=== PATIENT | male | born 1955 | race Caucasian/White ===

== ENCOUNTER 2025-03-28 19:44 | Inpatient (IN) | payer MEDICARE, OTHER ==
--- NOTE | 2025-03-28 20:03 | ED ---
Recheck HPI - General Chief Complaint: Chest Pain Stated Complaint: NSTEMI, Decreased Renal Function Time Seen by Provider: 03/28/25 19:55 Source: EMS, RN notes reviewed Limitations: no limitations - History of Present Illness Initial Comments: This is a 70 male to the ER for evaluation patient presents today for evaluation of chest pain chest pain and shortness of breath history of heart disease. Patient is transferred to our hospital for elevated troponin at outside facility presents to our ER with chest pain, patient is on a heparin for elevated troponin MD Complaint: abnormal lab (Elevated troponin) -: hour(s) Returns Today for: Called Because of Abnormal Lab/Test, persistent/worsening pain related to initial visit (Persistent chest pain) Symptoms Since Prior Visit: worsening pain Associated Symptoms: none Treatments Prior to Arrival: other (0) - Related Data Home Medications Medication Instructions Recorded Confirmed Pregabalin [Lyrica] 100 mg PO DAILY 04/26/14 03/29/25 Fenofibrate 160 mg PO DAILY 07/24/16 03/29/25 allopurinoL [Zyloprim] 300 mg PO DAILY 07/24/16 03/29/25 Cholecalciferol [Vitamin D3 (25 25 mcg PO DAILY 03/29/25 03/29/25 Mcg = 1000 Iu)] Furosemide [Lasix] 40 mg PO DAILY 03/29/25 03/29/25 HYDROcodone/APAP 7.5-325MG [[place] 1 tab PO Q8H PRN 03/29/25 03/29/25 7.5-325] Metoprolol Succinate [Toprol XL] 50 mg PO DAILY 03/29/25 03/29/25 Olmesartan Medoxomil [Benicar] 40 mg PO DAILY 03/29/25 03/29/25 amLODIPine [Norvasc] 10 mg PO DAILY 03/29/25 03/29/25 glipiZIDE [Glucotrol] 5 mg PO DAILY 03/29/25 03/29/25 Previous Rx's Medication Instructions Recorded Ascorbic Acid [Vitamin C] 500 mg PO DAILY #90 tab 04/01/25 Aspirin 81 mg PO DAILY #90 tab 04/01/25 Atorvastatin [Lipitor] 40 mg PO HS #90 tab 04/01/25 Dapagliflozin Propanediol [Farxiga] 10 mg PO DAILY #30 tab 04/01/25 Ferrous Sulfate [Iron (65 MG 325 mg PO W/LUNCH #90 tab 04/01/25 Elemental)] Insulin Glargine,Hum.rec.anlog 20 units SQ DAILY #0 04/01/25 [Lantus Solostar Pen] Allergies Allergy/AdvReac Type Severity Reaction Status Date / Time No Known Allergies Allergy Verified 03/29/25 08:00 Review of Systems ROS Statement: Those systems with pertinent positive or pertinent negative responses have been documented in the HPI. ROS Other: All systems not noted in ROS Statement are negative. Past Medical History Past Medical History: Diabetes Mellitus, Fibromyalgia, Hyperlipidemia, Hypertension Additional Past Medical History / Comment(s): hx migraines, gout, History of Any Multi-Drug Resistant Organisms: None Reported Past Surgical History: Hernia Repair Past Anesthesia/Blood Transfusion Reactions: Motion Sickness Past Psychological History: No Psychological Hx Reported Smoking Status: Never smoker Past Alcohol Use History: None Reported Past Drug Use History: None Reported - Past Family History Father Family Medical History: Cancer Mother Family Medical History: Cancer General Exam Limitations: no limitations General appearance: alert, in no apparent distress Head exam: Present: atraumatic, normocephalic, normal inspection Eye exam: Present: normal appearance, PERRL, EOMI. Absent: scleral icterus, conjunctival injection, periorbital swelling ENT exam: Present: normal exam, mucous membranes moist Neck exam: Present: normal inspection. Absent: tenderness, meningismus, lymphadenopathy Respiratory exam: Present: normal lung sounds bilaterally. Absent: respiratory distress, wheezes, rales, rhonchi, stridor Cardiovascular Exam: Present: regular rate, normal rhythm, normal heart sounds. Absent: systolic murmur, diastolic murmur, rubs, gallop, clicks GI/Abdominal exam: Present: soft, normal bowel sounds. Absent: distended, tenderness, guarding, rebound, rigid Extremities exam: Present: normal inspection, full ROM, normal capillary refill. Absent: tenderness, pedal edema, joint swelling, calf tenderness Back exam: Present: normal inspection Neurological exam: Present: alert, oriented X3, CN II-XII intact Psychiatric exam: Present: normal affect, normal mood Skin exam: Present: warm, dry, intact, normal color. Absent: rash Course Vital Signs 03/28/25 03/28/25 03/29/25 19:52 23:06 01:36 Temperature 98.5 F Pulse Rate 97 72 70 Respiratory 20 18 18 Rate Blood Pressure 140/67 140/94 131/79 O2 Sat by Pulse 94 L 97 98 Oximetry 03/29/25 03/29/25 03/29/25 03:05 06:32 07:46 Temperature Pulse Rate 64 75 Respiratory 18 18 Rate Blood Pressure 130/80 125/75 O2 Sat by Pulse 96 97 97 Oximetry 03/29/25 03/29/25 03/29/25 07:47 08:01 09:00 Temperature 97.5 F L Pulse Rate 66 66 58 L Respiratory 18 18 18 Rate Blood Pressure 124/88 117/60 130/72 O2 Sat by Pulse 95 94 L 97 Oximetry 03/29/25 03/29/25 03/29/25 11:00 12:00 14:00 Temperature 97.6 F Pulse Rate 60 60 73 Respiratory 20 18 18 Rate Blood Pressure 114/66 122/68 128/76 O2 Sat by Pulse 97 97 97 Oximetry 03/29/25 03/29/25 03/29/25 15:15 15:56 17:00 Temperature Pulse Rate 66 70 70 Respiratory 18 18 18 Rate Blood Pressure 118/58 118/58 128/78 O2 Sat by Pulse 97 95 Oximetry 03/29/25 03/29/25 03/29/25 18:00 19:00 20:00 Temperature Pulse Rate 78 72 Respiratory 18 18 Rate Blood Pressure 118/64 126/60 129/65 O2 Sat by Pulse 92 L Oximetry 03/29/25 03/29/25 03/29/25 21:00 22:00 23:00 Temperature Pulse Rate 79 76 80 Respiratory 18 18 20 Rate Blood Pressure 113/65 121/68 131/80 O2 Sat by Pulse 93 L 95 Oximetry 03/30/25 00:34 Temperature Pulse Rate 86 Respiratory 20 Rate Blood Pressure 128/69 O2 Sat by Pulse 95 Oximetry - Reevaluation(s) Reevaluation #1: 03/28/25 21:38 Medical records reviewed Transferring records reviewed including elevated troponin Reevaluation #2: 03/28/25 21:38 Patient informed of results questions answered Reevaluation #3: 03/28/25 21:38 Patient is still with chest pain still with nausea here in the ER Patient informed of results and questions answered Reevaluation #4: Was pt. sent in by a medical professional or institution (, PA, CLASS C TRUCK DRIVER, urgent care, hospital, or jail...) When possible be specific @ -no Did you speak to anyone other than the patient for history (EMS, parent, family, police, friend...)? What history was obtained from this source @ -no Did you review nursing and triage notes (agree or disagree)? Why? @ -agree Are old charts reviewed (outside hosp., previous admission, EMS record, old EKG, old radiological studies, urgent care reports/EKG's, jail records)? Rep ort findings @ -yes Differential Diagnosis (chest pain, altered mental status, abdominal pain women, abdominal pain men, vaginal bleeding, weakness, fever, dyspnea, syncope, headache, dizziness, GI bleed, back pain, seizure, CVA, palpatations, mental health, musculoskeletal)? @ -prior EKG interpreted by me (3pts min.). @ -yes X-rays interpreted by me (1pt min.). @ -yes positive for CHF CT interpreted by me (1pt min.). @ -no U/S interpreted by me (1pt. min.). @ -no What testing was considered but not performed or refused? (CT, X-rays, U/S, labs)? Why? @ -none What meds were considered but not given or refused? Why? @ -none Did you discuss the management of the patient with other professionals (professionals i.e. , PA, CLASS C TRUCK DRIVER, lab, RT, psych nurse, social science professor, stock cutter, teacher, property utilization officer, cyanide case hardener)? Give summary @ -no Was smoking cessation discussed for >3mins.? @ -no Was critical care preformed (if so, how long)? @ -yes31 Were there social determinants of health that impacted care today? How? (Homelessness, low income, unemployed, alcoholism, drug addiction, tra nsportation, low edu. Level, literacy, decrease access to med. care, chcf, rehab)? @ -none Was there de-escalation of care discussed even if they declined (Discuss DNR or withdrawal of care, Hospice)? DNR status @ -no What co-morbidities impacted this encounter? (DM, HTN, Smoking, COPD, CAD, Cance r, CVA, ARF, Chemo, Hep., AIDS, mental health diagnosis, sleep apnea, morbid obesity)? @ -none Was patient admitted / discharged? Hospital course, mention meds given and route, prescriptions, significant lab abnormalities, going to OR and other pertinent info. @ - 70 male excepted in transfer to the ER for elevated troponin chest pain patient also having some shortness of breath here with pulmonary edema on x-ray CHF and elevated troponin will continue heparin and evaluate for need for diuresis, also acute kidney injury Admitted Undiagnosed new problem with uncertain prognosis? @ -no Drug Therapy requiring intensive monitoring for toxicity (Heparin, Nitro, Insulin, Cardizem)? @ -no Were any procedures done? @ -no Diagnosis/symptom? @ -CHF dyspnea with elevated troponin and chest pain Acute, or Chronic, or Acute on Chronic? @ -Acute Uncomplicated (without systemic symptoms) or Complicated (systemic symptoms)? @ -Complicated Side effects of treatment? @ -no Exacerbation, Progression, or Severe Exacerbation? @ -exacerbation Poses a threat to life or bodily function? How? (Chest pain, [place], [place], pneumonia, PE, COPD, DKA, ARF, appy, cholecystitis, CVA, Diverticulitis, Homicidal, Suicidal, threat to staff... and all critical care pts) @ -yes with significant chest pain and CHF Reevaluation #5: Differential Chest Pain: Stable Angina, Unstable Angina, STEMI, NSTEMI Aortic Dissection, Pneumothorax, Musculoskeletal, Esophageal Spasm GERD, Cholecystitis, Pancreatitis, Zoster, this is not meant to be an all-inclusive list. - Consultations Consultation #1: Spoke with sound who agrees to admit this patient Medical Decision Making - Medical Decision Making 70 male excepted in transfer to the ER for elevated troponin chest pain patient also having some shortness of breath here with pulmonary edema on x-ray CHF and elevated troponin will continue heparin and evaluate for need for diuresis, also acute kidney injury - Lab Data Result diagrams: 04/01/25 07:05 04/01/25 07:05 Lab Results 03/28/25 03/28/25 03/28/25 Range/Units 20:02 20:09 20:09 WBC 9.01 (4.50-10.00) 10*3/uL RBC 3.95 L (4.40-5.60) 10*6/uL Hgb 11.3 L (13.0-17.0) g/dL Hct 34.7 L (39.6-50.0) % MCV 87.8 (80.0-97.0) fL MCH 28.6 (27.0-32.0) pg MCHC 32.6 (32.0-37.0) g/dL Plt Count 390 (140-440) 10*3/uL MPV 8.6 L (9.5-12.2) fL Immature Gran % (Auto) 0.4 % Neutrophils % 64.2 % Lymphocytes % 22.0 % Monocytes % 7.4 % Eosinophils % 4.4 % Basophils % 1.6 % Immature Gran # 0.04 (0.00-0.04) 10*3/uL Neutrophils # 5.78 (1.80-7.70) 10*3/uL Lymphocytes # 1.98 (0.90-5.00) 10*3/uL Monocytes # 0.67 (0.20-1.00) 10*3/uL Eosinophils # 0.40 H (0.04-0.35) 10*3/uL Basophils # 0.14 H (0.00-0.10) 10*3/uL PT 12.2 (10.0-12.5) sec INR 1.1 (<1.2) APTT 26.9 (22.0-30.0) sec D-Dimer 0.54 (<0.60) mg/L FEU Sodium (137-145) mmol/L Potassium (3.5-5.1) mmol/L Chloride (98-107) mmol/L Carbon Dioxide (22-30) mmol/L Anion Gap mmol/L BUN (9-20) mg/dL Creatinine (0.66-1.25) mg/dL Est GFR (CKD-EPI)AfAm (>60 ml/min/1.73 sqM) Est GFR (CKD-EPI)NonAf (>60 ml/min/1.73 sqM) Glucose (74-99) mg/dL POC Glucose (mg/dL) 86 (70-110) mg/dL POC Glu Mental Health Aide ID LINH SCIAND Calcium (8.4-10.2) mg/dL Magnesium (1.6-2.3) mg/dL Total Bilirubin (0.2-1.3) mg/dL AST (17-59) U/L ALT (4-49) U/L Alkaline Phosphatase (38-126) U/L Troponin I (0.000-0.034) ng/mL NT-Pro-B Natriuret Pep pg/mL Total Protein (6.3-8.2) g/dL Albumin (3.5-5.0) g/dL Lipase (23-300) U/L 03/28/25 03/28/25 Range/Units 20:09 20:09 WBC (4.50-10.00) 10*3/uL RBC (4.40-5.60) 10*6/uL Hgb (13.0-17.0) g/dL Hct (39.6-50.0) % MCV (80.0-97.0) fL MCH (27.0-32.0) pg MCHC (32.0-37.0) g/dL Plt Count (140-440) 10*3/uL MPV (9.5-12.2) fL Immature Gran % (Auto) % Neutrophils % % Lymphocytes % % Monocytes % % Eosinophils % % Basophils % % Immature Gran # (0.00-0.04) 10*3/uL Neutrophils # (1.80-7.70) 10*3/uL Lymphocytes # (0.90-5.00) 10*3/uL Monocytes # (0.20-1.00) 10*3/uL Eosinophils # (0.04-0.35) 10*3/uL Basophils # (0.00-0.10) 10*3/uL PT (10.0-12.5) sec INR (<1.2) APTT (22.0-30.0) sec D-Dimer (<0.60) mg/L FEU Sodium 139 (137-145) mmol/L Potassium 5.0 (3.5-5.1) mmol/L Chloride 106 (98-107) mmol/L Carbon Dioxide 23 (22-30) mmol/L Anion Gap 10 mmol/L BUN 31 H (9-20) mg/dL Creatinine 2.19 H (0.66-1.25) mg/dL Est GFR (CKD-EPI)AfAm 34 (>60 ml/min/1.73 sqM) Est GFR (CKD-EPI)NonAf 30 (>60 ml/min/1.73 sqM) Glucose 83 (74-99) mg/dL POC Glucose (mg/dL) (70-110) mg/dL POC Glu Mental Health Aide ID Calcium 9.2 (8.4-10.2) mg/dL Magnesium 1.9 (1.6-2.3) mg/dL Total Bilirubin 1.0 (0.2-1.3) mg/dL AST 56 (17-59) U/L ALT 29 (4-49) U/L Alkaline Phosphatase 33 L (38-126) U/L Troponin I 0.072 H* (0.000-0.034) ng/mL NT-Pro-B Natriuret Pep 4150 pg/mL Total Protein 7.4 (6.3-8.2) g/dL Albumin 3.8 (3.5-5.0) g/dL Lipase 167 (23-300) U/L - EKG Data -: EKG Interpreted by Me (EKG is normal sinus 96 SD 264 QRS 99 QTc 390) - Radiology Data Radiology results: report reviewed (Chest x-ray is positive for pulmonary edema), image reviewed Critical Care Time Critical Care Time: Yes Total Critical Care Time: 31 Disposition Clinical Impression: Chest pain, Acute non-ST elevation myocardial infarction (NSTEMI), CHF (congestive heart failure), Pulmonary edema, YOBANI (acute kidney injury) Disposition: ADMITTED IP TO THIS HOSP Condition: Serious Is patient prescribed a controlled substance at d/c from ED?: No Time of Disposition: 21:30
[2025-03-28 20:04] LABS: Glucose,Whole Blood 86 mg/dL (70-110)
[2025-03-28] MEDS: MORPHINE SULFATE 4 MG/ML SYRINGE IV STA (20:20)
[2025-03-28] MEDS: HEPARIN SOD,PORK IN 0.45% NACL 25,000 UNIT in 0.45% NACL 1 250ML.BAG IV SCH (20:24)
[2025-03-28 20:26] LABS: Basophils # (A) 0.14 10*3/uL (0.00-0.10); Basophils % (A) 1.6 %; Eosinophils % (A) 4.4 %; HCT 34.7 % (39.6-50.0); HGB 11.3 g/dL (13.0-17.0); Lymphocytes # (A) 1.98 10*3/uL (0.90-5.00); MCH 28.6 pg (27.0-32.0); MCHC 32.6 g/dL (32.0-37.0); MCV 87.8 fL (80.0-97.0); Mean Platelet Volume 8.6 fL (9.5-12.2); Monocytes # (A) 0.67 10*3/uL (0.20-1.00); Monocytes % (A) 7.4 %; Neutrophils # (A) 5.78 10*3/uL (1.80-7.70); Neutrophils % (A) 64.2 %; Platelet Count 390 10*3/uL (140-440); RBC 3.95 10*6/uL (4.40-5.60); RDW 14.9 % (11.5-14.5); WBC 9.01 10*3/uL (4.50-10.00)
[2025-03-28 20:43] LABS: INR 1.1 (<1.2); Partial Thromboplastin Time 26.9 sec (22.0-30.0); Prothrombin Time 12.2 sec (10.0-12.5)
[2025-03-28 20:53] LABS: ALT 29 U/L (4-49); African American GFR (CKD) 34 (>60 ml/min/1.73 sqM); Anion Gap 10 mmol/L; Blood Urea Nitrogen 31 mg/dL (9-20); Calcium 9.2 mg/dL (8.4-10.2); Carbon Dioxide 23 mmol/L (22-30); Chloride 106 mmol/L (98-107); Glucose 83 mg/dL (74-99); Lipase 167 U/L (23-300); Non-African American GFR(CKD) 30 (>60 ml/min/1.73 sqM); Sodium 139 mmol/L (137-145)
[2025-03-28 20:59] LABS: NT-Pro-B-Type Natriuretic Pept 4150 pg/mL
--- NOTE | 2025-03-28 20:59 | XR ---
EXAMINATION TYPE: XR chest 2V DATE OF EXAM: 03/28/2025 8:45 PM COMPARISON: None CLINICAL INDICATION: Male, 70 years old with history of Chest Pain; [facility] TECHNIQUE: XR chest 2V Frontal and lateral views of the chest. FINDINGS: Lungs/Pleura: No evidence of focal consolidation or pneumothorax. Blunting of the costophrenic angles is present. Pulmonary vascularity: Pulmonary vascular congestion. Heart/mediastinum: Cardiomediastinal silhouette is unremarkable. Musculoskeletal: No acute osseous pathology. IMPRESSION: Pulmonary edema blunting of the costophrenic angles correlate for volume overload/congestive heart fa ilure. [facility], , 03/28/2025 8:57 PM
[2025-03-28 21:21] LABS: AST 56 U/L (17-59); Albumin 3.8 g/dL (3.5-5.0); Magnesium 1.9 mg/dL (1.6-2.3); Total Protein 7.4 g/dL (6.3-8.2)
[2025-03-28 21:22] LABS: Alkaline Phosphatase 33 U/L (38-126)
[2025-03-28] MEDS ORDERED: NALOXONE 0.4 MG/ML 1 ML VIAL IV PRN (21:35)
[2025-03-29] MEDS: SODIUM CHLORIDE 0.9% 1,000 ML IV SCH (00:10)
[2025-03-29] MEDS: MORPHINE SULFATE 4 MG/ML SYRINGE IV PRN (00:10)
[2025-03-29] MEDS: FUROSEMIDE 10 MG/ML 10 ML VIAL IV STA (00:33)
[2025-03-29] MEDS: LORazepam 2 MG/ML INJ IV STA (01:37)
--- NOTE | 2025-03-29 03:14 | P.HPIM ---
History of Present Illness H&P Date: 03/28/25 Chief Complaint: Chest pain 70-year-old male with diabetes mellitus, hypertension Patient coming in for evaluation of progressive chest pain he reports that for the past few months he would get chest pain with activity however he has not seek any medical evaluation he has been taking some aspirin for that today he was not doing much when he was trying to get to bed and suddenly started experiencing chest discomfort retrosternal and radiating diffusely to the chest associated with trouble breathing pain was like 8 out of 10 in severity took aspirin for it slightly improved drove himself to the hospital denies any associated nausea vomiting or profuse sweating he denies any recent travel or hospital stay denies any history of blood clots he denies any upper respiratory infection symptoms denies any coughing fevers or chills denies any nausea vomiting denies abdominal pain changes in bowel or urinary habits Patient denies any tobacco smoking illicit drugs or heavy alcohol review of systems Pertinent positives as noted in HPI. All other systems were reviewed and are negative on exam Constitutional: No acute distress, conversant, pleasant Eyes: Anicteric sclerae, moist conjunctiva, Pupils equal round reactive to light ENMT: NC/AT Oropharynx clear, no erythema, or exudates Neck: Supple, no masses, or JVD No carotid bruits No thyromegaly Lungs: Good breath sounds bilaterally with scattered inspiratory rales at lung bases Clear to percussion Normal respiratory effort, no accessory muscle use Cardiovascular: Heart regular in rate and rhythm, No murmurs, gallops, or rubs No peripheral edema Abdominal: Soft Nontender, no guarding, rebound or rigidity Abdomen moving with respiration Normoactive bowel sounds Extremities: No digital cyanosis No clubbing Pedal pulses intact and symmetrical Radial pulses intact and symmetrical No calf tenderness Psychiatric: Alert and oriented to person, place and time Appropriate affect fair judgement Neuro Muscles Strength 5/5 in all 4 extremities Sensation to light touch grossly present throughout Cranial nerves II-XII grossly intact Past Medical History Past Medical History: Diabetes Mellitus, Fibromyalgia, Hyperlipidemia, Hypertension Additional Past Medical History / Comment(s): hx migraines, gout, History of Any Multi-Drug Resistant Organisms: None Reported Past Surgical History: Hernia Repair Past Anesthesia/Blood Transfusion Reactions: Motion Sickness Past Psychological History: No Psychological Hx Reported Smoking Status: Never smoker Past Alcohol Use History: None Reported Past Drug Use History: None Reported - Past Family History Father Family Medical History: Cancer Mother Family Medical History: Cancer Medications and Allergies Home Medications Medication Instructions Recorded Confirmed Type Insulin Glargine (Lantus) [Lantus] 100 unit SQ QAM 04/26/14 07/26/16 History Pregabalin [Lyrica] 100 mg PO TID 04/26/14 07/26/16 History hydroCHLOROthiazide [Hydrodiuril] 25 mg PO DAILY 04/26/14 07/26/16 History Ergocalciferol [Vitamin D2] 1.25 mg PO Q7D 07/24/16 07/26/16 History Fenofibrate 160 mg PO DAILY 07/24/16 07/26/16 History HYDROcodone/APAP 10-325MG [[place] 1 tab PO Q8HR PRN 07/24/16 07/26/16 History 10-325] Methylphenidate HCl [Ritalin] 20 mg PO TID 07/24/16 07/26/16 History Metoprolol Tartrate [Lopressor] 50 mg PO DAILY 07/24/16 07/26/16 History Pravastatin Sodium [Pravachol] 40 mg PO HS 07/24/16 07/26/16 History allopurinoL [Zyloprim] 300 mg PO DAILY 07/24/16 07/26/16 History amLODIPine BESYLATE [Norvasc] 5 mg PO DAILY 07/24/16 07/26/16 History lisinopriL [Zestril] 20 mg PO BID 07/24/16 07/26/16 History metFORMIN HCL [Glucophage] 500 mg PO BID 07/24/16 07/26/16 History Allergies Allergy/AdvReac Type Severity Reaction Status Date / Time No Known Allergies Allergy Verified 03/28/25 19:59 Physical Exam Vitals: Vital Signs Temp Pulse Resp BP Pulse Ox 03/29/25 03:05 64 18 130/80 96 03/29/25 01:36 70 18 131/79 98 03/28/25 23:06 72 18 140/94 97 03/28/25 19:52 98.5 F 97 20 140/67 94 L Intake and Output 03/28/25 03/28/25 03/29/25 14:59 22:59 06:59 Other: Weight 113.398 kg Results CBC & Chem 7: 03/28/25 20:09 03/28/25 20:09 Labs: Abnormal Lab Results - Last 24 Hours (Table) 03/28/25 03/28/25 03/28/25 Range/Units 20:09 20:09 20:09 RBC 3.95 L (4.40-5.60) 10*6/uL Hgb 11.3 L (13.0-17.0) g/dL Hct 34.7 L (39.6-50.0) % MPV 8.6 L (9.5-12.2) fL Eosinophils # 0.40 H (0.04-0.35) 10*3/uL Basophils # 0.14 H (0.00-0.10) 10*3/uL BUN 31 H (9-20) mg/dL Creatinine 2.19 H (0.66-1.25) mg/dL Alkaline Phosphatase 33 L (38-126) U/L Troponin I 0.072 H* (0.000-0.034) ng/mL 03/29/25 Range/Units 00:33 RBC (4.40-5.60) 10*6/uL Hgb (13.0-17.0) g/dL Hct (39.6-50.0) % MPV (9.5-12.2) fL Eosinophils # (0.04-0.35) 10*3/uL Basophils # (0.00-0.10) 10*3/uL BUN (9-20) mg/dL Creatinine (0.66-1.25) mg/dL Alkaline Phosphatase (38-126) U/L Troponin I 0.074 H* (0.000-0.034) ng/mL Assessment and Plan Assessment: 70-year-old male diabetes mellitus hypertension transferred to our facility for progressively worsening chest pain suspected underlying NSTEMI I discussed case with ED doctor and accepted the admission for the chest pain to rule out acute coronary syndrome with anticipated length of stay less than 2 midnights NSTEMI Troponins elevated 0.072 continue to trend Cardiology consult Monitor vital signs Continue with aspirin 81 mg daily Continue with atorvastatin 40 mg p.o. nightly Nitro as needed for chest pain Heparin drip for ACS protocol Supplemental oxygen as needed D-dimer negative Chest x-ray showed pulmonary edema EKG no acute ST changes Elevated proBNP 4150 Acute kidney injury Sodium unremarkable 139 potassium unremarkable 5 Elevated BUN 31 elevated creatinine 2.1 Nonoliguric Continue to monitor urine output Monitor renal function Avoid nephrotoxic meds Diabetes mellitus Insulin sliding scale Hypertension Resume home meds Full code DVT prophylaxis on heparin drip for ACS protocol GI prophylaxis with Protonix 40 mg p.o. daily Verify home meds
[2025-03-29] MEDS ORDERED: DEXTROSE 50% SYRINGE 50 ML IVP PRN ×2 (03:16)
[2025-03-29 03:38] LABS: Basophils # (A) 0.14 10*3/uL (0.00-0.10); Basophils % (A) 1.7 %; Eosinophils # (A) 0.33 10*3/uL (0.04-0.35); Eosinophils % (A) 4.1 %; HCT 32.7 % (39.6-50.0); HGB 10.4 g/dL (13.0-17.0); Lymphocytes % (A) 23.5 %; MCH 28.9 pg (27.0-32.0); MCHC 31.8 g/dL (32.0-37.0); MCV 90.8 fL (80.0-97.0); Mean Platelet Volume 8.5 fL (9.5-12.2); Monocytes # (A) 0.56 10*3/uL (0.20-1.00); Monocytes % (A) 6.9 %; Neutrophils # (A) 5.13 10*3/uL (1.80-7.70); Neutrophils % (A) 63.4 %; Platelet Count 379 10*3/uL (140-440); WBC 8.09 10*3/uL (4.50-10.00)
[2025-03-29 04:27] LABS: ALT 27 U/L (4-49); AST 34 U/L (17-59); African American GFR (CKD) 33 (>60 ml/min/1.73 sqM); Albumin 3.4 g/dL (3.5-5.0); Alkaline Phosphatase 52 U/L (38-126); Anion Gap 12 mmol/L; Blood Urea Nitrogen 29 mg/dL (9-20); Calcium 9.2 mg/dL (8.4-10.2); Carbon Dioxide 21 mmol/L (22-30); Chloride 106 mmol/L (98-107); Glucose 58 mg/dL (74-99); Magnesium 1.9 mg/dL (1.6-2.3); Non-African American GFR(CKD) 29 (>60 ml/min/1.73 sqM); Phosphorus 3.9 mg/dL (2.5-4.5); Potassium 4.2 mmol/L (3.5-5.1); Sodium 139 mmol/L (137-145); Total Bilirubin 0.6 mg/dL (0.2-1.3); Total Protein 6.4 g/dL (6.3-8.2)
[2025-03-29] MEDS: HEPARIN SODIUM 1,000 UN/ML (10ML VL) IV PRN (05:31)
[2025-03-29 07:51] LABS: Glucose,Whole Blood 99 mg/dL (70-110)
[2025-03-29] MEDS: INSULIN LISPRO (HumaLOG) 100 UNIT/ML 10 mL VL SQ SCH (07:51)
[2025-03-29] MEDS: ONDANSETRON 4 MG/2 ML VIAL IVP PRN (08:40)
[2025-03-29] MEDS: ASPIRIN 81 MG PO SCH (08:43)
[2025-03-29] MEDS: amLODIPine 5 MG TAB PO SCH (08:43)
[2025-03-29] MEDS: METOPROLOL TARTRATE 50 MG TAB PO SCH (08:43)
--- NOTE | 2025-03-29 09:18 | US ---
EXAMINATION TYPE: US kidneys/renal and bladder DATE OF EXAM: 03/29/2025 COMPARISON: NONE CLINICAL INDICATION: Male, 70 years old with history of [place]; Patient denies any signs or symptoms. Hx HTN and DM TECHNIQUE: Grayscale imaging of the bilateral kidneys and urinary bladder: FINDINGS: EXAM MEASUREMENTS: Right Kidney: 13.8 x 6.5 x 6.1 cm Left Kidney: 13.0 x 6.9 x 5.6 cm Right Kidney: wnl, no evidence for hydronephrosis, mass or renal calculus. Left Kidney: wnl, no evidence for hydronephrosis, mass or renal calculus - a 1.7 cm centrally located simple cyst as well as a 2.5 cm lower pole cortical cyst. Bladder: Partially distended bladder shows no gross abnormality. Bilateral Jets seen: No Normal Post Void Residual: Not assessed IMPRESSION: No hydronephrosis. [facility], Workstation: [email or web address], 03/29/2025 9:16 AM
--- NOTE | 2025-03-29 10:05 | P.CRDCN ---
History of Present Illness History of present illness: HISTORY OF PRESENT ILLNESS: This is a 70-year-old male with a past medical history significant for hypertension, hyperlipidemia and diabetes. 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 We have been asked to see the patient in consultation for elevated troponins. Patient examined at the bedside in the emergency room. Patient initially presented to [facility] with a chief complaint of nausea and vomiting. Patient denied any chest pain or pressure. He denied any shortne ss of breath. According to primary medicine's dictation, the patient had chest pain prior to coming to the hospital. However when patient was interviewed this morning he denied having any episodes of chest pain or pressure. The patient was found to have minimally elevated troponins and was started on IV heparin. Additionally patient was found to have acute kidney injury with a creatinine of 2.25. His family is at the bedside and states that he was told he had an TX about 6 months ago. At that time he was also told that his kidney function was not quite normal. She states that he was supposed to have a ripening room operator come evaluate him at that time but he did not stay in the hospital. He denies any previous cardiac catheterizations or stenting. DIAGNOSTICS: - EKG reveals sinus mechanism with T wave inversions in high lateral leads.. - Chest xray pulmonary edema blunting of costophrenic angles correlate for volume overload. - Laboratory data: WBC 8.09. Hemoglobin 10.4. Platelet count 379. D-dimer 0.54. Sodium 139. Potassium 4.2. BUN 29. Creatinine 2.25. Troponin 0.072. 0.074. 0.078. proBNP 4150. - Current home cardiac medications include metoprolol succinate 50 mg daily, Lasix 40 mg daily, amlodipine 10 mg daily, hydralazine 50 mg 3 times daily, Benicar 40 mg daily, fenofibrate 160 mg daily. - No previous echocardiogram, stress test, or cardiac catheterization available in EMR for review REVIEW OF SYSTEMS: At the time of my exam: CONSTITUTIONAL: Denies fever or chills. HEENT: Denies blurred vision, vision changes, or eye pain. Denies hemoptysis CARDIOVASCULAR: Denies chest pain. Denies orthopnea. Denies PND. Denies palpitations RESPIRATORY: Denies shortness of breath. GASTROINTESTINAL: Denies abdominal pain. Denies nausea or vomiting. HEMATOLOGIC: Denies bleeding disorders. GENITOURINARY: Denies any blood in urine. SKIN: Denies pruitis. Denies rash. PHYSICAL EXAM: VITAL SIGNS: Reviewed. GENERAL: Well-developed in no acute distress. HEENT: Head is normocephalic. Pupils are equal, round. Sclerae anicteric. Mucous membranes of the mouth are moist. Neck supple. No JVD or thyromegaly LUNGS: Respirations even and unlabored. Lungs essentially clear to auscultation bilaterally. HEART: Regular rate and rhythm. S1 and S2 heard. ABDOMEN: Soft. Nondistended. Nontender. EXTREMITIES: Normal range of motion. No clubbing or cyanosis. Peripheral pu lses intact. No lower extremity edema NEUROLOGIC: Awake and alert. Oriented x 3. ASSESSMENT: Nausea and vomiting Acute kidney injury Elevated troponins, flat, likely secondary to poor renal clearance, no evidence of myocardial injury or ischemia History of hypertension History of hyperlipidemia History of diabetes Obesity: BMI 35.9 PLAN: An acute coronary event has been ruled out Discontinue IV heparin Obtain 2D echo to assess cardiac structure and function Continue aspirin and statin Hold nephrotoxic drugs. Nephrology has been consulted for evaluation. Monitor kidney function. Repeat in AM. No plans for stress testing or cardiac catheterization at this time Further recommendations pending patient course Nurse practitioner note has been reviewed by physician. Signing provider agrees with the documented findings, assessment, and plan of care documented by RIPENING ROOM OPERATOR as a scribe. Past Medical History Past Medical History: Diabetes Mellitus, Fibromyalgia, Hyperlipidemia, Hypertension Additional Past Medical History / Comment(s): hx migraines, gout, History of Any Multi-Drug Resistant Organisms: None Reported Past Surgical History: Hernia Repair Past Anesthesia/Blood Transfusion Reactions: Motion Sickness Past Psychological History: No Psychological Hx Reported Smoking Status: Never smoker Past Alcohol Use History: None Reported Past Drug Use History: None Reported - Past Family History Father Family Medical History: Cancer Mother Family Medical History: Cancer Medications and Allergies Home Medications Medication Instructions Recorded Confirmed Type Pregabalin [Lyrica] 100 mg PO DAILY 04/26/14 03/29/25 History Fenofibrate 160 mg PO DAILY 07/24/16 03/29/25 History allopurinoL [Zyloprim] 300 mg PO DAILY 07/24/16 03/29/25 History Cholecalciferol [Vitamin D3 (25 25 mcg PO DAILY 03/29/25 03/29/25 History Mcg = 1000 Iu)] Furosemide [Lasix] 40 mg PO DAILY 03/29/25 03/29/25 History HYDROcodone/APAP 7.5-325MG [[place] 1 tab PO Q8H PRN 03/29/25 03/29/25 History 7.5-325] Insulin Glargine,Hum.rec.anlog 80 units SQ DAILY 03/29/25 03/29/25 History [Lantus Solostar Pen] Metoprolol Succinate [Toprol XL] 50 mg PO DAILY 03/29/25 03/29/25 History Olmesartan Medoxomil [Benicar] 40 mg PO DAILY 03/29/25 03/29/25 History amLODIPine [Norvasc] 10 mg PO DAILY 03/29/25 03/29/25 History glipiZIDE [Glucotrol] 5 mg PO DAILY 03/29/25 03/29/25 History hydrALAZINE HCL [Apresoline] 50 mg PO TID 03/29/25 03/29/25 History Allergies Allergy/AdvReac Type Severity Reaction Status Date / Time No Known Allergies Allergy Verified 03/29/25 08:00 Physical Exam Vitals: Vital Signs Temp Pulse Resp BP Pulse Ox 03/29/25 08:01 66 18 117/60 94 L 03/29/25 07:47 97.5 F L 66 18 124/88 95 03/29/25 07:46 97 03/29/25 06:32 75 18 125/75 97 03/29/25 03:05 64 18 130/80 96 03/29/25 01:36 70 18 131/79 98 03/28/25 23:06 72 18 140/94 97 03/28/25 19:52 98.5 F 97 20 140/67 94 L Intake and Output 03/28/25 03/29/25 03/29/25 22:59 06:59 14:59 Intake Total 89.312 Balance 89.312 Intake: Intake, IV Titration 89.312 Amount Heparin Sod,Pork in 0.45% 89.312 NaCl 25,000 unit In 0.45 % NaCl 1 250ml.bag @ 8.8 UNITS/KG/HR 9.979 mls/hr IV .Q24H [facility] Rx#: [id number] Other: Weight 113.398 kg Results 03/29/25 02:35 03/29/25 02:35 Cardiac Enzymes 03/28/25 03/28/25 03/29/25 Range/Units 20:09 20:09 00:33 AST 56 (17-59) U/L Troponin I 0.072 H* 0.074 H* (0.000-0.034) ng/mL 03/29/25 03/29/25 Range/Units 02:35 02:35 AST 34 (17-59) U/L Troponin I 0.078 H* (0.000-0.034) ng/mL Coagulation 03/28/25 03/29/25 Range/Units 20:09 02:35 PT 12.2 (10.0-12.5) sec APTT 26.9 25.2 (22.0-30.0) sec CBC 03/28/25 03/29/25 Range/Units 20:09 02:35 WBC 9.01 8.09 (4.50-10.00) 10*3/uL RBC 3.95 L 3.60 L (4.40-5.60) 10*6/uL Hgb 11.3 L 10.4 L (13.0-17.0) g/dL Hct 34.7 L 32.7 L (39.6-50.0) % Plt Count 390 379 (140-440) 10*3/uL Comprehensive Metabolic Panel 03/28/25 03/29/25 Range/Units 20:09 02:35 Sodium 139 139 (137-145) mmol/L Potassium 5.0 4.2 (3.5-5.1) mmol/L Chloride 106 106 (98-107) mmol/L Carbon Dioxide 23 21 L (22-30) mmol/L BUN 31 H 29 H (9-20) mg/dL Creatinine 2.19 H 2.25 H (0.66-1.25) mg/dL Glucose 83 58 L (74-99) mg/dL Calcium 9.2 9.2 (8.4-10.2) mg/dL AST 56 34 (17-59) U/L ALT 29 27 (4-49) U/L Alkaline Phosphatase 33 L 52 (38-126) U/L Total Protein 7.4 6.4 (6.3-8.2) g/dL Albumin 3.8 3.4 L (3.5-5.0) g/dL Current Medications Generic Name Dose Route Start Last Admin Trade Name Freq PRN Reason Stop Dose Admin Amlodipine Besylate 10 mg 03/30/25 09:00 Amlodipine 10 Mg Tab PO DAILY [facility]EE[facility] Aspirin 81 mg 03/29/25 09:00 03/29/25 08:43 Aspirin 81 Mg PO 81 mg DAILY TEENA Administration Atorvastatin Calcium 40 mg 03/29/25 21:00 Atorvastatin 40 Mg Tab PO HS TEENA Dextrose/Water 25 ml 03/29/25 03:16 Dextrose 50% Syringe 50 Ml IVP PER PROTOCOL PRN Hypoglycemia Protocol Dextrose/Water 50 ml 03/29/25 03:16 Dextrose 50% Syringe 50 Ml IVP PER PROTOCOL PRN Hypoglycemia Protocol Heparin Sodium (Porcine) 0 unit 03/29/25 05:15 03/29/25 05:31 Heparin Sodium 1,000 Un/Ml (10ml Vl) IV 5,650 unit Q6HR PRN Administration Low PTT Protocol Sodium Chloride 1,000 mls @ 20 mls/hr 03/28/25 21:45 03/29/25 00:10 Saline 0.9% IV 20 mls/hr .Q24H [facility] Administration Insulin Human Lispro 0 unit 03/29/25 07:30 03/29/25 07:51 Insulin Lispro (Humalog) 100 Unit/Ml 10 Ml Vl SQ Not Given ACHS TEENA Protocol Lorazepam 1 mg 03/29/25 00:21 Lorazepam 2 Mg/Ml Inj IV Q4HR PRN Anxiety Metoprolol Tartrate 50 mg 03/29/25 09:00 03/29/25 08:43 Metoprolol Tartrate 50 Mg Tab PO 50 mg DAILY TEENA Administration Naloxone HCl 0.2 mg 03/28/25 21:35 Naloxone 0.4 Mg/Ml 1 Ml Vial IV Q2M PRN Opioid Reversal Ondansetron HCl 4 mg 03/28/25 21:35 03/29/25 08:40 Ondansetron 4 Mg/2 Ml Vial IVP 4 mg Q8HR PRN Administration Nausea And Vomiting Intake and Output 03/28/25 03/29/25 03/29/25 22:59 06:59 14:59 Intake Total 89.312 Balance 89.312 Intake: Intake, IV Titration 89.312 Amount Heparin Sod,Pork in 0.45% 89.312 NaCl 25,000 unit In 0.45 % NaCl 1 250ml.bag @ 8.8 UNITS/KG/HR 9.979 mls/hr IV .Q24H [facility] Rx#: [id number] Other: Weight 113.398 kg 03/29/25 02:35 03/29/25 02:35
--- NOTE | 2025-03-29 11:14 | P.NPCON ---
History of Present Illness - Reason for Consult acute renal failure - History of Present Illness Patient is a 70-year-old male with history of hypertension who is admitted to the hospital with complaints of feeling ill for about 2 to 3 weeks. Patient has had poor oral intake. He did have nausea but denied any significant diarrhea or vomiting. No history of fever No history of significant chest pain Family states that patient was hospitalized about 6 months ago in [place] with acute [place] but he left AMA. He had refused cardiac catheterization. Kidney function was noted to be weak and patient was advised to see nephrology but he declined. No significant urinary symptoms Serum creatinine 2.1 on admission and is 2.2 today. Previous labs show serum creatinine 1.2 in 2020 Blood pressure is not low Patient is maintained on angiotensin receptor blockers and diuretics at home Chest x-ray on admission shows pulmonary vascular congestion. Past Medical History Past Medical History: Diabetes Mellitus, Fibromyalgia, Hyperlipidemia, Hypertension Additional Past Medical History / Comment(s): hx migraines, gout, History of Any Multi-Drug Resistant Organisms: None Reported Past Surgical History: Hernia Repair Past Anesthesia/Blood Transfusion Reactions: Motion Sickness Past Psychological History: No Psychological Hx Reported Smoking Status: Never smoker Past Alcohol Use History: None Reported Past Drug Use History: None Reported - Past Family History Father Family Medical History: Cancer Mother Family Medical History: Cancer Medications and Allergies Home Medications Medication Instructions Recorded Confirmed Type Pregabalin [Lyrica] 100 mg PO DAILY 04/26/14 03/29/25 History Fenofibrate 160 mg PO DAILY 07/24/16 03/29/25 History allopurinoL [Zyloprim] 300 mg PO DAILY 07/24/16 03/29/25 History Cholecalciferol [Vitamin D3 (25 25 mcg PO DAILY 03/29/25 03/29/25 History Mcg = 1000 Iu)] Furosemide [Lasix] 40 mg PO DAILY 03/29/25 03/29/25 History HYDROcodone/APAP 7.5-325MG [[place] 1 tab PO Q8H PRN 03/29/25 03/29/25 History 7.5-325] Insulin Glargine,Hum.rec.anlog 80 units SQ DAILY 03/29/25 03/29/25 History [Lantus Solostar Pen] Metoprolol Succinate [Toprol XL] 50 mg PO DAILY 03/29/25 03/29/25 History Olmesartan Medoxomil [Benicar] 40 mg PO DAILY 03/29/25 03/29/25 History amLODIPine [Norvasc] 10 mg PO DAILY 03/29/25 03/29/25 History glipiZIDE [Glucotrol] 5 mg PO DAILY 03/29/25 03/29/25 History hydrALAZINE HCL [Apresoline] 50 mg PO TID 03/29/25 03/29/25 History Allergies Allergy/AdvReac Type Severity Reaction Status Date / Time No Known Allergies Allergy Verified 03/29/25 08:00 Physical Exam Vitals: Vital Signs Temp Pulse Resp BP Pulse Ox 03/29/25 08:01 66 18 117/60 94 L 03/29/25 07:47 97.5 F L 66 18 124/88 95 03/29/25 07:46 97 03/29/25 06:32 75 18 125/75 97 03/29/25 03:05 64 18 130/80 96 03/29/25 01:36 70 18 131/79 98 03/28/25 23:06 72 18 140/94 97 03/28/25 19:52 98.5 F 97 20 140/67 94 L Intake and Output 03/28/25 03/29/25 03/29/25 22:59 06:59 14:59 Intake Total 89.312 Balance 89.312 Intake: Intake, IV Titration 89.312 Amount Heparin Sod,Pork in 0.45% 89.312 NaCl 25,000 unit In 0.45 % NaCl 1 250ml.bag @ 8.8 UNITS/KG/HR 9.979 mls/hr IV .Q24H [facility] Rx#: [id number] Other: Weight 113.398 kg Patient is awake, comfortable, no acute distress Examination of the heart S1 and S2 Examination of the lungs bilateral breath sounds are heard Abdomen is soft nontender, obese Examination of lower extremities shows 1+ edema TEASELER exam grossly intact Results - Lab Results Most recent lab results Calcium 9.2 mg/dL (8.4-10.2) 03/29/25 02:35 Phosphorus 3.9 mg/dL (2.5-4.5) 03/29/25 02:35 Magnesium 1.9 mg/dL (1.6-2.3) 03/29/25 02:35 03/29/25 02:35 03/29/25 02:35 Assessment and Plan Assessment: 1. Acute kidney injury, cardiorenal, nonoliguric. Check UA. Ultrasound does not show any evidence of obstruction. 2. Volume overload 3. History of recent acute [place]. Patient had refused cardiac cath and signed off AMA from [facility] about 6 months ago 4. Chronic kidney disease with unknown baseline renal function. Serum creatinine was 1.2 in 2020 but renal function was impaired during recent hospitalization about 6 months ago 5. History of hypertension maintained on angiotensin receptor blockers at home, currently on hold Plan: Gentle diuresis Check bladder scan Check UA Repeat labs in a.m. Continue to hold angiotensin receptor blockers for now. Try to obtain previous labs from hospitalization about 6 months ago. Thank you for the consultation. I will continue to follow the patient with you during his hospitalization.
[2025-03-29 12:06] LABS: Glucose,Whole Blood 117 mg/dL (70-110)
[2025-03-29 13:11] LABS: Appearance,Urine Clear (Clear); Bilirubin,Urine Negative (Negative); Blood,Urine Trace (Negative); Color,Urine Colorless; Glucose,Urine (UA) Trace (Negative); Hyaline Casts,Urine 1 /lpf (0-2); Ketones,Urine Negative (Negative); Leukocyte Esterase,Urine Negative (Negative); Mucus,Urine Rare /hpf; Nitrite,Urine Negative (Negative); Protein,Urine 2+ (Negative); RBC,Urine 5 /hpf (0-5); Specific Gravity,Urine 1.011 (1.001-1.035); Squamous Epithelial Cell,Urine <1 /hpf (0-4); Urobilinogen,Urine <2.0 mg/dL (<2.0); WBC,Urine 15 /hpf (0-5)
--- NOTE | 2025-03-29 13:36 | P.PN ---
Subjective Progress Note Date: 03/29/25 Hospital Course: 70-year-old male with diabetes mellitus, hypertension. Patient coming in for evaluation of progressive chest pain. He reports that for the past few months he would get chest pain with activity. However he has not seek any medical evaluation. He has been taking some aspirin for that today. He was not doing much when he was trying to get to bed and suddenly started experiencing chest discomfort retrosternal and radiating diffusely to the chest associated with trouble breathing pain was like 8 out of 10 in severity. Took aspirin for it slightly improved. Drove himself to the hospital. Denies any associated nausea vomiting or profuse sweating. He denies any recent travel or hospital stay denies any history of blood clots he denies any upper respiratory infection symptoms denies any coughing fevers or chills denies any nausea vomiting denies abdominal pain changes in bowel or urinary habits. Patient denies any tobacco smoking illicit drugs or heavy alcohol Subjective: Patient seen and examined at bedside. No acute events overnight. Patient still admits to mild shortness of breath. Denies any chest pain. Pertinent positives and negatives as discussed above, a complete review of systems was performed and all other systems are negative. Vitals: Signs Reviewed Physical Exam: General: nontoxic, no distress, appears at stated age Derm: warm, dry, intact Head: atraumatic, normocephalic, symmetric Eyes: EOMI, anicteric sclera Mouth: no lip lesion, mucus membranes moist Cardiovascular: S1 S2 reg, no murmur, rubs, or gallops Lungs: CTA bilateral, no rhonchi, no rales, no accessory muscle use Abdominal: soft, non-tender to palpataion, no appreciable organomegaly Extremities: no gross muscle atrophy, no edema, no contractures Neuro: Alert, Oriented, CNII-XII grossly intact, gait normal Psych: well appearing, appropriate affect Data Received Today: Pertinent Labs: CBC showing normocytic anemia-baseline, worsening creatinine function 2.25, hypoglycemia with glucose at 58 Imaging: Echocardiogram: Pending Renal ultrasound: Displaying no hydronephrosis Assessment and Plan: 70-year-old male diabetes mellitus hypertension transferred to our facility for progressively worsening chest pain suspected underlying NSTEMI. #. NSTEMI, likely type II EKG no acute ST changes Chest x-ray showed pulmonary edema Troponins elevated 0.072, 0.074, 0.078 D-dimer negative, elevated proBNP 4150 Continue with aspirin 81 mg daily Continue with atorvastatin 40 mg p.o. nightly TSH, lipid panel, A1c ordered Nitro as needed for chest pain IV heparin has been discontinued Cardiac telemetry Echocardiogram pending Cardiology consulted, no plans for stress testing or cardiac catheterization #. Nonoliguric acute kidney injury on CKD with unknown baseline #. Hypervolemia Sodium unremarkable 139 potassium unremarkable 5 on admission Elevated BUN 31 elevated creatinine 2.1 on admission, previous creatinine 1.2 in 2020 Continue to monitor urine output Monitor renal function Avoid nephrotoxic meds Bladder scan, check UA Renal ultrasound reviewed as above NS at 20 cc an hour Follow-up BMP Nephrology note reviewed, continue with gentle of Lasix at 40 mg IV daily #. [id number] diabetes mellitus #. Hypoglycemia Insulin sliding scale Accu-Cheks ACHS hypoglycemia precaution #. Hypertension Continue metoprolol 50 mg p.o. daily Continue Norvasc 10 mg p.o. daily #. Normocytic anemia No signs of acute bleeding Obtain iron studies B12 and folate ordered DVT ppx: Heparin 5000 unit SQ every 8 hours GI PPx: Protonix 40 mg p.o. daily Code status: Full code Anticipated discharge place: Pending clinical course Anticipated discharge time: Course Holli Leon MD PGY-1 IM Dictation was produced using [employer] dictation software. please excuse any grammatical, word or spelling errors. I have seen and evaluated the patient today. Discussed with the resident and agree with the residents finding and plan as documented in the resident's note. Changes highlighted in blue font. Objective - Vital Signs Vital signs: Vital Signs Temp 97.5 F L 03/29/25 07:47 Pulse 66 03/29/25 07:47 Resp 18 03/29/25 07:47 BP 124/88 03/29/25 07:47 Pulse Ox 95 03/29/25 07:47 FiO2 Intake & Output 03/28/25 03/29/25 03/29/25 18:59 06:59 18:59 Intake Total 89.312 Balance 89.312 Weight 113.398 kg Intake: Intake, IV Titration 89.312 Amount Heparin Sod,Pork in 0.45% 89.312 NaCl 25,000 unit In 0.45 % NaCl 1 250ml.bag @ 8.8 UNITS/KG/HR 9.979 mls/hr IV .Q24H [facility] Rx#: [id number] - Labs CBC & Chem 7: 03/29/25 02:35 03/29/25 02:35 Labs: Abnormal Lab Results - Last 24 Hours (Table) 03/28/25 03/28/25 03/28/25 Range/Units 20:09 20:09 20:09 RBC 3.95 L (4.40-5.60) 10*6/uL Hgb 11.3 L (13.0-17.0) g/dL Hct 34.7 L (39.6-50.0) % MCHC (32.0-37.0) g/dL MPV 8.6 L (9.5-12.2) fL Eosinophils # 0.40 H (0.04-0.35) 10*3/uL Basophils # 0.14 H (0.00-0.10) 10*3/uL Carbon Dioxide (22-30) mmol/L BUN 31 H (9-20) mg/dL Creatinine 2.19 H (0.66-1.25) mg/dL Glucose (74-99) mg/dL Alkaline Phosphatase 33 L (38-126) U/L Troponin I 0.072 H* (0.000-0.034) ng/mL Albumin (3.5-5.0) g/dL 03/29/25 03/29/25 03/29/25 Range/Units 00:33 02:35 02:35 RBC 3.60 L (4.40-5.60) 10*6/uL Hgb 10.4 L (13.0-17.0) g/dL Hct 32.7 L (39.6-50.0) % MCHC 31.8 L (32.0-37.0) g/dL MPV 8.5 L (9.5-12.2) fL Eosinophils # (0.04-0.35) 10*3/uL Basophils # 0.14 H (0.00-0.10) 10*3/uL Carbon Dioxide (22-30) mmol/L BUN (9-20) mg/dL Creatinine (0.66-1.25) mg/dL Glucose (74-99) mg/dL Alkaline Phosphatase (38-126) U/L Troponin I 0.074 H* 0.078 H* (0.000-0.034) ng/mL Albumin (3.5-5.0) g/dL 03/29/25 Range/Units 02:35 RBC (4.40-5.60) 10*6/uL Hgb (13.0-17.0) g/dL Hct (39.6-50.0) % MCHC (32.0-37.0) g/dL MPV (9.5-12.2) fL Eosinophils # (0.04-0.35) 10*3/uL Basophils # (0.00-0.10) 10*3/uL Carbon Dioxide 21 L (22-30) mmol/L BUN 29 H (9-20) mg/dL Creatinine 2.25 H (0.66-1.25) mg/dL Glucose 58 L (74-99) mg/dL Alkaline Phosphatase (38-126) U/L Troponin I (0.000-0.034) ng/mL Albumin 3.4 L (3.5-5.0) g/dL
[2025-03-29] MEDS: HEPARIN SODIUM,PORCINE 5,000 UNIT/ML 1 ML VIAL SQ SCH (15:55)
[2025-03-29 17:38] LABS: Glucose,Whole Blood 130 mg/dL (70-110)
[2025-03-29] MEDS ORDERED: PRAVASTATIN SODIUM 40 MG TAB PO SCH (21:00)
[2025-03-29] MEDS: ATORVASTATIN 40 MG TAB PO SCH (21:32)
[2025-03-29 21:40] LABS: Glucose,Whole Blood 114 mg/dL (70-110)
[2025-03-30 01:00] LABS: Glucose,Whole Blood 93 mg/dL (70-110)
[2025-03-30 05:29] LABS: Basophils # (A) 0.13 10*3/uL (0.00-0.10); Basophils % (A) 1.6 %; Eosinophils # (A) 0.33 10*3/uL (0.04-0.35); HCT 34.3 % (39.6-50.0); HGB 10.7 g/dL (13.0-17.0); Lymphocytes # (A) 1.25 10*3/uL (0.90-5.00); MCH 28.5 pg (27.0-32.0); MCHC 31.2 g/dL (32.0-37.0); MCV 91.5 fL (80.0-97.0); Mean Platelet Volume 8.2 fL (9.5-12.2); Neutrophils # (A) 6.09 10*3/uL (1.80-7.70); Platelet Count 360 10*3/uL (140-440); RBC 3.75 10*6/uL (4.40-5.60); WBC 8.33 10*3/uL (4.50-10.00)
[2025-03-30 05:51] LABS: African American GFR (CKD) 34 (>60 ml/min/1.73 sqM); Anion Gap 9 mmol/L; Blood Urea Nitrogen 27 mg/dL (9-20); Calcium 8.8 mg/dL (8.4-10.2); Carbon Dioxide 25 mmol/L (22-30); Chloride 104 mmol/L (98-107); Glucose 82 mg/dL (74-99); Magnesium 2.1 mg/dL (1.6-2.3); Non-African American GFR(CKD) 29 (>60 ml/min/1.73 sqM); Phosphorus 3.6 mg/dL (2.5-4.5); Potassium 4.3 mmol/L (3.5-5.1); Sodium 138 mmol/L (137-145)
[2025-03-30 06:44] LABS: Glucose,Whole Blood 83 mg/dL (70-110)
[2025-03-30 08:17] LABS: % Iron Saturation 10.98 (15.00-50.00); Chol/HDL Ratio 7.66 Ratio; Iron 48 UG/DL (65-175); LDL Cholesterol,Calculated 108.5 mg/dL (0.0-131.0); Total Iron Binding Capacity 437 UG/DL (228-460)
[2025-03-30] MEDS: amLODIPine 10 MG TAB PO SCH (09:08)
[2025-03-30] MEDS: FUROSEMIDE 10 MG/ML 4 ML VIAL IV SCH (09:08)
[2025-03-30] MEDS: METOPROLOL SUCCINATE (ER) 50 MG TAB.ER.24H PO SCH (09:58)
--- NOTE | 2025-03-30 11:14 | P.PN ---
Subjective Patient is seen for follow-up for acute kidney injury and chronic kidney disease. Baseline renal function not known, serum creatinine was 1.2 in 2020. Admitted with complaints of shortness of breath. Currently being diuresed Serum creatinine staying at 2.2 mg/dL. No evidence of obstruction on ultrasound. No significant complaints today. Objective - Vital Signs Vital signs: Vital Signs Temp 97.9 F 03/30/25 07:28 Pulse 78 03/30/25 07:28 Resp 16 03/30/25 07:28 BP 127/75 03/30/25 07:28 Pulse Ox 96 03/30/25 07:28 FiO2 Intake & Output 03/29/25 03/30/25 03/30/25 18:59 06:59 18:59 Intake Total 140 20 Output Total 650 Balance -510 20 Weight 64.5 kg Intake: IV 140 20 Invasive Line 1 20 Sodium Chloride 0.9% 1, 140 000 ml @ 20 mls/hr IV . Q24H [facility] Rx#:[id number] Output: Urine 650 Other: Voiding Method Urinal Urinal # Voids 1 - Exam Patient is awake, comfortable, no acute distress Examination of the heart S1 and S2 Examination of the lungs bilateral breath sounds are heard Abdomen is soft nontender, obese Examination of lower extremities shows trace edema PILLOWCASE FOLDER exam grossly intact - Labs CBC & Chem 7: 03/30/25 05:11 03/30/25 05:11 Labs: Abnormal Lab Results - Last 24 Hours (Table) 03/29/25 03/29/25 03/29/25 Range/Units 12:00 12:28 17:36 RBC (4.40-5.60) 10*6/uL Hgb (13.0-17.0) g/dL Hct (39.6-50.0) % MCHC (32.0-37.0) g/dL MPV (9.5-12.2) fL Basophils # (0.00-0.10) 10*3/uL BUN (9-20) mg/dL Creatinine (0.66-1.25) mg/dL POC Glucose (mg/dL) 117 H 130 H (70-110) mg/dL Hemoglobin A1c (<=6.0) % Iron (65-175) UG/DL % Saturation (15.00-50.00) Ferritin (22.0-322.0) ng/mL Triglycerides (0.00-149.00) mg/dL Cholesterol (0.00-200.00) mg/dL VLDL Cholesterol, Calc (5.00-40.00) mg/dL HDL Cholesterol (40.00-60.00) mg/dL Urine Protein 2+ H (Negative) Urine Glucose (UA) Trace H (Negative) Urine Blood Trace H (Negative) Urine WBC 15 H (0-5) /hpf Urine Mucus Rare H (None) /hpf 03/29/25 03/30/25 03/30/25 Range/Units 21:38 05:11 05:11 RBC (4.40-5.60) 10*6/uL Hgb (13.0-17.0) g/dL Hct (39.6-50.0) % MCHC (32.0-37.0) g/dL MPV (9.5-12.2) fL Basophils # (0.00-0.10) 10*3/uL BUN (9-20) mg/dL Creatinine (0.66-1.25) mg/dL POC Glucose (mg/dL) 114 H (70-110) mg/dL Hemoglobin A1c 8.4 H (<=6.0) % Iron 48 L (65-175) UG/DL % Saturation 10.98 L (15.00-50.00) Ferritin 396.0 H (22.0-322.0) ng/mL Triglycerides 353.00 H (0.00-149.00) mg/dL Cholesterol 206.00 H (0.00-200.00) mg/dL VLDL Cholesterol, Calc 70.60 H (5.00-40.00) mg/dL HDL Cholesterol 26.90 L (40.00-60.00) mg/dL Urine Protein (Negative) Urine Glucose (UA) (Negative) Urine Blood (Negative) Urine WBC (0-5) /hpf Urine Mucus (None) /hpf 03/30/25 03/30/25 Range/Units 05:11 05:11 RBC 3.75 L (4.40-5.60) 10*6/uL Hgb 10.7 L (13.0-17.0) g/dL Hct 34.3 L (39.6-50.0) % MCHC 31.2 L (32.0-37.0) g/dL MPV 8.2 L (9.5-12.2) fL Basophils # 0.13 H (0.00-0.10) 10*3/uL BUN 27 H (9-20) mg/dL Creatinine 2.22 H (0.66-1.25) mg/dL POC Glucose (mg/dL) (70-110) mg/dL Hemoglobin A1c (<=6.0) % Iron (65-175) UG/DL % Saturation (15.00-50.00) Ferritin (22.0-322.0) ng/mL Triglycerides (0.00-149.00) mg/dL Cholesterol (0.00-200.00) mg/dL VLDL Cholesterol, Calc (5.00-40.00) mg/dL HDL Cholesterol (40.00-60.00) mg/dL Urine Protein (Negative) Urine Glucose (UA) (Negative) Urine Blood (Negative) Urine WBC (0-5) /hpf Urine Mucus (None) /hpf Assessment and Plan Assessment: 1. Acute kidney injury, cardiorenal, nonoliguric. UA shows 22+ protein and trace blood.. Ultrasound does not show any evidence of obstruction. 2. Volume overload, improving 3. History of recent acute [place]. Patient had refused cardiac cath and signed off AMA from [facility] about 6 months ago 4. Chronic kidney disease with unknown baseline renal function. Serum creatinine was 1.2 in 2020 but renal function was impaired during recent hospitalization about 6 months ago 5. History of hypertension maintained on angiotensin receptor blockers at home, currently on hold Plan: Continue with current dose of Lasix, can switch to oral diuretics in a.m. Patient will need follow-up as outpatient for CKD.
[2025-03-30 11:16] VITALS: BMI 20.4
[2025-03-30 11:16] LABS: Glucose,Whole Blood 176 mg/dL (70-110)
--- NOTE | 2025-03-30 11:27 | P.PN ---
Subjective Progress Note Date: 03/30/25 Hospital Course: 70-year-old male with diabetes mellitus, hypertension. Patient coming in for evaluation of progressive chest pain. He reports that for the past few months he would get chest pain with activity. However he has not seek any medical evaluation. He has been taking some aspirin for that today. He was not doing much when he was trying to get to bed and suddenly started experiencing chest discomfort retrosternal and radiating diffusely to the chest associated with trouble breathing pain was like 8 out of 10 in severity. Took aspirin for it slightly improved. Drove himself to the hospital. Denies any associated nausea vomiting or profuse sweating. He denies any recent travel or hospital stay denies any history of blood clots he denies any upper respiratory infection symptoms denies any coughing fevers or chills denies any nausea vomiting denies abdominal pain changes in bowel or urinary habits. Patient denies any tobacco smoking illicit drugs or heavy alcohol Renal ultrasound: Displaying no hydronephrosis Subjective: Patient seen and examined at bedside. No acute events overnight. Patient still admits to mild shortness of breath. Admits to orthopnea and PND. States he feels better going to sleep in a upright position. Denies any chest pain. Pertinent positives and negatives as discussed above, a complete review of systems was performed and all other systems are negative. Vitals: Signs Reviewed Physical Exam: General: nontoxic, no distress, appears at stated age Derm: warm, dry, intact Head: atraumatic, normocephalic, symmetric Eyes: EOMI, anicteric sclera Mouth: no lip lesion, mucus membranes moist Cardiovascular: S1 S2 reg, no murmur, rubs, or gallops Lungs: CTA bilateral, no rhonchi, no rales, no accessory muscle use Abdominal: soft, non-tender to palpataion, no appreciable organomegaly Extremities: no gross muscle atrophy, trace B/L LE edema, no contractures Neuro: Alert, Oriented, CNII-XII grossly intact, gait normal Psych: well appearing, appropriate affect Data Received Today: Pertinent Labs: CBC showing stable normocytic anemia-baseline, stable creatinine function 2.25 => 2.22 Lipid panel: Cholesterol 206, Triglycerides 353, Cholesterol 206, LDL 108.5 HDL 26.9 Imaging: Echocardiogram: Pending Assessment and Plan: 70-year-old male diabetes mellitus hypertension transferred to our facility for progressively worsening chest pain suspected underlying NSTEMI. #. Acute Heart Failure exacerbation, unknown EF #. Type II NSTEMI EKG no acute ST changes Complaint of orthopnea and PND Chest x-ray showed pulmonary edema Troponins elevated 0.072, 0.074, 0.078 D-dimer negative, elevated proBNP 4150 Continue with aspirin 81 mg daily Continue with atorvastatin 40 mg p.o. nightly Lasix 40 mg IV daily A1c 8.4% TSH 4.70, free T4 1.6 Lipid panel: Cholesterol 206, Triglycerides 353, Cholesterol 206, LDL 108.5 HDL 26.9 Nitro as needed for chest pain Cardiac telemetry Echocardiogram pending Cardiology consulted, no plans for stress testing or cardiac catheterization #. Nonoliguric acute kidney injury on CKD with unknown baseline Sodium unremarkable 139 potassium unremarkable 5 on admission Elevated BUN 31 elevated creatinine 2.1 on admission, previous creatinine 1.2 in 2020 Continue to monitor urine output Monitor renal function Avoid nephrotoxic meds Bladder scan, check UA Renal ultrasound reviewed as above NS at 20 cc an hour Follow-up [facility] Nephrology note reviewed, continue Lasix and convert to oral diruetics in the a.m. will follow-up outpatient #. [id number] diabetes mellitus #. Hypoglycemia A1c 8.4 Insulin sliding scale Accu-Cheks ACHS hypoglycemia precaution #. Hypertension Continue metoprolol 50 mg p.o. daily Continue Norvasc 10 mg p.o. daily #. Normocytic anemia #. Iron deficiency anemia No signs of acute bleeding Iron studies showing iron deficiency, start ferrous sulfate 325 mg p.o. daily along with vitamin C B12 and folate ordered DVT ppx: Heparin 5000 unit SQ every 8 hours GI PPx: Protonix 40 mg p.o. daily Code status: Full code Anticipated discharge place: Pending clinical course Anticipated discharge time: Course Holli Leon MD PGY-1 IM Dictation was produced using [employer] dictation software. please excuse any grammatical, word or spelling errors. I have seen and evaluated the patient today. Discussed with the resident and agree with the residents finding and plan as documented in the resident's note. Changes highlighted in blue font. Objective - Vital Signs Vital signs: Vital Signs Temp 97.8 F 03/30/25 04:00 Pulse 80 03/30/25 04:00 Resp 12 03/30/25 04:00 BP 154/81 03/30/25 04:00 Pulse Ox 95 03/30/25 04:00 FiO2 Intake & Output 03/29/25 03/29/25 03/30/25 06:59 18:59 06:59 Intake Total 89.312 140 Output Total 650 Balance 89.312 -510 Weight 113.398 kg 64.5 kg Intake: IV 140 Sodium Chloride 0.9% 1, 140 000 ml @ 20 mls/hr IV . Q24H [facility]EE[facility] Rx#:[id number] Intake, IV Titration 89.312 Amount Heparin Sod,Pork in 0.45% 89.312 NaCl 25,000 unit In 0.45 % NaCl 1 250ml.bag @ 8.8 UNITS/KG/HR 9.979 mls/hr IV .Q24H TEENA Rx#: [id number] Output: Urine 650 Other: Voiding Method Urinal # Voids 1 - Labs CBC & Chem 7: 03/30/25 05:11 03/30/25 05:11 Labs: Abnormal Lab Results - Last 24 Hours (Table) 03/29/25 03/29/25 03/29/25 Range/Units 02:35 12:00 12:28 RBC (4.40-5.60) 10*6/uL Hgb (13.0-17.0) g/dL Hct (39.6-50.0) % MCHC (32.0-37.0) g/dL MPV (9.5-12.2) fL Basophils # (0.00-0.10) 10*3/uL BUN (9-20) mg/dL Creatinine (0.66-1.25) mg/dL POC Glucose (mg/dL) 117 H (70-110) mg/dL TSH 4.700 H (0.465-4.680) mIU/L Urine Protein 2+ H (Negative) Urine Glucose (UA) Trace H (Negative) Urine Blood Trace H (Negative) Urine WBC 15 H (0-5) /hpf Urine Mucus Rare H (None) /hpf 03/29/25 03/29/25 03/30/25 Range/Units 17:36 21:38 05:11 RBC 3.75 L (4.40-5.60) 10*6/uL Hgb 10.7 L (13.0-17.0) g/dL Hct 34.3 L (39.6-50.0) % MCHC 31.2 L (32.0-37.0) g/dL MPV 8.2 L (9.5-12.2) fL Basophils # 0.13 H (0.00-0.10) 10*3/uL BUN (9-20) mg/dL Creatinine (0.66-1.25) mg/dL POC Glucose (mg/dL) 130 H 114 H (70-110) mg/dL TSH (0.465-4.680) mIU/L Urine Protein (Negative) Urine Glucose (UA) (Negative) Urine Blood (Negative) Urine WBC (0-5) /hpf Urine Mucus (None) /hpf 03/30/25 Range/Units 05:11 RBC (4.40-5.60) 10*6/uL Hgb (13.0-17.0) g/dL Hct (39.6-50.0) % MCHC (32.0-37.0) g/dL MPV (9.5-12.2) fL Basophils # (0.00-0.10) 10*3/uL BUN 27 H (9-20) mg/dL Creatinine 2.22 H (0.66-1.25) mg/dL POC Glucose (mg/dL) (70-110) mg/dL TSH (0.465-4.680) mIU/L Urine Protein (Negative) Urine Glucose (UA) (Negative) Urine Blood (Negative) Urine WBC (0-5) /hpf Urine Mucus (None) /hpf
[2025-03-30] MEDS: FERROUS SULFATE 325 MG TAB PO SCH (12:02)
[2025-03-30] MEDS: ASCORBIC ACID 500 MG TAB PO SCH (12:02)
--- NOTE | 2025-03-30 12:07 | P.PN ---
Subjective Progress Note Date: 03/30/25 Principal diagnosis: Hospital course: This is a 70-year-old male with a past medical history significant for hypertension, hyperlipidemia and diabetes. Patient does not follow with a brick catcher. We have been asked to see the patient in consultation for elevated troponins. Patient examined at the bedside in the emergency room. Patient initially presented to [facility] with a chief complaint of nausea and vomiting. Patient denied any chest pain or pressure. He denied any shortness of breath. According to primary medicine's dictation, the patient had chest pain prior to coming to the hospital. However when patient was interviewed this morning he denied having any episodes of chest pain or pressure. The patient was found to have minimally elevated troponins and was started on IV heparin. Additionally patient was found to have acute kidney injury with a creatinine of 2.25. His family is at the bedside and states that he was told he had an RI about 6 months ago. At that time he was also told that his kidney function was not quite normal. She states that he was supposed to have a it application development manager come evaluate him at that time but he did not stay in the hospital. He denies any previous cardiac catheterizations or stenting. DIAGNOSTICS: - EKG reveals sinus mechanism with T wave inversions in high lateral leads.. - Chest xray pulmonary edema blunting of costophrenic angles correlate for volume overload. - Laboratory data: WBC 8.09. Hemoglobin 10.4. Platelet count 379. D-dimer 0.54. Sodium 139. Potassium 4.2. BUN 29. Creatinine 2.25. Troponin 0.072. 0.074. 0.078. proBNP 4150. - Current home cardiac medications include metoprolol succinate 50 mg daily, Lasix 40 mg daily, amlodipine 10 mg daily, hydralazine 50 mg 3 times daily, Benicar 40 mg daily, fenofibrate 160 mg daily. - No previous echocardiogram, stress test, or cardiac catheterization available in EMR for review 03/30/25: Patient evaluated at bedside today. Patient reports mild right chest wall pain when moving or turning. Abdomen bladder ultrasound showed no hydronephrosis. Pulse 70 bpm, BP 127/75 WBC 8.23, hemoglobin 10.7, platelet count 368, potassium 4.3, BUN 27, creatinine 2.22, A1c 8.4, triglycerides 353, cholesterol 206, LDL 108, VLDL 17, HDL 26.90, BNP 4150, TSH 4.7, free T4 1.6 Physical Examination: VITAL SIGNS: Reviewed. GENERAL: Well-developed in no acute distress. HEENT: Head is normocephalic. Pupils are equal, round. Sclerae anicteric. Mucous membranes of the mouth are moist. Neck supple. No JVD or thyromegaly LUNGS: Respirations even and unlabored. Lungs essentially clear to auscultation bilaterally. HEART: Regular rate and rhythm. S1 and S2 heard. ABDOMEN: Soft. Nondistended. Nontender. EXTREMITIES: Normal range of motion. No clubbing or cyanosis. Peripheral pulses intact. No lower extremity edema NEUROLOGIC: Awake and alert. Oriented x 3. Assessment: Nausea and vomiting Acute kidney injury Elevated troponins, flat, likely secondary to poor renal clearance, no evidence of myocardial injury or ischemia History of hypertension History of hyperlipidemia History of diabetes Obesity: BMI 35.9 Plan: An acute coronary event has been ruled out Obtain 2D echo to assess cardiac structure and function Continue aspirin and statin Resume home cardiac medications Hold nephrotoxic drugs. Monitor kidney function. Repeat in AM. No plans for stress testing or cardiac catheterization at this time Further recommendations pending patient course Dictation was produced using [employer] dictation software. please excuse any grammatical, word or spelling errors. Raleigh Alexander MD PGY-1 IM Objective - Vital Signs Vital signs: Vital Signs Temp 97.9 F 03/30/25 07:28 Pulse 78 03/30/25 07:28 Resp 16 03/30/25 07:28 BP 127/75 03/30/25 07:28 Pulse Ox 96 03/30/25 07:28 FiO2 Intake & Output 03/29/25 03/30/25 03/30/25 18:59 06:59 18:59 Intake Total 140 20 Output Total 650 Balance -510 20 Weight 64.5 kg 111.13 kg Intake: IV 140 20 Invasive Line 1 20 Sodium Chloride 0.9% 1, 140 000 ml @ 20 mls/hr IV . Q24H [facility] Rx#:[id number] Output: Urine 650 Other: Voiding Method Urinal Urinal # Voids 1 - Labs CBC & Chem 7: 03/31/25 06:32 03/30/25 05:11 Labs: Abnormal Lab Results - Last 24 Hours (Table) 0403/29/25 03/29/25 Range/Units 12:00 12:28 17:36 RBC (4.40-5.60) 10*6/uL Hgb (13.0-17.0) g/dL Hct (39.6-50.0) % MCHC (32.0-37.0) g/dL MPV (9.5-12.2) fL Basophils # (0.00-0.10) 10*3/uL BUN (9-20) mg/dL Creatinine (0.66-1.25) mg/dL POC Glucose (mg/dL) 117 H 130 H (70-110) mg/dL Hemoglobin A1c (<=6.0) % Iron (65-175) UG/DL % Saturation (15.00-50.00) Ferritin (22.0-322.0) ng/mL Triglycerides (0.00-149.00) mg/dL Cholesterol (0.00-200.00) mg/dL VLDL Cholesterol, Calc (5.00-40.00) mg/dL HDL Cholesterol (40.00-60.00) mg/dL Urine Protein 2+ H (Negative) Urine Glucose (UA) Trace H (Negative) Urine Blood Trace H (Negative) Urine WBC 15 H (0-5) /hpf Urine Mucus Rare H (None) /hpf 03/29/25 03/30/25 03/30/25 Range/Units 21:38 05:11 05:11 RBC (4.40-5.60) 10*6/uL Hgb (13.0-17.0) g/dL Hct (39.6-50.0) % MCHC (32.0-37.0) g/dL MPV (9.5-12.2) fL Basophils # (0.00-0.10) 10*3/uL BUN (9-20) mg/dL Creatinine (0.66-1.25) mg/dL POC Glucose (mg/dL) 114 H (70-110) mg/dL Hemoglobin A1c 8.4 H (<=6.0) % Iron 48 L (65-175) UG/DL % Saturation 10.98 L (15.00-50.00) Ferritin 396.0 H (22.0-322.0) ng/mL Triglycerides 353.00 H (0.00-149.00) mg/dL Cholesterol 206.00 H (0.00-200.00) mg/dL VLDL Cholesterol, Calc 70.60 H (5.00-40.00) mg/dL HDL Cholesterol 26.90 L (40.00-60.00) mg/dL Urine Protein (Negative) Urine Glucose (UA) (Negative) Urine Blood (Negative) Urine WBC (0-5) /hpf Urine Mucus (None) /hpf 03/30/25 03/30/25 03/30/25 Range/Units 05:11 05:11 11:15 RBC 3.75 L (4.40-5.60) 10*6/uL Hgb 10.7 L (13.0-17.0) g/dL Hct 34.3 L (39.6-50.0) % MCHC 31.2 L (32.0-37.0) g/dL MPV 8.2 L (9.5-12.2) fL Basophils # 0.13 H (0.00-0.10) 10*3/uL BUN 27 H (9-20) mg/dL Creatinine 2.22 H (0.66-1.25) mg/dL POC Glucose (mg/dL) 176 H (70-110) mg/dL Hemoglobin A1c (<=6.0) % Iron (65-175) UG/DL % Saturation (15.00-50.00) Ferritin (22.0-322.0) ng/mL Triglycerides (0.00-149.00) mg/dL Cholesterol (0.00-200.00) mg/dL VLDL Cholesterol, Calc (5.00-40.00) mg/dL HDL Cholesterol (40.00-60.00) mg/dL Urine Protein (Negative) Urine Glucose (UA) (Negative) Urine Blood (Negative) Urine WBC (0-5) /hpf Urine Mucus (None) /hpf Assessment and Plan Plan: I performed history physical exam and medical decision making on this patient the resident has generated the note.
[2025-03-30 16:45] LABS: Glucose,Whole Blood 169 mg/dL (70-110)
[2025-03-30 20:01] LABS: Glucose,Whole Blood 97 mg/dL (70-110)
[2025-03-30] MEDS ORDERED: LORazepam 1 MG/0.5 ML VIAL IV PRN (20:15)
[2025-03-30] MEDS: LORazepam 2 MG/ML INJ IV PRN (20:20)
[2025-03-31 06:17] LABS: Glucose,Whole Blood 160 mg/dL (70-110)
[2025-03-31 07:25] LABS: Basophils # (A) 0.12 10*3/uL (0.00-0.10); Basophils % (A) 1.9 %; Eosinophils # (A) 0.36 10*3/uL (0.04-0.35); Eosinophils % (A) 5.8 %; HCT 31.6 % (39.6-50.0); HGB 9.8 g/dL (13.0-17.0); Lymphocytes # (A) 1.08 10*3/uL (0.90-5.00); Lymphocytes % (A) 17.4 %; MCH 28.2 pg (27.0-32.0); MCV 90.8 fL (80.0-97.0); Mean Platelet Volume 8.7 fL (9.5-12.2); Monocytes # (A) 0.45 10*3/uL (0.20-1.00); Monocytes % (A) 7.2 %; Neutrophils # (A) 4.18 10*3/uL (1.80-7.70); Neutrophils % (A) 67.2 %; Platelet Count 335 10*3/uL (140-440); RBC 3.48 10*6/uL (4.40-5.60); RDW 14.9 % (11.5-14.5); WBC 6.22 10*3/uL (4.50-10.00)
[2025-03-31 07:46] LABS: ALT 22 U/L (4-49); AST 27 U/L (17-59); African American GFR (CKD) 33 (>60 ml/min/1.73 sqM); Albumin 3.2 g/dL (3.5-5.0); Alkaline Phosphatase 54 U/L (38-126); Anion Gap 8 mmol/L; Blood Urea Nitrogen 26 mg/dL (9-20); Calcium 8.9 mg/dL (8.4-10.2); Carbon Dioxide 25 mmol/L (22-30); Chloride 102 mmol/L (98-107); Glucose 147 mg/dL (74-99); Non-African American GFR(CKD) 29 (>60 ml/min/1.73 sqM); Potassium 4.3 mmol/L (3.5-5.1); Sodium 135 mmol/L (137-145); Total Bilirubin 0.5 mg/dL (0.2-1.3)
[2025-03-31] MEDS: FENOFIBRATE 160 MG TAB PO SCH (08:20)
[2025-03-31] MEDS: allopurinoL 300 MG TAB PO SCH (08:20)
--- NOTE | 2025-03-31 09:37 | CA ---
Transthoracic Echo Report Name: Tani Lange Age: 70 Gender: M : 1955 Exam Date: 03/30/2025 13:56 Exam Location: [facility] Ht (in): 70 Wt (lb): 250 Ordering Physician: Mar Magallanes Attending/Referring Phys: [id number], Sona Silk Screener Kristina Stinson RDCS Procedure CPT: Indications: lv function, elevated trops Cardiac Hx: Technical Quality: Fair Contrast 1: Definity Total Dose (mL): 2 Contrast 2: Total Dose (mL): MEASUREMENTS (Male / Female) Normal Values 2D ECHO LV Diastolic Diameter PLAX 6.0 cm 4.2 - 5.9 / 3.9 - 5.3 cm LV Systolic Diameter PLAX 4.8 cm IVS Diastolic Thickness 1.5 cm 0.6 - 1.0 / 0.6 - 0.9 cm LVPW Diastolic Thickness 1.3 cm 0.6 - 1.0 / 0.6 - 0.9 cm LV Relative Wall Thickness 0.5 RV Internal Dim ED PLAX 2.9 cm LVOT Diameter 2.1 cm LA Systolic Diameter LX 4.1 cm 3.0 - 4.0 / 2.7 - 3.8 cm M-MODE Aortic Root Diameter MM 3.9 cm LA Systolic Diameter MM 4.5 cm LA Ao Ratio MM 1.1 AV Cusp Separation MM 1.7 cm DOPPLER AV Peak Velocity 169.4 cm/s AV Peak Gradient 11.5 mmHg AV Mean Velocity 124.9 cm/s AV Mean Gradient 7.0 mmHg AV Velocity Time Integral 38.6 cm LVOT Peak Velocity 101.7 cm/s LVOT Peak Gradient 4.1 mmHg LVOT Velocity Time Integral 20.7 cm LVOT Stroke Volume 72.4 cm??? LVOT Stroke Volume Index 31.6 ml/m??? LVOT Cardiac Index 2705.2 cm???/min???m??? AV Area Cont Eq vti 1.9 cm??? AV Area Cont Eq pk 2.1 cm??? Mitral E Point Velocity 115.9 cm/s Mitral A Point Velocity 86.7 cm/s Mitral E to A Ratio 1.3 MV Deceleration Time 210.8 ms MV E' Velocity 4.7 cm/s Mitral E to MV E' Ratio 24.5 TR Peak Velocity 300.8 cm/s TR Peak Gradient 36.2 mmHg FINDINGS Left Ventricle Left ventricular ejection fraction is estimated at 25-30%. Moderately increased septal wall thickness. Mildly increased left ventricular diastolic diameter. Severely reduced global left ventricular systolic function. Right Ventricle Normal right ventricular size and function. Mild pulmonary hypertension. Right Atrium Normal right atrial size. Left Atrium Mildly increased left atrial diameter. Mitral Valve Structurally normal mitral valve. Mild mitral regurgitation. No mitral stenosis. Aortic Valve Trileaflet aortic valve. Diffuse thickening (sclerosis) of the aortic valve cusps without reduced excursion. No aortic regurgitation. Tricuspid Valve Structurally normal tricuspid valve. Trace to mild tricuspid regurgitation. No tricuspid stenosis. Pulmonic Valve Structurally normal pulmonic valve. Trace pulmonic regurgitation. No pulmonic stenosis. Pericardium No pericardial or pleural effusion. Aorta Mild aortic dilatation at the level of the sinuses of valsalva (root). CONCLUSIONS Left ventricular ejection fraction 25 to 30% Moderately increased left ventricular wall thickness RVSP 36 Mild mitral regurgitation Trace to mild tricuspid regurgitation Previewed by: Dr. Willy Velazco DO (Electronically Signed) Final Date: 31 March 2025 09:36
--- NOTE | 2025-03-31 10:53 | P.PN ---
Subjective Progress Note Date: 03/31/25 Hospital Course: 70-year-old male with diabetes mellitus, hypertension. Patient coming in for evaluation of progressive chest pain. He reports that for the past few months he would get chest pain with activity. However he has not seek any medical evaluation. He has been taking some aspirin for that today. He was not doing much when he was trying to get to bed and suddenly started experiencing chest discomfort retrosternal and radiating diffusely to the chest associated with trouble breathing pain was like 8 out of 10 in severity. Took aspirin for it slightly improved. Drove himself to the hospital. Denies any associated nausea vomiting or profuse sweating. He denies any recent travel or hospital stay denies any history of blood clots he denies any upper respiratory infection symptoms denies any coughing fevers or chills denies any nausea vomiting denies abdominal pain changes in bowel or urinary habits. Patient denies any tobacco smoking illicit drugs or heavy alcohol Renal ultrasound: Displaying no hydronephrosis Subjective: Patient seen and examined at bedside. No acute events overnight. Patient still admits to mild shortness of breath with exertion. Pertinent positives and negatives as discussed above, a complete review of systems was performed and all other systems are negative. Vitals: Signs Reviewed Physical Exam: General: nontoxic, no distress, appears at stated age, 2 L nasal cannula Derm: warm, dry, intact Head: atraumatic, normocephalic, symmetric Eyes: EOMI, anicteric sclera Mouth: no lip lesion, mucus membranes moist Cardiovascular: S1 S2 reg, no murmur, rubs, or gallops Lungs: CTA bilateral, no rhonchi, no rales, no accessory muscle use Abdominal: soft, non-tender to palpataion, no appreciable organomegaly Extremities: no gross muscle atrophy, trace B/L LE edema, no contractures Neuro: Alert, Oriented, CNII-XII grossly intact, gait normal Psych: well appearing, appropriate affect Data Received Today: Pertinent Labs: Imaging: Echocardiogram: LVEF 25 to 30%, moderately increased left ventricular wall thickness, RSVP 36, mild mitral regurgitation, mild trace mild tricuspid regurgitation Assessment and Plan: 70-year-old male diabetes mellitus hypertension transferred to our facility for progressively worsening chest pain suspected underlying NSTEMI. #. Acute Heart Failure exacerbation, EF 25-30% #. Pulmonary hypertension, stage II #. Type II NSTEMI EKG no acute ST changes Complaint of orthopnea and PND Chest x-ray showed pulmonary edema Troponins elevated 0.072, 0.074, 0.078 D-dimer negative, elevated proBNP 4150 Continue with aspirin 81 mg daily Continue with atorvastatin 40 mg p.o. nightly Lasix 40 mg PO daily A1c 8.4% TSH 4.70, free T4 1.6 Lipid panel: Cholesterol 206, Triglycerides 353, Cholesterol 206, LDL 108.5 HDL 26.9 Nitro as needed for chest pain Cardiac telemetry Echocardiogram reviewed as above Currently on 2 L nasal cannula, not on home oxygen, continue to wean down Cardiology following, pending recommendations, will likely require GDMT #. Nonoliguric acute kidney injury on CKD with unknown baseline Patient's creatinine function has remained stable at 2.26 Sodium unremarkable 139 potassium unremarkable 5 on admission Elevated BUN 31 elevated creatinine 2.1 on admission, previous creatinine 1.2 in 2020 Continue to monitor urine output Monitor renal function Avoid nephrotoxic meds Bladder scan, check UA Renal ultrasound reviewed as above NS at 20 cc an hour Follow-up [facility] IV Lasix have been converted to oral Lasix 40 mg daily Nephrology will follow-up outpatient #. Awz-hxxaxno-ctgksxlzw diabetes mellitus #. Hypoglycemia A1c 8.4 Insulin sliding scale Accu-Cheks ACHS hypoglycemia precaution #. Hypertension Continue metoprolol 50 mg p.o. daily Continue Norvasc 10 mg p.o. daily #. Normocytic anemia #. Iron deficiency anemia No signs of acute bleeding Iron studies showing iron deficiency, start ferrous sulfate 325 mg p.o. daily along with vitamin C B12 and folate ordered DVT ppx: Heparin 5000 unit SQ every 8 hours GI PPx: Protonix 40 mg p.o. daily Code status: Full code Anticipated discharge place: Pending clinical course Anticipated discharge time: Course Holli Leon MD PGY-1 IM Dictation was produced using [employer] dictation software. please excuse any gramma tical, word or spelling errors. I have seen and evaluated the patient today. Discussed with the resident and agree with the residents finding and plan as documented in the resident's note. Changes highlighted in blue font. Objective - Vital Signs Vital signs: Vital Signs Temp 97.7 F 03/31/25 04:00 Pulse 95 03/31/25 04:00 Resp 18 03/31/25 04:00 BP 127/72 03/31/25 04:00 Pulse Ox 91 L 03/31/25 04:00 FiO2 Intake & Output 03/30/25 03/31/25 03/31/25 18:59 06:59 18:59 Intake Total 1310 20 Output Total 1500 Balance -190 20 Weight 111.13 kg 112.8 kg Intake: IV 30 20 0.9 10 Invasive Line 1 30 10 Oral 1280 Output: Urine 1500 Other: Voiding Method Urinal Urinal # Voids 1 - Labs CBC & Chem 7: 03/31/25 06:32 03/31/25 06:32 Labs: Abnormal Lab Results - Last 24 Hours (Table) 03/30/25 03/30/25 03/30/25 Range/Units 05:11 05:11 11:15 POC Glucose (mg/dL) 176 H (70-110) mg/dL Hemoglobin A1c 8.4 H (<=6.0) % Iron 48 L (65-175) UG/DL % Saturation 10.98 L (15.00-50.00) Ferritin 396.0 H (22.0-322.0) ng/mL Triglycerides 353.00 H (0.00-149.00) mg/dL Cholesterol 206.00 H (0.00-200.00) mg/dL VLDL Cholesterol, Calc 70.60 H (5.00-40.00) mg/dL HDL Cholesterol 26.90 L (40.00-60.00) mg/dL 03/30/25 03/31/25 Range/Units 16:41 06:10 POC Glucose (mg/dL) 169 H 160 H (70-110) mg/dL Hemoglobin A1c (<=6.0) % Iron (65-175) UG/DL % Saturation (15.00-50.00) Ferritin (22.0-322.0) ng/mL Triglycerides (0.00-149.00) mg/dL Cholesterol (0.00-200.00) mg/dL VLDL Cholesterol, Calc (5.00-40.00) mg/dL HDL Cholesterol (40.00-60.00) mg/dL
[2025-03-31 11:57] LABS: Glucose,Whole Blood 208 mg/dL (70-110)
--- NOTE | 2025-03-31 11:58 | P.PN ---
Subjective HISTORY OF PRESENT ILLNESS: This is a 70-year-old male with a past medical history significant for hypertension, hyperlipidemia and diabetes. Patient does not follow with a warping mill operator. We have been asked to see the patient in consultation for elevated troponins. Patient examined at the bedside in the emergency room. Patient initially presented to [facility] with a chief complaint of nausea and vomiting. Patient denied any chest pain or pressure. He denied any shortness of breath. According to primary medicine's dictation, the patient had chest pain prior to coming to the hospital. However when patient was interviewed this morning he denied having any episodes of chest pain or pressure. The patient was found to have minimally elevated troponins and was started on IV heparin. Additionally patient was found to have acute kidney injury with a creatinine of 2.25. His family is at the bedside and states that he was told he had an [place] about 6 months ago. At that time he was also told that his kidney function was not quite normal. She states that he was supposed to have a auto brake mechanic come evaluate him at that time but he did not stay in the hospital. He denies any previous cardiac catheterizations or stenting. DIAGNOSTICS: - EKG reveals sinus mechanism with T wave inversions in high lateral leads.. - Chest xray pulmonary edema blunting of costophrenic angles correlate for volume overload. - Laboratory data: WBC 8.09. Hemoglobin 10.4. Platelet count 379. D-dimer 0.54. Sodium 139. Potassium 4.2. BUN 29. Creatinine 2.25. Troponin 0.072. 0.074. 0.078. proBNP 4150. - Current home cardiac medications include metoprolol succinate 50 mg daily, Lasix 40 mg daily, amlodipine 10 mg daily, hydralazine 50 mg 3 times daily, Benicar 40 mg daily, fenofibrate 160 mg daily. - No previous echocardiogram, stress test, or cardiac catheterization available in EMR for review 03/31/2025 Patient examined this morning at the bedside. Patient currently denies chest pain or pressure. He denies shortness of breath. Vital signs are stable. Echocardiogram completed revealing ejection fraction 25 to 30% with mild MR and trace to mild TR. Patient does give additional history that he underwent cardiac catheterization in the past at [facility] due to a weak heart muscle. He denies having any stenting. PHYSICAL EXAM: VITAL SIGNS: Reviewed. GENERAL: Well-developed in no acute distress. HEENT: Head is normocephalic. Pupils are equal, round. Sclerae anicteric. Mucous membranes of the mouth are moist. Neck supple. No JVD or thyromegaly LUNGS: Respirations even and unlabored. Lungs essentially clear to auscultation bilaterally. HEART: Regular rate and rhythm. S1 and S2 heard. ABDOMEN: Soft. Nondistended. Nontender. EXTREMITIES: Normal range of motion. No clubbing or cyanosis. Peripheral pu lses intact. No lower extremity edema NEUROLOGIC: Awake and alert. Oriented x 3. ASSESSMENT: Nausea and vomiting Acute kidney injury Elevated troponins, flat, likely secondary to poor renal clearance, no evidence of myocardial injury or ischemia Cardiomyopathy, suspect nonischemic, awaiting records from [facility] History of hypertension History of hyperlipidemia History of diabetes Obesity: BMI 35.9 PLAN: Continue aspirin, amlodipine, Lipitor, and metoprolol Continue oral diuretics per nephrology. Nephrology following Monitor kidney function. Repeat in AM. Obtain records from [facility] Further recommendations pending patient course Nurse practitioner note has been reviewed by physician. Signing provider agrees with the documented findings, assessment, and plan of care documented by LINING VAMPER as a scribe. Objective - Vital Signs Vital signs: Vital Signs Temp 98 F 03/31/25 08:00 Pulse 84 03/31/25 08:00 Resp 18 03/31/25 08:00 BP 132/70 03/31/25 08:00 Pulse Ox 94 L 03/31/25 08:23 FiO2 24 03/31/25 08:23 Intake & Output 03/30/25 03/31/25 03/31/25 18:59 06:59 18:59 Intake Total 1310 20 250 Output Total 1500 200 Balance -190 20 50 Weight 111.13 kg 112.8 kg Intake: IV 30 20 10 0.9 10 Invasive Line 1 30 10 10 Oral 1280 240 Output: Urine 1500 200 Other: Voiding Method Urinal Urinal Urinal # Voids 1 - Labs CBC & Chem 7: 03/31/25 06:32 03/31/25 06:32 Labs: Abnormal Lab Results - Last 24 Hours (Table) 03/30/25 03/31/25 03/31/25 Range/Units 16:41 06:10 06:32 RBC 3.48 L (4.40-5.60) 10*6/uL Hgb 9.8 L (13.0-17.0) g/dL Hct 31.6 L (39.6-50.0) % MCHC 31.0 L (32.0-37.0) g/dL MPV 8.7 L (9.5-12.2) fL Eosinophils # 0.36 H (0.04-0.35) 10*3/uL Basophils # 0.12 H (0.00-0.10) 10*3/uL Sodium (137-145) mmol/L BUN (9-20) mg/dL Creatinine (0.66-1.25) mg/dL Glucose (74-99) mg/dL POC Glucose (mg/dL) 169 H 160 H (70-110) mg/dL Total Protein (6.3-8.2) g/dL Albumin (3.5-5.0) g/dL // Range/Units 06:32 RBC (4.40-5.60) 10*6/uL Hgb (13.0-17.0) g/dL Hct (39.6-50.0) % MCHC (32.0-37.0) g/dL MPV (9.5-12.2) fL Eosinophils # (0.04-0.35) 10*3/uL Basophils # (0.00-0.10) 10*3/uL Sodium 135 L (137-145) mmol/L BUN 26 H (9-20) mg/dL Creatinine 2.26 H (0.66-1.25) mg/dL Glucose 147 H (74-99) mg/dL POC Glucose (mg/dL) (70-110) mg/dL Total Protein 6.0 L (6.3-8.2) g/dL Albumin 3.2 L (3.5-5.0) g/dL
--- NOTE | 2025-03-31 12:12 | P.PN ---
Subjective Patient is seen for follow-up for acute kidney injury and chronic kidney disease. Baseline renal function not known, serum creatinine was 1.2 in 2020. Admitted with complaints of shortness of breath. Currently being diuresed Serum creatinine staying at 2.2 mg/dL. No evidence of obstruction on ultrasound. No significant complaints today. Objective - Vital Signs Vital signs: Vital Signs Temp 98 F 03/31/25 08:00 Pulse 84 03/31/25 08:00 Resp 18 03/31/25 08:00 BP 132/70 03/31/25 08:00 Pulse Ox 94 L 03/31/25 08:23 FiO2 24 03/31/25 08:23 Intake & Output 03/30/25 03/31/25 03/31/25 18:59 06:59 18:59 Intake Total 1310 20 250 Output Total 1500 200 Balance -190 20 50 Weight 111.13 kg 112.8 kg Intake: IV 30 20 10 0.9 10 Invasive Line 1 30 10 10 Oral 1280 240 Output: Urine 1500 200 Other: Voiding Method Urinal Urinal Urinal # Voids 1 - Exam Patient is awake, comfortable, no acute distress Examination of the heart S1 and S2 Examination of the lungs bilateral breath sounds are heard Abdomen is soft nontender, obese Examination of lower extremities shows no significant edema WAITER/WAITRESS TAKE OUT exam grossly intact - Labs CBC & Chem 7: 03/31/25 06:32 03/31/25 06:32 Labs: Abnormal Lab Results - Last 24 Hours (Table) 03/30/25 03/31/25 03/31/25 Range/Units 16:41 06:10 06:32 RBC 3.48 L (4.40-5.60) 10*6/uL Hgb 9.8 L (13.0-17.0) g/dL Hct 31.6 L (39.6-50.0) % MCHC 31.0 L (32.0-37.0) g/dL MPV 8.7 L (9.5-12.2) fL Eosinophils # 0.36 H (0.04-0.35) 10*3/uL Basophils # 0.12 H (0.00-0.10) 10*3/uL Sodium (137-145) mmol/L BUN (9-20) mg/dL Creatinine (0.66-1.25) mg/dL Glucose (74-99) mg/dL POC Glucose (mg/dL) 169 H 160 H (70-110) mg/dL Total Protein (6.3-8.2) g/dL Albumin (3.5-5.0) g/dL 03/31/25 03/31/25 Range/Units 06:32 11:52 RBC (4.40-5.60) 10*6/uL Hgb (13.0-17.0) g/dL Hct (39.6-50.0) % MCHC (32.0-37.0) g/dL MPV (9.5-12.2) fL Eosinophils # (0.04-0.35) 10*3/uL Basophils # (0.00-0.10) 10*3/uL Sodium 135 L (137-145) mmol/L BUN 26 H (9-20) mg/dL Creatinine 2.26 H (0.66-1.25) mg/dL Glucose 147 H (74-99) mg/dL POC Glucose (mg/dL) 208 H (70-110) mg/dL Total Protein 6.0 L (6.3-8.2) g/dL Albumin 3.2 L (3.5-5.0) g/dL Assessment and Plan Assessment: 1. Acute kidney injury, cardiorenal, nonoliguric. UA shows 2+ protein and trace blood.. Ultrasound does not show any evidence of obstruction. 2. Volume overload, improving 3. History of recent acute [place]. Patient had refused cardiac cath and signed off AMA from [facility] about 6 months ago 4. Chronic kidney disease with unknown baseline renal function. Serum creatinine was 1.2 in 2020 but renal function was impaired during recent hospitalization about 6 months ago, those labs not available. Serum creatinine seems to be staying around 2 which may be his new baseline. 5. History of hypertension maintained on angiotensin receptor blockers at home, currently on hold Plan: Continue with oral diuretics Patient will need follow-up as outpatient for CKD.
[2025-03-31 16:55] LABS: Glucose,Whole Blood 150 mg/dL (70-110)
[2025-03-31 20:07] LABS: Glucose,Whole Blood 283 mg/dL (70-110)
[2025-03-31] MEDS: LORazepam 1 MG TAB PO PRN (20:10)
--- NOTE | 2025-03-31 22:56 | CDI ---
Date: 03/31/2025 From: Omayra [email or web address] Email: [email or web address] Admit Date: 03/28/2025 09:35:00 PM Patient Name: Tani Lange Visit Number: [id number] Discharge Date: N/A ATTENTION: The Clinical Documentation Specialists (CDI) and [facility] Coding Staff appreciate your assistance in clarifying documentation. Please respond to the clarification below the line at the bottom and electronically sign. The CDI & [facility] Coding staff will review the response and follow-up if needed. Please note: Queries are made part of the Legal Health Record. If you have any questions, please contact the author of this message via ITS. Dr. Boogie Rankin, Acute heart failure exacerbation, EF 25-30% is documented in your Progress Note on 03/31/2025. Additional clarification regarding the type and acuity of the heart failure is requested. History/Risk Factors: 70-year-old male presented to [facility] ED for evaluation due to chest pain and shortness of breath. PMH: Hypertension, recent acute myocardial infarction, chronic kidney disease with unknown baseline renal function, pulmonary hypertension, type 2 diabetes mellitus, hyperlipidemia, cardiomyopathy Clinical Indicators: BNP (03/28/2025): 4150 Echocardiogram (03/30/2025): Left ventricular ejection fraction is estimated at 25-30%. Moderately increased septal wall thickness. Mildly increased left ventricular diastolic diameter. Severely reduced global left ventricular systolic function. Mild pulmonary hypertension. Mild mitral regurgitation. [id number] tricuspid regurgitation. Chest X-Ray (03/28/2025): Pulmonary edema blunting of the costophrenic angles correlate for volume overload/congestive heart failure. Nephrology Progress Note (03/31/2025): o Acute kidney injury, cardiorenal, non-oliguric o Volume overload, improving Internal Medicine Progress Note (03/31/2025): o Acute heart failure exacerbation, EF 25-30% o Pulmonary hypertension, stage II o Complaint of orthopnea and PND o Chest x-ray showed pulmonary edema o Elevated proBNP 4150 Treatment: Cardiology Consultation Telemetry Monitoring Lasix 40mg IVP Daily (Discontinued 03/31/2025) In your professional opinion, can you please clarify the acuity and type of CHF if known? [ ] Acute Combined Systolic & Diastolic Heart Failure (New Diagnosis) [ ] Acute on Chronic Combined Systolic & Diastolic Heart Failure [ x ] Acute Systolic Heart Failure (New Diagnosis) [ ] Acute on Chronic Systolic Heart Failure [ ] Other, please specify [ ] Unable to determine MTDD
--- NOTE | 2025-03-31 23:27 | CDI ---
Date: 03/31/2025 From: Omayra Whitney1 Email: [email or web address] Admit Date: 03/28/2025 09:35:00 PM Patient Name: Tani Lange Visit Number: [id number] Discharge Date: N/A ATTENTION: The Clinical Documentation Specialists (CDI) and [facility] Coding Staff appreciate your assistance in clarifying documentation. Please respond to the clarification below the line at the bottom and electronically sign. The CDI & [facility] Coding staff will review the response and follow-up if needed. Please note: Queries are made part of the Legal Health Record. If you have any questions, please contact the author of this message via ITS. Dr. Boogie Rankin, Conflicting documentation has been found in the medical record. As attending physician, please provide clarification. Cardiology Progress Note (03/31/2025): Elevated troponins, flat, likely secondary to poor renal clearance, no evidence of myocardial injury or ischemia Internal Medicine Progress Note (03/31/2025): Type II NSTEMI History/Risk Factors: 70-year-old male presented to [facility] ED for evaluation due to chest pain and shortness of breath. PMH: Hypertension, recent acute myocardial infarction, chronic kidney disease with unknown baseline renal function, pulmonary hypertension, type 2 diabetes mellitus, hyperlipidemia, cardiomyopathy, obesity Clinical Indicators: Troponin Trend: (03/28/2025) 0.072 --> (03/29/2025) 0.074 --> 0.078 BNP (03/28/2025): 4150 EKG (03/28/2025): Ventricular Rate: 96bpm. Ectopic atrial rhythm with first degree AV block. Possible anterior myocardial infarction of indeterminate age. Abnormal ECG. Echocardiogram (03/30/2025): Left ventricular ejection fraction is estimated at 25-30%. Moderately increased septal wall thickness. Mildly increased left ventricular diastolic diameter. Severely reduced global left ventricular systolic function. Mild pulmonary hypertension. Mild mitral regurgitation. [id number] tricuspid regurgitation. Cardiology Progress Note (03/31/2025): o Elevated troponins, flat, likely secondary to poor renal clearance, no evidence of myocardial injury or ischemia o Cardiomyopathy, suspect non-ischemic, awaiting records from [facility] o Patient does give additional history that he underwent cardiac catheterization in the past at [facility] due to a weak heart muscle. He denies having any stenting o Patient currently denies chest pain or pressure Internal Medicine Progress Note (03/31/2025): o Acute heart failure exacerbation, EF 25-30% o Type II NSTEMI o EKG no acute ST changes o Troponins elevated 0.072, 0.074, 0.078 Treatment: Cardiology Consultation Telemetry Monitoring Heparin IV Infusion Aspirin 81mg Oral Daily Other Treatments this Admission: Lasix 60mg IVP x 1 40mg IVP Daily 40mg Oral Daily (First Dose 04/01/2025) Please clarify which diagnosis is most appropriate: [ ] Non-TN troponin elevation (myocardial infarction/myocardial injury ruled out) [ x ] Type 2 myocardial infarction secondary to heart failure exacerbation as evidenced by (additional clinical support) ___requiring lasix [ ] Type 2 myocardial infarction secondary to (please specify etiology) as evidenced by (additional clinical support) [ ] Other (please specify) [ ] Unable to determine MTDD
[2025-04-01 06:06] LABS: Glucose,Whole Blood 162 mg/dL (70-110)
[2025-04-01 07:54] LABS: Basophils # (A) 0.11 10*3/uL (0.00-0.10); Basophils % (A) 1.7 %; Eosinophils # (A) 0.33 10*3/uL (0.04-0.35); HCT 32.1 % (39.6-50.0); HGB 10.2 g/dL (13.0-17.0); Lymphocytes # (A) 1.39 10*3/uL (0.90-5.00); MCH 28.7 pg (27.0-32.0); MCHC 31.8 g/dL (32.0-37.0); MCV 90.2 fL (80.0-97.0); Mean Platelet Volume 8.6 fL (9.5-12.2); Monocytes # (A) 0.46 10*3/uL (0.20-1.00); Monocytes % (A) 6.9 %; Neutrophils # (A) 4.31 10*3/uL (1.80-7.70); Neutrophils % (A) 64.9 %; Platelet Count 352 10*3/uL (140-440); RBC 3.56 10*6/uL (4.40-5.60); RDW 14.8 % (11.5-14.5); WBC 6.63 10*3/uL (4.50-10.00)
[2025-04-01 07:57] LABS: African American GFR (CKD) 31 (>60 ml/min/1.73 sqM); Anion Gap 9 mmol/L; Blood Urea Nitrogen 30 mg/dL (9-20); Calcium 9.2 mg/dL (8.4-10.2); Carbon Dioxide 24 mmol/L (22-30); Chloride 101 mmol/L (98-107); Glucose 145 mg/dL (74-99); Magnesium 2.1 mg/dL (1.6-2.3); Non-African American GFR(CKD) 27 (>60 ml/min/1.73 sqM); Potassium 4.5 mmol/L (3.5-5.1); Sodium 134 mmol/L (137-145)
[2025-04-01 08:38] VITALS: RESP 18
[2025-04-01] MEDS: FUROSEMIDE 40 MG TAB PO SCH (09:35)
[2025-04-01 11:21] LABS: Glucose,Whole Blood 241 mg/dL (70-110)
[2025-04-01] MEDS: DAPAGLIFLOZIN PROPANEDIOL 10 MG TABLET PO SCH (11:56)
[2025-04-01 12:06] VITALS: BP 149/78; PULSE 79; TEMP 97.9
--- NOTE | 2025-04-01 12:06 | P.PN ---
Subjective Patient is seen for follow-up for acute kidney injury and chronic kidney disease. Baseline renal function not known, serum creatinine was 1.2 in 2020. Serum creatinine staying at about 2.2 mg/dL now. Admitted with complaints of shortness of breath. Currently being diuresed No evidence of obstruction on ultrasound. No significant complaints today. Objective - Vital Signs Vital signs: Vital Signs Temp 98.7 F 04/01/25 08:00 Pulse 85 04/01/25 08:00 Resp 18 04/01/25 08:00 BP 132/70 04/01/25 08:00 Pulse Ox 95 04/01/25 08:41 FiO2 28 04/01/25 08:41 Intake & Output 03/31/25 04/01/25 04/01/25 18:59 06:59 18:59 Intake Total 1810 180 Output Total 500 900 Balance 1310 -900 180 Weight 112.5 kg Intake: IV 10 Invasive Line 1 10 Oral 1800 180 Output: Urine 500 900 Other: Voiding Method Urinal Urinal # Voids 2 2 - Exam Patient is awake, comfortable, no acute distress Examination of the heart S1 and S2 Examination of the lungs bilateral breath sounds are heard Abdomen is soft nontender, obese Examination of lower extremities shows no significant edema ORTHOPEDIC SPECIALIST exam grossly intact - Labs CBC & Chem 7: 04/01/25 07:05 04/01/25 07:05 Labs: Abnormal Lab Results - Last 24 Hours (Table) 03/31/25 03/31/25 04/01/25 Range/Units 16:42 20:05 06:04 RBC (4.40-5.60) 10*6/uL Hgb (13.0-17.0) g/dL Hct (39.6-50.0) % MCHC (32.0-37.0) g/dL MPV (9.5-12.2) fL Basophils # (0.00-0.10) 10*3/uL Sodium (137-145) mmol/L BUN (9-20) mg/dL Creatinine (0.66-1.25) mg/dL Glucose (74-99) mg/dL POC Glucose (mg/dL) 150 H 283 H 162 H (70-110) mg/dL 04/01/25 04/01/25 04/01/25 Range/Units 07:05 07:05 11:19 RBC 3.56 L (4.40-5.60) 10*6/uL Hgb 10.2 L (13.0-17.0) g/dL Hct 32.1 L (39.6-50.0) % MCHC 31.8 L (32.0-37.0) g/dL MPV 8.6 L (9.5-12.2) fL Basophils # 0.11 H (0.00-0.10) 10*3/uL Sodium 134 L (137-145) mmol/L BUN 30 H (9-20) mg/dL Creatinine 2.38 H (0.66-1.25) mg/dL Glucose 145 H (74-99) mg/dL POC Glucose (mg/dL) 241 H (70-110) mg/dL Assessment and Plan Assessment: 1. Acute kidney injury, cardiorenal, nonoliguric. UA shows 2+ protein and trace blood.. Ultrasound does not show any evidence of obstruction. 2. Volume overload, improving 3. History of recent acute [place]. Patient had refused cardiac cath and signed off AMA from [facility] about 6 months ago 4. Chronic kidney disease with unknown baseline renal function. Serum creatinine was 1.2 in 2020 but renal function was impaired during recent hospitalization about 6 months ago, those labs not available. Serum creatinine seems to be staying around 2 which may be his new baseline. 5. History of hypertension maintained on angiotensin receptor blockers at home, currently on hold Plan: Continue with oral diuretics Patient will need follow-up as outpatient for CKD. Okay to start Farxiga/Jardiance. Can add MOOK inhibitor's in the next 1 to 2 days if renal function stays stable.
--- NOTE | 2025-04-01 13:19 | P.PN ---
Subjective HISTORY OF PRESENT ILLNESS: This is a 70-year-old male with a past medical history significant for hypertension, hyperlipidemia and diabetes. Patient does not follow with a radio news writer. We have been asked to see the patient in consultation for elevated troponins. Patient examined at the bedside in the emergency room. Patient initially presented to [facility] with a chief complaint of nausea and vomiting. Patient denied any chest pain or pressure. He denied any shortness of breath. According to primary medicine's dictation, the patient had chest pain prior to coming to the hospital. However when patient was interviewed this morning he denied having any episodes of chest pain or pressure. The patient was found to have minimally elevated troponins and was started on IV heparin. Additionally patient was found to have acute kidney injury with a creatinine of 2.25. His family is at the bedside and states that he was told he had an [place] about 6 months ago. At that time he was also told that his kidney function was not quite normal. She states that he was supposed to have a tube laser operator come evaluate him at that time but he did not stay in the hospital. He denies any previous cardiac catheterizations or stenting. DIAGNOSTICS: - EKG reveals sinus mechanism with T wave inversions in high lateral leads.. - Chest xray pulmonary edema blunting of costophrenic angles correlate for volume overload. - Laboratory data: WBC 8.09. Hemoglobin 10.4. Platelet count 379. D-dimer 0.54. Sodium 139. Potassium 4.2. BUN 29. Creatinine 2.25. Troponin 0.072. 0.074. 0.078. proBNP 4150. - Current home cardiac medications include metoprolol succinate 50 mg daily, Lasix 40 mg daily, amlodipine 10 mg daily, hydralazine 50 mg 3 times daily, Benicar 40 mg daily, fenofibrate 160 mg daily. - No previous echocardiogram, stress test, or cardiac catheterization available in EMR for review 03/31/2025 Patient examined this morning at the bedside. Patient currently denies chest pain or pressure. He denies shortness of breath. Vital signs are stable. Echocardiogram completed revealing ejection fraction 25 to 30% with mild MR and trace to mild TR. Patient does give additional history that he underwent cardiac catheterization in the past at [facility] due to a weak heart muscle. He denies having any stenting. 04/01/2025 Patient examined this morning at the bedside. Patient currently denies any chest pain or pressure. Denies any shortness of breath. Denies dizziness or lightheadedness. Echocardiogram completed revealing ejection fraction 25 to 30%, mild pulmonary hypertension, mild MR and trace to mild TR. Records obtained from [facility]. Patient underwent cardiac catheterization in September 2024 revealing left main with diffuse 40% stenosis. LAD has 60% stenosis proximally, mid 90% stenosis, and severe diffuse disease distally. LAD gives rise to diagonal which has ostial 50% stenosis. Ramus is ostially occluded. Left circumflex is small sized vessel and has ostial 90% stenosis. The left circumflex gives rise to a small OM which is severely diffusely diseased. RCA has distal 50% stenosis. The RCA gives rise to medium PDA which has severe diffuse disease and medium to large PLV which has moderate diffuse disease. Patient was deemed not to be a candidate for CABG due to unsuitable targets. Medical management was recommended. Additionally, the patient underwent echocardiogram in August 2024 which revealed ejection fraction of 62% at that time. PHYSICAL EXAM: VITAL SIGNS: Reviewed. GENERAL: Well-developed in no acute distress. HEENT: Head is normocephalic. Pupils are equal, round. Sclerae anicteric. Mucous membranes of the mouth are moist. Neck supple. No JVD or thyromegaly LUNGS: Respirations even and unlabored. Lungs essentially clear to auscultation bilaterally. HEART: Regular rate and rhythm. S1 and S2 heard. ABDOMEN: Soft. Nondistended. Nontender. EXTREMITIES: Normal range of motion. No clubbing or cyanosis. Peripheral pulses intact. No lower extremity edema NEUROLOGIC: Awake and alert. Oriented x 3. ASSESSMENT: Nausea and vomiting Acute kidney injury Elevated troponins, flat, likely secondary to poor renal clearance, no evidence of myocardial injury or ischemia Cardiomyopathy, ischemic Triple-vessel coronary artery disease, not a candidate for CABG, treated medically History of hypertension History of hyperlipidemia History of diabetes Obesity: BMI 35.9 PLAN: Continue aspirin, amlodipine, Lipitor, and metoprolol Farxiga added per primary medicine Recommend addition of MOOK/ARB on an outpatient basis if kidney function remains stable Recommend LifeVest due to cardiomyopathy to prevent sudden cardiac Patient is to follow-up postdischarge in the office with Dr. Lux Nurse practitioner note has been reviewed by physician. Signing provider agrees with the documented findings, assessment, and plan of care documented by TRIMMER MACHINE OPERATOR as a scribe. Objective - Vital Signs Vital signs: Vital Signs Temp 97.9 F 04/01/25 12:00 Pulse 79 04/01/25 12:00 Resp 18 04/01/25 12:00 BP 149/78 04/01/25 12:00 Pulse Ox 95 04/01/25 12:00 FiO2 28 04/01/25 08:41 Intake & Output 03/31/25 04/01/25 04/01/25 18:59 06:59 18:59 Intake Total 1810 180 Output Total 500 900 Balance 1310 -900 180 Weight 112.5 kg Intake: IV 10 Invasive Line 1 10 Oral 1800 180 Output: Urine 500 900 Other: Voiding Method Urinal Urinal # Voids 2 2 - Labs CBC & Chem 7: 04/01/25 07:05 04/01/25 07:05 Labs: Abnormal Lab Results - Last 24 Hours (Table) 03/31/25 03/31/25 04/01/25 Range/Units 16:42 20:05 06:04 RBC (4.40-5.60) 10*6/uL Hgb (13.0-17.0) g/dL Hct (39.6-50.0) % MCHC (32.0-37.0) g/dL MPV (9.5-12.2) fL Basophils # (0.00-0.10) 10*3/uL Sodium (137-145) mmol/L BUN (9-20) mg/dL Creatinine (0.66-1.25) mg/dL Glucose (74-99) mg/dL POC Glucose (mg/dL) 150 H 283 H 162 H (70-110) mg/dL 04/01/25 04/01/25 04/01/25 Range/Units 07:05 07:05 11:19 RBC 3.56 L (4.40-5.60) 10*6/uL Hgb 10.2 L (13.0-17.0) g/dL Hct 32.1 L (39.6-50.0) % MCHC 31.8 L (32.0-37.0) g/dL MPV 8.6 L (9.5-12.2) fL Basophils # 0.11 H (0.00-0.10) 10*3/uL Sodium 134 L (137-145) mmol/L BUN 30 H (9-20) mg/dL Creatinine 2.38 H (0.66-1.25) mg/dL Glucose 145 H (74-99) mg/dL POC Glucose (mg/dL) 241 H (70-110) mg/dL
--- NOTE | 2025-04-01 14:17 | P.DS ---
Providers Date of admission: 03/28/25 21:35 Discharge Diagnosis: Acute heart failure exacerbation in the setting of ischemic cardiomyopathy, EF 25-30% Triple vessel coronary artery disease, not a candidate for CABG, medically managed Pulmonary hypertension group II Type II NSTEMI Nonoliguric, cardiorenal acute kidney injury on CKD with unknown baseline [id number] diabetes mellitus Hypoglycemia Hypertension Normocytic anemia Iron deficiency anemia Hospital Course: Patient is a 70-year-old male with diabetes mellitus, hypertension. Patient coming in for evaluation of progressive chest pain. He reports that for the past few months he would get chest pain with activity. However he has not seek any medical evaluation. He has been taking some aspirin for that today. He was not doing much when he was trying to get to bed and suddenly started experiencing chest discomfort retrosternal and radiating diffusely to the chest associated with trouble breathing pain was like 8 out of 10 in severity. Took aspirin for it slightly improved. Drove himself to the hospital. Denies any associated nausea vomiting or profuse sweating. He denies any recent travel or hospital stay denies any history of blood clots he denies any upper respiratory infection symptoms denies any coughing fevers or chills denies any nausea vomiting denies abdominal pain changes in bowel or urinary habits. Patient denies any tobacco smoking illicit drugs or heavy alcohol. Chest x-ray independently interpreted showing showed pulmonary edema EKG independently interpreted showing no acute ST changes Vitals on admission: T 98.5F, WA 97, RR 20, BP 140/67, O2 saturation 94%, he was subsequently placed on on 2 L nasal cannula with no history of home oxygen use. Patient was admitted for further workup for chest pain and YOBANI on CKD with unknown baseline along with cardiology and nephrology being consulted. Troponins remained flat. Renal ultrasound: Displaying no hydronephrosis. Echocardiogram:LVEF 25 to 30%, moderately increased left ventricular wall thickness, RSVP 36, mild mitral regurgitation, mild trace mild tricuspid regurgitation. Patient was volume overloaded and underwent gentle diuresis. Throughout stay patient's kidney function stabilized and once cleared by nephrology and will follow-up regarding his chronic kidney disease. Previous records showed that he was admitted at [facility] and underwent cardiac catheterization in September 2024 that revealed severe triple-vessel coronary artery disease and was not a candidate for CABG is now being medically managed. Echocardiogram back in August revealed ejection fraction of 62% at that time. For his ischemic cardiomyopathy he was placed on SGLT 2 inhibitor in addition to his beta-lizett. Patient will follow-up with cardiology and PCP for likely addition of MOOK/ARB given that his kidney function remained stable. He will also follow-up with nephrology regarding his chronic kidney disease. Further workup displayed that he had iron deficiency and was placed on iron supplementation with vitamin C. He is hemodynamically stable and breathing on room air. Patient to receive LifeVest prior to discharge. He patient can be discharged home today. Patient seen and examined at bedside. Vital signs reviewed and stable. Physical examination: Vital signs reviewed General: non toxic, no distress, appears at stated age, on room air, obese Derm: no unusual rashes/lesions, warm Head: atraumatic, normocephalic, symmetric Eyes: EOMI, anicteric sclera, pupils equal round reactive to light ENT: Nose and ears atraumatic Mouth: no lip lesion, mucus membranes moist Cardiovascular: S1S2 reg, no murmur, positive dorsalis pedis pulse bilateral, no edema Lungs: CTA bilateral, no rhonchi, no rales, no accessory muscle use Abdominal: soft, nontender to palpation, no guarding Ext: muscle strength 5 out of 5 in all 4 extremities grossly, no gross muscle atrophy Neuro: CN II-XI grossly intact, no gross focal neuro deficits Psych: Alert, oriented to person, place, and time A total of greater than 30 minutes of time were spent preparing this complex discharge summary. Patient was discharge on the 04/01/2025 at 1:12 PM. Holli Leon MD PGY-1 IM Dictation was produced using [employer] dictation software. please excuse any grammatical, word or spelling errors. I have seen and evaluated the patient today. Discussed with the resident and agree with the residents finding and plan as documented in the resident's note. Changes highlighted in blue font. Expected date of discharge: 04/01/25 Attending physician: Libby Dickinson MD Consults: 03/28/25 21:35 Consult Physician Routine Consulting Provider: Tia Balbuena Consult Reason/Comments: nstemi Do you want consulting provider notified?: Yes 03/28/25 21:39 Consult Physician Routine Consulting Provider: Adriano Napoles Consult Reason/Comments: cp Do you want consulting provider notified?: Yes Primary care physician: Devonte Mccabe Patient Condition at Discharge: Serious Plan - Discharge Summary New Discharge Prescriptions: New Ferrous Sulfate [Iron (65 MG Elemental)] 325 mg PO W/LUNCH #90 tab Aspirin 81 mg PO DAILY #90 tab Dapagliflozin Propanediol [Farxiga] 10 mg PO DAILY #30 tab Atorvastatin [Lipitor] 40 mg PO HS #90 tab Ascorbic Acid [Vitamin C] 500 mg PO DAILY #90 tab Continue Pregabalin [Lyrica] 100 mg PO DAILY allopurinoL [Zyloprim] 300 mg PO DAILY Fenofibrate 160 mg PO DAILY glipiZIDE [Glucotrol] 5 mg PO DAILY Metoprolol Succinate [Toprol XL] 50 mg PO DAILY amLODIPine [Norvasc] 10 mg PO DAILY Furosemide [Lasix] 40 mg PO DAILY HYDROcodone/APAP 7.5-325MG [[place] 7.5-325] 1 tab PO Q8H PRN PRN Reason: Pain Olmesartan Medoxomil [Benicar] 40 mg PO DAILY Cholecalciferol [Vitamin D3 (25 Mcg = 1000 Iu)] 25 mcg PO DAILY Changed Insulin Glargine,Hum.rec.anlog [Lantus Solostar Pen] 20 units SQ DAILY #0 Discontinued hydrALAZINE HCL [Apresoline] 50 mg PO TID Discharge Medication List Pregabalin [Lyrica] 100 mg PO DAILY 04/26/14 [History] Fenofibrate 160 mg PO DAILY 07/24/16 [History] allopurinoL [Zyloprim] 300 mg PO DAILY 07/24/16 [History] Cholecalciferol [Vitamin D3 (25 Mcg = 1000 Iu)] 25 mcg PO DAILY 03/29/25 [History] Furosemide [Lasix] 40 mg PO DAILY 03/29/25 [History] HYDROcodone/APAP 7.5-325MG [[place] 7.5-325] 1 tab PO Q8H PRN 03/29/25 [History] Metoprolol Succinate [Toprol XL] 50 mg PO DAILY 03/29/25 [History] Olmesartan Medoxomil [Benicar] 40 mg PO DAILY 03/29/25 [History] amLODIPine [Norvasc] 10 mg PO DAILY 03/29/25 [History] glipiZIDE [Glucotrol] 5 mg PO DAILY 03/29/25 [History] Ascorbic Acid [Vitamin C] 500 mg PO DAILY #90 tab 04/01/25 [Rx] Aspirin 81 mg PO DAILY #90 tab 04/01/25 [Rx] Atorvastatin [Lipitor] 40 mg PO HS #90 tab 04/01/25 [Rx] Dapagliflozin Propanediol [Farxiga] 10 mg PO DAILY #30 tab 04/01/25 [Rx] Ferrous Sulfate [Iron (65 MG Elemental)] 325 mg PO W/LUNCH #90 tab 04/01/25 [Rx] Insulin Glargine,Hum.rec.anlog [Lantus Solostar Pen] 20 units SQ DAILY #0 04/01/25 [Rx] Follow up Appointment(s)/Referral(s): Natali Gilmore MD [STAFF PHYSICIAN] - 1 Week Devonte Mccabe MD [Primary Care Provider] - 1-2 days Joel Lux MD [STAFF PHYSICIAN] - 1 Week (Office will call you with an appointment.) Patient Instructions/Handouts: Heart Failure (DC), Chronic Kidney Disease (DC) Activity/Diet/Wound Care/Special Instructions: Please follow up with PCP, cardiology, and nephrology. Discharge Disposition: HOME SELF-CARE
[2025-04-01 16:27] LABS: Glucose,Whole Blood 251 mg/dL (70-110)
== END 2025-04-01 19:30 | disposition home or self-care (01) | DRG 280 ==
LOC: EC 19:44 → 3SCARD 21:35 → 2SICU 03-29 17:43 → 3SCARD 03-30 16:18
PROVIDERS: ADMIT Internal Medicine; ATTEND Internal Medicine
DX: I13.0 Hypertensive heart and chronic kidney disease with heart failure and stage 1 through stage 4 chronic kidney disease, or unspecified chronic kidney disease (principal); I50.21 Acute systolic (congestive) heart failure; I21.A1 Myocardial infarction type 2; I27.22 Pulmonary hypertension due to left heart disease; D63.1 Anemia in chronic kidney disease; E11.22 Type 2 diabetes mellitus with diabetic chronic kidney disease; E66.9 Obesity, unspecified; N18.9 Chronic kidney disease, unspecified; N17.9 Acute kidney failure, unspecified; Z79.4 Long term (current) use of insulin; E11.649 Type 2 diabetes mellitus with hypoglycemia without coma; E78.5 Hyperlipidemia, unspecified; Z68.35 Body mass index [BMI] 35.0-35.9, adult; I25.10 Atherosclerotic heart disease of native coronary artery without angina pectoris; I25.5 Ischemic cardiomyopathy; M79.7 Fibromyalgia; Z79.82 Long term (current) use of aspirin; Z79.84 Long term (current) use of oral hypoglycemic drugs; Z79.899 Other long term (current) drug therapy
CPT/HCPCS: 36415; 71046; 76770; 80048; 80053; 80061; 81001; 82607; 82728; 82746; 83036; 83540; 83550; 83690; 83735; 83880; 84100; 84439; 84443; 84466; 84484; 85025; 85379; 85610; 85730; 93005; 93306; 94760; 96365; 96366; 96372; 96375; 96376; 99291

== ENCOUNTER 2025-04-28 16:50 | Inpatient (IN) | payer MEDICARE, OTHER ==
--- NOTE | 2025-04-28 17:44 | ED ---
SOB HPI - General Chief Complaint: Shortness of Breath Stated Complaint: NAKIA Time Seen by Provider: 04/28/25 17:40 Source: patient, RN notes reviewed Mode of arrival: ambulatory Limitations: no limitations - History of Present Illness Initial Comments: 70-year-old male with history of CHF, diabetes, hyperlipidemia, and hypertension presenting for shortness of breath worsening over the past month. Reports shortness of breath with small bouts of exertion such as going to the bathroom. Also reports he cannot lay flat at night as he feels like he is choking. States he feels "full of water". Denies chest pain, fevers, abdominal pain. He is on Pradaxa and baby aspirin daily. LifeVest was placed [address] Lux. States he was admitted to the hospital about a month ago for an NSTEMI and states when he was discharged he was unable to get all of his medications for several weeks due to insurance issues and just started all of his medications as prescribed approximately 3 days ago. Reports leg swelling has decreased over the past couple of days once he began his Lasix pill again. - Related Data Home Medications Medication Instructions Recorded Confirmed Pregabalin [Lyrica] 100 mg PO DAILY 04/26/14 03/29/25 Fenofibrate 160 mg PO DAILY 07/24/16 03/29/25 allopurinoL [Zyloprim] 300 mg PO DAILY 07/24/16 03/29/25 Cholecalciferol [Vitamin D3 (25 25 mcg PO DAILY 03/29/25 03/29/25 Mcg = 1000 Iu)] Furosemide [Lasix] 40 mg PO DAILY 03/29/25 03/29/25 HYDROcodone/APAP 7.5-325MG [[place] 1 tab PO Q8H PRN 03/29/25 03/29/25 7.5-325] Metoprolol Succinate [Toprol XL] 50 mg PO DAILY 03/29/25 03/29/25 Olmesartan Medoxomil [Benicar] 40 mg PO DAILY 03/29/25 03/29/25 amLODIPine [Norvasc] 10 mg PO DAILY 03/29/25 03/29/25 glipiZIDE [Glucotrol] 5 mg PO DAILY 03/29/25 03/29/25 Previous Rx's Medication Instructions Recorded Ascorbic Acid [Vitamin C] 500 mg PO DAILY #90 tab 04/01/25 Aspirin 81 mg PO DAILY #90 tab 04/01/25 Atorvastatin [Lipitor] 40 mg PO HS #90 tab 04/01/25 Dapagliflozin Propanediol [Farxiga] 10 mg PO DAILY #30 tab 04/01/25 Ferrous Sulfate [Iron (65 MG 325 mg PO W/LUNCH #90 tab 04/01/25 Elemental)] Insulin Glargine,Hum.rec.anlog 20 units SQ DAILY #0 04/01/25 [Lantus Solostar Pen] Allergies Allergy/AdvReac Type Severity Reaction Status Date / Time No Known Allergies Allergy Verified 03/29/25 08:00 Review of Systems ROS Statement: Those systems with pertinent positive or pertinent negative responses have been documented in the HPI. ROS Other: All systems not noted in ROS Statement are negative. Past Medical History Past Medical History: Diabetes Mellitus, Fibromyalgia, Hyperlipidemia, Hypertension Additional Past Medical History / Comment(s): hx migraines, gout, History of Any Multi-Drug Resistant Organisms: None Reported Past Surgical History: Hernia Repair Past Anesthesia/Blood Transfusion Reactions: Motion Sickness Past Psychological History: No Psychological Hx Reported Smoking Status: Never smoker Past Alcohol Use History: None Reported Past Drug Use History: None Reported - Past Family History Father Family Medical History: Cancer Mother Family Medical History: Cancer General Exam Limitations: no limitations General appearance: alert, in no apparent distress Head exam: Present: atraumatic, normocephalic, normal inspection Eye exam: Present: normal appearance, PERRL, EOMI. Absent: scleral icterus, conjunctival injection, periorbital swelling ENT exam: Present: normal exam, mucous membranes moist Respiratory exam: Present: normal lung sounds bilaterally. Absent: respiratory distress, wheezes, rales, rhonchi, stridor, accessory muscle use Cardiovascular Exam: Present: regular rate, normal rhythm, normal heart sounds. Absent: systolic murmur, diastolic murmur, rubs, gallop, clicks GI/Abdominal exam: Present: soft, normal bowel sounds. Absent: distended, tenderness, guarding, rebound, rigid Neurological exam: Present: alert, oriented X3 Psychiatric exam: Present: normal affect, normal mood Skin exam: Present: warm, dry, intact, normal color. Absent: rash Course Vital Signs 04/28/25 04/28/25 04/28/25 17:08 18:47 19:37 Temperature 97.7 F Pulse Rate 100 92 96 Respiratory 18 18 18 Rate Blood Pressure 136/81 128/70 146/90 O2 Sat by Pulse 98 96 98 Oximetry Medical Decision Making - Medical Decision Making Was pt. sent in by a medical professional or institution (, [facility]ELY[facility], WHOLESALE MANAGER, urgent care, hospital, or correction...) When possible be specific @ -No Did you speak to anyone other than the patient for history (EMS, parent, family, police, friend...)? What history was obtained from this source @ -Son supplemented history Did you review nursing and triage notes (agree or disagree)? Why? @ -I reviewed and agree with nursing and triage notes Were old charts reviewed (outside hosp., previous admission, EMS record, old E KG, old radiological studies, urgent care reports/EKG's, correction records)? Report findings @ -No old charts were reviewed Differential Diagnosis (chest pain, altered mental status, abdominal pain women, abdominal pain men, vaginal bleeding, weakness, fever, dyspnea, syncope, headache, dizziness, GI bleed, back pain, seizure, CVA, palpatations, mental health, musculoskeletal)? @ -Differential Dyspnea: Coronary syndrome, arrhythmia, tamponade, asthma, COPD, pulmonary embolism, pneumonia, pneumothorax, pulmonary effusion, anaphylaxis, diabetic ketoacidosis, flailed chest, pulmonary contusion, diaphragmatic rupture, anemia, neuromuscular, this is not meant to be an all-inclusive list. EKG interpreted by me (3pts min.). @ -As above X-rays interpreted by me (1pt min.). @ -Chest x-ray reveals small bilateral pleural effusions CT interpreted by me (1pt min.). @ -None done U/S interpreted by me (1pt. min.). @ -None done What testing was considered but not performed or refused? (CT, X-rays, U/S, labs)? Why? @ -None What meds were considered but not given or refused? Why? @ -None Did you discuss the management of the patient with other professionals (professionals i.e. EVELYN Esparza, WHOLESALE MANAGER, lab, RT, psych nurse, psych social worker, color coater, teacher, contracting officer, top case assembler)? Give summary @ -I spoke with Dr. Sanders who advised to continue Pradaxa and start on IV heparin drip for NSTEMI, I then spoke with Jo from [facility] who accepts admission for NSTEMI Was smoking cessation discussed for >3mins.? @ -No Was critical care preformed (if so, how long)? @ -No Were there social determinants of health that impacted care today? How? (Homelessness, low income, unemployed, alcoholism, drug addiction, transportation, low edu. Level, literacy, decrease access to med. care, snf, rehab)? @ -No Was there de-escalation of care discussed even if they declined (Discuss DNR or withdrawal of care, Hospice)? DNR status @ -No What co-morbidities impacted this encounter? (DM, HTN, Smoking, COPD, CAD, C ancer, CVA, ARF, Chemo, Hep., AIDS, mental health diagnosis, sleep apnea, morbid obesity)? @ -CHF, hypertension, hyperlipidemia, DM Was patient admitted / discharged? Hospital course, mention meds given and route, prescriptions, significant lab abnormalities, going to OR and other pertinent info. @ -Admitted. 70-year-old male with history of LifeVest, CHF, hypertension, hyperlipidemia, and DM presenting for shortness of breath worsening over the course of 1 month. Patient is afebrile, heart rate 100 bpm, satting 98% on room air. Patient is well-appearing, no acute distress. Denies chest pain. No acute changes on EKG. Troponin elevated at 2.850. BNP 6310. Chest x-ray reveals small bilateral pleural effusions. Patient updated on findings. I spoke with Dr. Sanders who advised to continue Pradaxa and start on IV heparin drip, I then spoke with Jo from [facility] who accepts admission for NSTEMI. Patient was made n.p.o. at midnight per Dr. Sanders. Echocardiogram ordered for the a.m. Case was discussed with my ED attending Dr. Lechuga. Undiagnosed new problem with uncertain prognosis? @ -No Drug Therapy requiring intensive monitoring for toxicity (Heparin, Nitro, Insulin, Cardizem)? @ -Yes, heparin Were any procedures done? @ -No Diagnosis/symptom? @ -NSTEMI Acute, or Chronic, or Acute on Chronic? @ -Acute Uncomplicated (without systemic symptoms) or Complicated (systemic symptoms)? @ -Complicated Side effects of treatment? @ -No Exacerbation, Progression, or Severe Exacerbation? @ -No Poses a threat to life or bodily function? How? (Chest pain, USA, CT, pneumonia, PE, COPD, DKA, ARF, appy, cholecystitis, CVA, Diverticulitis, Homicidal, Suicidal, threat to staff... and all critical care pts) @ -Yes, NSTEMI - Lab Data Result diagrams: 04/28/25 18:07 04/28/25 18:07 Lab Results 04/28/25 04/28/25 04/28/25 Range/Units 18:07 18:07 18:07 WBC 4.61 (4.50-10.00) 10*3/uL RBC 4.90 (4.40-5.60) 10*6/uL Hgb 14.2 D (13.0-17.0) g/dL Hct 43.4 (39.6-50.0) % MCV 88.6 (80.0-97.0) fL MCH 29.0 (27.0-32.0) pg MCHC 32.7 (32.0-37.0) g/dL Plt Count 231 (140-440) 10*3/uL MPV 8.1 L (9.5-12.2) fL Immature Gran % (Auto) 0.4 % Neutrophils % 68.1 % Lymphocytes % 20.0 % Monocytes % 6.7 % Eosinophils % 3.5 % Basophils % 1.3 % Immature Gran # 0.02 (0.00-0.04) 10*3/uL Neutrophils # 3.14 (1.80-7.70) 10*3/uL Lymphocytes # 0.92 (0.90-5.00) 10*3/uL Monocytes # 0.31 (0.20-1.00) 10*3/uL Eosinophils # 0.16 (0.04-0.35) 10*3/uL Basophils # 0.06 (0.00-0.10) 10*3/uL PT 19.8 H (10.0-12.5) sec INR 2.0 H (<1.2) APTT 53.8 H (22.0-30.0) sec Sodium 136 L (137-145) mmol/L Potassium 3.7 (3.5-5.1) mmol/L Chloride 105 (98-107) mmol/L Carbon Dioxide 20 L (22-30) mmol/L Anion Gap 11 mmol/L BUN 37 H (9-20) mg/dL Creatinine 1.74 H (0.66-1.25) mg/dL Est GFR (CKD-EPI)AfAm 45 (>60 ml/min/1.73 sqM) Est GFR (CKD-EPI)NonAf 39 (>60 ml/min/1.73 sqM) Glucose 100 H (74-99) mg/dL Calcium 9.2 (8.4-10.2) mg/dL Magnesium 2.0 (1.6-2.3) mg/dL Total Bilirubin 0.5 (0.2-1.3) mg/dL AST 33 (17-59) U/L ALT 22 (4-49) U/L Alkaline Phosphatase 81 (38-126) U/L Troponin I (0.000-0.034) ng/mL NT-Pro-B Natriuret Pep 6310 pg/mL Total Protein 7.0 (6.3-8.2) g/dL Albumin 3.6 (3.5-5.0) g/dL Influenza Type A (PCR) (Not Detectd) Influenza Type B (PCR) (Not Detectd) RSV (PCR) (Not Detectd) SARS-CoV-2 (PCR) (Not Detectd) 04/28/25 04/28/25 Range/Units 18:07 18:07 WBC (4.50-10.00) 10*3/uL RBC (4.40-5.60) 10*6/uL Hgb (13.0-17.0) g/dL Hct (39.6-50.0) % MCV (80.0-97.0) fL MCH (27.0-32.0) pg MCHC (32.0-37.0) g/dL Plt Count (140-440) 10*3/uL MPV (9.5-12.2) fL Immature Gran % (Auto) % Neutrophils % % Lymphocytes % % Monocytes % % Eosinophils % % Basophils % % Immature Gran # (0.00-0.04) 10*3/uL Neutrophils # (1.80-7.70) 10*3/uL Lymphocytes # (0.90-5.00) 10*3/uL Monocytes # (0.20-1.00) 10*3/uL Eosinophils # (0.04-0.35) 10*3/uL Basophils # (0.00-0.10) 10*3/uL PT (10.0-12.5) sec INR (<1.2) APTT (22.0-30.0) sec Sodium (137-145) mmol/L Potassium (3.5-5.1) mmol/L Chloride (98-107) mmol/L Carbon Dioxide (22-30) mmol/L Anion Gap mmol/L BUN (9-20) mg/dL Creatinine (0.66-1.25) mg/dL Est GFR (CKD-EPI)AfAm (>60 ml/min/1.73 sqM) Est GFR (CKD-EPI)NonAf (>60 ml/min/1.73 sqM) Glucose (74-99) mg/dL Calcium (8.4-10.2) mg/dL Magnesium (1.6-2.3) mg/dL Total Bilirubin (0.2-1.3) mg/dL AST (17-59) U/L ALT (4-49) U/L Alkaline Phosphatase (38-126) U/L Troponin I 2.850 H* (0.000-0.034) ng/mL NT-Pro-B Natriuret Pep pg/mL Total Protein (6.3-8.2) g/dL Albumin (3.5-5.0) g/dL Influenza Type A (PCR) Not Detected (Not Detectd) Influenza Type B (PCR) Not Detected (Not Detectd) RSV (PCR) Not Detected (Not Detectd) SARS-CoV-2 (PCR) Not Detected (Not Detectd) - EKG Data -: EKG Interpreted by [facility] EKG Comments: EKG reveals sinus rhythm with first-degree AV block and widened QRS complexes comparable to previous EKG. Ventricular rate 94 bpm, parable 253, QRS duration 92, QT/QTc 372/423 Disposition Clinical Impression: NSTEMI (non-ST elevated myocardial infarction) Disposition: ADMITTED IP TO THIS [facility] Referrals: Devonte Mccabe MD [Primary Care Provider] - 1-2 days Time of Disposition: 20:35
[2025-04-28 18:17] LABS: Basophils # (A) 0.06 10*3/uL (0.00-0.10); Basophils % (A) 1.3 %; Eosinophils # (A) 0.16 10*3/uL (0.04-0.35); Eosinophils % (A) 3.5 %; HCT 43.4 % (39.6-50.0); Lymphocytes # (A) 0.92 10*3/uL (0.90-5.00); MCHC 32.7 g/dL (32.0-37.0); MCV 88.6 fL (80.0-97.0); Mean Platelet Volume 8.1 fL (9.5-12.2); Monocytes # (A) 0.31 10*3/uL (0.20-1.00); Monocytes % (A) 6.7 %; Neutrophils # (A) 3.14 10*3/uL (1.80-7.70); Neutrophils % (A) 68.1 %; Platelet Count 231 10*3/uL (140-440); RDW 15.6 % (11.5-14.5); WBC 4.61 10*3/uL (4.50-10.00)
[2025-04-28 18:19] LABS: HGB 14.2 g/dL (13.0-17.0)
[2025-04-28 18:25] LABS: ALT 22 U/L (4-49); AST 33 U/L (17-59); African American GFR (CKD) 45 (>60 ml/min/1.73 sqM); Albumin 3.6 g/dL (3.5-5.0); Alkaline Phosphatase 81 U/L (38-126); Anion Gap 11 mmol/L; Blood Urea Nitrogen 37 mg/dL (9-20); Calcium 9.2 mg/dL (8.4-10.2); Carbon Dioxide 20 mmol/L (22-30); Chloride 105 mmol/L (98-107); Glucose 100 mg/dL (74-99); Non-African American GFR(CKD) 39 (>60 ml/min/1.73 sqM); Potassium 3.7 mmol/L (3.5-5.1); Sodium 136 mmol/L (137-145); Total Bilirubin 0.5 mg/dL (0.2-1.3)
[2025-04-28 18:30] LABS: Partial Thromboplastin Time 53.8 sec (22.0-30.0); Prothrombin Time 19.8 sec (10.0-12.5)
[2025-04-28 18:33] LABS: NT-Pro-B-Type Natriuretic Pept 6310 pg/mL
[2025-04-28 18:50] LABS: Influenza A Not Detected (Not Detectd); Influenza B Not Detected (Not Detectd); RSV Not Detected (Not Detectd)
--- NOTE | 2025-04-28 19:06 | XR ---
EXAMINATION TYPE: XR chest 2V DATE OF EXAM: 04/28/2025 6:57 PM COMPARISON: 03/28/2025 CLINICAL INDICATION: Male, 70 years old with history of shortness of breath, TECHNIQUE: XR chest 2V view(s) obtained. FINDINGS: The heart size is normal. The pulmonary vasculature is normal. Minimal left pleural effusion may be present. A small right pleural effusion may be present. IMPRESSION: 1. Small bilateral pleural effusions. [facility], , 04/28/2025 7:04 PM
[2025-04-28] MEDS ORDERED: HEPARIN SODIUM 1,000 UN/ML (10ML VL) IV PRN (20:16)
[2025-04-28] MEDS ORDERED: MORPHINE SULFATE 4 MG/ML SYRINGE IV PRN (20:26)
[2025-04-28] MEDS ORDERED: NALOXONE 0.4 MG/ML 1 ML VIAL IV PRN (20:26)
[2025-04-28] MEDS ORDERED: HYDROmorphone 0.5 MG/0.5 ML SYRINGE IVP PRN (20:26)
[2025-04-28] MEDS: HEPARIN SOD,PORK IN 0.45% NACL 25,000 UNIT in 0.45% NACL 1 250ML.BAG IV SCH (20:49)
[2025-04-28 21:48] LABS: Glucose,Whole Blood 151 mg/dL (70-110)
[2025-04-28] MEDS ORDERED: HYDROcodone/APAP 7.5-325MG 1 EACH TAB PO PRN (22:33)
[2025-04-28] MEDS ORDERED: DEXTROSE 50% SYRINGE 50 ML IVP PRN ×2 (22:35)
[2025-04-28] MEDS: ATORVASTATIN 40 MG TAB PO SCH (22:43)
[2025-04-28] MEDS: FUROSEMIDE 10 MG/ML 4 ML VIAL IV STA (22:43)
[2025-04-28] MEDS: MELATONIN 5 MG TABLET PO SCH (22:43)
[2025-04-29] MEDS: IPRATROPIUM-ALBUTEROL 3 ML NEB INHALATION PRN (01:31)
[2025-04-29 06:11] LABS: African American GFR (CKD) 43 (>60 ml/min/1.73 sqM); Anion Gap 11 mmol/L; Blood Urea Nitrogen 42 mg/dL (9-20); Carbon Dioxide 23 mmol/L (22-30); Chloride 104 mmol/L (98-107); Glucose 109 mg/dL (74-99); Non-African American GFR(CKD) 38 (>60 ml/min/1.73 sqM); Potassium 3.5 mmol/L (3.5-5.1); Sodium 138 mmol/L (137-145)
[2025-04-29 06:12] LABS: Glucose,Whole Blood 139 mg/dL (70-110)
[2025-04-29] MEDS: INSULIN LISPRO (HumaLOG) 100 UNIT/ML 10 mL VL SQ SCH (06:26)
[2025-04-29] MEDS: INSULIN GLARGINE (LANTUS) 100 UNIT/ML SYR SQ SCH (06:54)
[2025-04-29] MEDS: ONDANSETRON 4 MG/2 ML VIAL IVP PRN (08:20)
[2025-04-29] MEDS ORDERED: ASCORBIC ACID 500 MG TAB PO SCH (09:00)
[2025-04-29] MEDS: METOPROLOL SUCCINATE (ER) 50 MG TAB.ER.24H PO SCH (09:51)
[2025-04-29] MEDS: allopurinoL 100 MG TAB PO SCH (09:51)
[2025-04-29] MEDS: RANOLAZINE 500 MG TAB.ER.12H PO SCH (09:51)
[2025-04-29] MEDS: DAPAGLIFLOZIN PROPANEDIOL 10 MG TABLET PO SCH (09:51)
[2025-04-29] MEDS: glipiZIDE 5 MG TAB PO SCH (09:51)
[2025-04-29] MEDS: FENOFIBRATE 160 MG TAB PO SCH (09:51)
[2025-04-29] MEDS: PREGABALIN 100 MG CAP PO SCH (09:52)
[2025-04-29] MEDS: FUROSEMIDE 10 MG/ML 4 ML VIAL IV SCH (09:52)
[2025-04-29] MEDS: ASPIRIN 81 MG PO SCH (09:52)
[2025-04-29 09:55] LABS: Glucose,Whole Blood 133 mg/dL (70-110)
[2025-04-29] MEDS: ISOSORBIDE MONONITRATE ER 30 MG TAB.ER.24H PO SCH (09:55)
[2025-04-29] MEDS: CHOLECALCIFEROL 25 MCG (1000 IU) TABLET PO SCH (10:01)
--- NOTE | 2025-04-29 10:24 | P.NPCON ---
History of Present Illness - Reason for Consult chronic renal failure - History of Present Illness Reason for consultation: Chronic kidney disease History of present illness: Patient is a 70-year-old male seen in renal consultation for chronic kidney disease. Chronic kidney disease stage IIIb/IV with creatinine near 2.2 in March 2025. Creatinine this admission is in the range of 1.7-1.8. Patient came to the hospital due to shortness of breath. Patient states has been going on for over a month now and has been progressively getting worse. Denies fever or chills. He is currently on room air. He denies any nausea vomiting or diarrhea. No chest pain. Patient does have longstanding history of diabetes. No gross hematuria or dysuria. He has been eating but states oral intake has been depressed. He is currently on heparin drip for elevated troponins. Cardiology has been consulted. Vital signs are stable. General: No acute distress. HEENT: Head exam is unremarkable. On room air. LUNGS: No audible rhonchi or wheezes. HEART: Rate and Rhythm are regular. ABDOMEN: Obese, Nontender. EXTREMITITES: No edema. Past Medical History Past Medical History: Diabetes Mellitus, Fibromyalgia, Hyperlipidemia, Hypertension Additional Past Medical History / Comment(s): hx migraines, gout, NSTEMI w/ life vest placement History of Any Multi-Drug Resistant Organisms: None Reported Past Surgical History: Hernia Repair Past Anesthesia/Blood Transfusion Reactions: Motion Sickness Past Psychological History: No Psychological Hx Reported Smoking Status: Never smoker Past Alcohol Use History: None Reported Past Drug Use History: None Reported - Past Family History Father Family Medical History: Cancer Mother Family Medical History: Cancer Medications and Allergies Home Medications Medication Instructions Recorded Confirmed Type Pregabalin [Lyrica] 100 mg PO DAILY 04/26/14 04/28/25 History Fenofibrate 160 mg PO DAILY 07/24/16 04/28/25 History allopurinoL [Zyloprim] 300 mg PO DAILY 07/24/16 04/28/25 History Cholecalciferol [Vitamin D3 (25 25 mcg PO DAILY 03/29/25 04/28/25 History Mcg = 1000 Iu)] Furosemide [Lasix] 40 mg PO DAILY 03/29/25 04/28/25 History HYDROcodone/APAP 7.5-325MG [[place] 1 tab PO Q8H PRN 03/29/25 04/28/25 History 7.5-325] Metoprolol Succinate [Toprol XL] 50 mg PO DAILY 03/29/25 04/28/25 History Olmesartan Medoxomil [Benicar] 40 mg PO DAILY 03/29/25 04/28/25 History amLODIPine [Norvasc] 10 mg PO DAILY 03/29/25 04/28/25 History glipiZIDE [Glucotrol] 5 mg PO DAILY 03/29/25 04/28/25 History Ascorbic Acid [Vitamin C] 500 mg PO DAILY #90 tab 04/01/25 04/28/25 Rx Aspirin 81 mg PO DAILY #90 tab 04/01/25 04/28/25 Rx Atorvastatin [Lipitor] 40 mg PO HS #90 tab 04/01/25 04/28/25 Rx Dapagliflozin Propanediol [Farxiga] 10 mg PO DAILY #30 tab 04/01/25 04/28/25 Rx Ferrous Sulfate [Iron (65 MG 325 mg PO W/LUNCH #90 tab 04/01/25 04/28/25 Rx Elemental)] Insulin Glargine,Hum.rec.anlog 20 units SQ DAILY #0 04/01/25 04/28/25 Rx [Lantus Solostar Pen] Allergies Allergy/AdvReac Type Severity Reaction Status Date / Time No Known Allergies Allergy Verified 03/29/25 08:00 Physical Exam Vitals: Vital Signs Temp Pulse Pulse Resp BP BP BP 04/29/25 08:12 97.9 F 86 17 92/45 04/29/25 03:52 105 H 17 109/61 04/29/25 01:40 96 04/29/25 01:33 94 04/28/25 23:12 95 17 94/58 04/28/25 21:49 97.9 F 102 H 20 138/73 04/28/25 21:32 92 16 131/73 04/28/25 20:53 91 11 L 116/70 04/28/25 19:37 96 18 146/90 04/28/25 18:47 92 18 128/70 04/28/25 17:08 97.7 F 100 18 136/81 Pulse Ox 04/29/25 08:12 100 04/29/25 03:52 99 04/29/25 01:40 04/29/25 01:33 04/28/25 23:12 97 04/28/25 21:49 96 04/28/25 21:32 99 04/28/25 20:53 98 04/28/25 19:37 98 04/28/25 18:47 96 04/28/25 17:08 98 Intake and Output 04/28/25 04/29/25 04/29/25 22:59 06:59 14:59 Output Total 400 Balance -400 Output: Urine 400 Other: Voiding Method Toilet Urinal # Bowel Movements 1 Weight 108.862 kg 109.3 kg Results - Lab Results Most recent lab results Calcium 9.0 mg/dL (8.4-10.2) 04/29/25 05: Magnesium 2.0 mg/dL (1.6-2.3) 04/28/25 18:07 04/28/25 18:07 04/29/25 05:26 Assessment and Plan Plan: Assessment: 1. Chronic kidney disease stage IIIb with creatinine 1.7-1.8 this admission. Creatinine in March 2025 was near 2.2. Etiology is cardiorenal syndrome. No hydronephrosis noted on kidney ultrasound done in March 2025. 2. Chronic systolic CHF ejection fraction of 25 to 30%. 3. Volume overload. 4. Diabetes mellitus. 5. Hypokalemia from diuresis. Plan: Maintain IV Lasix. Maintain Farxiga. Follow-up echocardiogram. Avoid nephrotoxins. Continue to monitor renal function and urine output. Replace potassium. Check UA. Thank you for the consultation. I will continue to follow the patient with you during his hospital stay.
[2025-04-29] MEDS: amLODIPine 10 MG TAB PO SCH (10:39)
[2025-04-29] MEDS: FUROSEMIDE 40 MG TAB PO SCH (10:39)
[2025-04-29 11:25] LABS: Glucose,Whole Blood 118 mg/dL (70-110)
--- NOTE | 2025-04-29 11:32 | P.CRDCN ---
History of Present Illness History of present illness: HISTORY OF PRESENT ILLNESS: This is a 70-year-old male with a past medical history significant for chronic kidney disease, coronary artery disease, ischemic cardiomyopathy, hypertension, hyperlipidemia, and diabetes. Patient follows in the office with Dr. Lux. We have been asked to see the patient in consultation for NSTEMI. Patient examined at the bedside. Patient presented to the hospital with a chief complaint of shortness of breath. Patient reports he also has had a cough. He denies having any chest pain or pressure. Vital signs are currently stable. Patient is currently wearing LifeVest. DIAGNOSTICS: - EKG reveals sinus mechanism with no signs of acute ischemia. - Chest xray small bilateral pleural effusions. - Laboratory data: WBC 4.61. Hemoglobin 14.2. Platelet count 231. Sodium 138. Potassium 3.5. BUN 42. Creatinine 1.80. proBNP 6310. Troponin 2.850. 3.610. 2.660 - Current home cardiac medications include Lipitor 40 mg daily, aspirin 81 mg daily, metoprolol succinate 50 mg daily, Lasix 40 mg daily, fenofibrate 160 mg daily, Farxiga 10 mg daily, amlodipine 10 mg daily, Benicar 40 mg daily. - Most recent echocardiogram obtained in March 2024 revealed ejection fraction 25 to 30%, mild pulmonary hypertension, mild mitral regurgitation, trace to mild tricuspid regurgitation - Cardiac catheterization history: September 2024 at [facility] revealing left main with diffuse 40% stenosis. LAD has 60% stenosis proximally, mid 90% stenosis, and severe diffuse disease distally. LAD gives rise to diagonal which has ostial 50% stenosis. Ramus is ostially occluded. Left circumflex is small sized vessel and has ostial 90% stenosis. The left circumflex gives rise to a small OM which is severely diffusely diseased. RCA has distal 50% stenosis. The RCA gives rise to medium PDA which has severe diffuse disease and medium to large PLV which has moderate diffuse disease. Patient was deemed not to be a candidate for CABG due to unsuitable targets. Medical management was recommended REVIEW OF SYSTEMS: At the time of my exam: CONSTITUTIONAL: Denies fever or chills. HEENT: Denies blurred vision, vision changes, or eye pain. Denies hemoptysis CARDIOVASCULAR: Denies chest pain. Denies orthopnea. Denies PND. Denies palpitations RESPIRATORY: Reports shortness of breath. GASTROINTESTINAL: Denies abdominal pain. Denies nausea or vomiting. HEMATOLOGIC: Denies bleeding disorders. GENITOURINARY: Denies any blood in urine. SKIN: Denies pruitis. Denies rash. PHYSICAL EXAM: VITAL SIGNS: Reviewed. GENERAL: Well-developed in no acute distress. HEENT: Head is normocephalic. Pupils are equal, round. Sclerae anicteric. Mucous membranes of the mouth are moist. Neck supple. No JVD or thyromegaly LUNGS: Respirations even and unlabored. Lungs diminished with fine rales at the bases HEART: Regular rate and rhythm. S1 and S2 heard. ABDOMEN: Soft. Nondistended. Nontender. EXTREMITIES: Normal range of motion. No clubbing or cyanosis. Peripheral pulses intact. No lower extremity edema NEUROLOGIC: Awake and alert. Oriented x 3. ASSESSMENT: Non-STEMI Acute on chronic heart failure with reduced EF, 25 to 30% Triple-vessel coronary artery disease, not a candidate for CABG, treated medically Chronic kidney disease Ischemic cardiomyopathy Mild pulmonary hypertension Hypertension Hyperlipidemia Diabetes Obesity: BMI 34.6 PLAN: 2D echo has been ordered. Await results. Discontinue amlodipine Continue IV heparin Add Imdur 30 mg daily Add Ranexa 500 mg twice a day Begin IV Lasix 40 mg every 12 hours Daily weights, accurate intake and output, monitoring of kidney function No plans for any invasive cardiac procedures at this time Further recommendations pending patient course Nurse practitioner note has been reviewed by physician. Signing provider agrees with the documented findings, assessment, and plan of care documented by NURSING CENTER TUTOR as a scribe. Past Medical History Past Medical History: Diabetes Mellitus, Fibromyalgia, Hyperlipidemia, Hypertension Additional Past Medical History / Comment(s): hx migraines, gout, NSTEMI w/ life vest placement History of Any Multi-Drug Resistant Organisms: None Reported Past Surgical History: Hernia Repair Past Anesthesia/Blood Transfusion Reactions: Motion Sickness Past Psychological History: No Psychological Hx Reported Smoking Status: Never smoker Past Alcohol Use History: None Reported Past Drug Use History: None Reported - Past Family History Father Family Medical History: Cancer Mother Family Medical History: Cancer Medications and Allergies Home Medications Medication Instructions Recorded Confirmed Type Pregabalin [Lyrica] 100 mg PO DAILY 04/26/14 04/29/25 History Fenofibrate 160 mg PO DAILY 07/24/16 04/29/25 History allopurinoL [Zyloprim] 300 mg PO DAILY 07/24/16 04/29/25 History Cholecalciferol [Vitamin D3 (25 25 mcg PO DAILY 03/29/25 04/29/25 History Mcg = 1000 Iu)] Furosemide [Lasix] 40 mg PO DAILY 03/29/25 04/29/25 History HYDROcodone/APAP 7.5-325MG [[place] 1 tab PO Q8H PRN 03/29/25 04/29/25 History 7.5-325] Metoprolol Succinate [Toprol XL] 50 mg PO DAILY 03/29/25 04/29/25 History Olmesartan Medoxomil [Benicar] 40 mg PO DAILY 03/29/25 04/29/25 History amLODIPine [Norvasc] 10 mg PO DAILY 03/29/25 04/29/25 History glipiZIDE [Glucotrol] 5 mg PO DAILY 03/29/25 04/29/25 History Ascorbic Acid [Vitamin C] 500 mg PO DAILY #90 tab 04/01/25 04/29/25 Rx Aspirin 81 mg PO DAILY #90 tab 04/01/25 04/29/25 Rx Atorvastatin [Lipitor] 40 mg PO HS #90 tab 04/01/25 04/29/25 Rx Dapagliflozin Propanediol [Farxiga] 10 mg PO DAILY #30 tab 04/01/25 04/29/25 Rx Ferrous Sulfate [Iron (65 MG 325 mg PO W/LUNCH #90 tab 04/01/25 04/29/25 Rx Elemental)] Insulin Glargine,Hum.rec.anlog 20 units SQ DAILY #0 04/01/25 04/29/25 Rx [Lantus Solostar Pen] Allergies Allergy/AdvReac Type Severity Reaction Status Date / Time No Known Allergies Allergy Verified 04/29/25 11:04 Physical Exam Vitals: Vital Signs Temp Pulse Pulse Resp BP BP BP 04/29/25 03:52 105 H 17 109/61 04/29/25 01:40 96 04/29/25 01:33 94 04/28/25 23:12 95 17 94/58 04/28/25 21:49 97.9 F 102 H 20 138/73 04/28/25 21:32 92 16 131/73 04/28/25 20:53 91 11 L 116/70 04/28/25 19:37 96 18 146/90 04/28/25 18:47 92 18 128/70 04/28/25 17:08 97.7 F 100 18 136/81 Pulse Ox 04/29/25 03:52 99 04/29/25 01:40 04/29/25 01:33 04/28/25 23:12 97 04/28/25 21:49 96 04/28/25 21:32 99 04/28/25 20:53 98 04/28/25 19:37 98 04/28/25 18:47 96 04/28/25 17:08 98 Intake and Output 04/28/25 04/29/25 04/29/25 22:59 06:59 14:59 Output Total 400 Balance -400 Output: Urine 400 Other: Voiding Method Toilet Urinal # Bowel Movements 1 Weight 108.862 kg 109.3 kg Results 04/28/25 18:07 04/29/25 05:26 Cardiac Enzymes 04/28/25 04/28/25 04/28/25 Range/Units 18:07 18:07 21:04 AST 33 (17-59) U/L Troponin I 2.850 H* 3.610 H* (0.000-0.034) ng/mL 04/29/25 Range/Units 03:02 AST (17-59) U/L Troponin I 2.660 H* (0.000-0.034) ng/mL Coagulation 04/28/25 04/29/25 Range/Units 18:07 03:02 PT 19.8 H (10.0-12.5) sec APTT 53.8 H 51.2 H (22.0-30.0) sec CBC 04/28/25 Range/Units 18:07 WBC 4.61 (4.50-10.00) 10*3/uL RBC 4.90 (4.40-5.60) 10*6/uL Hgb 14.2 D (13.0-17.0) g/dL Hct 43.4 (39.6-50.0) % Plt Count 231 (140-440) 10*3/uL Comprehensive Metabolic Panel 04/28/25 04/29/25 Range/Units 18:07 05:26 Sodium 136 L 138 (137-145) mmol/L Potassium 3.7 3.5 (3.5-5.1) mmol/L Chloride 105 104 (98-107) mmol/L Carbon Dioxide 20 L 23 (22-30) mmol/L BUN 37 H 42 H (9-20) mg/dL Creatinine 1.74 H 1.80 H (0.66-1.25) mg/dL Glucose 100 H 109 H (74-99) mg/dL Calcium 9.2 9.0 (8.4-10.2) mg/dL AST 33 (17-59) U/L ALT 22 (4-49) U/L Alkaline Phosphatase 81 (38-126) U/L Total Protein 7.0 (6.3-8.2) g/dL Albumin 3.6 (3.5-5.0) g/dL Current Medications Generic Name Dose Route Start Last Admin Trade Name Freq PRN Reason Stop Dose Admin Hydrocodone Bitart/Acetaminophen 1 each 04/28/25 22:33 Hydrocodone/Apap 7.5-325mg 1 Each Tab PO Q8H PRN Pain Albuterol/Ipratropium 3 ml 04/28/25 22:34 04/29/25 01:31 Ipratropium-Albuterol 3 Ml Neb INHALATION 3 ml RT-QID PRN Administration Shortness Of Breath Or Wheezing Allopurinol 50 mg 04/29/25 09:00 Allopurinol 100 Mg Tab PO DAILY [facility] Amlodipine Besylate 10 mg 04/29/25 09:00 Amlodipine 10 Mg Tab PO DAILY [facility] Ascorbic Acid 500 mg 04/29/25 12:30 Ascorbic Acid 500 Mg Tab PO W/LUNCH [facility] Aspirin 81 mg 04/29/25 09:00 Aspirin 81 Mg PO DAILY [facility] Atorvastatin Calcium 40 mg 04/28/25 22:45 04/28/25 22:43 Atorvastatin 40 Mg Tab PO 40 mg HS TEENA Administration Cholecalciferol 25 mcg 04/29/25 09:00 Cholecalciferol 25 Mcg (1000 Iu) Tablet PO DAILY TEENA Dapagliflozin 10 mg 04/29/25 09:00 Dapagliflozin Propanediol 10 Mg Tablet PO DAILY [facility] Dextrose/Water 25 ml 04/28/25 22:35 Dextrose 50% Syringe 50 Ml IVP PER PROTOCOL PRN Hypoglycemia Protocol Dextrose/Water 50 ml 04/28/25 22:35 Dextrose 50% Syringe 50 Ml IVP PER PROTOCOL PRN Hypoglycemia Protocol Fenofibrate 160 mg 04/29/25 09:00 Fenofibrate 160 Mg Tab PO DAILY [facility] Ferrous Sulfate 325 mg 04/29/25 12:30 Ferrous Sulfate 325 Mg Tab PO W/LUNCH [facility] Furosemide 40 mg 04/29/25 09:00 Furosemide 40 Mg Tab PO DAILY [facility] Glipizide 5 mg 04/29/25 09:00 Glipizide 5 Mg Tab PO DAILY [facility] Heparin Sodium (Porcine) 0 unit 04/28/25 20:16 Heparin Sodium 1,000 Un/Ml (10ml Vl) IV PER PROTOCOL PRN Low PTT Protocol Hydromorphone HCl 0.5 mg 04/28/25 20:26 Hydromorphone 0.5 Mg/0.5 Ml Syringe IVP Q3HR PRN Moderate Pain (Scale 4 to 6) Heparin Sodium/Sodium Chloride 250 mls @ 10 mls/hr 04/28/25 20:30 04/28/25 20:49 25,000 unit/ Sodium Chloride IV 9.186 units/kg/hr .Q24H TEENA 10 mls/hr Administration Protocol 9.186 UNITS/KG/HR Insulin Glargine 20 unit 04/29/25 07:00 04/29/25 06:54 Insulin Glargine (Lantus) 100 Unit/Ml Syr SQ Not Given DAILY@0700 [facility] Insulin Human Lispro 0 unit 04/29/25 07:30 04/29/25 06:26 Insulin Lispro (Humalog) 100 Unit/Ml 10 Ml Vl SQ Not Given ACHS [facility] Protocol Melatonin 5 mg 04/28/25 22:45 04/28/25 22:43 Melatonin 5 Mg Tablet PO 5 mg HS [facility] Administration Metoprolol Succinate 50 mg 04/29/25 09:00 Metoprolol Succinate (Er) 50 Mg Tab.Er.24h PO DAILY [facility] Morphine Sulfate 4 mg 04/28/25 20:26 Morphine Sulfate 4 Mg/Ml Syringe IV Q4HR PRN Severe Pain (Scale 7 to 10) Naloxone HCl 0.2 mg 04/28/25 20:26 Naloxone 0.4 Mg/Ml 1 Ml Vial IV Q2M PRN Opioid Reversal Pregabalin 100 mg 04/29/25 09:00 Pregabalin 100 Mg Cap PO DAILY [facility] Intake and Output 04/28/25 04/29/25 04/29/25 22:59 06:59 14:59 Output Total 400 Balance -400 Output: Urine 400 Other: Voiding Method Toilet Urinal # Bowel Movements 1 Weight 108.862 kg 109.3 kg 04/28/25 18:07 04/29/25 05:26
[2025-04-29] MEDS: POTASSIUM CHLORIDE ER 20 MEQ TAB.ER PO STA (11:50)
[2025-04-29] MEDS: ASCORBIC ACID 500 MG TAB PO SCH (11:50)
[2025-04-29] MEDS: FERROUS SULFATE 325 MG TAB PO SCH (11:50)
--- NOTE | 2025-04-29 12:21 | CA ---
Transthoracic Echo Report Name: Tani Lange Age: 70 Gender: M : 1955 Exam Date: 04/29/2025 08:27 Exam Location: [facility] Echo Ht (in): 70 Wt (lb): 240 Ordering Physician: Ronda Vargas Attending/Referring Phys: Finance Vice President Crystal Abdi RDCS Procedure CPT: Indications: nstemi Cardiac Hx: life vest Technical Quality: Technically difficult study Contrast 1: Definity Total Dose (mL): 2 Contrast 2: Total Dose (mL): MEASUREMENTS (Male / Female) Normal Values 2D ECHO LV Diastolic Diameter PLAX 6.1 cm 4.2 - 5.9 / 3.9 - 5.3 cm LV Systolic Diameter PLAX 5.3 cm IVS Diastolic Thickness 1.1 cm 0.6 - 1.0 / 0.6 - 0.9 cm LVPW Diastolic Thickness 1.3 cm 0.6 - 1.0 / 0.6 - 0.9 cm LV Relative Wall Thickness 0.4 RV Internal Dim ED PLAX 3.5 cm LVOT Diameter 2.3 cm LA Systolic Diameter LX 4.5 cm 3.0 - 4.0 / 2.7 - 3.8 cm LV Diastolic Volume MOD BP 171.2 cm??? 67 - 155 / 56 - 104 cm??? LV Systolic Volume MOD BP 112.3 cm??? - 58 / 19 - 49 cm??? LV Ejection Fraction MOD BP 34.4 % >= 55 % LV Cardiac Index MOD BP 2351.8 cm???/min???m??? LV Diastolic Volume MOD 4C 173.7 cm??? LV Systolic Volume MOD 4C 117.3 cm??? LV Ejection Fraction MOD 4C 32.5 % LV Cardiac Index MOD 4C 2250.0 cm???/min???m??? LV Diastolic Length 4C 8.9 cm LV Systolic Length 4C 8.2 cm LV Diastolic Volume MOD 2C 164.0 cm??? LV Systolic Volume MOD 2C 109.2 cm??? LV Ejection Fraction MOD 2C 33.4 % LV Cardiac Index MOD 2C 2183.8 cm???/min???m??? LV Diastolic Length 2C 8.5 cm LV Systolic Length 2C 8.1 cm LA Volume 103.5 cm??? 18 - 58 / 22 - 52 cm??? LA Volume Index 43.9 cm???/m??? 16 - 28 cm???/m??? Aorta at Sinotubular Diameter 3.9 cm DOPPLER AV Peak Velocity 128.6 cm/s AV Peak Gradient 6.6 mmHg MV Area PHT 5.6 cm??? Mitral E Point Velocity 101.1 cm/s Mitral A Point Velocity 61.3 cm/s Mitral E to A Ratio 1.6 MV Deceleration Time 135.0 ms TR Peak Velocity 347.9 cm/s TR Peak Gradient 48.4 mmHg Right Ventricular Systolic Press 53.4 mmHg FINDINGS Left Ventricle Left ventricular ejection fraction is estimated at 25-30 %. Mildly increased septal wall thickness. Mildly increased left ventricular diastolic diameter. Mildly increased left ventricular diastolic volume. Severely increased left ventricular systolic volume. Moderately decreased left ventricular ejection fraction. Right Ventricle Mild right ventricular dilatation. Moderate pulmonary hypertension. Right ventricular systolic pressure estimated at 53 mm hg. Right Atrium Right atrium not well visualized. Left Atrium Mildly increased left atrial diameter. Severely increased left atrial volume. Mildly increased left atrial area. No left atrial thrombus or mass present. Mitral Valve Mitral valve thickened. Mitral annular calcification. Mild mitral regurgitation. No evidence for mitral valve prolapse. No mitral stenosis. Aortic Valve Trileaflet aortic valve. Aortic valve sclerosis. No aortic stenosis. No aortic regurgitation. Tricuspid Valve Structurally normal tricuspid valve. Mild tricuspid regurgitation. Pulmonic Valve Pulmonic valve not well visualized. Mild pulmonic regurgitation. Pericardium No pericardial effusion. Aorta Mild aortic dilatation at the level of the sinuses of valsalva 39 mm CONCLUSIONS Poor LV systolic function with EF between 25 to 30% and global hypokinesia Moderate pulmonary hypertension Previewed by: Dr. Kalyan Grewal MD (Electronically Signed) Final Date: 29 Apr 2025 12:20
--- NOTE | 2025-04-29 15:45 | P.HPIM ---
History of Present Illness H&P Date: 04/29/25 This is a 70-year-old male with medical history significant for diabetes mellitus, fibromyalgia, hyperlipidemia, hypertension, prior NSTEMI with LifeVest. Patient was recently discharged from the hospital on April 01; he was admitted for acute heart failure. At that time his ejection fraction was 62%. He had a cardiac catheterization completed at [facility] about 7 months ago with findings of triple vessel disease; was felt to not be a candidate for stenting or coronary bypass he was discharged with the recommendations of medical management. His repeat echocardiogram his prior admission reveals an EF of 25 to 30%. patient received a LifeVest prior to his discharge on April 01. He returns to the hospital with complaints of shortness of breath which has been worsening over the last month since his prior admission. He states he is unable to lay down to sleep and has not been tolerating much activity. He was unable to obtain his new medications from his hospital stay last month due to cost and insurance issues; which he was able to figure out. He had just started taking the recommended medications including diuretics and his SGLT2 inhibitor. Once he began taking his Lasix pill he does report that his lower extremity swelling has improved. Chest x-ray reveals small bilateral pleural effusions. INR 2.0, BUN of 37 creatinine of 1.74. Hemoglobin A1c of 6.7. Patient does have significant troponin elevation of 2.850, 3.610, 2.660. ProBNP is elevated at 6310. He received a dose of IV lasix on admission; and was admitted to the hospital with cardiology consultation. REVIEW OF SYSTEMS: CONSTITUTIONAL: No fever, no malaise, no fatigue. HEENT: No recent visual problems or hearing problems. Denied any sore throat. CARDIOVASCULAR: No chest pain, orthopnea, PND, no palpitations, no syncope. PULMONARY: No shortness of breath, no cough, no hemoptysis. GASTROINTESTINAL: No diarrhea, no nausea, no vomiting, no abdominal pain. NEUROLOGICAL: No headaches, no weakness, no numbness. HEMATOLOGICAL: Denies any bleeding or petechiae. GENITOURINARY: Denies any burning micturition, frequency, or urgency. MUSCULOSKELETAL/RHEUMATOLOGICAL: Denies any joint pain, swelling, or any muscle pain. ENDOCRINE: Denies any polyuria or polydipsia. The rest of the 14-point review of systems is negative. PHYSICAL EXAMINATION: GENERAL: The patient is alert and oriented x3, not in any acute distress. Well developed, well nourished. HEENT: Pupils are round and equally reacting to light. EOMI. No scleral icterus. No conjunctival pallor. Normocephalic, atraumatic. No pharyngeal erythema. No thyromegaly. CARDIOVASCULAR: S1 and S2 present. No murmurs, rubs, or gallops. PULMONARY: Chest is clear to auscultation, no wheezing or crackles. ABDOMEN: Soft, nontender, nondistended, normoactive bowel sounds. No palpable organomegaly. MUSCULOSKELETAL: No joint swelling or deformity. EXTREMITIES: No cyanosis, clubbing, or pedal edema. NEUROLOGICAL: Gross neurological examination did not reveal any focal deficits. SKIN: No rashes. Assessment Acute heart failure exacerbation, systolic dysfunction Triple vessel coronary artery disease, not a candidate for CABG, medically managed Pulmonary hypertension Troponin elevation from NSTEMI [id number] diabetes mellitus Hyperlipidemia Hypertension Normocytic anemia Iron deficiency anemia Ischemic cardiomyopathy, EF 25-30% GI prophylaxis DVT prophylaxis: IV heparin Full Code Plan IV lasix 40 mg Q12 hour and strict intake and output monitoring Continue IV heparin Pending cardiology consultation and evaluation Resume home medications Check a bladder scan Accuchecks ACHS and sliding scale insulin ordered Monitor renal function The impression and plan of care has been dictated by Jo Harden, Nurse Practitioner as directed. Dr. Rani MD I have performed a history and physical examination and medical decision making of this patient, discussed the same with the dictator, and agree with the dictators assessment and plan as written, documented as a scribe. Based on total visit time, I have performed more than 50% of this visit. Past Medical History Past Medical History: Diabetes Mellitus, Fibromyalgia, Hyperlipidemia, Hypertension Additional Past Medical History / Comment(s): hx migraines, gout, NSTEMI w/ life vest placement History of Any Multi-Drug Resistant Organisms: None Reported Past Surgical History: Hernia Repair Past Anesthesia/Blood Transfusion Reactions: Motion Sickness Past Psychological History: No Psychological Hx Reported Smoking Status: Never smoker Past Alcohol Use History: None Reported Past Drug Use History: None Reported - Past Family History Father Family Medical History: Cancer Mother Family Medical History: Cancer Medications and Allergies Home Medications Medication Instructions Recorded Confirmed Type Pregabalin [Lyrica] 100 mg PO DAILY 04/26/14 04/29/25 History Fenofibrate 160 mg PO DAILY 07/24/16 04/29/25 History allopurinoL [Zyloprim] 300 mg PO DAILY 07/24/16 04/29/25 History Cholecalciferol [Vitamin D3 (25 25 mcg PO DAILY 03/29/25 04/29/25 History Mcg = 1000 Iu)] Furosemide [Lasix] 40 mg PO DAILY 03/29/25 04/29/25 History HYDROcodone/APAP 7.5-325MG [Hilger 1 tab PO Q8H PRN 03/29/25 04/29/25 History 7.5-325] Metoprolol Succinate [Toprol XL] 50 mg PO DAILY 03/29/25 04/29/25 History Olmesartan Medoxomil [Benicar] 40 mg PO DAILY 03/29/25 04/29/25 History glipiZIDE [Glucotrol] 5 mg PO DAILY 03/29/25 04/29/25 History Ascorbic Acid [Vitamin C] 500 mg PO DAILY #90 tab 04/01/25 04/29/25 Rx Aspirin 81 mg PO DAILY #90 tab 04/01/25 04/29/25 Rx Atorvastatin [Lipitor] 40 mg PO HS #90 tab 04/01/25 04/29/25 Rx Dapagliflozin Propanediol [Farxiga] 10 mg PO DAILY #30 tab 04/01/25 04/29/25 Rx Ferrous Sulfate [Iron (65 MG 325 mg PO W/LUNCH #90 tab 04/01/25 04/29/25 Rx Elemental)] Insulin Glargine,Hum.rec.anlog 20 units SQ DAILY #0 04/01/25 04/29/25 Rx [Lantus Solostar Pen] Allergies Allergy/AdvReac Type Severity Reaction Status Date / Time No Known Allergies Allergy Verified 04/29/25 11:04 Physical Exam Vitals: Vital Signs Temp Pulse Pulse Resp BP BP BP 04/29/25 08:12 97.9 F 86 17 92/45 04/29/25 03:52 105 H 17 109/61 04/29/25 01:40 96 04/29/25 01:33 94 04/28/25 23:12 95 17 94/58 04/28/25 21:49 97.9 F 102 H 20 138/73 04/28/25 21:32 92 16 131/73 04/28/25 20:53 91 11 L 116/70 04/28/25 19:37 96 18 146/90 04/28/25 18:47 92 18 128/70 04/28/25 17:08 97.7 F 100 18 136/81 Pulse Ox 04/29/25 08:12 100 04/29/25 03:52 99 04/29/25 01:40 04/29/25 01:33 04/28/25 23:12 97 04/28/25 21:49 96 04/28/25 21:32 99 04/28/25 20:53 98 04/28/25 19:37 98 04/28/25 18:47 96 04/28/25 17:08 98 Intake and Output 04/28/25 04/29/25 04/29/25 22:59 06:59 14:59 Output Total 400 Balance -400 Output: Urine 400 Other: Voiding Method Toilet Urinal # Bowel Movements 1 Weight 108.862 kg 109.3 kg Results CBC & Chem 7: 04/28/25 18:07 04/29/25 05:26 Labs: Abnormal Lab Results - Last 24 Hours (Table) 04/28/25 04/28/25 04/28/25 Range/Units 18:07 18:07 18:07 MPV 8.1 L (9.5-12.2) fL PT 19.8 H (10.0-12.5) sec INR 2.0 H (<1.2) APTT 53.8 H (22.0-30.0) sec Sodium 136 L (137-145) mmol/L Carbon Dioxide 20 L (22-30) mmol/L BUN 37 H (9-20) mg/dL Creatinine 1.74 H (0.66-1.25) mg/dL Glucose 100 H (74-99) mg/dL POC Glucose (mg/dL) (70-110) mg/dL Hemoglobin A1c (<=6.0) % Troponin I (0.000-0.034) ng/mL 04/28/25 04/28/25 04/28/25 Range/Units 18:07 21:04 21:47 MPV (9.5-12.2) fL PT (10.0-12.5) sec INR (<1.2) APTT (22.0-30.0) sec Sodium (137-145) mmol/L Carbon Dioxide (22-30) mmol/L BUN (9-20) mg/dL Creatinine (0.66-1.25) mg/dL Glucose (74-99) mg/dL POC Glucose (mg/dL) 151 H (70-110) mg/dL Hemoglobin A1c (<=6.0) % Troponin I 2.850 H* 3.610 H* (0.000-0.034) ng/mL 04/29/25 04/29/25 04/29/25 Range/Units 03:02 03:02 05:26 MPV (9.5-12.2) fL PT (10.0-12.5) sec INR (<1.2) APTT 51.2 H (22.0-30.0) sec Sodium (137-145) mmol/L Carbon Dioxide (22-30) mmol/L BUN (9-20) mg/dL Creatinine (0.66-1.25) mg/dL Glucose (74-99) mg/dL POC Glucose (mg/dL) (70-110) mg/dL Hemoglobin A1c 6.7 H (<=6.0) % Troponin I 2.660 H* (0.000-0.034) ng/mL 04/29/25 04/29/25 Range/Units 05:26 06:11 MPV (9.5-12.2) fL PT (10.0-12.5) sec INR (<1.2) APTT (22.0-30.0) sec Sodium (137-145) mmol/L Carbon Dioxide (22-30) mmol/L BUN 42 H (9-20) mg/dL Creatinine 1.80 H (0.66-1.25) mg/dL Glucose 109 H (74-99) mg/dL POC Glucose (mg/dL) 139 H (70-110) mg/dL Hemoglobin A1c (<=6.0) % Troponin I (0.000-0.034) ng/mL Thrombosis Risk Factor Assmnt - Choose All That Apply Any of the Below Risk Factors Present?: No Other Risk Factors: Yes Each Risk Factor Represents 2 Points: Age 61-74 years Other congenital or acquired thrombophilia - If yes, enter type in comment: No Thrombosis Risk Factor Assessment Total Risk Factor Score: 2 Thrombosis Risk Factor Assessment Level: Low Risk Assessment and Plan Time with Patient: Less than 30
[2025-04-29 16:24] LABS: Glucose,Whole Blood 129 mg/dL (70-110)
[2025-04-29 20:07] LABS: Glucose,Whole Blood 202 mg/dL (70-110)
[2025-04-29] MEDS: polyethylene glycoL 3350 17 GM POWD.PACK PO SCH (20:52)
[2025-04-29] MEDS: TEMAZEPAM 7.5 MG CAP PO PRN (21:03)
[2025-04-30 00:53] LABS: Amorphous Sediment,Urine Rare /hpf; Appearance,Urine Cloudy (Clear); Bilirubin,Urine Negative (Negative); Blood,Urine Negative (Negative); Color,Urine Yellow; Glucose,Urine (UA) 3+ (Negative); Granular Casts,Urine 3 /lpf (0); Hyaline Casts,Urine 56 /lpf (0-2); Ketones,Urine Negative (Negative); Leukocyte Esterase,Urine Negative (Negative); Mucus,Urine Rare /hpf; Nitrite,Urine Negative (Negative); PH, Urine 5.5 (5.0-8.0); Protein,Urine 2+ (Negative); RBC,Urine 1 /hpf (0-5); Specific Gravity,Urine 1.015 (1.001-1.035); Squamous Epithelial Cell,Urine 1 /hpf (0-4); WBC,Urine 1 /hpf (0-5)
[2025-04-30 06:10] LABS: Glucose,Whole Blood 202 mg/dL (70-110)
[2025-04-30 07:29] LABS: African American GFR (CKD) 27 (>60 ml/min/1.73 sqM); Anion Gap 10 mmol/L; Blood Urea Nitrogen 54 mg/dL (9-20); Calcium 8.7 mg/dL (8.4-10.2); Carbon Dioxide 21 mmol/L (22-30); Chloride 104 mmol/L (98-107); Glucose 184 mg/dL (74-99); Non-African American GFR(CKD) 24 (>60 ml/min/1.73 sqM); Potassium 5.3 mmol/L (3.5-5.1); Sodium 135 mmol/L (137-145)
[2025-04-30] MEDS ORDERED: LOSARTAN 50 MG TAB PO SCH (09:00)
[2025-04-30] MEDS: LOSARTAN 25 MG TAB PO SCH (09:25)
--- NOTE | 2025-04-30 11:03 | P.PN ---
Subjective Patient is seen in follow-up for acute kidney injury on chronic kidney disease. Renal function worse today. Denies chest pain or shortness of breath. On room air. Edema improved. Vital signs are stable. General: No acute distress. HEENT: Head exam is unremarkable. LUNGS: No audible rhonchi or wheezes. HEART: Rate and Rhythm are regular. ABDOMEN: Nontender. EXTREMITITES: No edema. Objective - Vital Signs Vital signs: Vital Signs Temp 97.5 F L 04/30/25 08:00 Pulse 85 04/30/25 08:00 Resp 18 04/30/25 08:00 BP 94/58 04/30/25 08:00 Pulse Ox 98 04/30/25 08:00 FiO2 Intake & Output 04/29/25 04/30/25 04/30/25 18:59 06:59 18:59 Intake Total 140 260.667 130 Output Total 325 Balance 140 -64.333 130 Weight 108.9 kg Intake: IV 20 20 10 Invasive Line 1 20 20 10 Intake, IV Titration 240.667 Amount Heparin Sod,Pork in 0.45% 240.667 NaCl 25,000 unit In 0.45 % NaCl 1 250ml.bag @ 9. 186 UNITS/KG/HR 10 mls/hr IV .Q24H [facility] Rx#: [id number] Oral 120 120 Output: Urine 325 Other: Voiding Method Toilet Toilet Urinal Urinal - Labs CBC & Chem 7: 04/28/25 18:07 04/30/25 06:10 Labs: Abnormal Lab Results - Last 24 Hours (Table) 04/29/25 04/29/25 04/29/25 Range/Units 11:23 16:22 20:06 APTT (22.0-30.0) sec Sodium (137-145) mmol/L Potassium (3.5-5.1) mmol/L Carbon Dioxide (22-30) mmol/L BUN (9-20) mg/dL Creatinine (0.66-1.25) mg/dL Glucose (74-99) mg/dL POC Glucose (mg/dL) 118 H 129 H 202 H (70-110) mg/dL Urine Protein (Negative) Urine Glucose (UA) (Negative) Amorphous Sediment (None) /hpf Hyaline Casts (0-2) /lpf Urine Mucus (None) /hpf 04/30/25 04/30/25 04/30/25 Range/Units 00:15 06:09 06:10 APTT 59.5 H (22.0-30.0) sec Sodium (137-145) mmol/L Potassium (3.5-5.1) mmol/L Carbon Dioxide (22-30) mmol/L BUN (9-20) mg/dL Creatinine (0.66-1.25) mg/dL Glucose (74-99) mg/dL POC Glucose (mg/dL) 202 H (70-110) mg/dL Urine Protein 2+ H (Negative) Urine Glucose (UA) 3+ H (Negative) Amorphous Sediment Rare H (None) /hpf Hyaline Casts 56 H (0-2) /lpf Urine Mucus Rare H (None) /hpf 04/30/25 Range/Units 06:10 APTT (22.0-30.0) sec Sodium 135 L (137-145) mmol/L Potassium 5.3 H (3.5-5.1) mmol/L Carbon Dioxide 21 L (22-30) mmol/L BUN 54 H (9-20) mg/dL Creatinine 2.65 H (0.66-1.25) mg/dL Glucose 184 H (74-99) mg/dL POC Glucose (mg/dL) (70-110) mg/dL Urine Protein (Negative) Urine Glucose (UA) (Negative) Amorphous Sediment (None) /hpf Hyaline Casts (0-2) /lpf Urine Mucus (None) /hpf Assessment and Plan Plan: Assessment: 1. Chronic kidney disease stage IIIb with creatinine 1.7-1.8 this admission - 2.65 today. Renal function worse from diuresis. Creatinine in March 2025 was near 2.2. Etiology is cardiorenal syndrome and diabetic kidney disease. No hydronephrosis noted on kidney ultrasound done in March 2025. 2. Chronic systolic CHF ejection fraction of 25 to 30% with moderate pulmonary hypertension. 3. Volume overload. Improved with diuresis. 4. Diabetes mellitus. 5. Hypokalemia from diuresis. Replaced. Improved. Plan: Stop diuretics. Stop Farxiga. Stop losartan. Avoid nephrotoxins. Continue to monitor renal function and urine output. Repeat labs in the morning. Repeat chest x-ray.
--- NOTE | 2025-04-30 11:09 | P.PN ---
Subjective HISTORY OF PRESENT ILLNESS: This is a 70-year-old male with a past medical history significant for chronic kidney disease, coronary artery disease, ischemic cardiomyopathy, hypertension, hyperlipidemia, and diabetes. Patient follows in the office with Dr. Lux. We have been asked to see the patient in consultation for NSTEMI. Patient examined at the bedside. Patient presented to the hospital with a chief complaint of shortness of breath. Patient reports he also has had a cough. He denies having any chest pain or pressure. Vital signs are currently stable. Patient is currently wearing LifeVest. DIAGNOSTICS: - EKG reveals sinus mechanism with no signs of acute ischemia. - Chest xray small bilateral pleural effusions. - Laboratory data: WBC 4.61. Hemoglobin 14.2. Platelet count 231. Sodium 138. Potassium 3.5. BUN 42. Creatinine 1.80. proBNP 6310. Troponin 2.850. 3.610. 2.660 - Current home cardiac medications include Lipitor 40 mg daily, aspirin 81 mg daily, metoprolol succinate 50 mg daily, Lasix 40 mg daily, fenofibrate 160 mg daily, Farxiga 10 mg daily, amlodipine 10 mg daily, Benicar 40 mg daily. - Most recent echocardiogram obtained in March 2024 revealed ejection fraction 25 to 30%, mild pulmonary hypertension, mild mitral regurgitation, trace to mild tricuspid regurgitation - Cardiac catheterization history: September 2024 at [facility] revealing left main with diffuse 40% stenosis. LAD has 60% stenosis proximally, mid 90% stenosis, and severe diffuse disease distally. LAD gives rise to diagonal which has ostial 50% stenosis. Ramus is ostially occluded. Left circumflex is small sized vessel and has ostial 90% stenosis. The left circumflex gives rise to a small OM which is severely diffusely diseased. RCA has distal 50% stenosis. The RCA gives rise to medium PDA which has severe diffuse disease and medium to large PLV which has moderate diffuse disease. Patient was deemed not to be a candidate for CABG due to unsuitable targets. Medical management was recommended 04/30/2025 Patient examined this morning. He is sitting up in the chair. He denies chest pain or pressure. Denies SOB. Remains on IV lasix. He also remains on IV heparin. Echocardiogram completed revealing ejection fraction 25 to 30%, moderate pulm hypertension. Creatinine worsened today to 2.65. PHYSICAL EXAM: VITAL SIGNS: Reviewed. GENERAL: Well-developed in no acute distress. HEENT: Head is normocephalic. Pupils are equal, round. Sclerae anicteric. Mucous membranes of the mouth are moist. Neck supple. No JVD or thyromegaly LUNGS: Respirations even and unlabored. Lungs diminished HEART: Regular rate and rhythm. S1 and S2 heard. ABDOMEN: Soft. Nondistended. Nontender. EXTREMITIES: Normal range of motion. No clubbing or cyanosis. Peripheral pulses intact. No lower extremity edema NEUROLOGIC: Awake and alert. Oriented x 3. ASSESSMENT: Non-STEMI Acute on chronic heart failure with reduced EF, 25 to 30% Triple-vessel coronary artery disease, not a candidate for CABG, treated medically Acute on chronic kidney disease Ischemic cardiomyopathy Moderate pulmonary hypertension Hypertension Hyperlipidemia Diabetes Obesity: BMI 34.6 PLAN: Discontinue IV heparin. Begin subcu heparin IV Lasix discontinued secondary to worsening creatinine Losartan and Farxiga discontinued this AM No plans for any invasive cardiac procedures at this time Further recommendations pending patient course Nurse practitioner note has been reviewed by physician. Signing provider agrees with the documented findings, assessment, and plan of care documented by [employer] as a scribe. Objective - Vital Signs Vital signs: Vital Signs Temp 97.5 F L 04/30/25 08:00 Pulse 85 04/30/25 08:00 Resp 18 04/30/25 08:00 BP 94/58 04/30/25 08:00 Pulse Ox 98 04/30/25 08:00 FiO2 Intake & Output 04/29/25 04/30/25 04/30/25 18:59 06:59 18:59 Intake Total 140 260.667 130 Output Total 325 Balance 140 -64.333 130 Weight 108.9 kg Intake: IV 20 20 10 Invasive Line 1 20 20 10 Intake, IV Titration 240.667 Amount Heparin Sod,Pork in 0.45% 240.667 NaCl 25,000 unit In 0.45 % NaCl 1 250ml.bag @ 9. 186 UNITS/KG/HR 10 mls/hr IV .Q24H [facility] Rx#: [id number] Oral 120 120 Output: Urine 325 Other: Voiding Method Toilet Toilet Urinal Urinal - Labs CBC & Chem 7: 04/28/25 18:07 04/30/25 06:10 Labs: Abnormal Lab Results - Last 24 Hours (Table) 04/29/25 04/29/25 04/29/25 Range/Units 11:23 16:22 20:06 APTT (22.0-30.0) sec Sodium (137-145) mmol/L Potassium (3.5-5.1) mmol/L Carbon Dioxide (22-30) mmol/L BUN (9-20) mg/dL Creatinine (0.66-1.25) mg/dL Glucose (74-99) mg/dL POC Glucose (mg/dL) 118 H 129 H 202 H (70-110) mg/dL Urine Protein (Negative) Urine Glucose (UA) (Negative) Amorphous Sediment (None) /hpf Hyaline Casts (0-2) /lpf Urine Mucus (None) /hpf 04/30/25 04/30/25 04/30/25 Range/Units 00:15 06:09 06:10 APTT 59.5 H (22.0-30.0) sec Sodium (137-145) mmol/L Potassium (3.5-5.1) mmol/L Carbon Dioxide (22-30) mmol/L BUN (9-20) mg/dL Creatinine (0.66-1.25) mg/dL Glucose (74-99) mg/dL POC Glucose (mg/dL) 202 H (70-110) mg/dL Urine Protein 2+ H (Negative) Urine Glucose (UA) 3+ H (Negative) Amorphous Sediment Rare H (None) /hpf Hyaline Casts 56 H (0-2) /lpf Urine Mucus Rare H (None) /hpf 04/30/25 Range/Units 06:10 APTT (22.0-30.0) sec Sodium 135 L (137-145) mmol/L Potassium 5.3 H (3.5-5.1) mmol/L Carbon Dioxide 21 L (22-30) mmol/L BUN 54 H (9-20) mg/dL Creatinine 2.65 H (0.66-1.25) mg/dL Glucose 184 H (74-99) mg/dL POC Glucose (mg/dL) (70-110) mg/dL Urine Protein (Negative) Urine Glucose (UA) (Negative) Amorphous Sediment (None) /hpf Hyaline Casts (0-2) /lpf Urine Mucus (None) /hpf
[2025-04-30 11:20] LABS: Glucose,Whole Blood 152 mg/dL (70-110)
[2025-04-30] MEDS: SODIUM CHLORIDE 0.9% 1,000 ML IV SCH (12:09)
[2025-04-30] MEDS: SODIUM CHLORIDE 0.9% 500 ML 1,000 ML IV ONE ×3 (12:10→13:09)
[2025-04-30] MEDS ORDERED: SODIUM CHLORIDE 0.9% 250 ML IV SCH (12:15)
[2025-04-30] MEDS: MIDODRINE 5 MG TAB PO SCH (12:31)
[2025-04-30 12:49] LABS: Glucose,Whole Blood 116 mg/dL (70-110)
--- NOTE | 2025-04-30 12:56 | XR ---
EXAMINATION TYPE: XR chest 1V DATE OF EXAM: 04/30/2025 COMPARISON: 04/28/2025 CLINICAL INDICATION: Male, 70 years old with history of sob; TECHNIQUE: Single frontal view of the chest is obtained. FINDINGS: Heart mildly moderately enlarged. Hazy basilar densities suspected to represent trace pleural effusio ns. Interstitium is similarly prominent. IMPRESSION: Correlate for CHF with similar mild pulmonary vascular congestion. Suspect ongoing trace pleural effusions. [facility], Workstation: [email or web address], 04/30/2025 12:53 PM
--- NOTE | 2025-04-30 13:12 | P.PN ---
Subjective Progress Note Date: 04/30/25 This is a 70-year-old male with medical history significant for diabetes mellitus, fibromyalgia, hyperlipidemia, hypertension, prior NSTEMI with LifeVest. Patient was recently discharged from the hospital on April 01; he was admitted for acute heart failure. At that time his ejection fraction was 62%. He had a cardiac catheterization completed at [facility] about 7 months ago with findings of triple vessel disease; was felt to not be a candidate for stenting or coronary bypass he was discharged with the recommendations of medical management. His repeat echocardiogram his prior admission reveals an EF of 25 to 30%. patient received a LifeVest prior to his discharge on April 01. He returns to the hospital with complaints of shortness of breath which has been worsening over the last month since his prior admission. He states he is unable to lay down to sleep and has not been tolerating much activity. He was unable to obtain his new medications from his hospital stay last month due to cost and ins urance issues; which he was able to figure out. He had just started taking the recommended medications including diuretics and his SGLT2 inhibitor. Once he began taking his Lasix pill he does report that his lower extremity swelling has improved. Chest x-ray reveals small bilateral pleural effusions. INR 2.0, BUN of 37 creatinine of 1.74. Hemoglobin A1c of 6.7. Patient does have significant troponin elevation of 2.850, 3.610, 2.660. ProBNP is elevated at 6310. He received a dose of IV lasix on admission; and was admitted to the hospital with cardiology consultation. 04/30/2025 Patient evaluated today in follow up on the cardiac unit. He has become hypotensive and symptomatic today with blood pressures in the 70s systolic. He has received a 500 mL fluid bolus with an additional 500 mLs ordered. Lasix was decreased to IV 40 mg Q12h yesterday and than the lasix has been discontinued to day as well as losartan. Sodium level of 135, potassium 5.3, BUN 54, creatinine 2.65. Magnesium 2.0. UA non infectious. Has not had accurate I and O. Chest xray showing CHF and trace pleural effusions. Patient was ateamed. REVIEW OF SYSTEMS: CONSTITUTIONAL: No fever, no malaise, no fatigue. HEENT: No recent visual problems or hearing problems. Denied any sore throat. CARDIOVASCULAR: No chest pain, orthopnea, PND, no palpitations, no syncope. PULMONARY: No shortness of breath, no cough, no hemoptysis. GASTROINTESTINAL: No diarrhea, no nausea, no vomiting, no abdominal pain. NEUROLOGICAL: No headaches, no weakness, no numbness. Diffuse weakness PHYSICAL EXAMINATION: GENERAL: The patient is alert and oriented x3, not in any acute distress. Well developed, well nourished. Pale. HEENT: Pupils are round and equally reacting to light. EOMI. No scleral icterus. No conjunctival pallor. Normocephalic, atraumatic. No pharyngeal erythema. No thyromegaly. CARDIOVASCULAR: S1 and S2 present. No murmurs, rubs, or gallops. PULMONARY: Chest is clear to auscultation, no wheezing or crackles. Diminished ABDOMEN: Soft, nontender, nondistended, normoactive bowel sounds. No palpable organomegaly. MUSCULOSKELETAL: No joint swelling or deformity. EXTREMITIES: No cyanosis, clubbing, or pedal edema. NEUROLOGICAL: Gross neurological examination did not reveal any focal deficits. Generalized weakness SKIN: No rashes. Assessment Hypotension liely from over diuresis YOBANI, prerenal Hypovolemic hyponatremia Acute heart failure exacerbation, systolic dysfunction Triple vessel coronary artery disease, not a candidate for CABG, medically managed Pulmonary hypertension Troponin elevation from NSTEMI Lmt-[id number] diabetes mellitus Hyperlipidemia Hypertension Hx Normocytic anemia Iron deficiency anemia Ischemic cardiomyopathy, EF 25-30% GI prophylaxis DVT prophylaxis: IV heparin Full Code Plan 1L fluid bolus Strict intake and output monitoring IV lasix discontinued Continue IV heparin Cardiology following nephrology following Accuchecks ACHS and sliding scale insulin ordered Monitor renal function The impression and plan of care has been dictated by Jo Harden, Nurse Practitioner as directed. Dr. Rani MD I have performed a history and physical examination and medical decision making of this patient, discussed the same with the dictator, and agree with the dictators assessment and plan as written, documented as a scribe. Based on total visit time, I have performed more than 50% of this visit. Objective - Vital Signs Vital signs: Vital Signs Temp 97.5 F L 04/30/25 08:00 Pulse 92 04/30/25 11:26 Resp 16 04/30/25 12:43 BP 78/41 04/30/25 12:43 Pulse Ox 99 04/30/25 12:43 FiO2 Intake & Output 05/29/25 05/30/25 05/30/25 18:59 06:59 18:59 Intake Total 140 260.667 256.167 Output Total 325 Balance 140 -64.333 256.167 Weight 108.9 kg Intake: IV 20 20 10 Invasive Line 1 20 20 10 Intake, IV Titration 240.667 126.167 Amount Heparin Sod,Pork in 0.45% 240.667 126.167 NaCl 25,000 unit In 0.45 % NaCl 1 250ml.bag @ 9. 186 UNITS/KG/HR 10 mls/hr IV .Q24H [facility] Rx#: [id number] Oral 120 120 Output: Urine 325 Other: Voiding Method Toilet Toilet Urinal Urinal - Labs CBC & Chem 7: 04/28/25 18:07 04/30/25 06:10 Labs: Abnormal Lab Results - Last 24 Hours (Table) 04/29/25 04/29/25 04/30/25 Range/Units 16:22 20:06 00:15 APTT (22.0-30.0) sec Sodium (137-145) mmol/L Potassium (3.5-5.1) mmol/L Carbon Dioxide (22-30) mmol/L BUN (9-20) mg/dL Creatinine (0.66-1.25) mg/dL Glucose (74-99) mg/dL POC Glucose (mg/dL) 129 H 202 H (70-110) mg/dL Urine Protein 2+ H (Negative) Urine Glucose (UA) 3+ H (Negative) Amorphous Sediment Rare H (None) /hpf Hyaline Casts 56 H (0-2) /lpf Urine Mucus Rare H (None) /hpf 04/30/25 04/30/25 04/30/25 Range/Units 06:09 06:10 06:10 APTT 59.5 H (22.0-30.0) sec Sodium 135 L (137-145) mmol/L Potassium 5.3 H (3.5-5.1) mmol/L Carbon Dioxide 21 L (22-30) mmol/L BUN 54 H (9-20) mg/dL Creatinine 2.65 H (0.66-1.25) mg/dL Glucose 184 H (74-99) mg/dL POC Glucose (mg/dL) 202 H (70-110) mg/dL Urine Protein (Negative) Urine Glucose (UA) (Negative) Amorphous Sediment (None) /hpf Hyaline Casts (0-2) /lpf Urine Mucus (None) /hpf 04/30/25 04/30/25 Range/Units 11:13 12:47 APTT (22.0-30.0) sec Sodium (137-145) mmol/L Potassium (3.5-5.1) mmol/L Carbon Dioxide (22-30) mmol/L BUN (9-20) mg/dL Creatinine (0.66-1.25) mg/dL Glucose (74-99) mg/dL POC Glucose (mg/dL) 152 H 116 H (70-110) mg/dL Urine Protein (Negative) Urine Glucose (UA) (Negative) Amorphous Sediment (None) /hpf Hyaline Casts (0-2) /lpf Urine Mucus (None) /hpf Assessment and Plan Time with Patient: Less than 30
[2025-04-30 13:22] LABS: Basophils # (A) 0.08 10*3/uL (0.00-0.10); Basophils % (A) 0.8 %; Eosinophils # (A) 0.21 10*3/uL (0.04-0.35); Eosinophils % (A) 2.1 %; HCT 20.7 % (39.6-50.0); Lymphocytes # (A) 2.34 10*3/uL (0.90-5.00); MCH 29.4 pg (27.0-32.0); MCHC 31.4 g/dL (32.0-37.0); Mean Platelet Volume 8.3 fL (9.5-12.2); Monocytes # (A) 0.88 10*3/uL (0.20-1.00); Monocytes % (A) 8.7 %; Neutrophils # (A) 6.59 10*3/uL (1.80-7.70); Neutrophils % (A) 64.8 %; Platelet Count 332 10*3/uL (140-440); RBC 2.21 10*6/uL (4.40-5.60); RDW 16.4 % (11.5-14.5); WBC 10.16 10*3/uL (4.50-10.00)
[2025-04-30 13:31] LABS: MCV 93.7 fL (80.0-97.0)
[2025-04-30 13:32] LABS: HGB 6.5 g/dL (13.0-17.0)
[2025-04-30 14:17] LABS: Glucose,Whole Blood 99 mg/dL (70-110)
--- NOTE | 2025-04-30 14:49 | P.CNPUL ---
History of Present Illness Consult date: 04/30/25 Requesting physician: Jo Harden Reason for consult: dyspnea, abnormal CXR/CT, other (Critical care management) Chief complaint: Shortness of breath, orthopnea History of present illness: This is a very pleasant 70-year-old male patient with a known history of hypertension, hyperlipidemia, diabetes mellitus, myocardial infarction, in September 2024 he was found to have diffuse severe coronary artery disease at [facility] however was not a candidate for CABG due to unsuitable targets. Medical management was recommended. Ischemic cardiomyopathy currently wearing a LifeVest. He presented here to the emergency room on 04/28/2025 with complaints of increasing shortness of breath, inability to lay flat without becoming worsening shortness of breath. Feels like his lungs were "full of water". Initial chest x-ray showed pulmonary vascular congestion and small bilateral pleural effusions. Echocardiogram reveals impaired left ventricular systolic function with an ejection fraction 25 to 30%. Moderate pulmonary hypertension. Global hypokinesia. He was being followed by cardiology. He was being diuresed. Today the patient developed increasing shortness of breath and s ignificant hypotension despite mild fluid resuscitation. He was transferred to the intensive care unit for the same. He was found to have a significant drop in his hemoglobin from 14.2 to 6.5. 2 units of packed red blood cells are pending. He is seen today in consultation. He is currently resting fairly comfortably in bed. Awake and alert in no acute distress. Maintaining O2 saturations in the 90s on 3 L/min per nasal cannula. He is afebrile. Mean arterial pressures currently 62 to 63. He denies any worsening shortness of breath. No chest pain. No palpitations. No dizziness or lightheadedness. White count 10.1. Hemoglobin 6.5. Platelets 333. Sodium 135. Potassium 5.3. Bicarb 21. BUN 54. Creatinine 2.65. Glucose 184. Troponin 2.85, 3.61, 2.66. proBNP 6310. Viral screen negative for influenza A/B, RSV, COVID. He had been initiated on a heparin drip which is currently on pause. Review of Systems REVIEW OF SYSTEMS: CONSTITUTIONAL: Denies any recent significant weight loss or weight gain. EYES: Denies change in vision. EARS, NOSE, MOUTH, THROAT: Denies headaches, denies sore throat. CARDIOVASCULAR: Denies chest pain, palpitations or syncopal episodes. RESPIRATORY: Positive for shortness of breath, cough, congestion no hemoptysis. GASTROINTESTINAL: Denies change in appetite, denies abdominal pain GENITOURINARY: Denies hematuria, denies infections. MUSKULOSKELETAL: Denies pain, denies swelling. INTEGUMENTARY: Denies rash, denies eczema. NEUROLOGICAL: Denies recent memory loss, no recent seizure activity. PSYCHIATRIC: Denies anxiety, denies depression. HEMATOLOGIC/LYMPHATIC: Denies anemia, denies enlarged lymph nodes. Past Medical History Past Medical History: Diabetes Mellitus, Fibromyalgia, Hyperlipidemia, Hypertension Additional Past Medical History / Comment(s): hx migraines, gout, NSTEMI w/ life vest placement History of Any Multi-Drug Resistant Organisms: None Reported Past Surgical History: Hernia Repair Past Anesthesia/Blood Transfusion Reactions: Motion Sickness Past Psychological History: No Psychological Hx Reported Smoking Status: Never smoker Past Alcohol Use History: None Reported Past Drug Use History: None Reported - Past Family History Father Family Medical History: Cancer Mother Family Medical History: Cancer Medications and Allergies Home Medications Medication Instructions Recorded Confirmed Type Pregabalin [Lyrica] 100 mg PO DAILY 04/26/14 04/29/25 History Fenofibrate 160 mg PO DAILY 07/24/16 04/29/25 History allopurinoL [Zyloprim] 300 mg PO DAILY 07/24/16 04/29/25 History Cholecalciferol [Vitamin D3 (25 25 mcg PO DAILY 03/29/25 04/29/25 History Mcg = 1000 Iu)] Furosemide [Lasix] 40 mg PO DAILY 03/29/25 04/29/25 History HYDROcodone/APAP 7.5-325MG [[place] 1 tab PO Q8H PRN 03/29/25 04/29/25 History 7.5-325] Metoprolol Succinate [Toprol XL] 50 mg PO DAILY 03/29/25 04/29/25 History Olmesartan Medoxomil [Benicar] 40 mg PO DAILY 03/29/25 04/29/25 History glipiZIDE [Glucotrol] 5 mg PO DAILY 03/29/25 04/29/25 History Ascorbic Acid [Vitamin C] 500 mg PO DAILY #90 tab 04/01/25 04/29/25 Rx Aspirin 81 mg PO DAILY #90 tab 04/01/25 04/29/25 Rx Atorvastatin [Lipitor] 40 mg PO HS #90 tab 04/01/25 04/29/25 Rx Dapagliflozin Propanediol [Farxiga] 10 mg PO DAILY #30 tab 04/01/25 04/29/25 Rx Ferrous Sulfate [Iron (65 MG 325 mg PO W/LUNCH #90 tab 04/01/25 04/29/25 Rx Elemental)] Insulin Glargine,Hum.rec.anlog 20 units SQ DAILY #0 04/01/25 04/29/25 Rx [Lantus Solostar Pen] Allergies Allergy/AdvReac Type Severity Reaction Status Date / Time No Known Allergies Allergy Verified 04/29/25 11:04 Physical Exam Vitals: Vital Signs Temp Pulse Resp BP Pulse Ox 04/30/25 13:45 18 87/51 04/30/25 13:40 18 80/51 04/30/25 13:35 18 71/51 04/30/25 13:30 18 63/36 04/30/25 13:28 18 58/38 04/30/25 13:20 18 78/41 04/30/25 13:16 18 87/51 04/30/25 13:10 18 88/48 04/30/25 13:05 16 88/53 99 04/30/25 13:00 16 91/53 100 04/30/25 12:50 16 84/43 99 04/30/25 12:45 16 84/53 99 04/30/25 12:43 16 78/41 99 04/30/25 12:33 18 87/51 99 04/30/25 12:30 18 86/47 100 04/30/25 12:26 18 82/48 100 04/30/25 12:19 18 80/46 100 04/30/25 12:15 18 82/47 99 04/30/25 12:10 18 77/41 100 04/30/25 12:05 18 81/43 99 04/30/25 12:04 18 82/46 99 04/30/25 12:00 18 86/46 100 04/30/25 11:55 20 82/45 99 04/30/25 11:50 82/46 04/30/25 11:40 83/45 04/30/25 11:26 92 18 72/46 97 04/30/25 08:00 97.5 F L 85 18 94/58 98 04/30/25 04:58 94 17 92/60 95 04/30/25 00:36 97 17 90/57 94 L 04/29/25 20:50 98.1 F 104 H 17 101/65 94 L 04/29/25 16:36 97.7 F 87 17 104/65 98 Intake and Output 04/29/25 04/30/25 04/30/25 22:59 06:59 14:59 Intake Total 370.667 10 256.167 Output Total 325 Balance 370.667 -315 256.167 Intake: IV 10 10 10 Invasive Line 1 10 10 10 Intake, IV Titration 240.667 126.167 Amount Heparin Sod,Pork in 0.45% 240.667 126.167 NaCl 25,000 unit In 0.45 % NaCl 1 250ml.bag @ 9. 186 UNITS/KG/HR 10 mls/hr IV .Q24H [facility] Rx#: [id number] Oral 120 120 Output: Urine 325 Other: Voiding Method Toilet Toilet Urinal Urinal Weight 108.9 kg GENERAL EXAM: Alert, pleasant 70-year-old male, on 3 L nasal cannula, fair comfortable in no apparent distress. HEAD: Normocephalic. EYES: Normal reaction of pupils, equal size. NOSE: Clear with pink turbinates. THROAT: No erythema or exudates. NECK: No masses, no JVD. CHEST: No chest wall deformity. Life vest secured in place. LUNGS: Equal air entry with crackles in the bilateral bases. CVS: S1 and S2 normal with no audible murmur, regular rhythm. ABDOMEN: No hepatosplenomegaly, normal bowel sounds, no guarding or rigidity. SPINE: No scoliosis or deformity SKIN: No rashes CENTRAL NERVOUS SYSTEM: No focal deficits, tone is normal in all 4 extremities. EXTREMITIES: There is 1-2+ peripheral edema. No clubbing, no cyanosis. Peripheral pulses are intact. Results - Laboratory Findings CBC and BMP: 04/30/25 13:01 04/30/25 06:10 PT/INR, D-dimer PT 19.8 sec (10.0-12.5) H 04/28/25 18:07 INR 2.0 (<1.2) H 04/28/25 18:07 Abnormal lab findings: Abnormal Labs 04/28/25 04/28/25 04/28/25 18:07 18:07 18:07 WBC RBC Hgb Hct MCHC MPV 8.1 L Immature Gran # PT 19.8 H INR 2.0 H APTT 53.8 H Sodium 136 L Potassium Carbon Dioxide 20 L BUN 37 H Creatinine 1.74 H Glucose 100 H POC Glucose (mg/dL) Hemoglobin A1c Troponin I Urine Protein Urine Glucose (UA) Amorphous Sediment Hyaline Casts Urine Mucus 04/28/25 04/28/25 04/28/25 18:07 21:04 21:47 WBC RBC Hgb Hct MCHC MPV Immature Gran # PT INR APTT Sodium Potassium Carbon Dioxide BUN Creatinine Glucose POC Glucose (mg/dL) 151 H Hemoglobin A1c Troponin I 2.850 H* 3.610 H* Urine Protein Urine Glucose (UA) Amorphous Sediment Hyaline Casts Urine Mucus 04/29/25 04/29/25 04/29/25 03:02 03:02 05:26 WBC RBC Hgb Hct MCHC MPV Immature Gran # PT INR APTT 51.2 H Sodium Potassium Carbon Dioxide BUN Creatinine Glucose POC Glucose (mg/dL) Hemoglobin A1c 6.7 H Troponin I 2.660 H* Urine Protein Urine Glucose (UA) Amorphous Sediment Hyaline Casts Urine Mucus 04/29/25 04/29/25 04/29/25 05:26 06:11 09:53 WBC RBC Hgb Hct MCHC MPV Immature Gran # PT INR APTT Sodium Potassium Carbon Dioxide BUN 42 H Creatinine 1.80 H Glucose 109 H POC Glucose (mg/dL) 139 H 133 H Hemoglobin A1c Troponin I Urine Protein Urine Glucose (UA) Amorphous Sediment Hyaline Casts Urine Mucus 04/29/25 04/29/25 04/29/25 11:23 16:22 20:06 WBC RBC Hgb Hct MCHC MPV Immature Gran # PT INR APTT Sodium Potassium Carbon Dioxide BUN Creatinine Glucose POC Glucose (mg/dL) 118 H 129 H 202 H Hemoglobin A1c Troponin I Urine Protein Urine Glucose (UA) Amorphous Sediment Hyaline Casts Urine Mucus 04/30/25 04/30/25 04/30/25 00:15 06:09 06:10 WBC RBC Hgb Hct MCHC MPV Immature Gran # PT INR APTT 59.5 H Sodium Potassium Carbon Dioxide BUN Creatinine Glucose POC Glucose (mg/dL) 202 H Hemoglobin A1c Troponin I Urine Protein 2+ H Urine Glucose (UA) 3+ H Amorphous Sediment Rare H Hyaline Casts 56 H Urine Mucus Rare H 04/30/25 04/30/25 04/30/25 06:10 11:13 12:47 WBC RBC Hgb Hct MCHC MPV Immature Gran # PT INR APTT Sodium 135 L Potassium 5.3 H Carbon Dioxide 21 L BUN 54 H Creatinine 2.65 H Glucose 184 H POC Glucose (mg/dL) 152 H 116 H Hemoglobin A1c Troponin I Urine Protein Urine Glucose (UA) Amorphous Sediment Hyaline Casts Urine Mucus 04/30/25 13:01 WBC 10.16 H RBC 2.21 L Hgb 6.5 L* D Hct 20.7 L MCHC 31.4 L MPV 8.3 L Immature Gran # 0.06 H PT INR APTT Sodium Potassium Carbon Dioxide BUN Creatinine Glucose POC Glucose (mg/dL) Hemoglobin A1c Troponin I Urine Protein Urine Glucose (UA) Amorphous Sediment Hyaline Casts Urine Mucus - Diagnostic Findings Chest x-ray: image reviewed Assessment and Plan Assessment: Acute hypoxic respiratory failure secondary to an acute exacerbation of chronic systolic congestive heart failure Acute non-ST segment elevation myocardial infarction Ischemic cardiomyopathy with an ejection fraction 25 to 30%, currently in a LifeVest from previous admission Found to have severe diffuse coronary artery disease, deemed unsuitable for bypass due to poor targets, in [facility] September 2024 Acute anemia with a hemoglobin of 14.2 down to 6.5, unclear etiology, to receive 2 units of packed red blood cells. Heparin drip on pause Hypotension requiring mild fluid resuscitation Acute kidney injury secondary to diuretics Hyperkalemia secondary to above Diabetes mellitus History of hypertension Hyperlipidemia History of gout Plan: The patient was seen and evaluate Chest x-ray, labs and medications reviewed Currently on 3 L nasal cannula Titrate the FiO2 as tolerated Echocardiogram reviewed Continue with LifeVest Heparin drip on pause Obtain a HIT panel Proceed with 2 units of packed red blood cells Diuretics currently on hold Farxiga and losartan on hold Continue Ranexa Continue midodrine Continue statin Cardiology is following Nephrology is following Continue to monitor closely here in the intensive care unit Prognosis is guarded We will continue to follow and make further recommendations based on his clinical status I have personally seen and examined the patient, performed the documentation and the assessment and plan as written. Number of minutes spent on the visit: 20 Dictation was produced using [employer] software. Please excuse any grammatical, word or spelling errors. Time with Patient: Greater than 30
[2025-04-30] MEDS: IOPAMIDOL CONTRAST (ORAL USE) VIAL PO PRN (14:52)
[2025-04-30 15:13] LABS: INR 1.5 (<1.2); Partial Thromboplastin Time 37.7 sec (22.0-30.0); Prothrombin Time 15.4 sec (10.0-12.5)
[2025-04-30] MEDS ORDERED: HEPARIN SODIUM,PORCINE 5,000 UNIT/ML 1 ML VIAL SQ SCH (16:00)
--- NOTE | 2025-04-30 17:04 | CT ---
EXAMINATION TYPE: CT abdomen pelvis wo con DATE OF EXAM: 04/30/2025 4:55 PM COMPARISON: None CLINICAL INDICATION: Male, 70 years old with history of anemia; Anemia. Suspected GI bleed. TECHNIQUE: Axial CT abdomen pelvis wo con;Sagittal and coronal reformats were created on a separate workstation. Contrast used: mL of , (none if empty) Oral contrast used: with Oral Contrast (none if empty) CT DLP: 1458.4 mGycm, Automated exposure control for dose reduction was used. FINDINGS: LOWER CHEST: Small right trace left pleural effusion with associated atelectasis. Severe coronary art kobe atherosclerosis. ABDOMEN LIVER: Diffusely hypoattenuating parenchyma. GALLBLADDER AND BILE DUCTS: Mild Fat stranding changes in the gallbladder fossa and glo hepatis. PANCREAS: Unremarkable. SPLEEN: Unremarkable. ADRENAL GLANDS: Unremarkable. KIDNEYS AND URETERS: No evidence of hydronephrosis or obstructing renal calculus. The ureters are unr emarkable. Simple appearing left posterior exophytic 20 mm cyst. No follow-up recommended. PELVIS BLADDER: No evidence for wall thickening or mass given limitations of exam. REPRODUCTIVE: Unremarkable. ABDOMEN & PELVIS STOMACH AND BOWEL: Nondiagnostic exam for GI bleed. There is a cecal wall mass measuring 21 x 15 mm s uggested series 201 image 123. No evidence of bowel obstruction. Third portion duodenal diverticulum. High-density contrast is seen throughout the bowel including the large bowel. PERITONEUM/RETROPERITONEUM: No evidence of pneumoperitoneum or free fluid. VASCULATURE: Moderate atherosclerotic calcifications are present throughout the abdominal aorta and i ts branches. No evidence of aortic aneurysm. MUSCULOSKELETAL: No acute osseous abnormalities. Moderate disc degeneration changes are present throu ghout the thoracolumbar spine. LYMPH NODES: No gross evidence for lymphadenopathy. SOFT TISSUE/ABDOMINAL WALL: Unremarkable fat-containing inguinal hernias. IMPRESSION: 1. Nondiagnostic exam for gastrointestinal hemorrhage given oral contrast was used. 2. Mild inflammation changes around the gallbladder and the right upper quadrant correlate for rathe r quadrant pathology such as cholecystitis consider correlation with serum lipase. 3. Cecal wall mass possibly present near the base of the appendix measuring 21 x 15 mm. Colonoscopy recommended with direct visualization. 4. Third portion duodenal diverticulum. 5. Normal appendix. 6. Moderate atherosclerosis of the arterial vasculature. 7. Small right and trace left pleural effusion. [facility], , 04/30/2025 5:02 PM
[2025-04-30 18:20] LABS: Glucose,Whole Blood 91 mg/dL (70-110)
[2025-04-30] MEDS: NOREPINEPHRINE 4 MG in SODIUM CHLORIDE 0.9% 250 ML IV SCH (18:54)
[2025-04-30 22:18] LABS: Glucose,Whole Blood 111 mg/dL (70-110)
[2025-05-01 00:18] LABS: Basophils # (A) 0.14 10*3/uL (0.00-0.10); Basophils % (A) 1.1 %; Eosinophils # (A) 0.26 10*3/uL (0.04-0.35); Eosinophils % (A) 2.1 %; Lymphocytes # (A) 2.31 10*3/uL (0.90-5.00); Lymphocytes % (A) 18.3 %; MCH 28.8 pg (27.0-32.0); MCV 92.7 fL (80.0-97.0); Mean Platelet Volume 8.7 fL (9.5-12.2); Monocytes # (A) 1.28 10*3/uL (0.20-1.00); Monocytes % (A) 10.1 %; Neutrophils # (A) 8.57 10*3/uL (1.80-7.70); Neutrophils % (A) 67.8 %; Platelet Count 423 10*3/uL (140-440); RBC 3.13 10*6/uL (4.40-5.60); RDW 16.4 % (11.5-14.5); WBC 12.64 10*3/uL (4.50-10.00)
[2025-05-01 05:43] LABS: Basophils # (A) 0.09 10*3/uL (0.00-0.10); Basophils % (A) 0.9 %; Eosinophils # (A) 0.17 10*3/uL (0.04-0.35); Eosinophils % (A) 1.6 %; HCT 27.6 % (39.6-50.0); HGB 8.6 g/dL (13.0-17.0); Lymphocytes # (A) 1.89 10*3/uL (0.90-5.00); Lymphocytes % (A) 18.2 %; MCH 28.9 pg (27.0-32.0); MCHC 31.2 g/dL (32.0-37.0); MCV 92.6 fL (80.0-97.0); Mean Platelet Volume 8.5 fL (9.5-12.2); Monocytes # (A) 0.86 10*3/uL (0.20-1.00); Monocytes % (A) 8.3 %; Neutrophils # (A) 7.31 10*3/uL (1.80-7.70); Neutrophils % (A) 70.6 %; Platelet Count 377 10*3/uL (140-440); RBC 2.98 10*6/uL (4.40-5.60); RDW 16.5 % (11.5-14.5); WBC 10.36 10*3/uL (4.50-10.00)
[2025-05-01 06:26] LABS: African American GFR (CKD) 24 (>60 ml/min/1.73 sqM); Anion Gap 8 mmol/L; Blood Urea Nitrogen 59 mg/dL (9-20); Calcium 8.2 mg/dL (8.4-10.2); Carbon Dioxide 19 mmol/L (22-30); Chloride 106 mmol/L (98-107); Glucose 79 mg/dL (74-99); Non-African American GFR(CKD) 21 (>60 ml/min/1.73 sqM); Potassium 5.3 mmol/L (3.5-5.1); Sodium 133 mmol/L (137-145)
--- NOTE | 2025-05-01 06:45 | XR ---
EXAMINATION TYPE: XR chest 1V DATE OF EXAM: 05/01/2025 3:57 AM COMPARISON: Chest radiographs from 04/30/2025, CT abdomen and pelvis 04/30/2025 TECHNIQUE: XR chest 1V Portable AP radiograph of the chest. CLINICAL INDICATION:Male, 70 years old with history of CHF; FINDINGS: Lungs/Pleura: No pneumothorax. Known small bilateral pleural effusions better appreciated on CT. Deve lopment of right basilar patchy airspace opacity corresponding to atelectasis on CT. Pulmonary vascularity: Mild pulmonary vascular congestion. Heart/mediastinum: Cardiomediastinal silhouette is enlarged and stable. Musculoskeletal: No acute osseous pathology. IMPRESSION: Cardiomegaly, pulmonary vascular congestion and small bilateral pleural effusions. Consistent with re ported CHF exacerbation. [facility], , 05/01/2025 6:42 AM
[2025-05-01] MEDS: PANTOPRAZOLE 40 MG/10 ML VIAL IV SCH (08:39)
--- NOTE | 2025-05-01 10:16 | P.PN ---
Subjective Patient is seen in follow-up for acute kidney injury on chronic kidney disease. Renal function worse. Hemoglobin dropped to 6.5 yesterday. He was transferred to the ICU. Received 2 units of blood. Denies chest pain or shortness of breath. On room air. Currently off Levophed. Vital signs are stable. General: No acute distress. HEENT: Head exam is unremarkable. LUNGS: No audible rhonchi or wheezes. HEART: Rate and Rhythm are regular. ABDOMEN: Nontender. EXTREMITITES: No edema. Objective - Vital Signs Vital signs: Vital Signs Temp 97.9 F 05/01/25 08:30 Pulse 86 05/01/25 08:30 Resp 22 05/01/25 08:30 BP 105/70 05/01/25 08:30 Pulse Ox 97 05/01/25 08:30 FiO2 Intake & Output 04/30/25 05/01/25 05/01/25 18:59 06:59 18:59 Intake Total 582.167 576.884 20 Output Total 150 0 0 Balance 432.167 576.884 20 Weight 121.1 kg Intake: IV 26 Invasive Line 1 10 Invasive Line 2 16 Intake, IV Titration 126.167 266.884 20 Amount Heparin Sod,Pork in 0.45% 126.167 NaCl 25,000 unit In 0.45 % NaCl 1 250ml.bag @ 9. 186 UNITS/KG/HR 10 mls/hr IV .Q24H [facility] Rx#: [id number] Norepinephrine 4 mg In 46.884 Sodium Chloride 0.9% 250 ml @ 0.03 MCG/KG/MIN 12. 447 mls/hr IV .[id number] [facility] Rx#:[id number] Sodium Chloride 0.9% 1, 220 20 000 ml @ 25 mls/hr IV . Q24H [facility] Rx#:[id number] Oral 120 Blood Product 310 310 Rc As-1 Unit 310 [id number] Rc As-1 Unit 310 [id number] Output: Urine 150 0 0 Other: Voiding Method Toilet Toilet Urinal Urinal # Voids 0 0 0 # Bowel Movements 1 1 - Labs CBC & Chem 7: 05/01/25 05:14 05/01/25 05:14 Labs: Abnormal Lab Results - Last 24 Hours (Table) 05/04/30/25 04/30/25 Range/Units 11:13 12:47 13:01 WBC 10.16 H (4.50-10.00) 10*3/uL RBC 2.21 L (4.40-5.60) 10*6/uL Hgb 6.5 L* D (13.0-17.0) g/dL Hct 20.7 L (39.6-50.0) % MCHC 31.4 L (32.0-37.0) g/dL MPV 8.3 L (9.5-12.2) fL Immature Gran # 0.06 H (0.00-0.04) 10*3/uL Neutrophils # (1.80-7.70) 10*3/uL Monocytes # (0.20-1.00) 10*3/uL Basophils # (0.00-0.10) 10*3/uL PT (10.0-12.5) sec INR (<1.2) APTT (22.0-30.0) sec Fibrinogen (200-500) mg/dL Sodium (137-145) mmol/L Potassium (3.5-5.1) mmol/L Carbon Dioxide (22-30) mmol/L BUN (9-20) mg/dL Creatinine (0.66-1.25) mg/dL POC Glucose (mg/dL) 152 H 116 H (70-110) mg/dL Calcium (8.4-10.2) mg/dL Crossmatch 04/30/25 04/30/25 04/30/25 Range/Units 14:36 14:36 22:17 WBC (4.50-10.00) 10*3/uL RBC (4.40-5.60) 10*6/uL Hgb (13.0-17.0) g/dL Hct (39.6-50.0) % MCHC (32.0-37.0) g/dL MPV (9.5-12.2) fL Immature Gran # (0.00-0.04) 10*3/uL Neutrophils # (1.80-7.70) 10*3/uL Monocytes # (0.20-1.00) 10*3/uL Basophils # (0.00-0.10) 10*3/uL PT 15.4 H (10.0-12.5) sec INR 1.5 H (<1.2) APTT 37.7 H (22.0-30.0) sec Fibrinogen 621 H (200-500) mg/dL Sodium (137-145) mmol/L Potassium (3.5-5.1) mmol/L Carbon Dioxide (22-30) mmol/L BUN (9-20) mg/dL Creatinine (0.66-1.25) mg/dL POC Glucose (mg/dL) 111 H (70-110) mg/dL Calcium (8.4-10.2) mg/dL Crossmatch See Detail 05/01/25 05/01/25 05/01/25 Range/Units 00:03 05:14 05:14 WBC 12.64 H (4.50-10.00) 10*3/uL RBC 3.13 L (4.40-5.60) 10*6/uL Hgb 9.0 L D (13.0-17.0) g/dL Hct 29.0 L (39.6-50.0) % MCHC 31.0 L (32.0-37.0) g/dL MPV 8.7 L (9.5-12.2) fL Immature Gran # 0.08 H (0.00-0.04) 10*3/uL Neutrophils # 8.57 H (1.80-7.70) 10*3/uL Monocytes # 1.28 H (0.20-1.00) 10*3/uL Basophils # 0.14 H (0.00-0.10) 10*3/uL PT (10.0-12.5) sec INR (<1.2) APTT 37.4 H (22.0-30.0) sec Fibrinogen (200-500) mg/dL Sodium 133 L (137-145) mmol/L Potassium 5.3 H (3.5-5.1) mmol/L Carbon Dioxide 19 L (22-30) mmol/L BUN 59 H (9-20) mg/dL Creatinine 2.94 H (0.66-1.25) mg/dL POC Glucose (mg/dL) (70-110) mg/dL Calcium 8.2 L (8.4-10.2) mg/dL Crossmatch 05/01/25 Range/Units 05:14 WBC 10.36 H (4.50-10.00) 10*3/uL RBC 2.98 L (4.40-5.60) 10*6/uL Hgb 8.6 L (13.0-17.0) g/dL Hct 27.6 L (39.6-50.0) % MCHC 31.2 L (32.0-37.0) g/dL MPV 8.5 L (9.5-12.2) fL Immature Gran # (0.00-0.04) 10*3/uL Neutrophils # (1.80-7.70) 10*3/uL Monocytes # (0.20-1.00) 10*3/uL Basophils # (0.00-0.10) 10*3/uL PT (10.0-12.5) sec INR (<1.2) APTT (22.0-30.0) sec Fibrinogen (200-500) mg/dL Sodium (137-145) mmol/L Potassium (3.5-5.1) mmol/L Carbon Dioxide (22-30) mmol/L BUN (9-20) mg/dL Creatinine (0.66-1.25) mg/dL POC Glucose (mg/dL) (70-110) mg/dL Calcium (8.4-10.2) mg/dL Crossmatch Assessment and Plan Plan: Assessment: 1. Chronic kidney disease stage IIIb with creatinine 1.7-1.8 this admission - 2.94 today. Renal function worse from diuresis and acute blood loss anemia. Creatinine in March 2025 was near 2.2. Etiology is cardiorenal syndrome and diabetic kidney disease. No hydronephrosis noted on CT. 2. Chronic systolic CHF ejection fraction of 25 to 30% with moderate pulmonary hypertension. 3. Volume overload. 4. Diabetes mellitus. 5. Hypokalemia from diuresis. Replaced. Improved. 6. CT scan acute blood loss anemia status post blood transfusions. Hemoglobin 8.6 this morning. Nondiagnostic for GI hemorrhage. Questionable cecal mass noted. 7. Mild hyperkalemia secondary to acute kidney injury, GI bleed. Plan: Lasix 40 mg IV once today. Status post Lokelma given this morning. Avoid nephrotoxins. Continue to monitor renal function and urine output. Repeat labs in the morning. Strict I's and O's.
[2025-05-01] MEDS: SODIUM ZIRCONIUM CYCLOSILICATE 10 GM PACKET PO ONE (10:43)
[2025-05-01] MEDS: FUROSEMIDE 10 MG/ML 4 ML VIAL IV STA (10:50)
--- NOTE | 2025-05-01 11:04 | P.GSCN ---
History of Present Illness Consult date: 05/01/25 Reason for Consult: Bleed, anemia History of present illness: Is a 70-year-old male who was admitted to hospital complaints of anemia. Patient with CAT scan patient found to have a cecal mass on CAT scan. States his last colonoscopy was approximate 5 years ago. Past Medical History Past Medical History: Diabetes Mellitus, Fibromyalgia, Hyperlipidemia, Hypertension Additional Past Medical History / Comment(s): hx migraines, gout, NSTEMI w/ life vest placement History of Any Multi-Drug Resistant Organisms: None Reported Past Surgical History: Hernia Repair Past Anesthesia/Blood Transfusion Reactions: Motion Sickness Past Psychological History: No Psychological Hx Reported Smoking Status: Never smoker Past Alcohol Use History: None Reported Past Drug Use History: None Reported - Past Family History Father Family Medical History: Cancer Mother Family Medical History: Cancer Medications and Allergies Home Medications Medication Instructions Recorded Confirmed Type Pregabalin [Lyrica] 100 mg PO DAILY 04/26/14 04/29/25 History Fenofibrate 160 mg PO DAILY 07/24/16 04/29/25 History allopurinoL [Zyloprim] 300 mg PO DAILY 07/24/16 04/29/25 History Cholecalciferol [Vitamin D3 (25 25 mcg PO DAILY 03/29/25 04/29/25 History Mcg = 1000 Iu)] Furosemide [Lasix] 40 mg PO DAILY 03/29/25 04/29/25 History HYDROcodone/APAP 7.5-325MG [[place] 1 tab PO Q8H PRN 03/29/25 04/29/25 History 7.5-325] Metoprolol Succinate [Toprol XL] 50 mg PO DAILY 03/29/25 04/29/25 History Olmesartan Medoxomil [Benicar] 40 mg PO DAILY 03/29/25 04/29/25 History glipiZIDE [Glucotrol] 5 mg PO DAILY 03/29/25 04/29/25 History Ascorbic Acid [Vitamin C] 500 mg PO DAILY #90 tab 04/01/25 04/29/25 Rx Aspirin 81 mg PO DAILY #90 tab 04/01/25 04/29/25 Rx Atorvastatin [Lipitor] 40 mg PO HS #90 tab 04/01/25 04/29/25 Rx Dapagliflozin Propanediol [Farxiga] 10 mg PO DAILY #30 tab 04/01/25 04/29/25 Rx Ferrous Sulfate [Iron (65 MG 325 mg PO W/LUNCH #90 tab 04/01/25 04/29/25 Rx Elemental)] Insulin Glargine,Hum.rec.anlog 20 units SQ DAILY #0 04/01/25 04/29/25 Rx [Lantus Solostar Pen] Allergies Allergy/AdvReac Type Severity Reaction Status Date / Time No Known Allergies Allergy Verified 04/29/25 11:04 Surgical - Exam Vital Signs Temp Pulse Resp BP Pulse Ox 97.7 F 100 18 136/81 98 04/28/25 17:08 04/28/25 17:08 04/28/25 17:08 04/28/25 17:08 04/28/25 17:08 - General well developed, no distress - Eyes PERRL - ENT normal pinna - Neck no masses - Respiratory normal expansion - Cardiovascular Rhythm: regular - Abdomen Abdomen: soft, non tender Results - Labs 05/01/25 05:14 05/01/25 05:14 Abnormal Lab Results - Last 24 Hours (Table) 04/30/25 04/30/25 04/30/25 Range/Units 11:13 12:47 13:01 WBC 10.16 H (4.50-10.00) 10*3/uL RBC 2.21 L (4.40-5.60) 10*6/uL Hgb 6.5 L* D (13.0-17.0) g/dL Hct 20.7 L (39.6-50.0) % MCHC 31.4 L (32.0-37.0) g/dL MPV 8.3 L (9.5-12.2) fL Immature Gran # 0.06 H (0.00-0.04) 10*3/uL Neutrophils # (1.80-7.70) 10*3/uL Monocytes # (0.20-1.00) 10*3/uL Basophils # (0.00-0.10) 10*3/uL PT (10.0-12.5) sec INR (<1.2) APTT (22.0-30.0) sec Fibrinogen (200-500) mg/dL Sodium (137-145) mmol/L Potassium (3.5-5.1) mmol/L Carbon Dioxide (22-30) mmol/L BUN (9-20) mg/dL Creatinine (0.66-1.25) mg/dL POC Glucose (mg/dL) 152 H 116 H (70-110) mg/dL Calcium (8.4-10.2) mg/dL Crossmatch 04/30/25 04/30/25 04/30/25 Range/Units 14:36 14:36 22:17 WBC (4.50-10.00) 10*3/uL RBC (4.40-5.60) 10*6/uL Hgb (13.0-17.0) g/dL Hct (39.6-50.0) % MCHC (32.0-37.0) g/dL MPV (9.5-12.2) fL Immature Gran # (0.00-0.04) 10*3/uL Neutrophils # (1.80-7.70) 10*3/uL Monocytes # (0.20-1.00) 10*3/uL Basophils # (0.00-0.10) 10*3/uL PT 15.4 H (10.0-12.5) sec INR 1.5 H (<1.2) APTT 37.7 H (22.0-30.0) sec Fibrinogen 621 H (200-500) mg/dL Sodium (137-145) mmol/L Potassium (3.5-5.1) mmol/L Carbon Dioxide (22-30) mmol/L BUN (9-20) mg/dL Creatinine (0.66-1.25) mg/dL POC Glucose (mg/dL) 111 H (70-110) mg/dL Calcium (8.4-10.2) mg/dL Crossmatch See Detail 05/01/25 05/01/25 05/01/25 Range/Units 00:03 05:14 05:14 WBC 12.64 H (4.50-10.00) 10*3/uL RBC 3.13 L (4.40-5.60) 10*6/uL Hgb 9.0 L D (13.0-17.0) g/dL Hct 29.0 L (39.6-50.0) % MCHC 31.0 L (32.0-37.0) g/dL MPV 8.7 L (9.5-12.2) fL Immature Gran # 0.08 H (0.00-0.04) 10*3/uL Neutrophils # 8.57 H (1.80-7.70) 10*3/uL Monocytes # 1.28 H (0.20-1.00) 10*3/uL Basophils # 0.14 H (0.00-0.10) 10*3/uL PT (10.0-12.5) sec INR (<1.2) APTT 37.4 H (22.0-30.0) sec Fibrinogen (200-500) mg/dL Sodium 133 L (137-145) mmol/L Potassium 5.3 H (3.5-5.1) mmol/L Carbon Dioxide 19 L (22-30) mmol/L BUN 59 H (9-20) mg/dL Creatinine 2.94 H (0.66-1.25) mg/dL POC Glucose (mg/dL) (70-110) mg/dL Calcium 8.2 L (8.4-10.2) mg/dL Crossmatch 05/01/25 Range/Units 05:14 WBC 10.36 H (4.50-10.00) 10*3/uL RBC 2.98 L (4.40-5.60) 10*6/uL Hgb 8.6 L (13.0-17.0) g/dL Hct 27.6 L (39.6-50.0) % MCHC 31.2 L (32.0-37.0) g/dL MPV 8.5 L (9.5-12.2) fL Immature Gran # (0.00-0.04) 10*3/uL Neutrophils # (1.80-7.70) 10*3/uL Monocytes # (0.20-1.00) 10*3/uL Basophils # (0.00-0.10) 10*3/uL PT (10.0-12.5) sec INR (<1.2) APTT (22.0-30.0) sec Fibrinogen (200-500) mg/dL Sodium (137-145) mmol/L Potassium (3.5-5.1) mmol/L Carbon Dioxide (22-30) mmol/L BUN (9-20) mg/dL Creatinine (0.66-1.25) mg/dL POC Glucose (mg/dL) (70-110) mg/dL Calcium (8.4-10.2) mg/dL Crossmatch Diabetes panel 05/01/25 Range/Units 05:14 Sodium 133 L (137-145) mmol/L Potassium 5.3 H (3.5-5.1) mmol/L Chloride 106 (98-107) mmol/L Carbon Dioxide 19 L (22-30) mmol/L BUN 59 H (9-20) mg/dL Creatinine 2.94 H (0.66-1.25) mg/dL Glucose 79 (74-99) mg/dL Calcium 8.2 L (8.4-10.2) mg/dL Calcium panel 05/01/25 Range/Units 05:14 Calcium 8.2 L (8.4-10.2) mg/dL Pituitary panel 05/01/25 Range/Units 05:14 Sodium 133 L (137-145) mmol/L Potassium 5.3 H (3.5-5.1) mmol/L Chloride 106 (98-107) mmol/L Carbon Dioxide 19 L (22-30) mmol/L BUN 59 H (9-20) mg/dL Creatinine 2.94 H (0.66-1.25) mg/dL Glucose 79 (74-99) mg/dL Calcium 8.2 L (8.4-10.2) mg/dL Adrenal panel 05/01/25 Range/Units 05:14 Sodium 133 L (137-145) mmol/L Potassium 5.3 H (3.5-5.1) mmol/L Chloride 106 (98-107) mmol/L Carbon Dioxide 19 L (22-30) mmol/L BUN 59 H (9-20) mg/dL Creatinine 2.94 H (0.66-1.25) mg/dL Glucose 79 (74-99) mg/dL Calcium 8.2 L (8.4-10.2) mg/dL Assessment and Plan Assessment: Profound anemia with cecal mass. Patient will undergo colonoscopy on Saturday. The patient is being evaluated by the ICU and cardiology team.
[2025-05-01 11:19] LABS: Glucose,Whole Blood 115 mg/dL (70-110)
--- NOTE | 2025-05-01 12:26 | P.PN ---
Subjective Progress Note Date: 05/01/25 This is a very pleasant 70-year-old male patient with a known history of hypertension, hyperlipidemia, diabetes mellitus, myocardial infarction, in September 2024 he was found to have diffuse severe coronary artery disease at [facility] however was not a candidate for CABG due to unsuitable targets. Medical management was recommended. Ischemic cardiomyopathy currently wearing a LifeVest. He presented here to the emergency room on 04/28/2025 with complaints of increasing shortness of breath, inability to lay flat without becoming worsening shortness of breath. Feels like his lungs were "full of water". Initial chest x-ray showed pulmonary vascular congestion and small bilateral pleural effusions. Echocardiogram reveals impaired left ventricular systolic function with an ejection fraction 25 to 30%. Moderate pulmonary hypertension. Global hypokinesia. He was being followed by cardiology. He was being diuresed. Today the patient developed increasing shortness of breath and significant hypotension despite mild fluid resuscitation. He was transferred to the intensive care unit for the same. He was found to have a significant drop in his hemoglobin from 14.2 to 6.5. 2 units of packed red blood cells are pending. He is seen today in consultation. He is currently resting fairly comfortably in bed. Awake and alert in no acute distress. Maintaining O2 saturations in the 90s on 3 L/min per nasal cannula. He is afebrile. Mean arterial pressures currently 62 to 63. He denies any worsening shortness of breath. No chest pain. No palpitations. No dizziness or lightheadedness. White count 10.1. Hemoglobin 6.5. Platelets 333. Sodium 135. Potassium 5.3. Bicarb 21. BUN 54. Creatinine 2.65. Glucose 184. Troponin 2.85, 3.61, 2.66. proBNP 6310. Viral screen negative for influenza A/B, RSV, COVID. He had been initiated on a heparin drip which is currently on pause. The patient is seen today May 01, 2025 in follow-up in the intensive care unit. He is currently sitting up in bed. Awake and alert in no acute distress. He is maintaining good O2 saturations in the 90s on 2 L/min per nasal cannula. Chest x-ray reveals cardiomegaly, pulmonary vascular congestion with small bilateral pleural effusions. 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 He is status post 2 units of packed red blood cells. White count 10.3. Hemoglobin 8.6. Platelets 377. Sodium 133. Potassium 5.3. Bicarb 19. BUN 59. Creatinine 2.94. Glucose 115. He remains on DuoNeb inhalations. Normal saline at 25 mL/h. Currently not requiring any norepinephrine. Objective - Vital Signs Vital signs: Vital Signs Temp 97.9 F 05/01/25 08:30 Pulse 96 05/01/25 11:30 Resp 23 05/01/25 11:30 BP 110/69 05/01/25 11:30 Pulse Ox 96 05/01/25 11:30 FiO2 Intake & Output 04/30/25 05/01/25 05/01/25 18:59 06:59 18:59 Intake Total 582.167 576.884 340 Output Total 150 0 0 Balance 432.167 576.884 340 Weight 121.1 kg Intake: IV 26 Invasive Line 1 10 Invasive Line 2 16 Intake, IV Titration 126.167 266.884 100 Amount Heparin Sod,Pork in 0.45% 126.167 NaCl 25,000 unit In 0.45 % NaCl 1 250ml.bag @ 9. 186 UNITS/KG/HR 10 mls/hr IV .Q24H [facility] Rx#: [id number] Norepinephrine 4 mg In 46.884 Sodium Chloride 0.9% 250 ml @ 0.03 MCG/KG/MIN 12. 447 mls/hr IV .[id number] [facility] Rx#:[id number] Sodium Chloride 0.9% 1, 220 100 000 ml @ 25 mls/hr IV . Q24H [facility] Rx#:[id number] Oral 120 240 Blood Product 310 310 Rc As-1 Unit 310 [id number] Rc As-1 Unit 310 [id number] Output: Urine 150 0 0 Other: Voiding Method Toilet Toilet Urinal Urinal # Voids 0 0 1 # Bowel Movements 1 1 1 - Exam GENERAL EXAM: Alert, pleasant 70-year-old male, sitting up in bed, on 2 L nasal cannula, fair comfortable in no apparent distress. HEAD: Normocephalic. EYES: Normal reaction of pupils, equal size. NOSE: Clear with pink turbinates. THROAT: No erythema or exudates. NECK: No masses, no JVD. CHEST: No chest wall deformity. Life vest secured in place. LUNGS: Equal air entry with crackles in the bilateral bases. CVS: S1 and S2 normal with no audible murmur, regular rhythm. ABDOMEN: No hepatosplenomegaly, normal bowel sounds, no guarding or rigidity. SPINE: No scoliosis or deformity SKIN: No rashes CENTRAL NERVOUS SYSTEM: No focal deficits, tone is normal in all 4 extremities. EXTREMITIES: There is 1-2+ peripheral edema. No clubbing, no cyanosis. Peripheral pulses are intact. - Labs CBC & Chem 7: 05/01/25 05:14 05/01/25 05:14 Labs: Abnormal Lab Results - Last 24 Hours (Table) 04/30/25 04/30/25 04/30/25 Range/Units 12:47 13:01 14:36 WBC 10.16 H (4.50-10.00) 10*3/uL RBC 2.21 L (4.40-5.60) 10*6/uL Hgb 6.5 L* D (13.0-17.0) g/dL Hct 20.7 L (39.6-50.0) % MCHC 31.4 L (32.0-37.0) g/dL MPV 8.3 L (9.5-12.2) fL Immature Gran # 0.06 H (0.00-0.04) 10*3/uL Neutrophils # (1.80-7.70) 10*3/uL Monocytes # (0.20-1.00) 10*3/uL Basophils # (0.00-0.10) 10*3/uL PT (10.0-12.5) sec INR (<1.2) APTT (22.0-30.0) sec Fibrinogen (200-500) mg/dL Sodium (137-145) mmol/L Potassium (3.5-5.1) mmol/L Carbon Dioxide (22-30) mmol/L BUN (9-20) mg/dL Creatinine (0.66-1.25) mg/dL POC Glucose (mg/dL) 116 H (70-110) mg/dL Calcium (8.4-10.2) mg/dL Crossmatch See Detail 04/30/25 04/30/25 05/01/25 Range/Units 14:36 22:17 00:03 WBC 12.64 H (4.50-10.00) 10*3/uL RBC 3.13 L (4.40-5.60) 10*6/uL Hgb 9.0 L D (13.0-17.0) g/dL Hct 29.0 L (39.6-50.0) % MCHC 31.0 L (32.0-37.0) g/dL MPV 8.7 L (9.5-12.2) fL Immature Gran # 0.08 H (0.00-0.04) 10*3/uL Neutrophils # 8.57 H (1.80-7.70) 10*3/uL Monocytes # 1.28 H (0.20-1.00) 10*3/uL Basophils # 0.14 H (0.00-0.10) 10*3/uL PT 15.4 H (10.0-12.5) sec INR 1.5 H (<1.2) APTT 37.7 H (22.0-30.0) sec Fibrinogen 621 H (200-500) mg/dL Sodium (137-145) mmol/L Potassium (3.5-5.1) mmol/L Carbon Dioxide (22-30) mmol/L BUN (9-20) mg/dL Creatinine (0.66-1.25) mg/dL POC Glucose (mg/dL) 111 H (70-110) mg/dL Calcium (8.4-10.2) mg/dL Crossmatch 05/01/25 05/01/25 05/01/25 Range/Units 05:14 05:14 05:14 WBC 10.36 H (4.50-10.00) 10*3/uL RBC 2.98 L (4.40-5.60) 10*6/uL Hgb 8.6 L (13.0-17.0) g/dL Hct 27.6 L (39.6-50.0) % MCHC 31.2 L (32.0-37.0) g/dL MPV 8.5 L (9.5-12.2) fL Immature Gran # (0.00-0.04) 10*3/uL Neutrophils # (1.80-7.70) 10*3/uL Monocytes # (0.20-1.00) 10*3/uL Basophils # (0.00-0.10) 10*3/uL PT (10.0-12.5) sec INR (<1.2) APTT 37.4 H (22.0-30.0) sec Fibrinogen (200-500) mg/dL Sodium 133 L (137-145) mmol/L Potassium 5.3 H (3.5-5.1) mmol/L Carbon Dioxide 19 L (22-30) mmol/L BUN 59 H (9-20) mg/dL Creatinine 2.94 H (0.66-1.25) mg/dL POC Glucose (mg/dL) (70-110) mg/dL Calcium 8.2 L (8.4-10.2) mg/dL Crossmatch 05/01/25 Range/Units 11:17 WBC (4.50-10.00) 10*3/uL RBC (4.40-5.60) 10*6/uL Hgb (13.0-17.0) g/dL Hct (39.6-50.0) % MCHC (32.0-37.0) g/dL MPV (9.5-12.2) fL Immature Gran # (0.00-0.04) 10*3/uL Neutrophils # (1.80-7.70) 10*3/uL Monocytes # (0.20-1.00) 10*3/uL Basophils # (0.00-0.10) 10*3/uL PT (10.0-12.5) sec INR (<1.2) APTT (22.0-30.0) sec Fibrinogen (200-500) mg/dL Sodium (137-145) mmol/L Potassium (3.5-5.1) mmol/L Carbon Dioxide (22-30) mmol/L BUN (9-20) mg/dL Creatinine (0.66-1.25) mg/dL POC Glucose (mg/dL) 115 H (70-110) mg/dL Calcium (8.4-10.2) mg/dL Crossmatch Assessment and Plan Assessment: Acute hypoxic respiratory failure secondary to an acute exacerbation of chronic systolic congestive heart failure Acute non-ST segment elevation myocardial infarction Ischemic cardiomyopathy with an ejection fraction 25 to 30%, currently in a LifeVest from previous admission Found to have severe diffuse coronary artery disease, deemed unsuitable for bypass due to poor targets, in [facility] September 2024 Acute anemia with a hemoglobin of 14.2 down to 6.5, unclear etiology, to receive 2 units of packed red blood cells. Heparin drip on pause Cecal mass measuring 21 x 15 mm, plan is for colonoscopy possibly May 03, 2025 Hypotension requiring mild fluid resuscitation Acute kidney injury secondary to diuretics Hyperkalemia secondary to above Diabetes mellitus History of hypertension Hyperlipidemia History of gout Plan: The patient was seen and evaluate Imaging, labs and medications reviewed Currently on 2 L nasal cannula Titrate the FiO2 as tolerated Received Lasix 40 mg IVP x 1 Continue with LifeVest Currently stable and off pressors Seen by surgical services for possible colonoscopy We will continue to follow I have personally seen and examined the patient, performed the documentation and the assessment and plan as written. Number of minutes spent on the visit: 10 Dictation was produced using [employer] dictation software. Please excuse any grammatical, word or spelling errors.
[2025-05-01] MEDS: FLUTICASONE NASAL 50MCG/SPRAY 16GM BTL EA NOSTRIL SCH (13:26)
--- NOTE | 2025-05-01 13:44 | P.PN ---
Subjective Progress Note Date: 05/01/25 This is a 70-year-old male with medical history significant for diabetes mellitus, fibromyalgia, hyperlipidemia, hypertension, prior NSTEMI with LifeVest. Patient was recently discharged from the hospital on April 01; he was admitted for acute heart failure. At that time his ejection fraction was 62%. He had a cardiac catheterization completed at [facility] about 7 months ago with findings of triple vessel disease; was felt to not be a candidate for stenting or coronary bypass he was discharged with the recommendations of medical management. His repeat echocardiogram his prior admission reveals an EF of 25 to 30%. patient received a LifeVest prior to his discharge on April 01. He returns to the hospital with complaints of shortness of breath which has been worsening over the last month since his prior admission. He states he is unable to lay down to sleep and has not been tolerating much activity. He was unable to obtain his new medications from his hospital stay last month due to cost and ins urance issues; which he was able to figure out. He had just started taking the recommended medications including diuretics and his SGLT2 inhibitor. Once he began taking his Lasix pill he does report that his lower extremity swelling has improved. Chest x-ray reveals small bilateral pleural effusions. INR 2.0, BUN of 37 creatinine of 1.74. Hemoglobin A1c of 6.7. Patient does have significant troponin elevation of 2.850, 3.610, 2.660. ProBNP is elevated at 6310. He received a dose of IV lasix on admission; and was admitted to the hospital with cardiology consultation. 04/30/2025 Patient evaluated today in follow up on the cardiac unit. He has become hypotensive and symptomatic today with blood pressures in the 70s systolic. He has received a 500 mL fluid bolus with an additional 500 mLs ordered. Lasix was decreased to IV 40 mg Q12h yesterday and than the lasix has been discontinued to day as well as losartan. Sodium level of 135, potassium 5.3, BUN 54, creatinine 2.65. Magnesium 2.0. UA non infectious. Has not had accurate I and O. Chest xray showing CHF and trace pleural effusions. Patient was ateamed. 05/01/2025 Patient's hemoglobin did come back yesterday afternoon at 6.5 as well as a white blood cell count of 10.16. He received fluid bolus and was moved to the intensive care unit he also was ordered to have 2 units of packed red blood cells. Patient did have multiple episodes of black tarry stool and does report that he has been having black stools at home. Abdominal pelvis CT was completed with findings of nondiagnostic exam for GI hemorrhage, there is mild infl ammation changes around the gallbladder in the right upper quadrant correlate for further quadrant pathology such as cholecystitis. A cecal wall mass is possibly present in the base of the appendix measuring 21 x 15 mm. Colonoscopy recommended for with direct visualization. Third portion duodenal diverticulum. Normal appendix. Moderate atherosclerosis of the arterial vasculature. A small right and trace left pleural effusion. Hemoglobin today is up to 9.0 and 8.6 respectively. General surgery was consulted and planning for colonoscopy on Saturday. IV heparin has been discontinued at this time as well as IV Lasix. His current labs today reveal a sodium level of 133 potassium 5.3, BUN of 59 creatinine of 2.94. He is evaluated today in the intensive care unit continues to report mild dizziness. He is currently being weaned off pressor support. REVIEW OF SYSTEMS: CONSTITUTIONAL: No fever, no malaise, no fatigue. HEENT: No recent visual problems or hearing problems. Denied any sore throat. CARDIOVASCULAR: No chest pain, orthopnea, PND, no palpitations, no syncope. PULMONARY: No shortness of breath, no cough, no hemoptysis. GASTROINTESTINAL: No diarrhea, no nausea, no vomiting, no abdominal pain. Reporting black tarry stool NEUROLOGICAL: No headaches, no weakness, no numbness. Diffuse weakness PHYSICAL EXAMINATION: GENERAL: The patient is alert and oriented x3, not in any acute distress. Well developed, well nourished. Pale. HEENT: Pupils are round and equally reacting to light. EOMI. No scleral icterus. No conjunctival pallor. Normocephalic, atraumatic. No pharyngeal erythema. No thyromegaly. CARDIOVASCULAR: S1 and S2 present. No murmurs, rubs, or gallops. PULMONARY: Chest is clear to auscultation, no wheezing or crackles. Diminished ABDOMEN: Soft, nontender, nondistended, normoactive bowel sounds. No palpable organomegaly. MUSCULOSKELETAL: No joint swelling or deformity. EXTREMITIES: No cyanosis, clubbing, or pedal edema. NEUROLOGICAL: Gross neurological examination did not reveal any focal deficits. Generalized weakness SKIN: No rashes. Assessment Acute GI bleed acute blood loss anemia; patient having black tarry stools Concern for cecal wall mass; family history of colon cancer Hypotension and hypotensive shock requiring vasopressor support YOBANI from cardiorenal syndrome worsened with volume depletion Hypovolemic hyponatremia Acute heart failure exacerbation, systolic dysfunction Hyperkalemia from YOBANI Chronic kidney disease stage IIIb Triple vessel coronary artery disease, not a candidate for CABG, medically managed Pulmonary hypertension Troponin elevation from NSTEMI [id number] diabetes mellitus Hyperlipidemia Hypertension Hx Normocytic anemia Iron deficiency anemia Ischemic cardiomyopathy, EF 25-30% GI prophylaxis DVT prophylaxis: IV heparin Full Code Plan Status post 2 units of PRBC, hemoglobin stabilized and will continue with H&H monitoring General surgery consultation plans for colonoscopy on Saturday Continue to transfuse blood for hemoglobin less than 7 Strict intake and output monitoring IV lasix discontinued IV heparin has been discontinued Cardiology following nephrology following Accuchecks ACHS and sliding scale insulin ordered Add flonase and claritin Monitor renal function The impression and plan of care has been dictated by Jo Harden, Nurse Practitioner as directed. Dr. Rani MD I have performed a history and physical examination and medical decision making of this patient, discussed the same with the dictator, and agree with the dictators assessment and plan as written, documented as a scribe. Based on total visit time, I have performed more than 50% of this visit. Objective - Vital Signs Vital signs: Vital Signs Temp 97.9 F 05/01/25 08:30 Pulse 96 05/01/25 11:30 Resp 23 05/01/25 11:30 BP 110/69 05/01/25 11:30 Pulse Ox 96 05/01/25 11:30 FiO2 Intake & Output 04/30/25 05/01/25 05/01/25 18:59 06:59 18:59 Intake Total 582.167 576.884 340 Output Total 150 0 0 Balance 432.167 576.884 340 Weight 121.1 kg Intake: IV 26 Invasive Line 1 10 Invasive Line 2 16 Intake, IV Titration 126.167 266.884 100 Amount Heparin Sod,Pork in 0.45% 126.167 NaCl 25,000 unit In 0.45 % NaCl 1 250ml.bag @ 9. 186 UNITS/KG/HR 10 mls/hr IV .Q24H [facility] Rx#: [id number] Norepinephrine 4 mg In 46.884 Sodium Chloride 0.9% 250 ml @ 0.03 MCG/KG/MIN 12. 447 mls/hr IV .[id number] [facility] Rx#:[id number] Sodium Chloride 0.9% 1, 220 100 000 ml @ 25 mls/hr IV . Q24H [facility] Rx#:[id number] Oral 120 240 Blood Product 310 310 Rc As-1 Unit 310 [id number] Rc As-1 Unit 310 [id number] Output: Urine 150 0 0 Other: Voiding Method Toilet Toilet Urinal Urinal # Voids 0 0 1 # Bowel Movements 1 1 1 - Labs CBC & Chem 7: 05/01/25 05:14 05/01/25 05:14 Labs: Abnormal Lab Results - Last 24 Hours (Table) 04/30/25 04/30/25 04/30/25 Range/Units 12:47 13:01 14:36 WBC 10.16 H (4.50-10.00) 10*3/uL RBC 2.21 L (4.40-5.60) 10*6/uL Hgb 6.5 L* D (13.0-17.0) g/dL Hct 20.7 L (39.6-50.0) % MCHC 31.4 L (32.0-37.0) g/dL MPV 8.3 L (9.5-12.2) fL Immature Gran # 0.06 H (0.00-0.04) 10*3/uL Neutrophils # (1.80-7.70) 10*3/uL Monocytes # (0.20-1.00) 10*3/uL Basophils # (0.00-0.10) 10*3/uL PT (10.0-12.5) sec INR (<1.2) APTT (22.0-30.0) sec Fibrinogen (200-500) mg/dL Sodium (137-145) mmol/L Potassium (3.5-5.1) mmol/L Carbon Dioxide (22-30) mmol/L BUN (9-20) mg/dL Creatinine (0.66-1.25) mg/dL POC Glucose (mg/dL) 116 H (70-110) mg/dL Calcium (8.4-10.2) mg/dL Crossmatch See Detail 04/30/25 04/30/25 05/01/25 Range/Units 14:36 22:17 00:03 WBC 12.64 H (4.50-10.00) 10*3/uL RBC 3.13 L (4.40-5.60) 10*6/uL Hgb 9.0 L D (13.0-17.0) g/dL Hct 29.0 L (39.6-50.0) % MCHC 31.0 L (32.0-37.0) g/dL MPV 8.7 L (9.5-12.2) fL Immature Gran # 0.08 H (0.00-0.04) 10*3/uL Neutrophils # 8.57 H (1.80-7.70) 10*3/uL Monocytes # 1.28 H (0.20-1.00) 10*3/uL Basophils # 0.14 H (0.00-0.10) 10*3/uL PT 15.4 H (10.0-12.5) sec INR 1.5 H (<1.2) APTT 37.7 H (22.0-30.0) sec Fibrinogen 621 H (200-500) mg/dL Sodium (137-145) mmol/L Potassium (3.5-5.1) mmol/L Carbon Dioxide (22-30) mmol/L BUN (9-20) mg/dL Creatinine (0.66-1.25) mg/dL POC Glucose (mg/dL) 111 H (70-110) mg/dL Calcium (8.4-10.2) mg/dL Crossmatch 05/01/25 05/01/25 05/01/25 Range/Units 05:14 05:14 05:14 WBC 10.36 H (4.50-10.00) 10*3/uL RBC 2.98 L (4.40-5.60) 10*6/uL Hgb 8.6 L (13.0-17.0) g/dL Hct 27.6 L (39.6-50.0) % MCHC 31.2 L (32.0-37.0) g/dL MPV 8.5 L (9.5-12.2) fL Immature Gran # (0.00-0.04) 10*3/uL Neutrophils # (1.80-7.70) 10*3/uL Monocytes # (0.20-1.00) 10*3/uL Basophils # (0.00-0.10) 10*3/uL PT (10.0-12.5) sec INR (<1.2) APTT 37.4 H (22.0-30.0) sec Fibrinogen (200-500) mg/dL Sodium 133 L (137-145) mmol/L Potassium 5.3 H (3.5-5.1) mmol/L Carbon Dioxide 19 L (22-30) mmol/L BUN 59 H (9-20) mg/dL Creatinine 2.94 H (0.66-1.25) mg/dL POC Glucose (mg/dL) (70-110) mg/dL Calcium 8.2 L (8.4-10.2) mg/dL Crossmatch 05/01/25 Range/Units 11:17 WBC (4.50-10.00) 10*3/uL RBC (4.40-5.60) 10*6/uL Hgb (13.0-17.0) g/dL Hct (39.6-50.0) % MCHC (32.0-37.0) g/dL MPV (9.5-12.2) fL Immature Gran # (0.00-0.04) 10*3/uL Neutrophils # (1.80-7.70) 10*3/uL Monocytes # (0.20-1.00) 10*3/uL Basophils # (0.00-0.10) 10*3/uL PT (10.0-12.5) sec INR (<1.2) APTT (22.0-30.0) sec Fibrinogen (200-500) mg/dL Sodium (137-145) mmol/L Potassium (3.5-5.1) mmol/L Carbon Dioxide (22-30) mmol/L BUN (9-20) mg/dL Creatinine (0.66-1.25) mg/dL POC Glucose (mg/dL) 115 H (70-110) mg/dL Calcium (8.4-10.2) mg/dL Crossmatch Assessment and Plan Time with Patient: Less than 30
[2025-05-01] MEDS: LORATADINE 10 MG TAB PO SCH (14:22)
--- NOTE | 2025-05-01 14:40 | P.PN ---
Subjective Progress Note Date: 05/01/25 HISTORY OF PRESENT ILLNESS: This is a 70-year-old male with a past medical history significant for chronic kidney disease, coronary artery disease, ischemic cardiomyopathy, hypertension, hyperlipidemia, and diabetes. Patient follows in the office with Dr. Lux. We have been asked to see the patient in consultation for NSTEMI. Patient examined at the bedside. Patient presented to the hospital with a chief complaint of shortness of breath. Patient reports he also has had a cough. He denies having any chest pain or pressure. Vital signs are currently stable. Patient is currently wearing LifeVest. DIAGNOSTICS: - EKG reveals sinus mechanism with no signs of acute ischemia. - Chest xray small bilateral pleural effusions. - Laboratory data: WBC 4.61. Hemoglobin 14.2. Platelet count 231. Sodium 138. Potassium 3.5. BUN 42. Creatinine 1.80. proBNP 6310. Troponin 2.850. 3.610. 2.660 - Current home cardiac medications include Lipitor 40 mg daily, aspirin 81 mg daily, metoprolol succinate 50 mg daily, Lasix 40 mg daily, fenofibrate 160 mg daily, Farxiga 10 mg daily, amlodipine 10 mg daily, Benicar 40 mg daily. - Most recent echocardiogram obtained in March 2024 revealed ejection fraction 25 to 30%, mild pulmonary hypertension, mild mitral regurgitation, trace to mild tricuspid regurgitation - Cardiac catheterization history: September 2024 at [facility] revealing left main with diffuse 40% stenosis. LAD has 60% stenosis proximally, mid 90% stenosis, and severe diffuse disease distally. LAD gives rise to diagonal which has ostial 50% stenosis. Ramus is ostially occluded. Left circumflex is small sized vessel and has ostial 90% stenosis. The left circumflex gives rise to a small OM which is severely diffusely diseased. RCA has distal 50% stenosis. The RCA gives rise to medium PDA which has severe diffuse disease and medium to large PLV which has moderate diffuse disease. Patient was deemed not to be a candidate for CABG due to unsuitable targets. Medical management was recommended 04/30/2025 Patient examined this morning. He is sitting up in the chair. He denies chest pain or pressure. Denies SOB. Remains on IV lasix. He also remains on IV heparin. Echocardiogram completed revealing ejection fraction 25 to 30%, moderate pulm hypertension. Creatinine worsened today to 2.65. 05/01 Patient seen and examined in the intensive care unit. Patient denies having any chest pain no chest pressure, he states he has a little bit of shortness of breath which he thinks is really related to his sinuses. He states he is feeling tired. He states that the lightheadedness spells are happening when he stands up too fast and has been going on for the last couple of months. He has a LifeVest in place. Patient is scheduled for colonoscopy on Saturday by general surgery. Blood pressure 103/66, heart rate 87, pulse ox 97% on 2 L nasal cannula. IV Lasix, losartan and Farxiga were discontinued due to worsening renal function which is worse today. Repeat blood work reveals hemoglobin 8.6. Sodium 133, potassium 5.3, BUN 59 creatinine 2.94. 1 dose of IV Lasix ordered by nephrology today. Patient is not on norepinephrine. PHYSICAL EXAM: VITAL SIGNS: Reviewed. GENERAL: Well-developed in no acute distress. HEENT: Head is normocephalic. Pupils are equal, round. Sclerae anicteric. Mucous membranes of the mouth are moist. Neck supple. No JVD or thyromegaly LUNGS: Respirations even and unlabored. Lungs diminished HEART: Regular rate and rhythm. S1 and S2 heard. ABDOMEN: Soft. Nondistended. Nontender. EXTREMITIES: Normal range of motion. No clubbing or cyanosis. Peripheral pulses intact. No lower extremity edema NEUROLOGIC: Awake and alert. Oriented x 3. ASSESSMENT: Non-STEMI Acute on chronic heart failure with reduced EF, 25 to 30% Triple-vessel coronary artery disease, not a candidate for CABG, treated medically Acute kidney injury, followed by nephrology Chronic kidney disease stage IIIb Cecal mass scheduled for colonoscopy on Saturday Anemia Ischemic cardiomyopathy Moderate pulmonary hypertension Hypertension Hyperlipidemia Diabetes Obesity: BMI 34.6 PLAN: Continue patient on aspirin, atorvastatin, Imdur 30 mg daily, Toprol-XL 50 mg daily, Ranexa 500 mg every 12 hours. IV Lasix, losartan and Farxiga discontinued secondary to worsening creatinine Diuretics per nephrology Continue LifeVest No plans for any invasive cardiac procedures at this time Further recommendations pending patient course Nurse practitioner note has been reviewed by physician. Signing provider agrees with the documented findings, assessment, and plan of care documented by MEDICAL ASSISTANT FLOAT as a scribe. Objective - Vital Signs Vital signs: Vital Signs Temp 97.9 F 05/31/25 08:30 Pulse 86 05/01/25 08:30 Resp 22 05/01/25 08:30 BP 105/70 05/01/25 08:30 Pulse Ox 97 05/01/25 08:30 FiO2 Intake & Output 04/30/25 05/01/25 05/01/25 18:59 06:59 18:59 Intake Total 582.167 576.884 20 Output Total 150 0 0 Balance 432.167 576.884 20 Weight 121.1 kg Intake: IV 26 Invasive Line 1 10 Invasive Line 2 16 Intake, IV Titration 126.167 266.884 20 Amount Heparin Sod,Pork in 0.45% 126.167 NaCl 25,000 unit In 0.45 % NaCl 1 250ml.bag @ 9. 186 UNITS/KG/HR 10 mls/hr IV .Q24H [facility] Rx#: [id number] Norepinephrine 4 mg In 46.884 Sodium Chloride 0.9% 250 ml @ 0.03 MCG/KG/MIN 12. 447 mls/hr IV .[id number] [facility] Rx#:[id number] Sodium Chloride 0.9% 1, 220 20 000 ml @ 25 mls/hr IV . Q24H [facility] Rx#:[id number] Oral 120 Blood Product 310 310 Rc As-1 Unit 310 [id number] Rc As-1 Unit 310 [id number] Output: Urine 150 0 0 Other: Voiding Method Toilet Toilet Urinal Urinal # Voids 0 0 0 # Bowel Movements 1 1 - Labs CBC & Chem 7: 05/01/25 05:14 05/01/25 05:14 Labs: Abnormal Lab Results - Last 24 Hours (Table) 04/30/25 04/30/25 04/30/25 Range/Units 11:13 12:47 13:01 WBC 10.16 H (4.50-10.00) 10*3/uL RBC 2.21 L (4.40-5.60) 10*6/uL Hgb 6.5 L* D (13.0-17.0) g/dL Hct 20.7 L (39.6-50.0) % MCHC 31.4 L (32.0-37.0) g/dL MPV 8.3 L (9.5-12.2) fL Immature Gran # 0.06 H (0.00-0.04) 10*3/uL Neutrophils # (1.80-7.70) 10*3/uL Monocytes # (0.20-1.00) 10*3/uL Basophils # (0.00-0.10) 10*3/uL PT (10.0-12.5) sec INR (<1.2) APTT (22.0-30.0) sec Fibrinogen (200-500) mg/dL Sodium (137-145) mmol/L Potassium (3.5-5.1) mmol/L Carbon Dioxide (22-30) mmol/L BUN (9-20) mg/dL Creatinine (0.66-1.25) mg/dL POC Glucose (mg/dL) 152 H 116 H (70-110) mg/dL Calcium (8.4-10.2) mg/dL Crossmatch 04/30/25 04/30/25 04/30/25 Range/Units 14:36 14:36 22:17 WBC (4.50-10.00) 10*3/uL RBC (4.40-5.60) 10*6/uL Hgb (13.0-17.0) g/dL Hct (39.6-50.0) % MCHC (32.0-37.0) g/dL MPV (9.5-12.2) fL Immature Gran # (0.00-0.04) 10*3/uL Neutrophils # (1.80-7.70) 10*3/uL Monocytes # (0.20-1.00) 10*3/uL Basophils # (0.00-0.10) 10*3/uL PT 15.4 H (10.0-12.5) sec INR 1.5 H (<1.2) APTT 37.7 H (22.0-30.0) sec Fibrinogen 621 H (200-500) mg/dL Sodium (137-145) mmol/L Potassium (3.5-5.1) mmol/L Carbon Dioxide (22-30) mmol/L BUN (9-20) mg/dL Creatinine (0.66-1.25) mg/dL POC Glucose (mg/dL) 111 H (70-110) mg/dL Calcium (8.4-10.2) mg/dL Crossmatch See Detail 05/01/25 05/01/25 05/01/25 Range/Units 00:03 05:14 05:14 WBC 12.64 H (4.50-10.00) 10*3/uL RBC 3.13 L (4.40-5.60) 10*6/uL Hgb 9.0 L D (13.0-17.0) g/dL Hct 29.0 L (39.6-50.0) % MCHC 31.0 L (32.0-37.0) g/dL MPV 8.7 L (9.5-12.2) fL Immature Gran # 0.08 H (0.00-0.04) 10*3/uL Neutrophils # 8.57 H (1.80-7.70) 10*3/uL Monocytes # 1.28 H (0.20-1.00) 10*3/uL Basophils # 0.14 H (0.00-0.10) 10*3/uL PT (10.0-12.5) sec INR (<1.2) APTT 37.4 H (22.0-30.0) sec Fibrinogen (200-500) mg/dL Sodium 133 L (137-145) mmol/L Potassium 5.3 H (3.5-5.1) mmol/L Carbon Dioxide 19 L (22-30) mmol/L BUN 59 H (9-20) mg/dL Creatinine 2.94 H (0.66-1.25) mg/dL POC Glucose (mg/dL) (70-110) mg/dL Calcium 8.2 L (8.4-10.2) mg/dL Crossmatch 05/01/25 Range/Units 05:14 WBC 10.36 H (4.50-10.00) 10*3/uL RBC 2.98 L (4.40-5.60) 10*6/uL Hgb 8.6 L (13.0-17.0) g/dL Hct 27.6 L (39.6-50.0) % MCHC 31.2 L (32.0-37.0) g/dL MPV 8.5 L (9.5-12.2) fL Immature Gran # (0.00-0.04) 10*3/uL Neutrophils # (1.80-7.70) 10*3/uL Monocytes # (0.20-1.00) 10*3/uL Basophils # (0.00-0.10) 10*3/uL PT (10.0-12.5) sec INR (<1.2) APTT (22.0-30.0) sec Fibrinogen (200-500) mg/dL Sodium (137-145) mmol/L Potassium (3.5-5.1) mmol/L Carbon Dioxide (22-30) mmol/L BUN (9-20) mg/dL Creatinine (0.66-1.25) mg/dL POC Glucose (mg/dL) (70-110) mg/dL Calcium (8.4-10.2) mg/dL Crossmatch
[2025-05-01 15:50] LABS: Glucose,Whole Blood 169 mg/dL (70-110)
[2025-05-01 19:42] LABS: Glucose,Whole Blood 204 mg/dL (70-110)
[2025-05-01 20:26] LABS: Basophils # (A) 0.15 10*3/uL (0.00-0.10); Basophils % (A) 1.1 %; Eosinophils # (A) 0.24 10*3/uL (0.04-0.35); Eosinophils % (A) 1.8 %; HCT 32.2 % (39.6-50.0); Lymphocytes # (A) 1.54 10*3/uL (0.90-5.00); Lymphocytes % (A) 11.7 %; MCH 28.7 pg (27.0-32.0); MCHC 31.1 g/dL (32.0-37.0); MCV 92.5 fL (80.0-97.0); Mean Platelet Volume 8.6 fL (9.5-12.2); Monocytes # (A) 1.05 10*3/uL (0.20-1.00); Neutrophils # (A) 10.14 10*3/uL (1.80-7.70); Neutrophils % (A) 76.8 %; Platelet Count 435 10*3/uL (140-440); RBC 3.48 10*6/uL (4.40-5.60); RDW 16.9 % (11.5-14.5)
[2025-05-01] MEDS ORDERED: polyethylene glycoL 3350 17 GM POWD.PACK PO PRN (21:00)
[2025-05-01 21:52] LABS: Glucose,Whole Blood 156 mg/dL (70-110)
[2025-05-01 23:06] LABS: Basophils # (A) 0.15 10*3/uL (0.00-0.10); Basophils % (A) 1.2 %; Eosinophils # (A) 0.24 10*3/uL (0.04-0.35); Eosinophils % (A) 1.9 %; HCT 30.9 % (39.6-50.0); HGB 9.4 g/dL (13.0-17.0); Lymphocytes % (A) 14.4 %; MCH 28.2 pg (27.0-32.0); MCHC 30.4 g/dL (32.0-37.0); MCV 92.8 fL (80.0-97.0); Mean Platelet Volume 8.5 fL (9.5-12.2); Monocytes # (A) 0.98 10*3/uL (0.20-1.00); Monocytes % (A) 7.9 %; Neutrophils # (A) 9.23 10*3/uL (1.80-7.70); Platelet Count 426 10*3/uL (140-440); RBC 3.33 10*6/uL (4.40-5.60); WBC 12.48 10*3/uL (4.50-10.00)
[2025-05-02 05:51] LABS: Basophils # (A) 0.09 10*3/uL (0.00-0.10); Basophils % (A) 0.8 %; Eosinophils # (A) 0.23 10*3/uL (0.04-0.35); HCT 28.9 % (39.6-50.0); HGB 9.2 g/dL (13.0-17.0); Lymphocytes # (A) 1.46 10*3/uL (0.90-5.00); Lymphocytes % (A) 12.8 %; MCH 29.8 pg (27.0-32.0); MCHC 31.8 g/dL (32.0-37.0); MCV 93.5 fL (80.0-97.0); Mean Platelet Volume 8.7 fL (9.5-12.2); Monocytes # (A) 1.06 10*3/uL (0.20-1.00); Monocytes % (A) 9.3 %; Neutrophils % (A) 74.1 %; Platelet Count 378 10*3/uL (140-440); RBC 3.09 10*6/uL (4.40-5.60); WBC 11.45 10*3/uL (4.50-10.00)
[2025-05-02 06:23] LABS: Glucose,Whole Blood 178 mg/dL (70-110)
[2025-05-02 06:43] LABS: African American GFR (CKD) 24 (>60 ml/min/1.73 sqM); Anion Gap 11 mmol/L; Blood Urea Nitrogen 58 mg/dL (9-20); Calcium 8.5 mg/dL (8.4-10.2); Carbon Dioxide 19 mmol/L (22-30); Chloride 103 mmol/L (98-107); Glucose 161 mg/dL (74-99); Non-African American GFR(CKD) 21 (>60 ml/min/1.73 sqM); Potassium 5.2 mmol/L (3.5-5.1); Sodium 133 mmol/L (137-145)
[2025-05-02] MEDS: PANTOPRAZOLE 40 MG TABLET PO SCH (07:02)
--- NOTE | 2025-05-02 07:10 | XR ---
EXAMINATION TYPE: XR chest 1V DATE OF EXAM: 05/02/2025 5:42 AM COMPARISON: Chest radiographs from 05/01/2025 TECHNIQUE: XR chest 1V Portable AP radiograph of the chest. CLINICAL INDICATION:Male, 70 years old with history of CHF; FINDINGS: Lungs/Pleura: Blunting of both costophrenic angles. No pneumothorax. Increasing diffuse patchy opacit ies. Additional overlying haziness is related to patient's body habitus. Pulmonary vascularity: Pulmonary vascular congestion. Heart/mediastinum: Cardiomediastinal silhouette is enlarged and stable. Musculoskeletal: No acute osseous pathology. IMPRESSION: Worsening CHF exacerbation with increasing pulmonary edema/vascular congestion. Similar small bilater al pleural effusions and cardiomegaly. [facility], , 05/02/2025 7:08 AM
--- NOTE | 2025-05-02 09:37 | P.PN ---
Subjective Progress Note Date: 05/02/25 Patient margareth stable. He is scheduled for EGD colonoscopy in the a.m. Objective - Vital Signs Vital signs: Vital Signs Temp 97.7 F 05/02/25 08:00 Pulse 81 05/02/25 09:00 Resp 17 05/02/25 09:00 BP 125/73 05/02/25 09:00 Pulse Ox 96 05/02/25 09:00 FiO2 Intake & Output 05/01/25 05/02/25 05/02/25 18:59 06:59 18:59 Intake Total 480 101.037 510.947 Output Total 300 300 Balance 180 -198.963 510.947 Weight 120.8 kg Intake: Intake, IV Titration 240 101.037 110.947 Amount Norepinephrine 4 mg In 1.037 70.947 Sodium Chloride 0.9% 250 ml @ 0.03 MCG/KG/MIN 12. 447 mls/hr IV .[id number] [facility] Rx#:[id number] Sodium Chloride 0.9% 1, 240 100 40 000 ml @ 25 mls/hr IV . Q24H [facility] Rx#:[id number] Oral 240 400 Output: Urine 300 300 Other: Voiding Method Urinal Urinal # Voids 1 1 1 # Bowel Movements 1 1 1 - Labs CBC & Chem 7: 05/02/25 05:18 05/02/25 05:18 Labs: Abnormal Lab Results - Last 24 Hours (Table) 05/01/25 05/01/25 05/01/25 Range/Units 11:17 15:49 19:41 WBC (4.50-10.00) 10*3/uL RBC (4.40-5.60) 10*6/uL Hgb (13.0-17.0) g/dL Hct (39.6-50.0) % MCHC (32.0-37.0) g/dL MPV (9.5-12.2) fL Immature Gran # (0.00-0.04) 10*3/uL Neutrophils # (1.80-7.70) 10*3/uL Monocytes # (0.20-1.00) 10*3/uL Basophils # (0.00-0.10) 10*3/uL Sodium (137-145) mmol/L Potassium (3.5-5.1) mmol/L Carbon Dioxide (22-30) mmol/L BUN (9-20) mg/dL Creatinine (0.66-1.25) mg/dL Glucose (74-99) mg/dL POC Glucose (mg/dL) 115 H 169 H 204 H (70-110) mg/dL 05/01/25 05/01/25 05/01/25 Range/Units 20:10 21:51 22:28 WBC 13.20 H 12.48 H (4.50-10.00) 10*3/uL RBC 3.48 L 3.33 L (4.40-5.60) 10*6/uL Hgb 10.0 L 9.4 L (13.0-17.0) g/dL Hct 32.2 L 30.9 L (39.6-50.0) % MCHC 31.1 L 30.4 L (32.0-37.0) g/dL MPV 8.6 L 8.5 L (9.5-12.2) fL Immature Gran # 0.08 H 0.08 H (0.00-0.04) 10*3/uL Neutrophils # 10.14 H 9.23 H (1.80-7.70) 10*3/uL Monocytes # 1.05 H (0.20-1.00) 10*3/uL Basophils # 0.15 H 0.15 H (0.00-0.10) 10*3/uL Sodium (137-145) mmol/L Potassium (3.5-5.1) mmol/L Carbon Dioxide (22-30) mmol/L BUN (9-20) mg/dL Creatinine (0.66-1.25) mg/dL Glucose (74-99) mg/dL POC Glucose (mg/dL) 156 H (70-110) mg/dL 05/02/25 05/02/25 05/02/25 Range/Units 05:18 05:18 06:21 WBC 11.45 H (4.50-10.00) 10*3/uL RBC 3.09 L (4.40-5.60) 10*6/uL Hgb 9.2 L (13.0-17.0) g/dL Hct 28.9 L (39.6-50.0) % MCHC 31.8 L (32.0-37.0) g/dL MPV 8.7 L (9.5-12.2) fL Immature Gran # 0.11 H (0.00-0.04) 10*3/uL Neutrophils # 8.50 H (1.80-7.70) 10*3/uL Monocytes # 1.06 H (0.20-1.00) 10*3/uL Basophils # (0.00-0.10) 10*3/uL Sodium 133 L (137-145) mmol/L Potassium 5.2 H (3.5-5.1) mmol/L Carbon Dioxide 19 L (22-30) mmol/L BUN 58 H (9-20) mg/dL Creatinine 2.96 H (0.66-1.25) mg/dL Glucose 161 H (74-99) mg/dL POC Glucose (mg/dL) 178 H (70-110) mg/dL
--- NOTE | 2025-05-02 10:15 | P.PN ---
Subjective Patient is seen in follow-up for acute kidney injury on chronic kidney disease. Renal function stable. Hemoglobin improved post blood transfusions. Denies chest pain or shortness of breath. Vital signs are stable. General: No acute distress. HEENT: Head exam is unremarkable. On 2 L nasal cannula. LUNGS: No audible rhonchi or wheezes. HEART: Rate and Rhythm are regular. ABDOMEN: Nontender. EXTREMITITES: No edema. Objective - Vital Signs Vital signs: Vital Signs Temp 97.7 F 05/02/25 08:00 Pulse 78 05/02/25 10:00 Resp 20 05/02/25 10:00 BP 109/71 05/02/25 10:00 Pulse Ox 97 05/02/25 10:00 FiO2 Intake & Output 05/01/25 05/02/25 05/02/25 18:59 06:59 18:59 Intake Total 480 101.037 530.947 Output Total 300 300 Balance 180 -198.963 530.947 Weight 120.8 kg Intake: Intake, IV Titration 240 101.037 130.947 Amount Norepinephrine 4 mg In 1.037 70.947 Sodium Chloride 0.9% 250 ml @ 0.03 MCG/KG/MIN 12. 447 mls/hr IV .[id number] TEENA Rx#:[id number] Sodium Chloride 0.9% 1, 240 100 60 000 ml @ 25 mls/hr IV . Q24H TEENA Rx#:[id number] Oral 240 400 Output: Urine 300 300 Other: Voiding Method Urinal Urinal # Voids 1 1 1 # Bowel Movements 1 1 1 - Labs CBC & Chem 7: 05/02/25 05:18 05/02/25 05:18 Labs: Abnormal Lab Results - Last 24 Hours (Table) 05/01/25 05/01/25 05/01/25 Range/Units 11:17 15:49 19:41 WBC (4.50-10.00) 10*3/uL RBC (4.40-5.60) 10*6/uL Hgb (13.0-17.0) g/dL Hct (39.6-50.0) % MCHC (32.0-37.0) g/dL MPV (9.5-12.2) fL Immature Gran # (0.00-0.04) 10*3/uL Neutrophils # (1.80-7.70) 10*3/uL Monocytes # (0.20-1.00) 10*3/uL Basophils # (0.00-0.10) 10*3/uL Sodium (137-145) mmol/L Potassium (3.5-5.1) mmol/L Carbon Dioxide (22-30) mmol/L BUN (9-20) mg/dL Creatinine (0.66-1.25) mg/dL Glucose (74-99) mg/dL POC Glucose (mg/dL) 115 H 169 H 204 H (70-110) mg/dL 05/01/25 05/01/25 05/01/25 Range/Units 20:10 21:51 22:28 WBC 13.20 H 12.48 H (4.50-10.00) 10*3/uL RBC 3.48 L 3.33 L (4.40-5.60) 10*6/uL Hgb 10.0 L 9.4 L (13.0-17.0) g/dL Hct 32.2 L 30.9 L (39.6-50.0) % MCHC 31.1 L 30.4 L (32.0-37.0) g/dL MPV 8.6 L 8.5 L (9.5-12.2) fL Immature Gran # 0.08 H 0.08 H (0.00-0.04) 10*3/uL Neutrophils # 10.14 H 9.23 H (1.80-7.70) 10*3/uL Monocytes # 1.05 H (0.20-1.00) 10*3/uL Basophils # 0.15 H 0.15 H (0.00-0.10) 10*3/uL Sodium (137-145) mmol/L Potassium (3.5-5.1) mmol/L Carbon Dioxide (22-30) mmol/L BUN (9-20) mg/dL Creatinine (0.66-1.25) mg/dL Glucose (74-99) mg/dL POC Glucose (mg/dL) 156 H (70-110) mg/dL 05/02/25 05/02/25 05/02/25 Range/Units 05:18 05:18 06:21 WBC 11.45 H (4.50-10.00) 10*3/uL RBC 3.09 L (4.40-5.60) 10*6/uL Hgb 9.2 L (13.0-17.0) g/dL Hct 28.9 L (39.6-50.0) % MCHC 31.8 L (32.0-37.0) g/dL MPV 8.7 L (9.5-12.2) fL Immature Gran # 0.11 H (0.00-0.04) 10*3/uL Neutrophils # 8.50 H (1.80-7.70) 10*3/uL Monocytes # 1.06 H (0.20-1.00) 10*3/uL Basophils # (0.00-0.10) 10*3/uL Sodium 133 L (137-145) mmol/L Potassium 5.2 H (3.5-5.1) mmol/L Carbon Dioxide 19 L (22-30) mmol/L BUN 58 H (9-20) mg/dL Creatinine 2.96 H (0.66-1.25) mg/dL Glucose 161 H (74-99) mg/dL POC Glucose (mg/dL) 178 H (70-110) mg/dL Assessment and Plan Plan: Assessment: 1. Chronic kidney disease stage IIIb with creatinine 1.7-1.8 this admission - stable at 2.96 today. Renal function worsened from acute blood loss anemia. Creatinine in March 2025 was near 2.2. Etiology is cardiorenal syndrome and diabetic kidney disease. No hydronephrosis noted on CT. 2. Chronic systolic CHF ejection fraction of 25 to 30% with moderate pulmonary hypertension. 3. Volume overload. 4. Diabetes mellitus. 5. Hypokalemia from diuresis. Replaced. Improved. Now potassium slightly on the higher side due to component of GI bleed. 6. Acute blood loss anemia status post blood transfusions. Hemoglobin 8.6 this morning. Nondiagnostic for GI hemorrhage. Questionable cecal mass noted. Plan: Repeat IV Lasix 40 mg once today. Avoid nephrotoxins. Continue to monitor renal function and urine output. Repeat labs in the morning. Strict I's and O's. EGD and colonoscopy scheduled for tomorrow. Add Aranesp.
[2025-05-02] MEDS: FUROSEMIDE 10 MG/ML 4 ML VIAL IV STA (10:51)
--- NOTE | 2025-05-02 11:23 | P.PN ---
Subjective Progress Note Date: 05/02/25 This is a very pleasant 70-year-old male patient with a known history of hypertension, hyperlipidemia, diabetes mellitus, myocardial infarction, in September 2024 he was found to have diffuse severe coronary artery disease at [facility] however was not a candidate for CABG due to unsuitable targets. Medical management was recommended. Ischemic cardiomyopathy currently wearing a LifeVest. He presented here to the emergency room on 04/28/2025 with complaints of increasing shortness of breath, inability to lay flat without becoming worsening shortness of breath. Feels like his lungs were "full of water". Initial chest x-ray showed pulmonary vascular congestion and small bilateral pleural effusions. Echocardiogram reveals impaired left ventricular systolic function with an ejection fraction 25 to 30%. Moderate pulmonary hypertension. Global hypokinesia. He was being followed by cardiology. He was being diuresed. Today the patient developed increasing shortness of breath and significant hypotension despite mild fluid resuscitation. He was transferred to the intensive care unit for the same. He was found to have a significant drop in his hemoglobin from 14.2 to 6.5. 2 units of packed red blood cells are pending. He is seen today in consultation. He is currently resting fairly comfortably in bed. Awake and alert in no acute distress. Maintaining O2 saturations in the 90s on 3 L/min per nasal cannula. He is afebrile. Mean arterial pressures currently 62 to 63. He denies any worsening shortness of breath. No chest pain. No palpitations. No dizziness or lightheadedness. White count 10.1. Hemoglobin 6.5. Platelets 333. Sodium 135. Potassium 5.3. Bicarb 21. BUN 54. Creatinine 2.65. Glucose 184. Troponin 2.85, 3.61, 2.66. proBNP 6310. Viral screen negative for influenza A/B, RSV, COVID. He had been initiated on a heparin drip which is currently on pause. The patient is seen today May 01, 2025 in follow-up in the intensive care unit. He is currently sitting up in bed. Awake and alert in no acute distress. He is maintaining good O2 saturations in the 90s on 2 L/min per nasal cannula. Chest x-ray reveals cardiomegaly, pulmonary vascular congestion with small bilateral pleural effusions. 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 He is status post 2 units of packed red blood cells. White count 10.3. Hemoglobin 8.6. Platelets 377. Sodium 133. Potassium 5.3. Bicarb 19. BUN 59. Creatinine 2.94. Glucose 115. He remains on DuoNeb inhalations. Normal saline at 25 mL/h. Currently not requiring any norepinephrine. The patient is seen today May 02, 2025 in follow-up in the intensive care unit. He is awake and alert in no acute distress. Currently sitting up in a chair at the bedside. He is maintaining good O2 saturations in the 90s on 2 L/min per nasal cannula. He is status post 2 units of packed red blood cells this admission. Current hemoglobin 9.2. Platelets 378. White count 11.4. Sodium 133. Potassium 5.2. Bicarb 19. BUN 58. Creatinine 2.96. Glucose 161. Stool for occult blood was positive. He has been hemodynamically stable. Currently off pressors. Chest x-ray continues to show pulmonary edema/vascular congestion. Small bilateral pleural effusions. Cardiomegaly. Objective - Vital Signs Vital signs: Vital Signs Temp 97.7 F 05/02/25 08:00 Pulse 80 05/02/25 11:00 Resp 18 05/02/25 11:00 BP 105/67 05/02/25 11:00 Pulse Ox 94 L 05/02/25 11:00 FiO2 Intake & Output 05/01/25 05/02/25 05/02/25 18:59 06:59 18:59 Intake Total 480 101.037 550.947 Output Total 300 300 Balance 180 -198.963 550.947 Weight 120.8 kg Intake: Intake, IV Titration 240 101.037 150.947 Amount Norepinephrine 4 mg In 1.037 70.947 Sodium Chloride 0.9% 250 ml @ 0.03 MCG/KG/MIN 12. 447 mls/hr IV .[id number] TEENA Rx#:[id number] Sodium Chloride 0.9% 1, 240 100 80 000 ml @ 25 mls/hr IV . Q24H TEENA Rx#:[id number] Oral 240 400 Output: Urine 300 300 Other: Voiding Method Urinal Urinal Urinal # Voids 1 1 1 # Bowel Movements 1 1 1 - Exam GENERAL EXAM: Alert, pleasant 70-year-old male, up in a chair, on 2 L nasal cannula, in no apparent distress. HEAD: Normocephalic. EYES: Normal reaction of pupils, equal size. NOSE: Clear with pink turbinates. THROAT: No erythema or exudates. NECK: No masses, no JVD. CHEST: No chest wall deformity. Life vest secured in place. LUNGS: Equal air entry with crackles in the bilateral bases. CVS: S1 and S2 normal with no audible murmur, regular rhythm. ABDOMEN: No hepatosplenomegaly, normal bowel sounds, no guarding or rigidity. SPINE: No scoliosis or deformity SKIN: No rashes CENTRAL NERVOUS SYSTEM: No focal deficits, tone is normal in all 4 extremities. EXTREMITIES: There is 1-2+ peripheral edema. No clubbing, no cyanosis. Peripheral pulses are intact. - Labs CBC & Chem 7: 05/02/25 05:18 05/02/25 05:18 Labs: Abnormal Lab Results - Last 24 Hours (Table) 05/01/25 05/01/25 05/01/25 Range/Units 11:17 15:49 19:41 WBC (4.50-10.00) 10*3/uL RBC (4.40-5.60) 10*6/uL Hgb (13.0-17.0) g/dL Hct (39.6-50.0) % MCHC (32.0-37.0) g/dL MPV (9.5-12.2) fL Immature Gran # (0.00-0.04) 10*3/uL Neutrophils # (1.80-7.70) 10*3/uL Monocytes # (0.20-1.00) 10*3/uL Basophils # (0.00-0.10) 10*3/uL Sodium (137-145) mmol/L Potassium (3.5-5.1) mmol/L Carbon Dioxide (22-30) mmol/L BUN (9-20) mg/dL Creatinine (0.66-1.25) mg/dL Glucose (74-99) mg/dL POC Glucose (mg/dL) 115 H 169 H 204 H (70-110) mg/dL 05/01/25 05/01/25 05/01/25 Range/Units 20:10 21:51 22:28 WBC 13.20 H 12.48 H (4.50-10.00) 10*3/uL RBC 3.48 L 3.33 L (4.40-5.60) 10*6/uL Hgb 10.0 L 9.4 L (13.0-17.0) g/dL Hct 32.2 L 30.9 L (39.6-50.0) % MCHC 31.1 L 30.4 L (32.0-37.0) g/dL MPV 8.6 L 8.5 L (9.5-12.2) fL Immature Gran # 0.08 H 0.08 H (0.00-0.04) 10*3/uL Neutrophils # 10.14 H 9.23 H (1.80-7.70) 10*3/uL Monocytes # 1.05 H (0.20-1.00) 10*3/uL Basophils # 0.15 H 0.15 H (0.00-0.10) 10*3/uL Sodium (137-145) mmol/L Potassium (3.5-5.1) mmol/L Carbon Dioxide (22-30) mmol/L BUN (9-20) mg/dL Creatinine (0.66-1.25) mg/dL Glucose (74-99) mg/dL POC Glucose (mg/dL) 156 H (70-110) mg/dL 05/02/25 05/02/25 05/02/25 Range/Units 05:18 05:18 06:21 WBC 11.45 H (4.50-10.00) 10*3/uL RBC 3.09 L (4.40-5.60) 10*6/uL Hgb 9.2 L (13.0-17.0) g/dL Hct 28.9 L (39.6-50.0) % MCHC 31.8 L (32.0-37.0) g/dL MPV 8.7 L (9.5-12.2) fL Immature Gran # 0.11 H (0.00-0.04) 10*3/uL Neutrophils # 8.50 H (1.80-7.70) 10*3/uL Monocytes # 1.06 H (0.20-1.00) 10*3/uL Basophils # (0.00-0.10) 10*3/uL Sodium 133 L (137-145) mmol/L Potassium 5.2 H (3.5-5.1) mmol/L Carbon Dioxide 19 L (22-30) mmol/L BUN 58 H (9-20) mg/dL Creatinine 2.96 H (0.66-1.25) mg/dL Glucose 161 H (74-99) mg/dL POC Glucose (mg/dL) 178 H (70-110) mg/dL Assessment and Plan Assessment: Acute hypoxic respiratory failure secondary to an acute exacerbation of chronic systolic congestive heart failure Acute non-ST segment elevation myocardial infarction Ischemic cardiomyopathy with an ejection fraction 25 to 30%, currently in a LifeVest from previous admission Found to have severe diffuse coronary artery disease, deemed unsuitable for bypass due to poor targets, in [facility] September 2024 Acute anemia with a hemoglobin of 14.2 down to 6.5, unclear etiology, to receive 2 units of packed red blood cells. 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 mm, plan is for colonoscopy possibly May 03, 2025 Hypotension requiring mild fluid resuscitation Acute kidney injury secondary to diuretics Hyperkalemia secondary to above Diabetes mellitus History of hypertension Hyperlipidemia History of gout Plan: The patient was seen and evaluate Chest x-ray, labs and medications reviewed Currently on 2 L nasal cannula Titrate the FiO2 as tolerated Continue with LifeVest Currently stable and off pressors Plan is for colonoscopy tomorrow Remains on Protonix We will continue to follow I have personally seen and examined the patient, performed the documentation and the assessment and plan as written. Number of minutes spent on the visit: 10 Dictation was produced using [employer] dictation software. Please excuse any grammatical, word or spelling errors.
[2025-05-02 11:38] LABS: Glucose,Whole Blood 201 mg/dL (70-110)
--- NOTE | 2025-05-02 12:01 | P.PN ---
Subjective Progress Note Date: 05/02/25 HISTORY OF PRESENT ILLNESS: This is a 70-year-old male with a past medical history significant for chronic kidney disease, coronary artery disease, ischemic cardiomyopathy, hypertension, hyperlipidemia, and diabetes. Patient follows in the office with Dr. Lux. We have been asked to see the patient in consultation for NSTEMI. Patient examined at the bedside. Patient presented to the hospital with a chief complaint of shortness of breath. Patient reports he also has had a cough. He denies having any chest pain or pressure. Vital signs are currently stable. Patient is currently wearing LifeVest. DIAGNOSTICS: - EKG reveals sinus mechanism with no signs of acute ischemia. - Chest xray small bilateral pleural effusions. - Laboratory data: WBC 4.61. Hemoglobin 14.2. Platelet count 231. Sodium 138. Potassium 3.5. BUN 42. Creatinine 1.80. proBNP 6310. Troponin 2.850. 3.610. 2.660 - Current home cardiac medications include Lipitor 40 mg daily, aspirin 81 mg daily, metoprolol succinate 50 mg daily, Lasix 40 mg daily, fenofibrate 160 mg daily, Farxiga 10 mg daily, amlodipine 10 mg daily, Benicar 40 mg daily. - Most recent echocardiogram obtained in March 2024 revealed ejection fraction 25 to 30%, mild pulmonary hypertension, mild mitral regurgitation, trace to mild tricuspid regurgitation - Cardiac catheterization history: September 2024 at [facility] revealing left main with diffuse 40% stenosis. LAD has 60% stenosis proximally, mid 90% stenosis, and severe diffuse disease distally. LAD gives rise to diagonal which has ostial 50% stenosis. Ramus is ostially occluded. Left circumflex is small sized vessel and has ostial 90% stenosis. The left circumflex gives rise to a small OM which is severely diffusely diseased. RCA has distal 50% stenosis. The RCA gives rise to medium PDA which has severe diffuse disease and medium to large PLV which has moderate diffuse disease. Patient was deemed not to be a candidate for CABG due to unsuitable targets. Medical management was recommended 04/30/2025 Patient examined this morning. He is sitting up in the chair. He denies chest pain or pressure. Denies SOB. Remains on IV lasix. He also remains on IV heparin. Echocardiogram completed revealing ejection fraction 25 to 30%, moderate pulm hypertension. Creatinine worsened today to 2.65. 05/01 Patient seen and examined in the intensive care unit. Patient denies having any chest pain no chest pressure, he states he has a little bit of shortness of breath which he thinks is really related to his sinuses. He states he is feeling tired. He states that the lightheadedness spells are happening when he stands up too fast and has been going on for the last couple of months. He has a LifeVest in place. Patient is scheduled for colonoscopy on Saturday by general surgery. Blood pressure 103/66, heart rate 87, pulse ox 97% on 2 L nasal cannula. IV Lasix, losartan and Farxiga were discontinued due to worsening renal function which is worse today. Repeat blood work reveals hemoglobin 8.6. Sodium 133, potassium 5.3, BUN 59 creatinine 2.94. 1 dose of IV Lasix ordered by nephrology today. Patient is not on norepinephrine. 05/02 Patient seen and examined in the intensive care unit. Patient states that he is not feeling good. He denies chest pain. He did have episode of nausea last night. He states he has a little shortness of breath this morning. He also states he had a little chills. Patient did have black stools this morning when he got up to the commode chair. Last evening he had a drop in his blood pressure to 60/40 and was on Levophed for short period. Imdur and metoprolol were held this morning due to hypotension. Blood pressure 105/67, heart rate 80, pulse ox 94% on 2 L nasal cannula. Repeat blood work reveals WBC 11.4, hemo globin 9.2. Sodium 133, potassium 5.2, BUN 58 creatinine 2.96. Patient is scheduled for bowel prep for colonoscopy scheduled on Saturday PHYSICAL EXAM: VITAL SIGNS: Reviewed. GENERAL: Well-developed in no acute distress. HEENT: Head is normocephalic. Pupils are equal, round. Sclerae anicteric. Mucous membranes of the mouth are moist. Neck supple. No JVD or thyromegaly LUNGS: Respirations even and unlabored. Lungs diminished HEART: Regular rate and rhythm. S1 and S2 heard. ABDOMEN: Soft. Nondistended. Nontender. EXTREMITIES: Normal range of motion. No clubbing or cyanosis. Peripheral pul ses intact. No lower extremity edema NEUROLOGIC: Awake and alert. Oriented x 3. ASSESSMENT: Non-STEMI Acute on chronic heart failure with reduced EF, 25 to 30% Triple-vessel coronary artery disease, not a candidate for CABG, treated medically Acute kidney injury, followed by nephrology Chronic kidney disease stage IIIb Cecal mass scheduled for colonoscopy on Saturday Acute blood loss anemia status posttransfusion 2 units of packed RBCs Hypotension requiring vasopressors Ischemic cardiomyopathy Moderate pulmonary hypertension Hypertension Hyperlipidemia Diabetes Obesity: BMI 34.6 PLAN: Continue patient on aspirin, atorvastatin, Imdur 30 mg daily, Toprol-XL 50 mg daily, Ranexa 500 mg every 12 hours. IV Lasix, losartan and Farxiga discontinued secondary to worsening creatinine Diuretics per nephrology Continue LifeVest No plans for any invasive cardiac procedures at this time Further recommendations pending patient course Nurse practitioner note has been reviewed by physician. Signing provider agrees with the documented findings, assessment, and plan of care documented by SIGNWRITER as a scribe. Objective - Vital Signs Vital signs: Vital Signs Temp 97.7 F 05/02/25 08:00 Pulse 80 05/02/25 11:00 Resp 18 05/02/25 11:00 BP 105/67 05/02/25 11:00 Pulse Ox 94 L 05/02/25 11:00 FiO2 Intake & Output 05/01/25 05/02/25 05/02/25 18:59 06:59 18:59 Intake Total 480 101.037 550.947 Output Total 300 300 Balance 180 -198.963 550.947 Weight 120.8 kg Intake: Intake, IV Titration 240 101.037 150.947 Amount Norepinephrine 4 mg In 1.037 70.947 Sodium Chloride 0.9% 250 ml @ 0.03 MCG/KG/MIN 12. 447 mls/hr IV .[id number] TEENA Rx#:[id number] Sodium Chloride 0.9% 1, 240 100 80 000 ml @ 25 mls/hr IV . Q24H TEENA Rx#:[id number] Oral 240 400 Output: Urine 300 300 Other: Voiding Method Urinal Urinal Urinal # Voids 1 1 1 # Bowel Movements 1 1 1 - Labs CBC & Chem 7: 05/02/25 05:18 05/02/25 05:18 Labs: Abnormal Lab Results - Last 24 Hours (Table) 05/01/25 05/01/25 05/01/25 Range/Units 11:17 15:49 19:41 WBC (4.50-10.00) 10*3/uL RBC (4.40-5.60) 10*6/uL Hgb (13.0-17.0) g/dL Hct (39.6-50.0) % MCHC (32.0-37.0) g/dL MPV (9.5-12.2) fL Immature Gran # (0.00-0.04) 10*3/uL Neutrophils # (1.80-7.70) 10*3/uL Monocytes # (0.20-1.00) 10*3/uL Basophils # (0.00-0.10) 10*3/uL Sodium (137-145) mmol/L Potassium (3.5-5.1) mmol/L Carbon Dioxide (22-30) mmol/L BUN (9-20) mg/dL Creatinine (0.66-1.25) mg/dL Glucose (74-99) mg/dL POC Glucose (mg/dL) 115 H 169 H 204 H (70-110) mg/dL 05/01/25 05/01/25 05/01/25 Range/Units 20:10 21:51 22:28 WBC 13.20 H 12.48 H (4.50-10.00) 10*3/uL RBC 3.48 L 3.33 L (4.40-5.60) 10*6/uL Hgb 10.0 L 9.4 L (13.0-17.0) g/dL Hct 32.2 L 30.9 L (39.6-50.0) % MCHC 31.1 L 30.4 L (32.0-37.0) g/dL MPV 8.6 L 8.5 L (9.5-12.2) fL Immature Gran # 0.08 H 0.08 H (0.00-0.04) 10*3/uL Neutrophils # 10.14 H 9.23 H (1.80-7.70) 10*3/uL Monocytes # 1.05 H (0.20-1.00) 10*3/uL Basophils # 0.15 H 0.15 H (0.00-0.10) 10*3/uL Sodium (137-145) mmol/L Potassium (3.5-5.1) mmol/L Carbon Dioxide (22-30) mmol/L BUN (9-20) mg/dL Creatinine (0.66-1.25) mg/dL Glucose (74-99) mg/dL POC Glucose (mg/dL) 156 H (70-110) mg/dL 05/02/25 05/02/25 05/02/25 Range/Units 05:18 05:18 06:21 WBC 11.45 H (4.50-10.00) 10*3/uL RBC 3.09 L (4.40-5.60) 10*6/uL Hgb 9.2 L (13.0-17.0) g/dL Hct 28.9 L (39.6-50.0) % MCHC 31.8 L (32.0-37.0) g/dL MPV 8.7 L (9.5-12.2) fL Immature Gran # 0.11 H (0.00-0.04) 10*3/uL Neutrophils # 8.50 H (1.80-7.70) 10*3/uL Monocytes # 1.06 H (0.20-1.00) 10*3/uL Basophils # (0.00-0.10) 10*3/uL Sodium 133 L (137-145) mmol/L Potassium 5.2 H (3.5-5.1) mmol/L Carbon Dioxide 19 L (22-30) mmol/L BUN 58 H (9-20) mg/dL Creatinine 2.96 H (0.66-1.25) mg/dL Glucose 161 H (74-99) mg/dL POC Glucose (mg/dL) 178 H (70-110) mg/dL
[2025-05-02] MEDS: PEG 3350 (236 GM/BTL) + LYTES 4,000 ML BOTTLE PO ONE (12:38)
[2025-05-02] MEDS: DARBEPOETIN ALFA 40 MCG/0.4 ML SYRINGE SQ SCH (12:38)
--- NOTE | 2025-05-02 14:26 | P.PN ---
Subjective Progress Note Date: 05/02/25 This is a 70-year-old male with medical history significant for diabetes mellitus, fibromyalgia, hyperlipidemia, hypertension, prior NSTEMI with LifeVest. Patient was recently discharged from the hospital on April 01; he was admitted for acute heart failure. At that time his ejection fraction was 62%. He had a cardiac catheterization completed at [facility] about 7 months ago with findings of triple vessel disease; was felt to not be a candidate for stenting or coronary bypass he was discharged with the recommendations of medical management. His repeat echocardiogram his prior admission reveals an EF of 25 to 30%. patient received a LifeVest prior to his discharge on April 01. He returns to the hospital with complaints of shortness of breath which has been worsening over the last month since his prior admission. He states he is unable to lay down to sleep and has not been tolerating much activity. He was unable to obtain his new medications from his hospital stay last month due to cost and ins urance issues; which he was able to figure out. He had just started taking the recommended medications including diuretics and his SGLT2 inhibitor. Once he began taking his Lasix pill he does report that his lower extremity swelling has improved. Chest x-ray reveals small bilateral pleural effusions. INR 2.0, BUN of 37 creatinine of 1.74. Hemoglobin A1c of 6.7. Patient does have significant troponin elevation of 2.850, 3.610, 2.660. ProBNP is elevated at 6310. He received a dose of IV lasix on admission; and was admitted to the hospital with cardiology consultation. 04/30/2025 Patient evaluated today in follow up on the cardiac unit. He has become hypotensive and symptomatic today with blood pressures in the 70s systolic. He has received a 500 mL fluid bolus with an additional 500 mLs ordered. Lasix was decreased to IV 40 mg Q12h yesterday and than the lasix has been discontinued to day as well as losartan. Sodium level of 135, potassium 5.3, BUN 54, creatinine 2.65. Magnesium 2.0. UA non infectious. Has not had accurate I and O. Chest xray showing CHF and trace pleural effusions. Patient was ateamed. 05/01/2025 Patient's hemoglobin did come back yesterday afternoon at 6.5 as well as a white blood cell count of 10.16. He received fluid bolus and was moved to the intensive care unit he also was ordered to have 2 units of packed red blood cells. Patient did have multiple episodes of black tarry stool and does report that he has been having black stools at home. Abdominal pelvis CT was completed with findings of nondiagnostic exam for GI hemorrhage, there is mild infl ammation changes around the gallbladder in the right upper quadrant correlate for further quadrant pathology such as cholecystitis. A cecal wall mass is possibly present in the base of the appendix measuring 21 x 15 mm. Colonoscopy recommended for with direct visualization. Third portion duodenal diverticulum. Normal appendix. Moderate atherosclerosis of the arterial vasculature. A small right and trace left pleural effusion. Hemoglobin today is up to 9.0 and 8.6 respectively. General surgery was consulted and planning for colonoscopy on Saturday. IV heparin has been discontinued at this time as well as IV Lasix. His current labs today reveal a sodium level of 133 potassium 5.3, BUN of 59 creatinine of 2.94. He is evaluated today in the intensive care unit continues to report mild dizziness. He is currently being weaned off pressor support. 05/02/2025 Patient remains the intensive care unit. Hemoglobin today remained stable at 9.2. He continues to have black stools. General surgery has evaluated the patient and patient will undergo a colonoscopy tomorrow for further evaluation of the GI bleed and cecal wall mass. Chest x-ray today reveals worsening CHF with increasing pulmonary edema/vascular congestion. Similar small bilateral pleural effusions and cardiomegaly. Additional blood work today reveals a sodium level of 132 potassium 5.2, BUN of 58 creatinine of 2.96. He is currently on a small dose of vasopressor. He is receiving normal saline at 25 mL/h. And blood pressure is remaining stable in the 120s to 130s systolic. REVIEW OF SYSTEMS: CONSTITUTIONAL: No fever, no malaise, no fatigue. HEENT: No recent visual problems or hearing problems. Denied any sore throat. CARDIOVASCULAR: No chest pain, orthopnea, PND, no palpitations, no syncope. PULMONARY: No shortness of breath, no cough, no hemoptysis. GASTROINTESTINAL: No diarrhea, no nausea, no vomiting, no abdominal pain. Reporting black tarry stool NEUROLOGICAL: No headaches, no weakness, no numbness. Diffuse weakness PHYSICAL EXAMINATION: GENERAL: The patient is alert and oriented x3, not in any acute distress. Well developed, well nourished. Pale. HEENT: Pupils are round and equally reacting to light. EOMI. No scleral icterus. No conjunctival pallor. Normocephalic, atraumatic. No pharyngeal erythema. No thyromegaly. CARDIOVASCULAR: S1 and S2 present. No murmurs, rubs, or gallops. PULMONARY: Chest is clear to auscultation, no wheezing or crackles. Diminished ABDOMEN: Soft, nontender, nondistended, normoactive bowel sounds. No palpable organomegaly. MUSCULOSKELETAL: No joint swelling or deformity. EXTREMITIES: No cyanosis, clubbing, or pedal edema. NEUROLOGICAL: Gross neurological examination did not reveal any focal deficits. Generalized weakness SKIN: No rashes. Assessment Acute GI bleed acute blood loss anemia; patient having black tarry stools Concern for cecal wall mass; family history of colon cancer Hypotension and hypotensive shock requiring vasopressor support YOBANI from cardiorenal syndrome worsened with volume depletion Hypovolemic hyponatremia Acute heart failure exacerbation, systolic dysfunction Hyperkalemia from YOBANI Chronic kidney disease stage IIIb Triple vessel coronary artery disease, not a candidate for CABG, medically managed Pulmonary hypertension Troponin elevation from NSTEMI Jip-[id number] diabetes mellitus Hyperlipidemia Hypertension Hx Normocytic anemia Iron deficiency anemia Ischemic cardiomyopathy, EF 25-30% GI prophylaxis DVT prophylaxis: IV heparin Full Code Plan Status post 2 units of PRBC, hemoglobin stabilized and will continue with H&H monitoring General surgery consultation plans for colonoscopy on Saturday Continue to transfuse blood for hemoglobin less than 7 Strict intake and output monitoring IV lasix discontinued, patient continues on a small dose of normal saline running at 25 mL/h although his chest x-ray continues to show worsening congestive heart failure blood pressure has stabilized and could be considered to resume Lasix. Patient has been given a one time dose of IV lasix 40 mg IV heparin has been discontinued Cardiology following nephrology following Accuchecks ACHS and sliding scale insulin ordered Add flonase and claritin Monitor renal function The impression and plan of care has been dictated by Jo Harden Nurse Practitioner as directed. Dr. Rani MD I have performed a history and physical examination and medical decision making of this patient, discussed the same with the dictator, and agree with the dictators assessment and plan as written, documented as a scribe. Based on total visit time, I have performed more than 50% of this visit. Objective - Vital Signs Vital signs: Vital Signs Temp 97.7 F 05/02/25 08:00 Pulse 82 05/02/25 08:15 Resp 20 05/02/25 08:15 BP 137/75 05/02/25 08:15 Pulse Ox 97 05/02/25 08:15 FiO2 Intake & Output 05/01/25 05/02/25 05/02/25 18:59 06:59 18:59 Intake Total 480 101.037 487.49 Output Total 300 300 Balance 180 -198.963 487.49 Weight 120.8 kg Intake: Intake, IV Titration 240 101.037 87.49 Amount Norepinephrine 4 mg In 1.037 67.49 Sodium Chloride 0.9% 250 ml @ 0.03 MCG/KG/MIN 12. 447 mls/hr IV .[id number] TEENA Rx#:[id number] Sodium Chloride 0.9% 1, 240 100 20 000 ml @ 25 mls/hr IV . Q24H TEENA Rx#:[id number] Oral 240 400 Output: Urine 300 300 Other: Voiding Method Urinal Urinal # Voids 1 1 1 # Bowel Movements 1 1 1 - Labs CBC & Chem 7: 05/02/25 05:18 05/02/25 05:18 Labs: Abnormal Lab Results - Last 24 Hours (Table) 05/01/25 05/01/25 05/01/25 Range/Units 11:17 15:49 19:41 WBC (4.50-10.00) 10*3/uL RBC (4.40-5.60) 10*6/uL Hgb (13.0-17.0) g/dL Hct (39.6-50.0) % MCHC (32.0-37.0) g/dL MPV (9.5-12.2) fL Immature Gran # (0.00-0.04) 10*3/uL Neutrophils # (1.80-7.70) 10*3/uL Monocytes # (0.20-1.00) 10*3/uL Basophils # (0.00-0.10) 10*3/uL Sodium (137-145) mmol/L Potassium (3.5-5.1) mmol/L Carbon Dioxide (22-30) mmol/L BUN (9-20) mg/dL Creatinine (0.66-1.25) mg/dL Glucose (74-99) mg/dL POC Glucose (mg/dL) 115 H 169 H 204 H (70-110) mg/dL 05/01/25 05/01/25 05/01/25 Range/Units 20:10 21:51 22:28 WBC 13.20 H 12.48 H (4.50-10.00) 10*3/uL RBC 3.48 L 3.33 L (4.40-5.60) 10*6/uL Hgb 10.0 L 9.4 L (13.0-17.0) g/dL Hct 32.2 L 30.9 L (39.6-50.0) % MCHC 31.1 L 30.4 L (32.0-37.0) g/dL MPV 8.6 L 8.5 L (9.5-12.2) fL Immature Gran # 0.08 H 0.08 H (0.00-0.04) 10*3/uL Neutrophils # 10.14 H 9.23 H (1.80-7.70) 10*3/uL Monocytes # 1.05 H (0.20-1.00) 10*3/uL Basophils # 0.15 H 0.15 H (0.00-0.10) 10*3/uL Sodium (137-145) mmol/L Potassium (3.5-5.1) mmol/L Carbon Dioxide (22-30) mmol/L BUN (9-20) mg/dL Creatinine (0.66-1.25) mg/dL Glucose (74-99) mg/dL POC Glucose (mg/dL) 156 H (70-110) mg/dL 05/02/25 05/02/25 05/02/25 Range/Units 05:18 05:18 06:21 WBC 11.45 H (4.50-10.00) 10*3/uL RBC 3.09 L (4.40-5.60) 10*6/uL Hgb 9.2 L (13.0-17.0) g/dL Hct 28.9 L (39.6-50.0) % MCHC 31.8 L (32.0-37.0) g/dL MPV 8.7 L (9.5-12.2) fL Immature Gran # 0.11 H (0.00-0.04) 10*3/uL Neutrophils # 8.50 H (1.80-7.70) 10*3/uL Monocytes # 1.06 H (0.20-1.00) 10*3/uL Basophils # (0.00-0.10) 10*3/uL Sodium 133 L (137-145) mmol/L Potassium 5.2 H (3.5-5.1) mmol/L Carbon Dioxide 19 L (22-30) mmol/L BUN 58 H (9-20) mg/dL Creatinine 2.96 H (0.66-1.25) mg/dL Glucose 161 H (74-99) mg/dL POC Glucose (mg/dL) 178 H (70-110) mg/dL Assessment and Plan Time with Patient: Less than 30
[2025-05-02 16:27] LABS: Glucose,Whole Blood 129 mg/dL (70-110)
[2025-05-02 19:49] LABS: Glucose,Whole Blood 191 mg/dL (70-110)
[2025-05-03 06:19] LABS: Basophils # (A) 0.11 10*3/uL (0.00-0.10); Basophils % (A) 1.2 %; Eosinophils # (A) 0.23 10*3/uL (0.04-0.35); Eosinophils % (A) 2.6 %; HCT 30.1 % (39.6-50.0); HGB 9.2 g/dL (13.0-17.0); Lymphocytes # (A) 1.03 10*3/uL (0.90-5.00); Lymphocytes % (A) 11.7 %; MCH 28.2 pg (27.0-32.0); MCHC 30.6 g/dL (32.0-37.0); MCV 92.3 fL (80.0-97.0); Mean Platelet Volume 8.5 fL (9.5-12.2); Monocytes # (A) 0.73 10*3/uL (0.20-1.00); Monocytes % (A) 8.3 %; Neutrophils # (A) 6.69 10*3/uL (1.80-7.70); Neutrophils % (A) 75.9 %; Platelet Count 367 10*3/uL (140-440); RBC 3.26 10*6/uL (4.40-5.60); RDW 16.8 % (11.5-14.5); WBC 8.82 10*3/uL (4.50-10.00)
[2025-05-03 06:21] LABS: Glucose,Whole Blood 129 mg/dL (70-110)
[2025-05-03 06:40] LABS: African American GFR (CKD) 30 (>60 ml/min/1.73 sqM); Anion Gap 8 mmol/L; Blood Urea Nitrogen 45 mg/dL (9-20); Calcium 8.7 mg/dL (8.4-10.2); Carbon Dioxide 29 mmol/L (22-30); Chloride 99 mmol/L (98-107); Glucose 108 mg/dL (74-99); Magnesium 2.2 mg/dL (1.6-2.3); Non-African American GFR(CKD) 26 (>60 ml/min/1.73 sqM); Potassium 4.2 mmol/L (3.5-5.1); Sodium 136 mmol/L (137-145)
[2025-05-03] MEDS: METOPROLOL SUCCINATE (ER) 25 MG TAB.ER.24H PO SCH (09:17)
--- NOTE | 2025-05-03 11:47 | P.PN ---
Subjective Patient is seen for follow-up for acute kidney injury and chronic kidney disease. No significant complaints today Tolerating oral intake Renal function has improved with serum creatinine down to 2.4 from 2.9 yesterday. Objective - Vital Signs Vital signs: Vital Signs Temp 97.6 F 05/03/25 04:00 Pulse 85 05/03/25 11:00 Resp 20 05/03/25 11:00 BP 110/55 05/03/25 11:00 Pulse Ox 97 05/03/25 11:00 FiO2 Intake & Output 05/02/25 05/03/25 05/03/25 18:59 06:59 18:59 Intake Total 4840.947 810 40 Balance 4840.947 810 40 Weight 119.6 kg Intake: IV 40 Sodium Chloride 0.9% 1, 40 000 ml @ 25 mls/hr IV . Q24H [facility]EENA Rx#:[id number] Intake, IV Titration 290.947 20 Amount Norepinephrine 4 mg In 70.947 Sodium Chloride 0.9% 250 ml @ 0.03 MCG/KG/MIN 12. 447 mls/hr IV .[id number] TEENA Rx#:[id number] Sodium Chloride 0.9% 1, 220 20 000 ml @ 25 mls/hr IV . Q24H TEENA Rx#:[id number] Oral 4550 790 Other: Voiding Method Urinal Urinal # Voids 1 0 0 # Bowel Movements 1 1 - Exam Patient is awake, comfortable, no acute distress Examination of the heart S1 and S2 Examination of the lungs bilateral breath sounds are heard Abdomen is soft nontender Examination of lower extremities shows no significant edema BUILD MANAGER exam grossly intact - Labs CBC & Chem 7: 05/03/25 05:52 05/03/25 05:52 Labs: Abnormal Lab Results - Last 24 Hours (Table) 05/02/25 05/02/25 05/02/25 Range/Units 11:45 16:25 19:48 RBC (4.40-5.60) 10*6/uL Hgb (13.0-17.0) g/dL Hct (39.6-50.0) % MCHC (32.0-37.0) g/dL MPV (9.5-12.2) fL Basophils # (0.00-0.10) 10*3/uL Sodium (137-145) mmol/L BUN (9-20) mg/dL Creatinine (0.66-1.25) mg/dL Glucose (74-99) mg/dL POC Glucose (mg/dL) 129 H 191 H (70-110) mg/dL Troponin I 2.030 H* (0.000-0.034) ng/mL 05/03/25 05/03/25 05/03/25 Range/Units 05:52 05:52 06:21 RBC 3.26 L (4.40-5.60) 10*6/uL Hgb 9.2 L (13.0-17.0) g/dL Hct 30.1 L (39.6-50.0) % MCHC 30.6 L (32.0-37.0) g/dL MPV 8.5 L (9.5-12.2) fL Basophils # 0.11 H (0.00-0.10) 10*3/uL Sodium 136 L (137-145) mmol/L BUN 45 H (9-20) mg/dL Creatinine 2.47 H (0.66-1.25) mg/dL Glucose 108 H (74-99) mg/dL POC Glucose (mg/dL) 129 H (70-110) mg/dL Troponin I (0.000-0.034) ng/mL Assessment and Plan Assessment: 1. Chronic kidney disease stage IIIb with creatinine 1.7-1.8 this admission - peaked at 2.9, decreased to 2.4 today. Renal function worsened from acute blood loss anemia. Creatinine in March 2025 was near 2.2. Etiology is cardiorenal syndrome and diabetic kidney disease. No hydronephrosis noted on CT. 2. Chronic systolic CHF ejection fraction of 25 to 30% with moderate pulmonary hypertension. 3. Volume overload. 4. Diabetes mellitus. 5. Hypokalemia from diuresis. Replaced. Improved. Now potassium slightly on the higher side due to component of GI bleed. 6. Acute blood loss anemia status post blood transfusions. Hemoglobin 8.6 this morning. Nondiagnostic for GI hemorrhage. Questionable cecal mass noted. Plan: Continue off of IV fluids Resume oral diuretics May resume Benicar in 2 to 3 days if renal function continues to improve. Patient may need lower dose as systolic blood pressure is on the lower side.
[2025-05-03] MEDS ORDERED: ETOMIDATE 2 MG/ML 10 ML VIAL ONE (12:05)
--- NOTE | 2025-05-03 12:06 | P.PN ---
Subjective Progress Note Date: 05/03/25 SURGICAL PROGRESS NOTE CHIEF COMPLAINT: Cecal mass HISTORY OF PRESENT ILLNESS: Patient sitting comfortably in bed. Completed bowel prep. Hemoglobin 9.2. Vital stable. PHYSICAL EXAM: VITAL SIGNS: Reviewed. GENERAL: Well-developed in no acute distress. ABDOMEN: Soft. Nondistended. Nontender. NEUROLOGIC: Alert and oriented. Cranial nerves II through XII grossly intact. ASSESSMENT: 1. Cecal mass 2. Acute blood loss anemia 3. Non-STEMI 4. Acute on chronic heart failure EF 25 to 30% 5. Triple-vessel coronary disease not a candidate for CABG being treated medically PLAN: - Patient scheduled for EGD and colonoscopy today with Dr. Flores Physician Medical Referral Coordinator note has been reviewed by physician. Signing provider agrees with the documented findings, assessment, and plan of care. Objective - Vital Signs Vital signs: Vital Signs Temp 97.6 F 05/03/25 04:00 Pulse 85 05/03/25 11:00 Resp 20 05/03/25 11:00 BP 110/55 05/03/25 11:00 Pulse Ox 97 05/03/25 11:00 FiO2 Intake & Output 05/02/25 05/03/25 05/03/25 18:59 06:59 18:59 Intake Total 4840.947 810 40 Balance 4840.947 810 40 Weight 119.6 kg Intake: IV 40 Sodium Chloride 0.9% 1, 40 000 ml @ 25 mls/hr IV . Q24H [facility] Rx#:[id number] Intake, IV Titration 290.947 20 Amount Norepinephrine 4 mg In 70.947 Sodium Chloride 0.9% 250 ml @ 0.03 MCG/KG/MIN 12. 447 mls/hr IV .[id number] TEENA Rx#:[id number] Sodium Chloride 0.9% 1, 220 20 000 ml @ 25 mls/hr IV . Q24H [facility]EENA Rx#:[id number] Oral [id number] 790 Other: Voiding Method Urinal Urinal # Voids 1 0 0 # Bowel Movements 1 1 - Labs CBC & Chem 7: 05/03/25 05:52 05/03/25 05:52 Labs: Abnormal Lab Results - Last 24 Hours (Table) 05/02/25 05/02/25 05/02/25 Range/Units 11:45 16:25 19:48 RBC (4.40-5.60) 10*6/uL Hgb (13.0-17.0) g/dL Hct (39.6-50.0) % MCHC (32.0-37.0) g/dL MPV (9.5-12.2) fL Basophils # (0.00-0.10) 10*3/uL Sodium (137-145) mmol/L BUN (9-20) mg/dL Creatinine (0.66-1.25) mg/dL Glucose (74-99) mg/dL POC Glucose (mg/dL) 129 H 191 H (70-110) mg/dL Troponin I 2.030 H* (0.000-0.034) ng/mL 05/03/25 05/03/25 05/03/25 Range/Units 05:52 05:52 06:21 RBC 3.26 L (4.40-5.60) 10*6/uL Hgb 9.2 L (13.0-17.0) g/dL Hct 30.1 L (39.6-50.0) % MCHC 30.6 L (32.0-37.0) g/dL MPV 8.5 L (9.5-12.2) fL Basophils # 0.11 H (0.00-0.10) 10*3/uL Sodium 136 L (137-145) mmol/L BUN 45 H (9-20) mg/dL Creatinine 2.47 H (0.66-1.25) mg/dL Glucose 108 H (74-99) mg/dL POC Glucose (mg/dL) 129 H (70-110) mg/dL Troponin I (0.000-0.034) ng/mL
[2025-05-03] MEDS: IV FLUID CONTINUATION 300 ML IV ONE (12:10)
--- NOTE | 2025-05-03 12:46 | P.OP ---
Date of Procedure: 05/03/25 Preoperative Diagnosis: GI bleed, anemia Postoperative Diagnosis: Antral gastritis Rectal polyp Cecal biopsy Procedure(s) Performed: EGD Colonoscopy Anesthesia: MAC Surgeon: Chuck Flores Pathology: other (Antrum, cecum, rectal polyp) Condition: stable Disposition: PACU Description of Procedure: The patient was placed on the endoscopy table in the lateral position. He received IV sedation. The gas was placed oropharynx passed in the esophagus and stomach. Scope was placed through the pylorus. The 1st and 2nd portion of the duodenum appeared normal. Scope was Ruback the antrum this appeared mildly Flaim. A biopsy was performed. The scope was then retroflexed Amino-Cerv appeared normal. The GE junction was at 40 cm. The distal esophagus appeared normal. The proximal esophagus appeared normal. Scope withdrawn patient. There was no evidence of any upper GI bleed. Next digital rectal exam was performed. This revealed no abnormalities. The flexible colonoscope was then placed patient Anaspaz throughout the entire colon. A's cecal biopsy was performed. There was no obvious mass of the cecum. Scope withdrawn the ascending colon appeared normal. The transverse colon appeared normal. In the descending and sigmoid colon is a few scattered diverticuli. The scope was then brought back the rectum and a small sessile polyp was seen. This removed with a cold forcep. The scope withdrawn for the patient. There was no active bleeding seen in the colon.
[2025-05-03 13:17] LABS: Glucose,Whole Blood 117 mg/dL (70-110)
--- NOTE | 2025-05-03 16:08 | P.PN ---
Subjective Progress Note Date: 05/03/25 This is a very pleasant 70-year-old male patient with a known history of hypertension, hyperlipidemia, diabetes mellitus, myocardial infarction, in September 2024 he was found to have diffuse severe coronary artery disease at [facility] however was not a candidate for CABG due to unsuitable targets. Medical management was recommended. Ischemic cardiomyopathy currently wearing a LifeVest. He presented here to the emergency room on 04/28/2025 with complaints of increasing shortness of breath, inability to lay flat without becoming worsening shortness of breath. Feels like his lungs were "full of water". Initial chest x-ray showed pulmonary vascular congestion and small bilateral pleural effusions. Echocardiogram reveals impaired left ventricular systolic function with an ejection fraction 25 to 30%. Moderate pulmonary hypertension. Global hypokinesia. He was being followed by cardiology. He was being diuresed. Today the patient developed increasing shortness of breath and signif icant hypotension despite mild fluid resuscitation. He was transferred to the intensive care unit for the same. He was found to have a significant drop in his hemoglobin from 14.2 to 6.5. 2 units of packed red blood cells are pending. He is seen today in consultation. He is currently resting fairly comfortably in bed. Awake and alert in no acute distress. Maintaining O2 saturations in the 90s on 3 L/min per nasal cannula. He is afebrile. Mean arterial pressures currently 62 to 63. He denies any worsening shortness of breath. No chest pain. No palpitations. No dizziness or lightheadedness. White count 10.1. Hemoglobin 6.5. Platelets 333. Sodium 135. Potassium 5.3. Bicarb 21. BUN 54. Creatinine 2.65. Glucose 184. Troponin 2.85, 3.61, 2.66. proBNP 6310. Viral screen negative for influenza A/B, RSV, COVID. He had been initiated on a heparin drip which is currently on pause. The patient is seen today May 01, 2025 in follow-up in the intensive care unit. He is currently sitting up in bed. Awake and alert in no acute distress. He is maintaining good O2 saturations in the 90s on 2 L/min per nasal cannula. Chest x-ray reveals cardiomegaly, pulmonary vascular congestion with small bilateral pleural effusions. 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 He is status post 2 units of packed red blood cells. White count 10.3. Hemoglobin 8.6. Platelets 377. Sodium 133. Potassium 5.3. Bicarb 19. BUN 59. Creatinine 2.94. Glucose 115. He remains on DuoNeb inhalations. Normal saline at 25 mL/h. Currently not requiring any norepinephrine. The patient is seen today May 02, 2025 in follow-up in the intensive care unit. He is awake and alert in no acute distress. Currently sitting up in a chair at the bedside. He is maintaining good O2 saturations in the 90s on 2 L/min per nasal cannula. He is status post 2 units of packed red blood cells this admission. Current hemoglobin 9.2. Platelets 378. White count 11.4. Sodium 133. Potassium 5.2. Bicarb 19. BUN 58. Creatinine 2.96. Glucose 161. Stool for occult blood was positive. He has been hemodynamically stable. Currently off pressors. Chest x-ray continues to show pulmonary edema/vascular congestion. Small bilateral pleural effusions. Cardiomegaly. On 05/03/2025, the patient is being seen for a follow-up. On today's evaluation, the patient is comfortable on 2 L of oxygen by nasal cannula. Normal saline is running at rate of 25 cc an hour and the patient is off pressors. No evidence of any ongoing GI bleeding. Nevertheless, based on the significant drop in hemoglobin and an abnormal CAT scan of the abdomen that was done on 04/30/2025 showing a cecal mass, the patient is going to undergo a colonoscopy and EGD. The patient's hemoglobin is stable at 9.2. The patient denies having any chest pain. No significant shortness of breath at this point. The patient is known to have multivessel coronary artery disease along with ischemic cardiomyopathy with an ejection fraction of 25 to 30% and the patient is currently wearing a LifeVest. Noted the patient has diffuse coronary artery disease and the patient was not found to be a good candidate for coronary bypass surgery based on unsu itable poor targets for bypass. He is diabetic and has hypertension hyperlipidemia and gout. The patient is currently on aspirin 81 mg p.o. daily. He is on Toprol-XL 25 mg p.o. daily. He is also on Ranexa 500 mg p.o. twice a day. He remains on midodrine. Rest of the medications are essentially unchanged. He is on fenofibrate and Lipitor., Comfortable in bed, awaiting EGD and colonoscopy. Objective - Vital Signs Vital signs: Vital Signs Temp 97.6 F 05/03/25 04:00 Pulse 93 05/03/25 10:00 Resp 15 05/03/25 10:00 BP 125/73 05/03/25 10:00 Pulse Ox 98 05/03/25 10:00 FiO2 Intake & Output 05/02/25 05/03/25 05/03/25 18:59 06:59 18:59 Intake Total 4840.947 810 Balance 4840.947 810 Weight 119.6 kg Intake: Intake, IV Titration 290.947 20 Amount Norepinephrine 4 mg In 70.947 Sodium Chloride 0.9% 250 ml @ 0.03 MCG/KG/MIN 12. 447 mls/hr IV .[id number] TEENA Rx#:[id number] Sodium Chloride 0.9% 1, 220 20 000 ml @ 25 mls/hr IV . Q24H TEENA Rx#:[id number] Oral [id number] Other: Voiding Method Urinal Urinal # Voids 1 0 0 # Bowel Movements 1 1 - Exam GENERAL EXAM: Alert, pleasant 70-year-old male, up in a chair, on 2 L nasal cannula, in no apparent distress. HEAD: Normocephalic. EYES: Normal reaction of pupils, equal size. NOSE: Clear with pink turbinates. THROAT: No erythema or exudates. NECK: No masses, no JVD. CHEST: No chest wall deformity. Life vest secured in place. LUNGS: Equal air entry with crackles in the bilateral bases. CVS: S1 and S2 normal with no audible murmur, regular rhythm. ABDOMEN: No hepatosplenomegaly, normal bowel sounds, no guarding or rigidity. SPINE: No scoliosis or deformity SKIN: No rashes CENTRAL NERVOUS SYSTEM: No focal deficits, tone is normal in all 4 extremities. EXTREMITIES: There is 1-2+ peripheral edema. No clubbing, no cyanosis. Peripheral pulses are intact. - Labs CBC & Chem 7: 05/03/25 05:52 05/03/25 05:52 Labs: Abnormal Lab Results - Last 24 Hours (Table) 05/02/25 05/02/25 05/02/25 Range/Units 11:37 11:45 16:25 RBC (4.40-5.60) 10*6/uL Hgb (13.0-17.0) g/dL Hct (39.6-50.0) % MCHC (32.0-37.0) g/dL MPV (9.5-12.2) fL Basophils # (0.00-0.10) 10*3/uL Sodium (137-145) mmol/L BUN (9-20) mg/dL Creatinine (0.66-1.25) mg/dL Glucose (74-99) mg/dL POC Glucose (mg/dL) 201 H 129 H (70-110) mg/dL Troponin I 2.030 H* (0.000-0.034) ng/mL 05/02/25 05/03/25 05/03/25 Range/Units 19:48 05:52 05:52 RBC 3.26 L (4.40-5.60) 10*6/uL Hgb 9.2 L (13.0-17.0) g/dL Hct 30.1 L (39.6-50.0) % MCHC 30.6 L (32.0-37.0) g/dL MPV 8.5 L (9.5-12.2) fL Basophils # 0.11 H (0.00-0.10) 10*3/uL Sodium 136 L (137-145) mmol/L BUN 45 H (9-20) mg/dL Creatinine 2.47 H (0.66-1.25) mg/dL Glucose 108 H (74-99) mg/dL POC Glucose (mg/dL) 191 H (70-110) mg/dL Troponin I (0.000-0.034) ng/mL 05/03/25 Range/Units 06:21 RBC (4.40-5.60) 10*6/uL Hgb (13.0-17.0) g/dL Hct (39.6-50.0) % MCHC (32.0-37.0) g/dL MPV (9.5-12.2) fL Basophils # (0.00-0.10) 10*3/uL Sodium (137-145) mmol/L BUN (9-20) mg/dL Creatinine (0.66-1.25) mg/dL Glucose (74-99) mg/dL POC Glucose (mg/dL) 129 H (70-110) mg/dL Troponin I (0.000-0.034) ng/mL Assessment and Plan Plan: Acute hypoxic respiratory failure secondary to an acute exacerbation of chronic systolic congestive heart failure, currently on 2 L of oxygen by nasal cannula Acute non-ST segment elevation myocardial infarction Ischemic cardiomyopathy with an ejection fraction 25 to 30%, currently in a LifeVest from previous admission Coronary artery disease with severe diffuse coronary artery disease, deemed unsuitable for bypass due to poor targets, in [facility] September 2024 Acute anemia with a hemoglobin of 14.2 down to 6.5, unclear etiology, to receive 2 units of packed red blood cells. 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 Hypotension requiring mild fluid resuscitation, improved and the patient is currently off pressors Acute kidney injury secondary to diuretics, creatinine stable for now Hyperkalemia secondary to above Diabetes mellitus History of hypertension Hyperlipidemia History of gout Plan: Currently on 2 L nasal cannula Titrate the FiO2 as tolerated Continue with LifeVest Continue aspirin Continue Toprol-XL 25 mg p.o. daily Continue Ranexa 5 mg p.o. twice a day Continue fenofibrate and Lipitor Currently stable and off pressors Plan is for colonoscopy and EGD today Remains on Protonix We will continue to follow Critical care evaluation 32 minutes. Time with Patient: Greater than 30
[2025-05-03 16:28] LABS: Glucose,Whole Blood 214 mg/dL (70-110)
--- NOTE | 2025-05-03 17:10 | P.PN ---
Subjective HISTORY OF PRESENT ILLNESS: This is a 70-year-old male with a past medical history significant for chronic kidney disease, coronary artery disease, ischemic cardiomyopathy, hypertension, hyperlipidemia, and diabetes. Patient follows in the office with Dr. Lux. We have been asked to see the patient in consultation for NSTEMI. Patient examined at the bedside. Patient presented to the hospital with a chief complaint of shortness of breath. Patient reports he also has had a cough. He denies having any chest pain or pressure. Vital signs are currently stable. Patient is currently wearing LifeVest. DIAGNOSTICS: - EKG reveals sinus mechanism with no signs of acute ischemia. - Chest xray small bilateral pleural effusions. - Laboratory data: WBC 4.61. Hemoglobin 14.2. Platelet count 231. Sodium 138. Potassium 3.5. BUN 42. Creatinine 1.80. proBNP 6310. Troponin 2.850. 3.610. 2.660 - Current home cardiac medications include Lipitor 40 mg daily, aspirin 81 mg daily, metoprolol succinate 50 mg daily, Lasix 40 mg daily, fenofibrate 160 mg daily, Farxiga 10 mg daily, amlodipine 10 mg daily, Benicar 40 mg daily. - Most recent echocardiogram obtained in March 2024 revealed ejection fraction 25 to 30%, mild pulmonary hypertension, mild mitral regurgitation, trace to mild tricuspid regurgitation - Cardiac catheterization history: September 2024 at [facility] revealing left main with diffuse 40% stenosis. LAD has 60% stenosis proximally, mid 90% stenosis, and severe diffuse disease distally. LAD gives rise to diagonal which has ostial 50% stenosis. Ramus is ostially occluded. Left circumflex is small sized vessel and has ostial 90% stenosis. The left circumflex gives rise to a small OM which is severely diffusely diseased. RCA has distal 50% stenosis. The RCA gives rise to medium PDA which has severe diffuse disease and medium to large PLV which has moderate diffuse disease. Patient was deemed not to be a candidate for CABG due to unsuitable targets. Medical management was recommended 04/30/2025 Patient examined this morning. He is sitting up in the chair. He denies chest pain or pressure. Denies SOB. Remains on IV lasix. He also remains on IV heparin. Echocardiogram completed revealing ejection fraction 25 to 30%, moderate pulm hypertension. Creatinine worsened today to 2.65. 05/01 Patient seen and examined in the intensive care unit. Patient denies having any chest pain no chest pressure, he states he has a little bit of shortness of breath which he thinks is really related to his sinuses. He states he is feeling tired. He states that the lightheadedness spells are happening when he stands up too fast and has been going on for the last couple of months. He has a LifeVest in place. Patient is scheduled for colonoscopy on Saturday by general surgery. Blood pressure 103/66, heart rate 87, pulse ox 97% on 2 L nasal cannula. IV Lasix, losartan and Farxiga were discontinued due to worsening renal function which is worse today. Repeat blood work reveals hemoglobin 8.6. Sodium 133, potassium 5.3, BUN 59 creatinine 2.94. 1 dose of IV Lasix ordered by nephrology today. Patient is not on norepinephrine. 05/02 Patient seen and examined in the intensive care unit. Patient states that he is not feeling good. He denies chest pain. He did have episode of nausea last night. He states he has a little shortness of breath this morning. He also states he had a little chills. Patient did have black stools this morning when he got up to the commode chair. Last evening he had a drop in his blood pressure to 60/40 and was on Levophed for short period. Imdur and metoprolol were held this morning due to hypotension. Blood pressure 105/67, heart rate 80, pulse ox 94% on 2 L nasal cannula. Repeat blood work reveals WBC 11.4, hemoglobin 9.2. Sodium 133, potassium 5.2, BUN 58 creatinine 2.96. Patient is scheduled for bowel prep for colonoscopy scheduled on Thursday 05/03 Patient seen and examined. Patient denies any chest pain or pressure. Still somewhat short of breath if he leans over. Imdur and metoprolol were held secondary to hypotension. He underwent EGD and colonoscopy with no active bleeding noted. Hemoglobin 9.2 and creatinine mildly improved. PHYSICAL EXAM: VITAL SIGNS: Reviewed. GENERAL: Well-developed in no acute distress. HEENT: Head is normocephalic. Pupils are equal, round. Sclerae anicteric. Mucous membranes of the mouth are moist. Neck supple. No JVD or thyromegaly LUNGS: Respirations even and unlabored. Lungs diminished HEART: Regular rate and rhythm. S1 and S2 heard. ABDOMEN: Soft. Nondistended. Nontender. EXTREMITIES: Normal range of motion. No clubbing or cyanosis. Peripheral pulses intact. No lower extremity edema NEUROLOGIC: Awake and alert. Oriented x 3. ASSESSMENT: Non-STEMI Acute on chronic heart failure with reduced EF, 25 to 30% Triple-vessel coronary artery disease, not a candidate for CABG, treated medically Acute kidney injury, followed by nephrology Chronic kidney disease stage IIIb Cecal mass scheduled for colonoscopy on Saturday Acute blood loss anemia status posttransfusion 2 units of packed RBCs Hypotension requiring vasopressors Ischemic cardiomyopathy Moderate pulmonary hypertension Hypertension Hyperlipidemia Diabetes Obesity: BMI 34.6 PLAN: Continue patient on aspirin, atorvastatin, Ranexa 500 mg every 12 hours. Continue to hold antihypertensive medications with lower blood pressure readings Continue LifeVest Await further workup for mass and continue with medical therapy Further recommendations pending patient course Objective - Vital Signs Vital signs: Vital Signs Temp 97.6 F 05/03/25 16:00 Pulse 97 05/03/25 16:00 Resp 20 05/03/25 16:00 BP 117/69 05/03/25 16:00 Pulse Ox 92 L 05/03/25 16:00 FiO2 Intake & Output 05/02/25 05/03/25 05/03/25 18:59 06:59 18:59 Intake Total 4840.947 810 60 Balance 4840.947 810 60 Weight 119.6 kg Intake: IV 60 Sodium Chloride 0.9% 1, 60 000 ml @ 25 mls/hr IV . Q24H [facility]EENA Rx#:[id number] Intake, IV Titration 290.947 20 Amount Norepinephrine 4 mg In 70.947 Sodium Chloride 0.9% 250 ml @ 0.03 MCG/KG/MIN 12. 447 mls/hr IV .[id number] TEENA Rx#:[id number] Sodium Chloride 0.9% 1, 220 20 000 ml @ 25 mls/hr IV . Q24H TEENA Rx#:[id number] Oral [id number] Other: Voiding Method Urinal Urinal Bedside Commode Urinal # Voids 1 0 0 # Bowel Movements 1 1 - Labs CBC & Chem 7: 05/03/25 05:52 05/03/25 05:52 Labs: Abnormal Lab Results - Last 24 Hours (Table) 05/02/25 05/03/25 05/03/25 Range/Units 19:48 05:52 05:52 RBC 3.26 L (4.40-5.60) 10*6/uL Hgb 9.2 L (13.0-17.0) g/dL Hct 30.1 L (39.6-50.0) % MCHC 30.6 L (32.0-37.0) g/dL MPV 8.5 L (9.5-12.2) fL Basophils # 0.11 H (0.00-0.10) 10*3/uL Sodium 136 L (137-145) mmol/L BUN 45 H (9-20) mg/dL Creatinine 2.47 H (0.66-1.25) mg/dL Glucose 108 H (74-99) mg/dL POC Glucose (mg/dL) 191 H (70-110) mg/dL 05/03/25 05/03/25 05/03/25 Range/Units 06:21 13:11 16:27 RBC (4.40-5.60) 10*6/uL Hgb (13.0-17.0) g/dL Hct (39.6-50.0) % MCHC (32.0-37.0) g/dL MPV (9.5-12.2) fL Basophils # (0.00-0.10) 10*3/uL Sodium (137-145) mmol/L BUN (9-20) mg/dL Creatinine (0.66-1.25) mg/dL Glucose (74-99) mg/dL POC Glucose (mg/dL) 129 H 117 H 214 H (70-110) mg/dL
--- NOTE | 2025-05-03 19:20 | P.PN ---
Subjective Progress Note Date: 05/03/25 This is a 70-year-old male with medical history significant for diabetes mellitus, fibromyalgia, hyperlipidemia, hypertension, prior NSTEMI with LifeVest. Patient was recently discharged from the hospital on April 01; he was admitted for acute heart failure. At that time his ejection fraction was 62%. He had a cardiac catheterization completed at [facility] about 7 months ago with findings of triple vessel disease; was felt to not be a candidate for stenting or coronary bypass he was discharged with the recommendations of medical management. His repeat echocardiogram his prior admission reveals an EF of 25 to 30%. patient received a LifeVest prior to his discharge on April 01. He returns to the hospital with complaints of shortness of breath which has been worsening over the last month since his prior admission. He states he is unable to lay down to sleep and has not been tolerating much activity. He was unable to obtain his new medications from his hospital stay last month due to cost and ins urance issues; which he was able to figure out. He had just started taking the recommended medications including diuretics and his SGLT2 inhibitor. Once he began taking his Lasix pill he does report that his lower extremity swelling has improved. Chest x-ray reveals small bilateral pleural effusions. INR 2.0, BUN of 37 creatinine of 1.74. Hemoglobin A1c of 6.7. Patient does have significant troponin elevation of 2.850, 3.610, 2.660. ProBNP is elevated at 6310. He received a dose of IV lasix on admission; and was admitted to the hospital with cardiology consultation. 04/30/2025 Patient evaluated today in follow up on the cardiac unit. He has become hypotensive and symptomatic today with blood pressures in the 70s systolic. He has received a 500 mL fluid bolus with an additional 500 mLs ordered. Lasix was decreased to IV 40 mg Q12h yesterday and than the lasix has been discontinued to day as well as losartan. Sodium level of 135, potassium 5.3, BUN 54, creatinine 2.65. Magnesium 2.0. UA non infectious. Has not had accurate I and O. Chest xray showing CHF and trace pleural effusions. Patient was ateamed. 05/01/2025 Patient's hemoglobin did come back yesterday afternoon at 6.5 as well as a white blood cell count of 10.16. He received fluid bolus and was moved to the intensive care unit he also was ordered to have 2 units of packed red blood cells. Patient did have multiple episodes of black tarry stool and does report that he has been having black stools at home. Abdominal pelvis CT was completed with findings of nondiagnostic exam for GI hemorrhage, there is mild infl ammation changes around the gallbladder in the right upper quadrant correlate for further quadrant pathology such as cholecystitis. A cecal wall mass is possibly present in the base of the appendix measuring 21 x 15 mm. Colonoscopy recommended for with direct visualization. Third portion duodenal diverticulum. Normal appendix. Moderate atherosclerosis of the arterial vasculature. A small right and trace left pleural effusion. Hemoglobin today is up to 9.0 and 8.6 respectively. General surgery was consulted and planning for colonoscopy on Saturday. IV heparin has been discontinued at this time as well as IV Lasix. His current labs today reveal a sodium level of 133 potassium 5.3, BUN of 59 creatinine of 2.94. He is evaluated today in the intensive care unit continues to report mild dizziness. He is currently being weaned off pressor support. 05/02/2025 Patient remains the intensive care unit. Hemoglobin today remained stable at 9.2. He continues to have black stools. General surgery has evaluated the patient and patient will undergo a colonoscopy tomorrow for further evaluation of the GI bleed and cecal wall mass. Chest x-ray today reveals worsening CHF with increasing pulmonary edema/vascular congestion. Similar small bilateral pleural effusions and cardiomegaly. Additional blood work today reveals a sodium level of 132 potassium 5.2, BUN of 58 creatinine of 2.96. He is currently on a small dose of vasopressor. He is receiving normal saline at 25 mL/h. And blood pressure is remaining stable in the 120s to 130s systolic. 05/03/2025 Patient remains in the intensive care unit. He is currently pending colonoscopy. His stool has cleared up with the bowel prep, no reports of black tarry stools overnight. His white blood cell count is improved and down to 8.82. His hemoglobin is stable at 9.2. His blood work today is also improving with a sodium level of 136 potassium 4.2, BUN of 45 creatinine of 2.47. He is currently pending colonoscopy. He did have a troponin elevation on admission and again troponins were repeated and elevated at 2.660 and 2.030. He was given a dose of IV Lasix yesterday. He is currently weaned off of vasopressor support. REVIEW OF SYSTEMS: CONSTITUTIONAL: No fever, no malaise, no fatigue. HEENT: No recent visual problems or hearing problems. Denied any sore throat. CARDIOVASCULAR: No chest pain, orthopnea, PND, no palpitations, no syncope. PULMONARY: No shortness of breath, no cough, no hemoptysis. GASTROINTESTINAL: No diarrhea, no nausea, no vomiting, no abdominal pain. Reporting black tarry stool NEUROLOGICAL: No headaches, no weakness, no numbness. Diffuse weakness PHYSICAL EXAMINATION: GENERAL: The patient is alert and oriented x3, not in any acute distress. Well developed, well nourished. Pale. HEENT: Pupils are round and equally reacting to light. EOMI. No scleral icterus. No conjunctival pallor. Normocephalic, atraumatic. No pharyngeal erythema. No thyromegaly. CARDIOVASCULAR: S1 and S2 present. No murmurs, rubs, or gallops. PULMONARY: Chest is clear to auscultation, no wheezing or crackles. Diminished ABDOMEN: Soft, nontender, nondistended, normoactive bowel sounds. No palpable organomegaly. MUSCULOSKELETAL: No joint swelling or deformity. EXTREMITIES: No cyanosis, clubbing, or pedal edema. NEUROLOGICAL: Gross neurological examination did not reveal any focal deficits. Generalized weakness SKIN: No rashes. Assessment Acute GI bleed acute blood loss anemia; patient having black tarry stools Concern for cecal wall mass; family history of colon cancer Hypotension and hypotensive shock requiring vasopressor support YOBANI from cardiorenal syndrome worsened with volume depletion Hypovolemic hyponatremia Acute heart failure exacerbation, systolic dysfunction Hyperkalemia from YOBANI Chronic kidney disease stage IIIb Triple vessel coronary artery disease, not a candidate for CABG, medically managed Pulmonary hypertension Troponin elevation from NSTEMI [id number] diabetes mellitus Hyperlipidemia Hypertension Hx Normocytic anemia Iron deficiency anemia Ischemic cardiomyopathy, EF 25-30% GI prophylaxis DVT prophylaxis: IV heparin Full Code Plan Status post 2 units of PRBC, hemoglobin stabilized and will continue with H&H monitoring General surgery consultation plans for colonoscopy on Saturday Continue to transfuse blood for hemoglobin less than 7 Strict intake and output monitoring IV lasix discontinued, patient continues on a small dose of normal saline running at 25 mL/h although his chest x-ray continues to show worsening congestive heart failure blood pressure has stabilized and could be considered to resume Lasix. Patient has been given a one time dose of IV lasix 40 mg IV heparin has been discontinued Patient has been started on aranesp; Cardiology following nephrology following Accuchecks ACHS and sliding scale insulin ordered Add flonase and claritin Monitor renal function The impression and plan of care has been dictated by Jo Harden, Nurse Practitioner as directed. Dr. Rani MD I have performed a history and physical examination and medical decision making of this patient, discussed the same with the dictator, and agree with the dictators assessment and plan as written, documented as a scribe. Based on total visit time, I have performed more than 50% of this visit. Objective - Vital Signs Vital signs: Vital Signs Temp 97.6 F 05/03/25 04:00 Pulse 93 05/03/25 07:30 Resp 38 H 05/03/25 07:30 BP 116/69 05/03/25 07:30 Pulse Ox 96 05/03/25 07:30 FiO2 Intake & Output 05/02/25 05/03/25 05/03/25 18:59 06:59 18:59 Intake Total 4840.947 810 Balance 4840.947 810 Weight 119.6 kg Intake: Intake, IV Titration 290.947 20 Amount Norepinephrine 4 mg In 70.947 Sodium Chloride 0.9% 250 ml @ 0.03 MCG/KG/MIN 12. 447 mls/hr IV .[id number] [facility] Rx#:[id number] Sodium Chloride 0.9% 1, 220 20 000 ml @ 25 mls/hr IV . Q24H [facility] Rx#:[id number] Oral [id number] Other: Voiding Method Urinal Urinal # Voids 1 0 0 # Bowel Movements 1 1 - Labs CBC & Chem 7: 05/03/25 05:52 05/03/25 05:52 Labs: Abnormal Lab Results - Last 24 Hours (Table) 05/02/25 05/02/25 05/02/25 Range/Units 11:37 11:45 16:25 RBC (4.40-5.60) 10*6/uL Hgb (13.0-17.0) g/dL Hct (39.6-50.0) % MCHC (32.0-37.0) g/dL MPV (9.5-12.2) fL Basophils # (0.00-0.10) 10*3/uL Sodium (137-145) mmol/L BUN (9-20) mg/dL Creatinine (0.66-1.25) mg/dL Glucose (74-99) mg/dL POC Glucose (mg/dL) 201 H 129 H (70-110) mg/dL Troponin I 2.030 H* (0.000-0.034) ng/mL 05/02/25 05/03/25 05/03/25 Range/Units 19:48 05:52 05:52 RBC 3.26 L (4.40-5.60) 10*6/uL Hgb 9.2 L (13.0-17.0) g/dL Hct 30.1 L (39.6-50.0) % MCHC 30.6 L (32.0-37.0) g/dL MPV 8.5 L (9.5-12.2) fL Basophils # 0.11 H (0.00-0.10) 10*3/uL Sodium 136 L (137-145) mmol/L BUN 45 H (9-20) mg/dL Creatinine 2.47 H (0.66-1.25) mg/dL Glucose 108 H (74-99) mg/dL POC Glucose (mg/dL) 191 H (70-110) mg/dL Troponin I (0.000-0.034) ng/mL 05/03/25 Range/Units 06:21 RBC (4.40-5.60) 10*6/uL Hgb (13.0-17.0) g/dL Hct (39.6-50.0) % MCHC (32.0-37.0) g/dL MPV (9.5-12.2) fL Basophils # (0.00-0.10) 10*3/uL Sodium (137-145) mmol/L BUN (9-20) mg/dL Creatinine (0.66-1.25) mg/dL Glucose (74-99) mg/dL POC Glucose (mg/dL) 129 H (70-110) mg/dL Troponin I (0.000-0.034) ng/mL Assessment and Plan Time with Patient: Less than 30
[2025-05-03 19:53] LABS: Glucose,Whole Blood 263 mg/dL (70-110)
[2025-05-04 06:18] LABS: Basophils # (A) 0.08 10*3/uL (0.00-0.10); Eosinophils # (A) 0.25 10*3/uL (0.04-0.35); Eosinophils % (A) 3.2 %; HCT 28.9 % (39.6-50.0); HGB 9.2 g/dL (13.0-17.0); Lymphocytes # (A) 1.23 10*3/uL (0.90-5.00); Lymphocytes % (A) 15.9 %; MCH 29.4 pg (27.0-32.0); MCHC 31.8 g/dL (32.0-37.0); MCV 92.3 fL (80.0-97.0); Mean Platelet Volume 8.3 fL (9.5-12.2); Monocytes # (A) 0.77 10*3/uL (0.20-1.00); Monocytes % (A) 9.9 %; Neutrophils # (A) 5.39 10*3/uL (1.80-7.70); Neutrophils % (A) 69.6 %; Platelet Count 360 10*3/uL (140-440); RBC 3.13 10*6/uL (4.40-5.60); WBC 7.75 10*3/uL (4.50-10.00)
[2025-05-04 06:21] LABS: Glucose,Whole Blood 170 mg/dL (70-110)
[2025-05-04 06:30] LABS: African American GFR (CKD) 37 (>60 ml/min/1.73 sqM); Anion Gap 9 mmol/L; Blood Urea Nitrogen 37 mg/dL (9-20); Calcium 8.4 mg/dL (8.4-10.2); Carbon Dioxide 26 mmol/L (22-30); Chloride 100 mmol/L (98-107); Glucose 150 mg/dL (74-99); Non-African American GFR(CKD) 32 (>60 ml/min/1.73 sqM); Sodium 135 mmol/L (137-145)
--- NOTE | 2025-05-04 06:33 | XR ---
EXAMINATION TYPE: XR chest 1V portable DATE OF EXAM: 05/04/2025 5:50 AM COMPARISON: 05/02/2025 CLINICAL INDICATION: Male, 70 years old with history of Acute on chronic systolic congestive heart fa ilure, TECHNIQUE: XR chest 1V portable view(s) obtained. FINDINGS: The heart size is enlarged. The pulmonary vasculature is normal. Minimal atelectasis at the right costophrenic angle. Mild infiltrate may be along the left diaphragm. Electronic devices overlie the chest. Some artifact somewhat limits the examination. IMPRESSION: 1. Small bibasilar infiltrates. Correlate for atelectasis. Continued follow-up recommended [facility], , 05/04/2025 6:31 AM
--- NOTE | 2025-05-04 07:28 | P.PN ---
Subjective HISTORY OF PRESENT ILLNESS: This is a 70-year-old male with a past medical history significant for chronic kidney disease, coronary artery disease, ischemic cardiomyopathy, hypertension, hyperlipidemia, and diabetes. Patient follows in the office with Dr. Lux. We have been asked to see the patient in consultation for NSTEMI. Patient examined at the bedside. Patient presented to the hospital with a chief complaint of shortness of breath. Patient reports he also has had a cough. He denies having any chest pain or pressure. Vital signs are currently stable. Patient is currently wearing LifeVest. DIAGNOSTICS: - EKG reveals sinus mechanism with no signs of acute ischemia. - Chest xray small bilateral pleural effusions. - Laboratory data: WBC 4.61. Hemoglobin 14.2. Platelet count 231. Sodium 138. Potassium 3.5. BUN 42. Creatinine 1.80. proBNP 6310. Troponin 2.850. 3.610. 2.660 - Current home cardiac medications include Lipitor 40 mg daily, aspirin 81 mg daily, metoprolol succinate 50 mg daily, Lasix 40 mg daily, fenofibrate 160 mg daily, Farxiga 10 mg daily, amlodipine 10 mg daily, Benicar 40 mg daily. - Most recent echocardiogram obtained in March 2024 revealed ejection fraction 25 to 30%, mild pulmonary hypertension, mild mitral regurgitation, trace to mild tricuspid regurgitation - Cardiac catheterization history: September 2024 at [facility] revealing left main with diffuse 40% stenosis. LAD has 60% stenosis proximally, mid 90% stenosis, and severe diffuse disease distally. LAD gives rise to diagonal which has ostial 50% stenosis. Ramus is ostially occluded. Left circumflex is small sized vessel and has ostial 90% stenosis. The left circumflex gives rise to a small OM which is severely diffusely diseased. RCA has distal 50% stenosis. The RCA gives rise to medium PDA which has severe diffuse disease and medium to large PLV which has moderate diffuse disease. Patient was deemed not to be a candidate for CABG due to unsuitable targets. Medical management was recommended 04/30/2025 Patient examined this morning. He is sitting up in the chair. He denies chest pain or pressure. Denies SOB. Remains on IV lasix. He also remains on IV heparin. Echocardiogram completed revealing ejection fraction 25 to 30%, moderate pulm hypertension. Creatinine worsened today to 2.65. 05/01 Patient seen and examined in the intensive care unit. Patient denies having any chest pain no chest pressure, he states he has a little bit of shortness of breath which he thinks is really related to his sinuses. He states he is feeling tired. He states that the lightheadedness spells are happening when he stands up too fast and has been going on for the last couple of months. He has a LifeVest in place. Patient is scheduled for colonoscopy on Saturday by general surgery. Blood pressure 103/66, heart rate 87, pulse ox 97% on 2 L nasal cannula. IV Lasix, losartan and Farxiga were discontinued due to worsening renal function which is worse today. Repeat blood work reveals hemoglobin 8.6. Sodium 133, potassium 5.3, BUN 59 creatinine 2.94. 1 dose of IV Lasix ordered by nephrology today. Patient is not on norepinephrine. 05/02 Patient seen and examined in the intensive care unit. Patient states that he is not feeling good. He denies chest pain. He did have episode of nausea last night. He states he has a little shortness of breath this morning. He also states he had a little chills. Patient did have black stools this morning when he got up to the commode chair. Last evening he had a drop in his blood pressure to 60/40 and was on Levophed for short period. Imdur and metoprolol were held this morning due to hypotension. Blood pressure 105/67, heart rate 80, pulse ox 94% on 2 L nasal cannula. Repeat blood work reveals WBC 11.4, hemoglobin 9.2. Sodium 133, potassium 5.2, BUN 58 creatinine 2.96. Patient is scheduled for bowel prep for colonoscopy scheduled on Thursday 05/03 Patient seen and examined. Patient denies any chest pain or pressure. Still somewhat short of breath if he leans over. Imdur and metoprolol were held secondary to hypotension. He underwent EGD and colonoscopy with no active bleeding noted. Hemoglobin 9.2 and creatinine mildly improved. 05/04 Patient seen and examined. Patient feeling more short of breath overnight. He had a harder time sleeping. He does still have orthopnea and currently sitting up in a recliner. X-ray performed and does show bilateral vascular congestion. He has been off of his diuretics. Creatinine improved to 2.0 today. Blood pressure is mildly more elevated in the 130s over 80s, occasional 90s diastolic. PHYSICAL EXAM: VITAL SIGNS: Reviewed. GENERAL: Well-developed in no acute distress. HEENT: Head is normocephalic. Pupils are equal, round. Sclerae anicteric. Mucous membranes of the mouth are moist. Neck supple. No JVD or thyromegaly LUNGS: Respirations even and unlabored. Lungs diminished HEART: Regular rate and rhythm. S1 and S2 heard. ABDOMEN: Soft. Nondistended. Nontender. EXTREMITIES: Normal range of motion. No clubbing or cyanosis. Peripheral pulses intact. No lower extremity edema NEUROLOGIC: Awake and alert. Oriented x 3. ASSESSMENT: Non-STEMI Acute on chronic heart failure with reduced EF, 25 to 30% Triple-vessel coronary artery disease, not a candidate for CABG, treated medic ally Acute kidney injury, followed by nephrology Chronic kidney disease stage IIIb Cecal mass scheduled for colonoscopy on Saturday Acute blood loss anemia status posttransfusion 2 units of packed RBCs Hypotension requiring vasopressors Ischemic cardiomyopathy Moderate pulmonary hypertension Hypertension Hyperlipidemia Diabetes Obesity: BMI 34.6 PLAN: Continue patient on aspirin, atorvastatin, Ranexa 500 mg every 12 hours. Continue LifeVest Await further workup for mass and continue with medical therapy Currently appears volume overloaded and more short of breath and we will add IV Lasix today and monitor response. May consider adding back some heart failure/antihypertensive regimen with blood pressure somewhat better however has been labile blood pressures and creatinine improving with discontinuation of some of these medications. Continue with metoprolol for now. May consider adding hydralazine tomorrow. Await results of biopsy. Further recommendations pending patient course Objective - Vital Signs Vital signs: Vital Signs Temp 97.6 F 05/04/25 04:00 Pulse 89 05/04/25 04:00 Resp 22 05/04/25 04:00 BP 124/93 05/04/25 04:00 Pulse Ox 97 05/04/25 04:00 FiO2 Intake & Output 05/03/25 05/04/25 05/04/25 18:59 06:59 18:59 Intake Total 60 Output Total 600 600 Balance -540 -600 Weight 118 kg Intake: IV 60 Sodium Chloride 0.9% 1, 60 000 ml @ 25 mls/hr IV . Q24H [facility] Rx#:[id number] Output: Urine 600 600 Other: Voiding Method Bedside Commode Urinal # Voids 0 1 # Bowel Movements 1 1 - Labs CBC & Chem 7: 05/04/25 05:44 05/04/25 05:44 Labs: Abnormal Lab Results - Last 24 Hours (Table) 05/03/25 05/03/25 05/03/25 Range/Units 13:11 16:27 19:52 RBC (4.40-5.60) 10*6/uL Hgb (13.0-17.0) g/dL Hct (39.6-50.0) % MCHC (32.0-37.0) g/dL MPV (9.5-12.2) fL Sodium (137-145) mmol/L BUN (9-20) mg/dL Creatinine (0.66-1.25) mg/dL Glucose (74-99) mg/dL POC Glucose (mg/dL) 117 H 214 H 263 H (70-110) mg/dL 05/04/25 05/04/25 05/04/25 Range/Units 05:44 05:44 06:20 RBC 3.13 L (4.40-5.60) 10*6/uL Hgb 9.2 L (13.0-17.0) g/dL Hct 28.9 L (39.6-50.0) % MCHC 31.8 L (32.0-37.0) g/dL MPV 8.3 L (9.5-12.2) fL Sodium 135 L (137-145) mmol/L BUN 37 H (9-20) mg/dL Creatinine 2.05 H (0.66-1.25) mg/dL Glucose 150 H (74-99) mg/dL POC Glucose (mg/dL) 170 H (70-110) mg/dL
[2025-05-04] MEDS: FUROSEMIDE 10 MG/ML 4 ML VIAL IV SCH (08:48)
[2025-05-04 11:23] LABS: Glucose,Whole Blood 214 mg/dL (70-110)
--- NOTE | 2025-05-04 12:59 | P.PN ---
Subjective Progress Note Date: 05/04/25 SURGICAL PROGRESS NOTE CHIEF COMPLAINT: Cecal mass HISTORY OF PRESENT ILLNESS: Patient is currently in the ICU. He is status post EGD and colonoscopy with results reporting antral gastritis, rectal polyp and cecal biopsy. There was no obvious of the mass in the cecum. Patient reports feeling hungry. Denies any nausea or vomiting. Denies any abdominal pain. Hemoglobin 9.2. Tolerated clear liquids. PHYSICAL EXAM: VITAL SIGNS: Reviewed. GENERAL: Well-developed in no acute distress. ABDOMEN: Soft. Nondistended. Nontender. NEUROLOGIC: Alert and oriented. Cranial nerves II through XII grossly intact. ASSESSMENT: 1. Cecal mass noted on CT. No evidence of cecal mass on colonoscopy 2. Status post EGD reporting antral gastritis, rectal polyp and cecal biopsy obtained 3. Acute blood loss anemia 4. Non-STEMI 5. Acute on chronic heart failure EF 25 to 30% 6. Triple-vessel coronary disease not a candidate for CABG being treated medically PLAN: - Advance diet as tolerated - Follow-up on biopsy results Physician [employer] note has been reviewed by physician. Signing provider agrees with the documented findings, assessment, and plan of care. Objective - Vital Signs Vital signs: Vital Signs Temp 97.6 F 05/04/25 12:00 Pulse 89 05/04/25 12:00 Resp 20 05/04/25 12:00 BP 100/60 05/04/25 12:00 Pulse Ox 95 05/04/25 08:00 FiO2 Intake & Output 05/03/25 05/04/25 05/04/25 18:59 06:59 18:59 Intake Total 60 500 Output Total 600 600 Balance -540 -600 500 Weight 118 kg Intake: IV 60 Sodium Chloride 0.9% 1, 60 000 ml @ 25 mls/hr IV . Q24H [facility] Rx#:[id number] Oral 500 Output: Urine 600 600 Other: Voiding Method Bedside Commode Toilet Urinal # Voids 0 1 2 # Bowel Movements 1 1 - Labs CBC & Chem 7: 05/04/25 05:44 05/04/25 05:44 Labs: Abnormal Lab Results - Last 24 Hours (Table) 05/03/25 05/03/25 05/03/25 Range/Units 13:11 16:27 19:52 RBC (4.40-5.60) 10*6/uL Hgb (13.0-17.0) g/dL Hct (39.6-50.0) % MCHC (32.0-37.0) g/dL MPV (9.5-12.2) fL Sodium (137-145) mmol/L BUN (9-20) mg/dL Creatinine (0.66-1.25) mg/dL Glucose (74-99) mg/dL POC Glucose (mg/dL) 117 H 214 H 263 H (70-110) mg/dL 05/04/25 05/04/25 05/04/25 Range/Units 05:44 05:44 06:20 RBC 3.13 L (4.40-5.60) 10*6/uL Hgb 9.2 L (13.0-17.0) g/dL Hct 28.9 L (39.6-50.0) % MCHC 31.8 L (32.0-37.0) g/dL MPV 8.3 L (9.5-12.2) fL Sodium 135 L (137-145) mmol/L BUN 37 H (9-20) mg/dL Creatinine 2.05 H (0.66-1.25) mg/dL Glucose 150 H (74-99) mg/dL POC Glucose (mg/dL) 170 H (70-110) mg/dL 05/04/25 Range/Units 11:22 RBC (4.40-5.60) 10*6/uL Hgb (13.0-17.0) g/dL Hct (39.6-50.0) % MCHC (32.0-37.0) g/dL MPV (9.5-12.2) fL Sodium (137-145) mmol/L BUN (9-20) mg/dL Creatinine (0.66-1.25) mg/dL Glucose (74-99) mg/dL POC Glucose (mg/dL) 214 H (70-110) mg/dL
--- NOTE | 2025-05-04 13:57 | P.PN ---
Subjective Progress Note Date: 05/04/25 This is a very pleasant 70-year-old male patient with a known history of hypertension, hyperlipidemia, diabetes mellitus, myocardial infarction, in September 2024 he was found to have diffuse severe coronary artery disease at [facility] however was not a candidate for CABG due to unsuitable targets. Medical management was recommended. Ischemic cardiomyopathy currently wearing a LifeVest. He presented here to the emergency room on 04/28/2025 with complaints of increasing shortness of breath, inability to lay flat without becoming worsening shortness of breath. Feels like his lungs were "full of water". Initial chest x-ray showed pulmonary vascular congestion and small bilateral pleural effusions. Echocardiogram reveals impaired left ventricular systolic function with an ejection fraction 25 to 30%. Moderate pulmonary hypertension. Global hypokinesia. He was being followed by cardiology. He was being diuresed. Today the patient developed increasing shortness of breath and signif icant hypotension despite mild fluid resuscitation. He was transferred to the intensive care unit for the same. He was found to have a significant drop in his hemoglobin from 14.2 to 6.5. 2 units of packed red blood cells are pending. He is seen today in consultation. He is currently resting fairly comfortably in bed. Awake and alert in no acute distress. Maintaining O2 saturations in the 90s on 3 L/min per nasal cannula. He is afebrile. Mean arterial pressures currently 62 to 63. He denies any worsening shortness of breath. No chest pain. No palpitations. No dizziness or lightheadedness. White count 10.1. Hemoglobin 6.5. Platelets 333. Sodium 135. Potassium 5.3. Bicarb 21. BUN 54. Creatinine 2.65. Glucose 184. Troponin 2.85, 3.61, 2.66. proBNP 6310. Viral screen negative for influenza A/B, RSV, COVID. He had been initiated on a heparin drip which is currently on pause. The patient is seen today May 01, 2025 in follow-up in the intensive care unit. He is currently sitting up in bed. Awake and alert in no acute distress. He is maintaining good O2 saturations in the 90s on 2 L/min per nasal cannula. Chest x-ray reveals cardiomegaly, pulmonary vascular congestion with small bilateral pleural effusions. 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 He is status post 2 units of packed red blood cells. White count 10.3. Hemoglobin 8.6. Platelets 377. Sodium 133. Potassium 5.3. Bicarb 19. BUN 59. Creatinine 2.94. Glucose 115. He remains on DuoNeb inhalations. Normal saline at 25 mL/h. Currently not requiring any norepinephrine. The patient is seen today May 02, 2025 in follow-up in the intensive care unit. He is awake and alert in no acute distress. Currently sitting up in a chair at the bedside. He is maintaining good O2 saturations in the 90s on 2 L/min per nasal cannula. He is status post 2 units of packed red blood cells this admission. Current hemoglobin 9.2. Platelets 378. White count 11.4. Sodium 133. Potassium 5.2. Bicarb 19. BUN 58. Creatinine 2.96. Glucose 161. Stool for occult blood was positive. He has been hemodynamically stable. Currently off pressors. Chest x-ray continues to show pulmonary edema/vascular congestion. Small bilateral pleural effusions. Cardiomegaly. On 05/03/2025, the patient is being seen for a follow-up. On today's evaluation, the patient is comfortable on 2 L of oxygen by nasal cannula. Normal saline is running at rate of 25 cc an hour and the patient is off pressors. No evidence of any ongoing GI bleeding. Nevertheless, based on the significant drop in hemoglobin and an abnormal CAT scan of the abdomen that was done on 04/30/2025 showing a cecal mass, the patient is going to undergo a colonoscopy and EGD. The patient's hemoglobin is stable at 9.2. The patient denies having any chest pain. No significant shortness of breath at this point. The patient is known to have multivessel coronary artery disease along with ischemic cardiomyopathy with an ejection fraction of 25 to 30% and the patient is currently wearing a LifeVest. Noted the patient has diffuse coronary artery disease and the patient was not found to be a good candidate for coronary bypass surgery based on unsu itable poor targets for bypass. He is diabetic and has hypertension hyperlipidemia and gout. The patient is currently on aspirin 81 mg p.o. daily. He is on Toprol-XL 25 mg p.o. daily. He is also on Ranexa 500 mg p.o. twice a day. He remains on midodrine. Rest of the medications are essentially unchanged. He is on fenofibrate and Lipitor., Comfortable in bed, awaiting EGD and colonoscopy. On today's evaluation of 05/04/2025, the patient is being seen for a follow-up. The patient is doing well. No specific complaints. Resting comfortably in bed. No evidence of any GI bleeding and the patient underwent a EGD yesterday and there was no clear indication for any cecal mass. There was no evidence of any acute bleeding. There was few scattered diverticuli involving the colon. There was also a small sessile polyp seen in the rectum. No active bleeding. EGD also showed no evidence of any upper GI source of bleeding. The patient remained stable. Hemoglobin stable at 9.2. The white cell count at 7.7. Electrolytes are stable, BUN is 37 with a creatinine of 2.05, essentially improving. The patient has no specific complaints. Remains on Lasix 40 mg IV every 24 hours. Remains in normal Saint rate of 20 cc an hour. He did have some difficulties with sleep yesterday and the patient accordingly was given Restoril. Remains on Toprol 25 mg p.o. daily, Lantus 20 units daily, and Ranexa. Objective - Vital Signs Vital signs: Vital Signs Temp 97.6 F 05/04/25 08:00 Pulse 93 05/04/25 08:00 Resp 24 05/04/25 08:00 BP 124/93 05/04/25 04:00 Pulse Ox 95 05/04/25 08:00 FiO2 Intake & Output 05/03/25 05/04/25 05/04/25 18:59 06:59 18:59 Intake Total 60 Output Total 600 600 Balance -540 -600 Weight 118 kg Intake: IV 60 Sodium Chloride 0.9% 1, 60 000 ml @ 25 mls/hr IV . Q24H [facility] Rx#:[id number] Output: Urine 600 600 Other: Voiding Method Bedside Commode Urinal # Voids 0 1 # Bowel Movements 1 1 - Exam GENERAL EXAM: Alert, pleasant 70-year-old male, up in a chair, on 2 L nasal cannula, in no apparent distress. HEAD: Normocephalic. EYES: Normal reaction of pupils, equal size. NOSE: Clear with pink turbinates. THROAT: No erythema or exudates. NECK: No masses, no JVD. CHEST: No chest wall deformity. Life vest secured in place. LUNGS: Equal air entry with crackles in the bilateral bases. CVS: S1 and S2 normal with no audible murmur, regular rhythm. ABDOMEN: No hepatosplenomegaly, normal bowel sounds, no guarding or rigidity. SPINE: No scoliosis or deformity SKIN: No rashes CENTRAL NERVOUS SYSTEM: No focal deficits, tone is normal in all 4 extremities. EXTREMITIES: There is 1-2+ peripheral edema. No clubbing, no cyanosis. Peripheral pulses are intact. - Labs CBC & Chem 7: 05/04/25 05:44 05/04/25 05:44 Labs: Abnormal Lab Results - Last 24 Hours (Table) 05/03/25 05/03/25 05/03/25 Range/Units 13:11 16:27 19:52 RBC (4.40-5.60) 10*6/uL Hgb (13.0-17.0) g/dL Hct (39.6-50.0) % MCHC (32.0-37.0) g/dL MPV (9.5-12.2) fL Sodium (137-145) mmol/L BUN (9-20) mg/dL Creatinine (0.66-1.25) mg/dL Glucose (74-99) mg/dL POC Glucose (mg/dL) 117 H 214 H 263 H (70-110) mg/dL 05/04/25 05/04/25 05/04/25 Range/Units 05:44 05:44 06:20 RBC 3.13 L (4.40-5.60) 10*6/uL Hgb 9.2 L (13.0-17.0) g/dL Hct 28.9 L (39.6-50.0) % MCHC 31.8 L (32.0-37.0) g/dL MPV 8.3 L (9.5-12.2) fL Sodium 135 L (137-145) mmol/L BUN 37 H (9-20) mg/dL Creatinine 2.05 H (0.66-1.25) mg/dL Glucose 150 H (74-99) mg/dL POC Glucose (mg/dL) 170 H (70-110) mg/dL Assessment and Plan Plan: Acute hypoxic respiratory failure secondary to an acute exacerbation of chronic systolic congestive heart failure, currently on room air oxygen Acute non-ST segment elevation myocardial infarction Ischemic cardiomyopathy with an ejection fraction 25 to 30%, currently in a LifeVest from previous admission Coronary artery disease with severe diffuse coronary artery disease, deemed unsuitable for bypass due to poor targets, in [facility] September 2024 Acute anemia with a hemoglobin of 14.2 down to 6.5, unclear etiology, to receive 2 units of packed red blood cells. 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 Colonoscopy and EGD was done and there is no source of upper or lower GI bleeding. The patient has scattered diverticula and a sessile polyp in the rectum and there is no evidence of any cecal mass. Hypotension requiring mild fluid resuscitation, improved and the patient is currently off pressors Acute kidney injury secondary to diuretics, creatinine stable for now, improving Hyperkalemia secondary to above, stable Diabetes mellitus History of hypertension Hyperlipidemia History of gout Plan: Currently on 2 L nasal cannula Titrate the FiO2 as tolerated Continue with LifeVest Continue aspirin Continue Toprol-XL 25 mg p.o. daily Continue Ranexa 5 mg p.o. twice a day Continue fenofibrate and Lipitor Currently stable and off pressors EGD and colonoscopy was noted Continue Protonix We will continue to follow Will continue to follow Time with Patient: Greater than 30
--- NOTE | 2025-05-04 16:05 | P.PN ---
Subjective Patient is seen for follow-up for acute kidney injury and chronic kidney disease. No significant complaints today Tolerating oral intake Renal function has improved with serum creatinine down to 2.0 today. Objective - Vital Signs Vital signs: Vital Signs Temp 97.6 F 05/04/25 12:00 Pulse 89 05/04/25 12:00 Resp 20 05/04/25 12:00 BP 100/60 05/04/25 12:00 Pulse Ox 95 05/04/25 08:00 FiO2 Intake & Output 05/03/25 05/04/25 05/04/25 18:59 06:59 18:59 Intake Total 60 500 Output Total 600 600 Balance -540 -600 500 Weight 118 kg Intake: IV 60 Sodium Chloride 0.9% 1, 60 000 ml @ 25 mls/hr IV . Q24H [facility] Rx#:[id number] Oral 500 Output: Urine 600 600 Other: Voiding Method Bedside Commode Toilet Urinal # Voids 0 1 2 # Bowel Movements 1 1 - Exam Patient is awake, comfortable, no acute distress Examination of the heart S1 and S2 Examination of the lungs bilateral breath sounds are heard Abdomen is soft nontender Examination of lower extremities shows no significant edema [employer] exam grossly intact - Labs CBC & Chem 7: 05/04/25 05:44 05/04/25 05:44 Labs: Abnormal Lab Results - Last 24 Hours (Table) 05/03/25 05/03/25 05/04/25 Range/Units 16:27 19:52 05:44 RBC 3.13 L (4.40-5.60) 10*6/uL Hgb 9.2 L (13.0-17.0) g/dL Hct 28.9 L (39.6-50.0) % MCHC 31.8 L (32.0-37.0) g/dL MPV 8.3 L (9.5-12.2) fL Sodium (137-145) mmol/L BUN (9-20) mg/dL Creatinine (0.66-1.25) mg/dL Glucose (74-99) mg/dL POC Glucose (mg/dL) 214 H 263 H (70-110) mg/dL 05/04/25 05/04/25 05/04/25 Range/Units 05:44 06:20 11:22 RBC (4.40-5.60) 10*6/uL Hgb (13.0-17.0) g/dL Hct (39.6-50.0) % MCHC (32.0-37.0) g/dL MPV (9.5-12.2) fL Sodium 135 L (137-145) mmol/L BUN 37 H (9-20) mg/dL Creatinine 2.05 H (0.66-1.25) mg/dL Glucose 150 H (74-99) mg/dL POC Glucose (mg/dL) 170 H 214 H (70-110) mg/dL Assessment and Plan Assessment: 1. Chronic kidney disease stage IIIb with creatinine 1.7-1.8 this admission - peaked at 2.9, decreased to 2.0 today. Renal function worsened from acute blood loss anemia. Creatinine in March 2025 was near 2.2. Etiology is cardiorenal syndrome and diabetic kidney disease. No hydronephrosis noted on CT. 2. Chronic systolic CHF ejection fraction of 25 to 30% with moderate pulmonary hypertension. 3. Volume overload. 4. Diabetes mellitus. 5. Hypokalemia from diuresis. Replaced. Improved. Now potassium slightly on the higher side due to component of GI bleed. 6. Acute blood loss anemia status post blood transfusions. Non diagnostic for GI hemorrhage. No mass noted on colonoscopy. Plan: Continue off of IV fluids Restarted IV Lasix today. May resume Benicar in 2 to 3 days. Patient may need lower dose as systolic bloo d pressure is on the lower side.
[2025-05-04 16:58] LABS: Glucose,Whole Blood 232 mg/dL (70-110)
[2025-05-04 17:24] LABS: Glucose,Whole Blood 246 mg/dL (70-110)
--- NOTE | 2025-05-04 17:54 | P.PN ---
Subjective Progress Note Date: 05/04/25 This is a 70-year-old male with medical history significant for diabetes mellitus, fibromyalgia, hyperlipidemia, hypertension, prior NSTEMI with LifeVest. Patient was recently discharged from the hospital on April 01; he was admitted for acute heart failure. At that time his ejection fraction was 62%. He had a cardiac catheterization completed at [facility] about 7 months ago with findings of triple vessel disease; was felt to not be a candidate for stenting or coronary bypass he was discharged with the recommendations of medical management. His repeat echocardiogram his prior admission reveals an EF of 25 to 30%. patient received a LifeVest prior to his discharge on April 01. He returns to the hospital with complaints of shortness of breath which has been worsening over the last month since his prior admission. He states he is unable to lay down to sleep and has not been tolerating much activity. He was unable to obtain his new medications from his hospital stay last month due to cost and ins urance issues; which he was able to figure out. He had just started taking the recommended medications including diuretics and his SGLT2 inhibitor. Once he began taking his Lasix pill he does report that his lower extremity swelling has improved. Chest x-ray reveals small bilateral pleural effusions. INR 2.0, BUN of 37 creatinine of 1.74. Hemoglobin A1c of 6.7. Patient does have significant troponin elevation of 2.850, 3.610, 2.660. ProBNP is elevated at 6310. He received a dose of IV lasix on admission; and was admitted to the hospital with cardiology consultation. 04/30/2025 Patient evaluated today in follow up on the cardiac unit. He has become hypotensive and symptomatic today with blood pressures in the 70s systolic. He has received a 500 mL fluid bolus with an additional 500 mLs ordered. Lasix was decreased to IV 40 mg Q12h yesterday and than the lasix has been discontinued to day as well as losartan. Sodium level of 135, potassium 5.3, BUN 54, creatinine 2.65. Magnesium 2.0. UA non infectious. Has not had accurate I and O. Chest xray showing CHF and trace pleural effusions. Patient was ateamed. 05/01/2025 Patient's hemoglobin did come back yesterday afternoon at 6.5 as well as a white blood cell count of 10.16. He received fluid bolus and was moved to the intensive care unit he also was ordered to have 2 units of packed red blood cells. Patient did have multiple episodes of black tarry stool and does report that he has been having black stools at home. Abdominal pelvis CT was completed with findings of nondiagnostic exam for GI hemorrhage, there is mild infl ammation changes around the gallbladder in the right upper quadrant correlate for further quadrant pathology such as cholecystitis. A cecal wall mass is possibly present in the base of the appendix measuring 21 x 15 mm. Colonoscopy recommended for with direct visualization. Third portion duodenal diverticulum. Normal appendix. Moderate atherosclerosis of the arterial vasculature. A small right and trace left pleural effusion. Hemoglobin today is up to 9.0 and 8.6 respectively. General surgery was consulted and planning for colonoscopy on Saturday. IV heparin has been discontinued at this time as well as IV Lasix. His current labs today reveal a sodium level of 133 potassium 5.3, BUN of 59 creatinine of 2.94. He is evaluated today in the intensive care unit continues to report mild dizziness. He is currently being weaned off pressor support. 05/02/2025 Patient remains the intensive care unit. Hemoglobin today remained stable at 9.2. He continues to have black stools. General surgery has evaluated the patient and patient will undergo a colonoscopy tomorrow for further evaluation of the GI bleed and cecal wall mass. Chest x-ray today reveals worsening CHF with increasing pulmonary edema/vascular congestion. Similar small bilateral pleural effusions and cardiomegaly. Additional blood work today reveals a sodium level of 132 potassium 5.2, BUN of 58 creatinine of 2.96. He is currently on a small dose of vasopressor. He is receiving normal saline at 25 mL/h. And blood pressure is remaining stable in the 120s to 130s systolic. 05/03/2025 Patient remains in the intensive care unit. He is currently pending colonoscopy. His stool has cleared up with the bowel prep, no reports of black tarry stools overnight. His white blood cell count is improved and down to 8.82. His hemoglobin is stable at 9.2. His blood work today is also improving with a sodium level of 136 potassium 4.2, BUN of 45 creatinine of 2.47. He is currently pending colonoscopy. He did have a troponin elevation on admission and again troponins were repeated and elevated at 2.660 and 2.030. He was given a dose of IV Lasix yesterday. He is currently weaned off of vasopressor support. 05/04/2025 Patient is evaluated in follow up in the intensive care unit. He is status post EGD colonoscopy with finding of antral gastritis and cecal biopsy was performed. Hemoglobin stable at 9.2. He is having creasing shortness of breath and will be resumed on IV Lasix today. Chest x-ray revealing bilateral infiltrates. His creatinine is improved at 2.05. REVIEW OF SYSTEMS: CONSTITUTIONAL: No fever, no malaise, no fatigue. HEENT: No recent visual problems or hearing problems. Denied any sore throat. CARDIOVASCULAR: No chest pain, orthopnea, PND, no palpitations, no syncope. PULMONARY: No shortness of breath, no cough, no hemoptysis. GASTROINTESTINAL: No diarrhea, no nausea, no vomiting, no abdominal pain. Reporting black tarry stool NEUROLOGICAL: No headaches, no weakness, no numbness. Diffuse weakness PHYSICAL EXAMINATION: GENERAL: The patient is alert and oriented x3, not in any acute distress. Well developed, well nourished. Pale. HEENT: Pupils are round and equally reacting to light. EOMI. No scleral icterus. No conjunctival pallor. Normocephalic, atraumatic. No pharyngeal erythema. No thyromegaly. CARDIOVASCULAR: S1 and S2 present. No murmurs, rubs, or gallops. PULMONARY: Chest is clear to auscultation, no wheezing or crackles. Diminished ABDOMEN: Soft, nontender, nondistended, normoactive bowel sounds. No palpable organomegaly. MUSCULOSKELETAL: No joint swelling or deformity. EXTREMITIES: No cyanosis, clubbing, or pedal edema. NEUROLOGICAL: Gross neurological examination did not reveal any focal deficits. Generalized weakness SKIN: No rashes. Assessment Acute GI bleed acute blood loss anemia EGD revealing antral gastritis Concern for cecal wall mass; family history of colon cancer Hypotension and hypotensive shock requiring vasopressor support YOBANI from cardiorenal syndrome worsened with volume depletion Hypovolemic hyponatremia Acute heart failure exacerbation, systolic dysfunction Hyperkalemia from YOBANI Chronic kidney disease stage IIIb Triple vessel coronary artery disease, not a candidate for CABG, medically managed Pulmonary hypertension Troponin elevation from NSTEMI [id number] diabetes mellitus Hyperlipidemia Hypertension Hx Normocytic anemia Iron deficiency anemia Ischemic cardiomyopathy, EF 25-30% GI prophylaxis DVT prophylaxis: IV heparin Full Code Plan Status post 2 units of PRBC, hemoglobin stabilized and will continue with H&H monitoring General surgery consultation Pending cecal biopsy Continue to transfuse blood for hemoglobin less than 7 Strict intake and output monitoring Patient has been resumed on IV lasix Continue oral metoprolol for now and cardiology to further adjust medications as warranted. IV heparin has been discontinued Patient has been started on aranesp Cardiology following nephrology following Accuchecks ACHS and sliding scale insulin ordered Add flonase and claritin Monitor renal function The impression and plan of care has been dictated by Jo Harden, Nurse Practitioner as directed. Dr. Rani MD I have performed a history and physical examination and medical decision making of this patient, discussed the same with the dictator, and agree with the dictators assessment and plan as written, documented as a scribe. Based on total visit time, I have performed more than 50% of this visit. Objective - Vital Signs Vital signs: Vital Signs Temp 97.6 F 05/04/25 04:00 Pulse 89 05/04/25 04:00 Resp 22 05/04/25 04:00 BP 124/93 05/04/25 04:00 Pulse Ox 97 05/04/25 04:00 FiO2 Intake & Output 05/03/25 05/04/25 05/04/25 18:59 06:59 18:59 Intake Total 60 Output Total 600 600 Balance -540 -600 Weight 118 kg Intake: IV 60 Sodium Chloride 0.9% 1, 60 000 ml @ 25 mls/hr IV . Q24H [facility] Rx#:[id number] Output: Urine 600 600 Other: Voiding Method Bedside Commode Urinal # Voids 0 1 # Bowel Movements 1 1 - Labs CBC & Chem 7: 05/04/25 05:44 05/04/25 05:44 Labs: Abnormal Lab Results - Last 24 Hours (Table) 05/03/25 05/03/25 05/03/25 Range/Units 13:11 16:27 19:52 RBC (4.40-5.60) 10*6/uL Hgb (13.0-17.0) g/dL Hct (39.6-50.0) % MCHC (32.0-37.0) g/dL MPV (9.5-12.2) fL Sodium (137-145) mmol/L BUN (9-20) mg/dL Creatinine (0.66-1.25) mg/dL Glucose (74-99) mg/dL POC Glucose (mg/dL) 117 H 214 H 263 H (70-110) mg/dL 05/04/25 05/04/25 05/04/25 Range/Units 05:44 05:44 06:20 RBC 3.13 L (4.40-5.60) 10*6/uL Hgb 9.2 L (13.0-17.0) g/dL Hct 28.9 L (39.6-50.0) % MCHC 31.8 L (32.0-37.0) g/dL MPV 8.3 L (9.5-12.2) fL Sodium 135 L (137-145) mmol/L BUN 37 H (9-20) mg/dL Creatinine 2.05 H (0.66-1.25) mg/dL Glucose 150 H (74-99) mg/dL POC Glucose (mg/dL) 170 H (70-110) mg/dL Assessment and Plan Time with Patient: Less than 30
[2025-05-04 19:48] LABS: Glucose,Whole Blood 222 mg/dL (70-110)
[2025-05-05 05:59] LABS: Glucose,Whole Blood 158 mg/dL (70-110)
[2025-05-05 06:12] LABS: Basophils % (A) 1.3 %; Eosinophils # (A) 0.34 10*3/uL (0.04-0.35); Eosinophils % (A) 4.4 %; HCT 29.2 % (39.6-50.0); HGB 9.1 g/dL (13.0-17.0); Lymphocytes # (A) 1.42 10*3/uL (0.90-5.00); Lymphocytes % (A) 18.6 %; MCH 28.3 pg (27.0-32.0); MCHC 31.2 g/dL (32.0-37.0); Mean Platelet Volume 8.6 fL (9.5-12.2); Monocytes # (A) 0.63 10*3/uL (0.20-1.00); Monocytes % (A) 8.2 %; Neutrophils # (A) 5.13 10*3/uL (1.80-7.70); Neutrophils % (A) 67.1 %; Platelet Count 361 10*3/uL (140-440); RBC 3.21 10*6/uL (4.40-5.60); RDW 16.9 % (11.5-14.5); WBC 7.65 10*3/uL (4.50-10.00)
[2025-05-05 06:34] LABS: African American GFR (CKD) 44 (>60 ml/min/1.73 sqM); Anion Gap 6 mmol/L; Blood Urea Nitrogen 34 mg/dL (9-20); Calcium 8.9 mg/dL (8.4-10.2); Carbon Dioxide 28 mmol/L (22-30); Chloride 100 mmol/L (98-107); Glucose 142 mg/dL (74-99); Magnesium 2.2 mg/dL (1.6-2.3); Non-African American GFR(CKD) 38 (>60 ml/min/1.73 sqM); Potassium 4.2 mmol/L (3.5-5.1); Sodium 134 mmol/L (137-145)
[2025-05-05 11:56] LABS: Glucose,Whole Blood 222 mg/dL (70-110)
--- NOTE | 2025-05-05 12:22 | P.PN ---
Subjective Patient is seen for follow-up for acute kidney injury and chronic kidney disease. Complaining of shortness of breath which is worse on laying down. Maintained on IV Lasix Tolerating oral intake Renal function has improved with serum creatinine down to 1.7 today. Objective - Vital Signs Vital signs: Vital Signs Temp 98.0 F 05/05/25 12:00 Pulse 86 05/05/25 12:00 Resp 18 05/05/25 12:00 BP 130/78 05/05/25 12:00 Pulse Ox 97 05/05/25 12:00 FiO2 Intake & Output 05/04/25 05/05/25 05/05/25 18:59 06:59 18:59 Intake Total 750 480 Balance 750 480 Weight 114.5 kg Intake: Oral 750 480 Other: Voiding Method Toilet Toilet # Voids 2 1 2 # Bowel Movements 1 - Exam Patient is awake, comfortable, no acute distress Examination of the heart S1 and S2 Examination of the lungs bilateral breath sounds are heard Abdomen is soft nontender Examination of lower extremities shows 1+ edema, both legs are wrapped [employer] exam grossly intact - Labs CBC & Chem 7: 05/05/25 05:29 05/05/25 05:29 Labs: Abnormal Lab Results - Last 24 Hours (Table) 05/04/25 05/04/25 05/04/25 Range/Units 16:56 17:24 19:47 RBC (4.40-5.60) 10*6/uL Hgb (13.0-17.0) g/dL Hct (39.6-50.0) % MCHC (32.0-37.0) g/dL MPV (9.5-12.2) fL Sodium (137-145) mmol/L BUN (9-20) mg/dL Creatinine (0.66-1.25) mg/dL Glucose (74-99) mg/dL POC Glucose (mg/dL) 232 H 246 H 222 H (70-110) mg/dL 05/05/25 05/05/25 05/05/25 Range/Units 05:29 05:29 05:58 RBC 3.21 L (4.40-5.60) 10*6/uL Hgb 9.1 L (13.0-17.0) g/dL Hct 29.2 L (39.6-50.0) % MCHC 31.2 L (32.0-37.0) g/dL MPV 8.6 L (9.5-12.2) fL Sodium 134 L (137-145) mmol/L BUN 34 H (9-20) mg/dL Creatinine 1.79 H (0.66-1.25) mg/dL Glucose 142 H (74-99) mg/dL POC Glucose (mg/dL) 158 H (70-110) mg/dL 05/05/25 Range/Units 11:55 RBC (4.40-5.60) 10*6/uL Hgb (13.0-17.0) g/dL Hct (39.6-50.0) % MCHC (32.0-37.0) g/dL MPV (9.5-12.2) fL Sodium (137-145) mmol/L BUN (9-20) mg/dL Creatinine (0.66-1.25) mg/dL Glucose (74-99) mg/dL POC Glucose (mg/dL) 222 H (70-110) mg/dL Assessment and Plan Assessment: 1. Chronic kidney disease stage IIIb with creatinine 1.7-1.8 this admission - peaked at 2.9, decreased to 1.7 today. Renal function worsened from acute blood loss anemia. Creatinine in March 2025 was near 2.2. Etiology is cardiorenal syndrome and diabetic kidney disease. No hydronephrosis noted on CT. 2. Chronic systolic CHF ejection fraction of 25 to 30% with moderate pulmonary hypertension. 3. Volume overload. 4. Diabetes mellitus. 5. Hypokalemia from diuresis. Replaced. Improved. Now potassium slightly on the higher side due to component of GI bleed. 6. Acute blood loss anemia status post blood transfusions. Non diagnostic for GI hemorrhage. No mass noted on colonoscopy. Plan: Continue with IV Lasix, increase dose to twice a day Repeat labs in a.m.
--- NOTE | 2025-05-05 13:02 | P.PN ---
Subjective Progress Note Date: 05/05/25 This is a 70-year-old male with medical history significant for diabetes mellitus, fibromyalgia, hyperlipidemia, hypertension, prior NSTEMI with LifeVest. Patient was recently discharged from the hospital on April 01; he was admitted for acute heart failure. At that time his ejection fraction was 62%. He had a cardiac catheterization completed at [facility] about 7 months ago with findings of triple vessel disease; was felt to not be a candidate for stenting or coronary bypass he was discharged with the recommendations of medical management. His repeat echocardiogram his prior admission reveals an EF of 25 to 30%. patient received a LifeVest prior to his discharge on April 01. He returns to the hospital with complaints of shortness of breath which has been worsening over the last month since his prior admission. He states he is unable to lay down to sleep and has not been tolerating much activity. He was unable to obtain his new medications from his hospital stay last month due to cost and ins urance issues; which he was able to figure out. He had just started taking the recommended medications including diuretics and his SGLT2 inhibitor. Once he began taking his Lasix pill he does report that his lower extremity swelling has improved. Chest x-ray reveals small bilateral pleural effusions. INR 2.0, BUN of 37 creatinine of 1.74. Hemoglobin A1c of 6.7. Patient does have significant troponin elevation of 2.850, 3.610, 2.660. ProBNP is elevated at 6310. He received a dose of IV lasix on admission; and was admitted to the hospital with cardiology consultation. 04/30/2025 Patient evaluated today in follow up on the cardiac unit. He has become hypotensive and symptomatic today with blood pressures in the 70s systolic. He has received a 500 mL fluid bolus with an additional 500 mLs ordered. Lasix was decreased to IV 40 mg Q12h yesterday and than the lasix has been discontinued to day as well as losartan. Sodium level of 135, potassium 5.3, BUN 54, creatinine 2.65. Magnesium 2.0. UA non infectious. Has not had accurate I and O. Chest xray showing CHF and trace pleural effusions. Patient was ateamed. 05/01/2025 Patient's hemoglobin did come back yesterday afternoon at 6.5 as well as a white blood cell count of 10.16. He received fluid bolus and was moved to the intensive care unit he also was ordered to have 2 units of packed red blood cells. Patient did have multiple episodes of black tarry stool and does report that he has been having black stools at home. Abdominal pelvis CT was completed with findings of nondiagnostic exam for GI hemorrhage, there is mild infl ammation changes around the gallbladder in the right upper quadrant correlate for further quadrant pathology such as cholecystitis. A cecal wall mass is possibly present in the base of the appendix measuring 21 x 15 mm. Colonoscopy recommended for with direct visualization. Third portion duodenal diverticulum. Normal appendix. Moderate atherosclerosis of the arterial vasculature. A small right and trace left pleural effusion. Hemoglobin today is up to 9.0 and 8.6 respectively. General surgery was consulted and planning for colonoscopy on Saturday. IV heparin has been discontinued at this time as well as IV Lasix. His current labs today reveal a sodium level of 133 potassium 5.3, BUN of 59 creatinine of 2.94. He is evaluated today in the intensive care unit continues to report mild dizziness. He is currently being weaned off pressor support. 05/02/2025 Patient remains the intensive care unit. Hemoglobin today remained stable at 9.2. He continues to have black stools. General surgery has evaluated the patient and patient will undergo a colonoscopy tomorrow for further evaluation of the GI bleed and cecal wall mass. Chest x-ray today reveals worsening CHF with increasing pulmonary edema/vascular congestion. Similar small bilateral pleural effusions and cardiomegaly. Additional blood work today reveals a sodium level of 132 potassium 5.2, BUN of 58 creatinine of 2.96. He is currently on a small dose of vasopressor. He is receiving normal saline at 25 mL/h. And blood pressure is remaining stable in the 120s to 130s systolic. 05/03/2025 Patient remains in the intensive care unit. He is currently pending colonoscopy. His stool has cleared up with the bowel prep, no reports of black tarry stools overnight. His white blood cell count is improved and down to 8.82. His hemoglobin is stable at 9.2. His blood work today is also improving with a sodium level of 136 potassium 4.2, BUN of 45 creatinine of 2.47. He is currently pending colonoscopy. He did have a troponin elevation on admission and again troponins were repeated and elevated at 2.660 and 2.030. He was given a dose of IV Lasix yesterday. He is currently weaned off of vasopressor support. 05/04/2025 Patient is evaluated in follow up in the intensive care unit. He is status post EGD colonoscopy with finding of antral gastritis and cecal biopsy was performed. Hemoglobin stable at 9.2. He is having creasing shortness of breath and will be resumed on IV Lasix today. Chest x-ray revealing bilateral infiltrates. His creatinine is improved at 2.05. 05/05/2025 Patient is evaluated in follow-up in the intensive care unit. He is currently sitting up in the chair. He is reporting shortness of breath not significantly improved since yesterday and has been having a difficult time lying flat. He is been unable to sleep because of this. He is already on a dose of Restoril at at bedtime. He continues on IV Lasix 40 mg twice daily. He states that he feels like he is not urinating a significant amount as he was the last time he was on IV Lasix. His renal function has improved with diuresis his BUN today is today 4 and his creatinine is 1.79. Hemoglobin remained stable at 9.1 he is not having any evidence of GI bleeding. REVIEW OF SYSTEMS: CONSTITUTIONAL: No fever, no malaise, no fatigue. HEENT: No recent visual problems or hearing problems. Denied any sore throat. CARDIOVASCULAR: No chest pain, orthopnea, PND, no palpitations, no syncope. PULMONARY: No shortness of breath, no cough, no hemoptysis. GASTROINTESTINAL: No diarrhea, no nausea, no vomiting, no abdominal pain. Reporting black tarry stool NEUROLOGICAL: No headaches, no weakness, no numbness. Diffuse weakness PHYSICAL EXAMINATION: GENERAL: The patient is alert and oriented x3, not in any acute distress. Well developed, well nourished. Pale. HEENT: Pupils are round and equally reacting to light. EOMI. No scleral icterus. No conjunctival pallor. Normocephalic, atraumatic. No pharyngeal erythema. No thyromegaly. CARDIOVASCULAR: S1 and S2 present. No murmurs, rubs, or gallops. PULMONARY: Chest is clear to auscultation, no wheezing or crackles. Diminished ABDOMEN: Soft, nontender, nondistended, normoactive bowel sounds. No palpable organomegaly. MUSCULOSKELETAL: No joint swelling or deformity. EXTREMITIES: No cyanosis, clubbing, or pedal edema. NEUROLOGICAL: Gross neurological examination did not reveal any focal deficits. Generalized weakness SKIN: No rashes. Assessment Acute GI bleed acute blood loss anemia EGD revealing antral gastritis Concern for cecal wall mass; family history of colon cancer Hypotension and hypotensive shock requiring vasopressor support YOBANI from cardiorenal syndrome worsened with volume depletion Hypovolemic hyponatremia Acute heart failure exacerbation, systolic dysfunction Hyperkalemia from YOBANI Chronic kidney disease stage IIIb Triple vessel coronary artery disease, not a candidate for CABG, medically managed Pulmonary hypertension Troponin elevation from NSTEMI [id number] diabetes mellitus Hyperlipidemia Hypertension Hx Normocytic anemia Iron deficiency anemia Ischemic cardiomyopathy, EF 25-30% GI prophylaxis : protonix DVT prophylaxis: Begin subcu heparin Full Code Plan Pending repeat chest x-ray Status post 2 units of PRBC, hemoglobin stabilized and will continue with H&H monitoring General surgery consultation Pending cecal biopsy reports Patient has been started on aranesp Continue to transfuse blood for hemoglobin less than 7 Strict intake and output monitoring Patient has been resumed on IV lasix twice daily Continue oral metoprolol for now and cardiology to further adjust medications as warranted. Accuchecks ACHS and sliding scale insulin ordered Continue Lantus with increased dose up to 30 units daily Continue flonase and claritin Monitor renal function He is being followed closely by cardiology, nephrology, pulmonary intensive. The impression and plan of care has been dictated by Jo Harden, Nurse Practitioner as directed. Dr. Rani MD I have performed a history and physical examination and medical decision making of this patient, discussed the same with the dictator, and agree with the dictators assessment and plan as written, documented as a scribe. Based on total visit time, I have performed more than 50% of this visit. Objective - Vital Signs Vital signs: Vital Signs Temp 97.5 F L 05/05/25 00:00 Pulse 90 05/05/25 04:00 Resp 21 05/05/25 04:00 BP 110/65 05/05/25 04:00 Pulse Ox 94 L 05/05/25 04:00 FiO2 Intake & Output 05/04/25 05/05/25 05/05/25 18:59 06:59 18:59 Intake Total 750 480 Balance 750 480 Weight 114.5 kg Intake: Oral 750 480 Other: Voiding Method Toilet Toilet # Voids 2 1 2 # Bowel Movements 1 - Labs CBC & Chem 7: 05/05/25 05:29 05/05/25 05:29 Labs: Abnormal Lab Results - Last 24 Hours (Table) 05/04/25 05/04/25 05/04/25 Range/Units 11:22 16:56 17:24 RBC (4.40-5.60) 10*6/uL Hgb (13.0-17.0) g/dL Hct (39.6-50.0) % MCHC (32.0-37.0) g/dL MPV (9.5-12.2) fL Sodium (137-145) mmol/L BUN (9-20) mg/dL Creatinine (0.66-1.25) mg/dL Glucose (74-99) mg/dL POC Glucose (mg/dL) 214 H 232 H 246 H (70-110) mg/dL 05/04/25 05/05/25 05/05/25 Range/Units 19:47 05:29 05:29 RBC 3.21 L (4.40-5.60) 10*6/uL Hgb 9.1 L (13.0-17.0) g/dL Hct 29.2 L (39.6-50.0) % MCHC 31.2 L (32.0-37.0) g/dL MPV 8.6 L (9.5-12.2) fL Sodium 134 L (137-145) mmol/L BUN 34 H (9-20) mg/dL Creatinine 1.79 H (0.66-1.25) mg/dL Glucose 142 H (74-99) mg/dL POC Glucose (mg/dL) 222 H (70-110) mg/dL 05/05/25 Range/Units 05:58 RBC (4.40-5.60) 10*6/uL Hgb (13.0-17.0) g/dL Hct (39.6-50.0) % MCHC (32.0-37.0) g/dL MPV (9.5-12.2) fL Sodium (137-145) mmol/L BUN (9-20) mg/dL Creatinine (0.66-1.25) mg/dL Glucose (74-99) mg/dL POC Glucose (mg/dL) 158 H (70-110) mg/dL Assessment and Plan Time with Patient: Less than 30
--- NOTE | 2025-05-05 13:24 | P.PN ---
Subjective Progress Note Date: 05/05/25 SURGICAL PROGRESS NOTE CHIEF COMPLAINT: Cecal mass HISTORY OF PRESENT ILLNESS: Patient is currently in the ICU. He is status post EGD and colonoscopy with results reporting antral gastritis, rectal polyp and cecal biopsy. There was no obvious of the mass in the cecum. Biopsy result patient tolerated. He is sitting up in bedside chair this morning. Afebrile. WBC 7.65 Hgb 9.1 platelets 361. CEA level normal PHYSICAL EXAM: VITAL SIGNS: Reviewed. GENERAL: Well-developed in no acute distress. ABDOMEN: Soft. Nondistended. Nontender. NEUROLOGIC: Alert and oriented. Cranial nerves II through XII grossly intact. ASSESSMENT: 1. Cecal mass noted on CT. No evidence of cecal mass on colonoscopy. CEA level normal 2. Status post EGD reporting antral gastritis, rectal polyp and cecal biopsy obtained 3. Acute blood loss anemia 4. Non-STEMI 5. Acute on chronic heart failure EF 25 to 30% 6. Triple-vessel coronary disease not a candidate for CABG being treated medically PLAN: - Continue regular diet - Follow-up on biopsy results Physician Winder Fixer note has been reviewed by physician. Signing provider agrees with the documented findings, assessment, and plan of care. Objective - Vital Signs Vital signs: Vital Signs Temp 98.0 F 05/05/25 12:00 Pulse 86 05/05/25 12:00 Resp 18 05/05/25 12:00 BP 130/78 05/05/25 12:00 Pulse Ox 97 05/05/25 12:00 FiO2 Intake & Output 05/04/25 05/05/25 05/05/25 18:59 06:59 18:59 Intake Total 750 480 Balance 750 480 Weight 114.5 kg Intake: Oral 750 480 Other: Voiding Method Toilet Toilet Toilet # Voids 2 1 2 # Bowel Movements 1 - Labs CBC & Chem 7: 05/05/25 05:29 05/05/25 05:29 Labs: Abnormal Lab Results - Last 24 Hours (Table) 05/04/25 05/04/25 05/04/25 Range/Units 16:56 17:24 19:47 RBC (4.40-5.60) 10*6/uL Hgb (13.0-17.0) g/dL Hct (39.6-50.0) % MCHC (32.0-37.0) g/dL MPV (9.5-12.2) fL Sodium (137-145) mmol/L BUN (9-20) mg/dL Creatinine (0.66-1.25) mg/dL Glucose (74-99) mg/dL POC Glucose (mg/dL) 232 H 246 H 222 H (70-110) mg/dL 05/05/25 05/05/25 05/05/25 Range/Units 05:29 05:29 05:58 RBC 3.21 L (4.40-5.60) 10*6/uL Hgb 9.1 L (13.0-17.0) g/dL Hct 29.2 L (39.6-50.0) % MCHC 31.2 L (32.0-37.0) g/dL MPV 8.6 L (9.5-12.2) fL Sodium 134 L (137-145) mmol/L BUN 34 H (9-20) mg/dL Creatinine 1.79 H (0.66-1.25) mg/dL Glucose 142 H (74-99) mg/dL POC Glucose (mg/dL) 158 H (70-110) mg/dL 05/05/25 Range/Units 11:55 RBC (4.40-5.60) 10*6/uL Hgb (13.0-17.0) g/dL Hct (39.6-50.0) % MCHC (32.0-37.0) g/dL MPV (9.5-12.2) fL Sodium (137-145) mmol/L BUN (9-20) mg/dL Creatinine (0.66-1.25) mg/dL Glucose (74-99) mg/dL POC Glucose (mg/dL) 222 H (70-110) mg/dL
--- NOTE | 2025-05-05 15:07 | P.PN ---
Subjective Progress Note Date: 05/05/25 This is a very pleasant 70-year-old male patient with a known history of hypertension, hyperlipidemia, diabetes mellitus, myocardial infarction, in September 2024 he was found to have diffuse severe coronary artery disease at [facility] however was not a candidate for CABG due to unsuitable targets. Medical management was recommended. Ischemic cardiomyopathy currently wearing a LifeVest. He presented here to the emergency room on 04/28/2025 with complaints of increasing shortness of breath, inability to lay flat without becoming worsening shortness of breath. Feels like his lungs were "full of water". Initial chest x-ray showed pulmonary vascular congestion and small bilateral pleural effusions. Echocardiogram reveals impaired left ventricular systolic function with an ejection fraction 25 to 30%. Moderate pulmonary hypertension. Global hypokinesia. He was being followed by cardiology. He was being diuresed. Today the patient developed increasing shortness of breath and signif icant hypotension despite mild fluid resuscitation. He was transferred to the intensive care unit for the same. He was found to have a significant drop in his hemoglobin from 14.2 to 6.5. 2 units of packed red blood cells are pending. He is seen today in consultation. He is currently resting fairly comfortably in bed. Awake and alert in no acute distress. Maintaining O2 saturations in the 90s on 3 L/min per nasal cannula. He is afebrile. Mean arterial pressures currently 62 to 63. He denies any worsening shortness of breath. No chest pain. No palpitations. No dizziness or lightheadedness. White count 10.1. Hemoglobin 6.5. Platelets 333. Sodium 135. Potassium 5.3. Bicarb 21. BUN 54. Creatinine 2.65. Glucose 184. Troponin 2.85, 3.61, 2.66. proBNP 6310. Viral screen negative for influenza A/B, RSV, COVID. He had been initiated on a heparin drip which is currently on pause. The patient is seen today May 01, 2025 in follow-up in the intensive care unit. He is currently sitting up in bed. Awake and alert in no acute distress. He is maintaining good O2 saturations in the 90s on 2 L/min per nasal cannula. Chest x-ray reveals cardiomegaly, pulmonary vascular congestion with small bilateral pleural effusions. 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 He is status post 2 units of packed red blood cells. White count 10.3. Hemoglobin 8.6. Platelets 377. Sodium 133. Potassium 5.3. Bicarb 19. BUN 59. Creatinine 2.94. Glucose 115. He remains on DuoNeb inhalations. Normal saline at 25 mL/h. Currently not requiring any norepinephrine. The patient is seen today May 02, 2025 in follow-up in the intensive care unit. He is awake and alert in no acute distress. Currently sitting up in a chair at the bedside. He is maintaining good O2 saturations in the 90s on 2 L/min per nasal cannula. He is status post 2 units of packed red blood cells this admission. Current hemoglobin 9.2. Platelets 378. White count 11.4. Sodium 133. Potassium 5.2. Bicarb 19. BUN 58. Creatinine 2.96. Glucose 161. Stool for occult blood was positive. He has been hemodynamically stable. Currently off pressors. Chest x-ray continues to show pulmonary edema/vascular congestion. Small bilateral pleural effusions. Cardiomegaly. On 05/03/2025, the patient is being seen for a follow-up. On today's evaluation, the patient is comfortable on 2 L of oxygen by nasal cannula. Normal saline is running at rate of 25 cc an hour and the patient is off pressors. No evidence of any ongoing GI bleeding. Nevertheless, based on the significant drop in hemoglobin and an abnormal CAT scan of the abdomen that was done on 04/30/2025 showing a cecal mass, the patient is going to undergo a colonoscopy and EGD. The patient's hemoglobin is stable at 9.2. The patient denies having any chest pain. No significant shortness of breath at this point. The patient is known to have multivessel coronary artery disease along with ischemic cardiomyopathy with an ejection fraction of 25 to 30% and the patient is currently wearing a LifeVest. Noted the patient has diffuse coronary artery disease and the patient was not found to be a good candidate for coronary bypass surgery based on unsu itable poor targets for bypass. He is diabetic and has hypertension hyperlipidemia and gout. The patient is currently on aspirin 81 mg p.o. daily. He is on Toprol-XL 25 mg p.o. daily. He is also on Ranexa 500 mg p.o. twice a day. He remains on midodrine. Rest of the medications are essentially unchanged. He is on fenofibrate and Lipitor., Comfortable in bed, awaiting EGD and colonoscopy. On today's evaluation of 05/04/2025, the patient is being seen for a follow-up. The patient is doing well. No specific complaints. Resting comfortably in bed. No evidence of any GI bleeding and the patient underwent a EGD yesterday and there was no clear indication for any cecal mass. There was no evidence of any acute bleeding. There was few scattered diverticuli involving the colon. There was also a small sessile polyp seen in the rectum. No active bleeding. EGD also showed no evidence of any upper GI source of bleeding. The patient remained stable. Hemoglobin stable at 9.2. The white cell count at 7.7. Electrolytes are stable, BUN is 37 with a creatinine of 2.05, essentially improving. The patient has no specific complaints. Remains on Lasix 40 mg IV every 24 hours. Remains in normal Saint rate of 20 cc an hour. He did have some difficulties with sleep yesterday and the patient accordingly was given Restoril. Remains on Toprol 25 mg p.o. daily, Lantus 20 units daily, and Ranexa. On 05/05/2025, the patient is being seen for a follow-up. On today's evaluation, the patient is calm and comfortable. He continues to have orthopnea the patient is unable to lay down flat in bed. The patient gets quite short of breath. As such, the patient was unable to sleep overnight and he spent most of his time on a recliner. The patient is currently on room air oxygen. Chest x-ray still showing pulmonary vascular congestion. Cardiology's been involved and the patient remains on Lasix 40 mg IV every 12 hours. The patient is also on Toprol-XL 25 mg p.o. daily, Ranexa 500 mg p.o. twice a day and aspirin 81 mg p.o. daily. He remains on a base of 40 mg p.o. daily. Hemodynamically stable. Remains on IV heparin. Fluid balance is -1.1 L over the past 24 hours. The w wili cell count 7.6 hemoglobin 9.1 and a platelet count of 361. BUN is 34 with a creatinine of 1.79 and the patient's acute kidney injury is improving. Sodium level is 134. Cardiac rhythm remains sinus. Objective - Vital Signs Vital signs: Vital Signs Temp 97.5 F L 05/05/25 00:00 Pulse 90 05/05/25 04:00 Resp 21 05/05/25 04:00 BP 110/65 05/05/25 04:00 Pulse Ox 94 L 05/05/25 04:00 FiO2 Intake & Output 05/04/25 05/05/25 05/05/25 18:59 06:59 18:59 Intake Total 750 480 Balance 750 480 Weight 114.5 kg Intake: Oral 750 480 Other: Voiding Method Toilet Toilet # Voids 2 1 2 # Bowel Movements 1 - Exam GENERAL EXAM: Alert, pleasant 70-year-old male, up in a chair, on 2 L nasal cannula, in no apparent distress. HEAD: Normocephalic. EYES: Normal reaction of pupils, equal size. NOSE: Clear with pink turbinates. THROAT: No erythema or exudates. NECK: No masses, no JVD. CHEST: No chest wall deformity. Life vest secured in place. LUNGS: Equal air entry with crackles in the bilateral bases. CVS: S1 and S2 normal with no audible murmur, regular rhythm. ABDOMEN: No hepatosplenomegaly, normal bowel sounds, no guarding or rigidity. SPINE: No scoliosis or deformity SKIN: No rashes CENTRAL NERVOUS SYSTEM: No focal deficits, tone is normal in all 4 extremities. EXTREMITIES: There is 1-2+ peripheral edema. No clubbing, no cyanosis. Peripheral pulses are intact. - Labs CBC & Chem 7: 05/05/25 05:29 05/05/25 05:29 Labs: Abnormal Lab Results - Last 24 Hours (Table) 05/04/25 05/04/25 05/04/25 Range/Units 11:22 16:56 17:24 RBC (4.40-5.60) 10*6/uL Hgb (13.0-17.0) g/dL Hct (39.6-50.0) % MCHC (32.0-37.0) g/dL MPV (9.5-12.2) fL Sodium (137-145) mmol/L BUN (9-20) mg/dL Creatinine (0.66-1.25) mg/dL Glucose (74-99) mg/dL POC Glucose (mg/dL) 214 H 232 H 246 H (70-110) mg/dL 05/04/25 05/05/25 05/05/25 Range/Units 19:47 05:29 05:29 RBC 3.21 L (4.40-5.60) 10*6/uL Hgb 9.1 L (13.0-17.0) g/dL Hct 29.2 L (39.6-50.0) % MCHC 31.2 L (32.0-37.0) g/dL MPV 8.6 L (9.5-12.2) fL Sodium 134 L (137-145) mmol/L BUN 34 H (9-20) mg/dL Creatinine 1.79 H (0.66-1.25) mg/dL Glucose 142 H (74-99) mg/dL POC Glucose (mg/dL) 222 H (70-110) mg/dL 05/05/25 Range/Units 05:58 RBC (4.40-5.60) 10*6/uL Hgb (13.0-17.0) g/dL Hct (39.6-50.0) % MCHC (32.0-37.0) g/dL MPV (9.5-12.2) fL Sodium (137-145) mmol/L BUN (9-20) mg/dL Creatinine (0.66-1.25) mg/dL Glucose (74-99) mg/dL POC Glucose (mg/dL) 158 H (70-110) mg/dL Assessment and Plan Plan: Acute hypoxic respiratory failure secondary to an acute exacerbation of chronic systolic congestive heart failure, currently on room air oxygen Acute non-ST segment elevation myocardial infarction Ongoing shortness of breath along with symptoms of orthopnea consistent with CHF. Chest x-ray still showing CHF and pulm aggressive congestion. Ischemic cardiomyopathy with an ejection fraction 25 to 30%, currently in a LifeVest from previous admission Coronary artery disease with severe diffuse coronary artery disease, deemed unsuitable for bypass due to poor targets, in [facility] September 2024 Acute anemia with a hemoglobin of 14.2 down to 6.5, unclear etiology, to receive 2 units of packed red blood cells. 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 Colonoscopy and EGD was done and there is no source of upper or lower GI bleeding. The patient has scattered diverticula and a sessile polyp in the rectum and there is no evidence of any cecal mass. Hypotension requiring mild fluid resuscitation, improved and the patient is currently off pressors Acute kidney injury secondary to diuretics, creatinine stable for now, improving Hyperkalemia secondary to above, stable Diabetes mellitus History of hypertension Hyperlipidemia History of gout Plan: Currently on room air oxygen Continue with LifeVest Continue aspirin Continue Toprol-XL 25 mg p.o. daily Continue Ranexa 5 mg p.o. twice a day Continue fenofibrate and Lipitor IV Lasix 40 mg every 12 hours Monitor electrolytes and renal function continues to improve Currently stable and off pressors EGD and colonoscopy was noted Continue Protonix We will continue to follow Time with Patient: Greater than 30
--- NOTE | 2025-05-05 15:44 | P.PN ---
Subjective HISTORY OF PRESENT ILLNESS: This is a 70-year-old male with a past medical history significant for chronic kidney disease, coronary artery disease, ischemic cardiomyopathy, hypertension, hyperlipidemia, and diabetes. Patient follows in the office with Dr. Lux. We have been asked to see the patient in consultation for NSTEMI. Patient examined at the bedside. Patient presented to the hospital with a chief complaint of shortness of breath. Patient reports he also has had a cough. He denies having any chest pain or pressure. Vital signs are currently stable. Patient is currently wearing LifeVest. DIAGNOSTICS: - EKG reveals sinus mechanism with no signs of acute ischemia. - Chest xray small bilateral pleural effusions. - Laboratory data: WBC 4.61. Hemoglobin 14.2. Platelet count 231. Sodium 138. Potassium 3.5. BUN 42. Creatinine 1.80. proBNP 6310. Troponin 2.850. 3.610. 2.660 - Current home cardiac medications include Lipitor 40 mg daily, aspirin 81 mg daily, metoprolol succinate 50 mg daily, Lasix 40 mg daily, fenofibrate 160 mg daily, Farxiga 10 mg daily, amlodipine 10 mg daily, Benicar 40 mg daily. - Most recent echocardiogram obtained in March 2024 revealed ejection fraction 25 to 30%, mild pulmonary hypertension, mild mitral regurgitation, trace to mild tricuspid regurgitation - Cardiac catheterization history: September 2024 at [facility] revealing left main with diffuse 40% stenosis. LAD has 60% stenosis proximally, mid 90% stenosis, and severe diffuse disease distally. LAD gives rise to diagonal which has ostial 50% stenosis. Ramus is ostially occluded. Left circumflex is small sized vessel and has ostial 90% stenosis. The left circumflex gives rise to a small OM which is severely diffusely diseased. RCA has distal 50% stenosis. The RCA gives rise to medium PDA which has severe diffuse disease and medium to large PLV which has moderate diffuse disease. Patient was deemed not to be a candidate for CABG due to unsuitable targets. Medical management was recommended 04/30/2025 Patient examined this morning. He is sitting up in the chair. He denies chest pain or pressure. Denies SOB. Remains on IV lasix. He also remains on IV heparin. Echocardiogram completed revealing ejection fraction 25 to 30%, moderate pulm hypertension. Creatinine worsened today to 2.65. 05/01 Patient seen and examined in the intensive care unit. Patient denies having any chest pain no chest pressure, he states he has a little bit of shortness of breath which he thinks is really related to his sinuses. He states he is feeling tired. He states that the lightheadedness spells are happening when he stands up too fast and has been going on for the last couple of months. He has a LifeVest in place. Patient is scheduled for colonoscopy on Saturday by general surgery. Blood pressure 103/66, heart rate 87, pulse ox 97% on 2 L nasal cannula. IV Lasix, losartan and Farxiga were discontinued due to worsening renal function which is worse today. Repeat blood work reveals hemoglobin 8.6. Sodium 133, potassium 5.3, BUN 59 creatinine 2.94. 1 dose of IV Lasix ordered by nephrology today. Patient is not on norepinephrine. 05/02 Patient seen and examined in the intensive care unit. Patient states that he is not feeling good. He denies chest pain. He did have episode of nausea last night. He states he has a little shortness of breath this morning. He also states he had a little chills. Patient did have black stools this morning when he got up to the commode chair. Last evening he had a drop in his blood pressure to 60/40 and was on Levophed for short period. Imdur and metoprolol were held this morning due to hypotension. Blood pressure 105/67, heart rate 80, pulse ox 94% on 2 L nasal cannula. Repeat blood work reveals WBC 11.4, hemoglobin 9.2. Sodium 133, potassium 5.2, BUN 58 creatinine 2.96. Patient is scheduled for bowel prep for colonoscopy scheduled on Thursday 05/03 Patient seen and examined. Patient denies any chest pain or pressure. Still somewhat short of breath if he leans over. Imdur and metoprolol were held secondary to hypotension. He underwent EGD and colonoscopy with no active bleeding noted. Hemoglobin 9.2 and creatinine mildly improved. 05/04 Patient seen and examined. Patient feeling more short of breath overnight. He had a harder time sleeping. He does still have orthopnea and currently sitting up in a recliner. X-ray performed and does show bilateral vascular congestion. He has been off of his diuretics. Creatinine improved to 2.0 today. Blood pressure is mildly more elevated in the 130s over 80s, occasional 90s diastolic. 05/05 patient somewhat more short of breath currently. He denies a chest pain or pressure. He does have some orthopnea. X-ray social and bilateral vascular congestion. He was increased on his Lasix to 40 mg IV twice a day. He admits the moderate urine output. Systolic blood pressures in the 130s and has been receiving metoprolol however his home olmesartan has been on hold. PHYSICAL EXAM: VITAL SIGNS: Reviewed. GENERAL: Well-developed in no acute distress. HEENT: Head is normocephalic. Pupils are equal, round. Sclerae anicteric. Mucous membranes of the mouth are moist. Neck supple. No JVD or thyromegaly LUNGS: Respirations even and unlabored. Lungs diminished HEART: Regular rate and rhythm. S1 and S2 heard. ABDOMEN: Soft. Nondistended. Nontender. EXTREMITIES: Normal range of motion. No clubbing or cyanosis. Peripheral pulses intact. No lower extremity edema NEUROLOGIC: Awake and alert. Oriented x 3. ASSESSMENT: Non-STEMI Acute on chronic heart failure with reduced EF, 25 to 30% Triple-vessel coronary artery disease, not a candidate for CABG, treated medically Acute kidney injury, followed by nephrology Chronic kidney disease stage IIIb Cecal mass scheduled for colonoscopy on Saturday Acute blood loss anemia status posttransfusion 2 units of packed RBCs Hypotension requiring vasopressors Ischemic cardiomyopathy Moderate pulmonary hypertension Hypertension Hyperlipidemia Diabetes Obesity: BMI 34.6 PLAN: Continue patient on aspirin, atorvastatin, Ranexa 500 mg every 12 hours. Continue LifeVest Await further workup for mass and continue with medical therapy. await biopsy results creatinine mildly improving we will attempt to optimize heart failure regimen and add low-dose of hydralazine and monitor response. May consider adding back olmesartan if blood pressure creatinine stable. Continue with increased dose of Lasix. Await results of biopsy. Further recommendations pending patient course Objective - Vital Signs Vital signs: Vital Signs Temp 98.0 F 05/05/25 12:00 Pulse 86 05/05/25 12:00 Resp 18 05/05/25 12:00 BP 130/78 05/05/25 12:00 Pulse Ox 97 05/05/25 12:00 FiO2 Intake & Output 05/04/25 05/05/25 05/05/25 18:59 06:59 18:59 Intake Total 750 480 Balance 750 480 Weight 114.5 kg Intake: Oral 750 480 Other: Voiding Method Toilet Toilet Toilet # Voids 2 1 2 # Bowel Movements 1 - Labs CBC & Chem 7: 05/05/25 05:29 05/05/25 05:29 Labs: Abnormal Lab Results - Last 24 Hours (Table) 05/04/25 05/04/25 05/04/25 Range/Units 16:56 17:24 19:47 RBC (4.40-5.60) 10*6/uL Hgb (13.0-17.0) g/dL Hct (39.6-50.0) % MCHC (32.0-37.0) g/dL MPV (9.5-12.2) fL Sodium (137-145) mmol/L BUN (9-20) mg/dL Creatinine (0.66-1.25) mg/dL Glucose (74-99) mg/dL POC Glucose (mg/dL) 232 H 246 H 222 H (70-110) mg/dL 05/05/25 05/05/25 05/05/25 Range/Units 05:29 05:29 05:58 RBC 3.21 L (4.40-5.60) 10*6/uL Hgb 9.1 L (13.0-17.0) g/dL Hct 29.2 L (39.6-50.0) % MCHC 31.2 L (32.0-37.0) g/dL MPV 8.6 L (9.5-12.2) fL Sodium 134 L (137-145) mmol/L BUN 34 H (9-20) mg/dL Creatinine 1.79 H (0.66-1.25) mg/dL Glucose 142 H (74-99) mg/dL POC Glucose (mg/dL) 158 H (70-110) mg/dL 05/05/25 Range/Units 11:55 RBC (4.40-5.60) 10*6/uL Hgb (13.0-17.0) g/dL Hct (39.6-50.0) % MCHC (32.0-37.0) g/dL MPV (9.5-12.2) fL Sodium (137-145) mmol/L BUN (9-20) mg/dL Creatinine (0.66-1.25) mg/dL Glucose (74-99) mg/dL POC Glucose (mg/dL) 222 H (70-110) mg/dL
--- NOTE | 2025-05-05 15:50 | XR ---
EXAMINATION TYPE: XR chest 1V DATE OF EXAM: 05/05/2025 11:34 AM COMPARISON: None. CLINICAL INDICATION: Male, 70 years old with history of CHF Exacerbation, TECHNIQUE: XR chest 1V view(s) obtained. FINDINGS: The heart size is mildly prominent. The pulmonary vasculature is normal. There is a small amount of increased lung markings at the right base. Atelectasis could be considered . Electronic devices overlie the chest. IMPRESSION: 1. Improving bibasilar infiltrates. Continued follow-up recommended [facility], , 05/05/2025 3:47 PM
[2025-05-05 16:18] LABS: Glucose,Whole Blood 246 mg/dL (70-110)
[2025-05-05] MEDS: hydrALAZINE HCL 25 MG TAB PO SCH (17:12)
[2025-05-05] MEDS: FUROSEMIDE 10 MG/ML 4 ML VIAL IV SCH (17:12)
[2025-05-05 19:51] LABS: Glucose,Whole Blood 256 mg/dL (70-110)
[2025-05-05] MEDS: HEPARIN SODIUM,PORCINE 5,000 UNIT/ML 1 ML VIAL SQ SCH (21:39)
[2025-05-06 05:36] LABS: Basophils # (A) 0.13 10*3/uL (0.00-0.10); Basophils % (A) 1.8 %; Eosinophils # (A) 0.32 10*3/uL (0.04-0.35); Eosinophils % (A) 4.4 %; HCT 31.1 % (39.6-50.0); HGB 9.8 g/dL (13.0-17.0); Lymphocytes # (A) 1.35 10*3/uL (0.90-5.00); Lymphocytes % (A) 18.7 %; MCH 28.6 pg (27.0-32.0); MCHC 31.5 g/dL (32.0-37.0); MCV 90.7 fL (80.0-97.0); Mean Platelet Volume 8.6 fL (9.5-12.2); Monocytes # (A) 0.53 10*3/uL (0.20-1.00); Monocytes % (A) 7.3 %; Neutrophils # (A) 4.86 10*3/uL (1.80-7.70); Neutrophils % (A) 67.4 %; Platelet Count 379 10*3/uL (140-440); RBC 3.43 10*6/uL (4.40-5.60); RDW 16.7 % (11.5-14.5); WBC 7.22 10*3/uL (4.50-10.00)
[2025-05-06 06:04] LABS: African American GFR (CKD) 44 (>60 ml/min/1.73 sqM); Anion Gap 9 mmol/L; Blood Urea Nitrogen 30 mg/dL (9-20); Calcium 8.5 mg/dL (8.4-10.2); Carbon Dioxide 28 mmol/L (22-30); Chloride 99 mmol/L (98-107); Glucose 183 mg/dL (74-99); Non-African American GFR(CKD) 38 (>60 ml/min/1.73 sqM); Potassium 4.1 mmol/L (3.5-5.1); Sodium 136 mmol/L (137-145)
[2025-05-06 06:49] LABS: Glucose,Whole Blood 206 mg/dL (70-110)
[2025-05-06] MEDS: INSULIN GLARGINE (LANTUS) 100 UNIT/ML SYR SQ SCH (06:52)
[2025-05-06 11:25] VITALS: BMI 36.3
[2025-05-06 11:25] LABS: Glucose,Whole Blood 269 mg/dL (70-110)
--- NOTE | 2025-05-06 12:44 | P.PN ---
Subjective Progress Note Date: 05/06/25 SURGICAL PROGRESS NOTE CHIEF COMPLAINT: Cecal mass HISTORY OF PRESENT ILLNESS: Patient is currently in the ICU as overflow. He is status post EGD and colonoscopy with results reporting antral gastritis, rectal polyp and cecal biopsy. There was no obvious of the mass in the cecum. CEA is normal. Pathology results show gastritis and no evidence of malignancy. Patient denies any abdominal pain. No bowel movements. No bleeding. Tolerating diet. WBC 7.22 Hgb 9.8 PHYSICAL EXAM: VITAL SIGNS: Reviewed. GENERAL: Well-developed in no acute distress. ABDOMEN: Soft. Nondistended. Nontender. NEUROLOGIC: Alert and oriented. Cranial nerves II through XII grossly intact. ASSESSMENT: 1. Cecal mass noted on CT. No evidence of cecal mass on colonoscopy. CEA level normal. No malignancy noted on pathology 2. Status post EGD reporting antral gastritis, rectal polyp and cecal biopsy obtained 3. Acute blood loss anemia 4. Non-STEMI 5. Acute on chronic heart failure EF 25 to 30% 6. Triple-vessel coronary disease not a candidate for CABG being treated medically PLAN: - Continue regular diet - Continue to observe Physician Electrical Assembly Technician note has been reviewed by physician. Signing provider agrees with the documented findings, assessment, and plan of care. Objective - Vital Signs Vital signs: Vital Signs Temp 97.5 F L 05/06/25 08:18 Pulse 76 05/06/25 12:00 Resp 18 05/06/25 12:00 BP 118/68 05/06/25 12:00 Pulse Ox 98 05/06/25 12:00 FiO2 Intake & Output 05/05/25 05/06/25 05/06/25 18:59 06:59 18:59 Intake Total 960 200 400 Output Total 750 1050 300 Balance 210 -850 100 Weight 115 kg 115 kg Intake: Oral 960 200 400 Output: Urine 750 1050 300 Other: Voiding Method Toilet Toilet Toilet # Voids 2 1 - Labs CBC & Chem 7: 05/06/25 05:04 05/06/25 05:04 Labs: Abnormal Lab Results - Last 24 Hours (Table) 05/05/25 05/05/25 05/06/25 Range/Units 16:16 19:50 05:04 RBC 3.43 L (4.40-5.60) 10*6/uL Hgb 9.8 L (13.0-17.0) g/dL Hct 31.1 L (39.6-50.0) % MCHC 31.5 L (32.0-37.0) g/dL MPV 8.6 L (9.5-12.2) fL Basophils # 0.13 H (0.00-0.10) 10*3/uL Sodium (137-145) mmol/L BUN (9-20) mg/dL Creatinine (0.66-1.25) mg/dL Glucose (74-99) mg/dL POC Glucose (mg/dL) 246 H 256 H (70-110) mg/dL 05/06/25 05/06/25 05/06/25 Range/Units 05:04 06:48 11:23 RBC (4.40-5.60) 10*6/uL Hgb (13.0-17.0) g/dL Hct (39.6-50.0) % MCHC (32.0-37.0) g/dL MPV (9.5-12.2) fL Basophils # (0.00-0.10) 10*3/uL Sodium 136 L (137-145) mmol/L BUN 30 H (9-20) mg/dL Creatinine 1.79 H (0.66-1.25) mg/dL Glucose 183 H (74-99) mg/dL POC Glucose (mg/dL) 206 H 269 H (70-110) mg/dL
--- NOTE | 2025-05-06 13:01 | P.PN ---
Subjective Progress Note Date: 05/06/25 This is a very pleasant 70-year-old male patient with a known history of hypertension, hyperlipidemia, diabetes mellitus, myocardial infarction, in September 2024 he was found to have diffuse severe coronary artery disease at [facility] however was not a candidate for CABG due to unsuitable targets. Medical management was recommended. Ischemic cardiomyopathy currently wearing a LifeVest. He presented here to the emergency room on 04/28/2025 with complaints of increasing shortness of breath, inability to lay flat without becoming worsening shortness of breath. Feels like his lungs were "full of water". Initial chest x-ray showed pulmonary vascular congestion and small bilateral pleural effusions. Echocardiogram reveals impaired left ventricular systolic function with an ejection fraction 25 to 30%. Moderate pulmonary hypertension. Global hypokinesia. He was being followed by cardiology. He was being diuresed. Today the patient developed increasing shortness of breath and signif icant hypotension despite mild fluid resuscitation. He was transferred to the intensive care unit for the same. He was found to have a significant drop in his hemoglobin from 14.2 to 6.5. 2 units of packed red blood cells are pending. He is seen today in consultation. He is currently resting fairly comfortably in bed. Awake and alert in no acute distress. Maintaining O2 saturations in the 90s on 3 L/min per nasal cannula. He is afebrile. Mean arterial pressures currently 62 to 63. He denies any worsening shortness of breath. No chest pain. No palpitations. No dizziness or lightheadedness. White count 10.1. Hemoglobin 6.5. Platelets 333. Sodium 135. Potassium 5.3. Bicarb 21. BUN 54. Creatinine 2.65. Glucose 184. Troponin 2.85, 3.61, 2.66. proBNP 6310. Viral screen negative for influenza A/B, RSV, COVID. He had been initiated on a heparin drip which is currently on pause. The patient is seen today May 01, 2025 in follow-up in the intensive care unit. He is currently sitting up in bed. Awake and alert in no acute distress. He is maintaining good O2 saturations in the 90s on 2 L/min per nasal cannula. Chest x-ray reveals cardiomegaly, pulmonary vascular congestion with small bilateral pleural effusions. 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 He is status post 2 units of packed red blood cells. White count 10.3. Hemoglobin 8.6. Platelets 377. Sodium 133. Potassium 5.3. Bicarb 19. BUN 59. Creatinine 2.94. Glucose 115. He remains on DuoNeb inhalations. Normal saline at 25 mL/h. Currently not requiring any norepinephrine. The patient is seen today May 02, 2025 in follow-up in the intensive care unit. He is awake and alert in no acute distress. Currently sitting up in a chair at the bedside. He is maintaining good O2 saturations in the 90s on 2 L/min per nasal cannula. He is status post 2 units of packed red blood cells this admission. Current hemoglobin 9.2. Platelets 378. White count 11.4. Sodium 133. Potassium 5.2. Bicarb 19. BUN 58. Creatinine 2.96. Glucose 161. Stool for occult blood was positive. He has been hemodynamically stable. Currently off pressors. Chest x-ray continues to show pulmonary edema/vascular congestion. Small bilateral pleural effusions. Cardiomegaly. On 05/03/2025, the patient is being seen for a follow-up. On today's evaluation, the patient is comfortable on 2 L of oxygen by nasal cannula. Normal saline is running at rate of 25 cc an hour and the patient is off pressors. No evidence of any ongoing GI bleeding. Nevertheless, based on the significant drop in hemoglobin and an abnormal CAT scan of the abdomen that was done on 04/30/2025 showing a cecal mass, the patient is going to undergo a colonoscopy and EGD. The patient's hemoglobin is stable at 9.2. The patient denies having any chest pain. No significant shortness of breath at this point. The patient is known to have multivessel coronary artery disease along with ischemic cardiomyopathy with an ejection fraction of 25 to 30% and the patient is currently wearing a LifeVest. Noted the patient has diffuse coronary artery disease and the patient was not found to be a good candidate for coronary bypass surgery based on unsu itable poor targets for bypass. He is diabetic and has hypertension hyperlipidemia and gout. The patient is currently on aspirin 81 mg p.o. daily. He is on Toprol-XL 25 mg p.o. daily. He is also on Ranexa 500 mg p.o. twice a day. He remains on midodrine. Rest of the medications are essentially unchanged. He is on fenofibrate and Lipitor., Comfortable in bed, awaiting EGD and colonoscopy. On today's evaluation of 05/04/2025, the patient is being seen for a follow-up. The patient is doing well. No specific complaints. Resting comfortably in bed. No evidence of any GI bleeding and the patient underwent a EGD yesterday and there was no clear indication for any cecal mass. There was no evidence of any acute bleeding. There was few scattered diverticuli involving the colon. There was also a small sessile polyp seen in the rectum. No active bleeding. EGD also showed no evidence of any upper GI source of bleeding. The patient remained stable. Hemoglobin stable at 9.2. The white cell count at 7.7. Electrolytes are stable, BUN is 37 with a creatinine of 2.05, essentially improving. The patient has no specific complaints. Remains on Lasix 40 mg IV every 24 hours. Remains in normal Saint rate of 20 cc an hour. He did have some difficulties with sleep yesterday and the patient accordingly was given Restoril. Remains on Toprol 25 mg p.o. daily, Lantus 20 units daily, and Ranexa. On 05/05/2025, the patient is being seen for a follow-up. On today's evaluation, the patient is calm and comfortable. He continues to have orthopnea the patient is unable to lay down flat in bed. The patient gets quite short of breath. As such, the patient was unable to sleep overnight and he spent most of his time on a recliner. The patient is currently on room air oxygen. Chest x-ray still showing pulmonary vascular congestion. Cardiology's been involved and the patient remains on Lasix 40 mg IV every 12 hours. The patient is also on Toprol-XL 25 mg p.o. daily, Ranexa 500 mg p.o. twice a day and aspirin 81 mg p.o. daily. He remains on a base of 40 mg p.o. daily. Hemodynamically stable. Remains on IV heparin. Fluid balance is -1.1 L over the past 24 hours. The w wili cell count 7.6 hemoglobin 9.1 and a platelet count of 361. BUN is 34 with a creatinine of 1.79 and the patient's acute kidney injury is improving. Sodium level is 134. Cardiac rhythm remains sinus. 05/06/2025, the patient's is being seen for a follow-up. Feeling better compared to yesterday. Orthopnea is improved and the patient was able to sleep few hours in bed. He remains on IV Lasix and fluid balance negative over the past 24 hours in the order of 600 cc. He is producing adequate urine output and the patient is currently on Lasix 40 mg IV every 12 hours. No chest pain. He rem ains on room air oxygen. The white cell count 12.2 with a hemoglobin 9.8 and a platelet count of 379. Sodium is at 136, creatinine stable compared to yesterday 1.7 with a BUN of 30 and a sodium level of 136 and a potassium levels of 4.1. Blood sugar was at 206. No new complaints otherwise for now the patient is doing well and is being seen also by cardiology. Rest of the medications remain unchanged. Cardiac rhythm remains sinus. Objective - Vital Signs Vital signs: Vital Signs Temp 97.5 F L 05/06/25 08:18 Pulse 76 05/06/25 12:00 Resp 18 05/06/25 12:00 BP 118/68 05/06/25 12:00 Pulse Ox 98 05/06/25 12:00 FiO2 Intake & Output 05/05/25 05/06/25 05/06/25 18:59 06:59 18:59 Intake Total 960 200 400 Output Total 750 1050 300 Balance 210 -850 100 Weight 115 kg 115 kg Intake: Oral 960 200 400 Output: Urine 750 1050 300 Other: Voiding Method Toilet Toilet Toilet # Voids 2 1 - Exam GENERAL EXAM: Alert, pleasant 70-year-old male, up in a chair, on 2 L nasal cannula, in no apparent distress. HEAD: Normocephalic. EYES: Normal reaction of pupils, equal size. NOSE: Clear with pink turbinates. THROAT: No erythema or exudates. NECK: No masses, no JVD. CHEST: No chest wall deformity. Life vest secured in place. LUNGS: Equal air entry with crackles in the bilateral bases. CVS: S1 and S2 normal with no audible murmur, regular rhythm. ABDOMEN: No hepatosplenomegaly, normal bowel sounds, no guarding or rigidity. SPINE: No scoliosis or deformity SKIN: No rashes CENTRAL NERVOUS SYSTEM: No focal deficits, tone is normal in all 4 extremities. EXTREMITIES: There is 1-2+ peripheral edema. No clubbing, no cyanosis. Peripheral pulses are intact. - Labs CBC & Chem 7: 05/06/25 05:04 05/06/25 05:04 Labs: Abnormal Lab Results - Last 24 Hours (Table) 05/05/25 05/05/25 05/06/25 Range/Units 16:16 19:50 05:04 RBC 3.43 L (4.40-5.60) 10*6/uL Hgb 9.8 L (13.0-17.0) g/dL Hct 31.1 L (39.6-50.0) % MCHC 31.5 L (32.0-37.0) g/dL MPV 8.6 L (9.5-12.2) fL Basophils # 0.13 H (0.00-0.10) 10*3/uL Sodium (137-145) mmol/L BUN (9-20) mg/dL Creatinine (0.66-1.25) mg/dL Glucose (74-99) mg/dL POC Glucose (mg/dL) 246 H 256 H (70-110) mg/dL 05/06/25 05/06/25 05/06/25 Range/Units 05:04 06:48 11:23 RBC (4.40-5.60) 10*6/uL Hgb (13.0-17.0) g/dL Hct (39.6-50.0) % MCHC (32.0-37.0) g/dL MPV (9.5-12.2) fL Basophils # (0.00-0.10) 10*3/uL Sodium 136 L (137-145) mmol/L BUN 30 H (9-20) mg/dL Creatinine 1.79 H (0.66-1.25) mg/dL Glucose 183 H (74-99) mg/dL POC Glucose (mg/dL) 206 H 269 H (70-110) mg/dL Assessment and Plan Plan: Acute hypoxic respiratory failure secondary to an acute exacerbation of chronic systolic congestive heart failure, currently on room air oxygen Acute non-ST segment elevation myocardial infarction Ongoing shortness of breath along with symptoms of orthopnea consistent with CHF. Chest x-ray still showing CHF and pulm aggressive congestion. The patient was having symptoms of orthopnea and this is improving Ischemic cardiomyopathy with an ejection fraction 25 to 30%, currently in a LifeVest from previous admission Coronary artery disease with severe diffuse coronary artery disease, deemed unsuitable for bypass due to poor targets, in [facility] September 2024 Acute anemia with a hemoglobin of 14.2 down to 6.5, unclear etiology, to receive 2 units of packed red blood cells. 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 Colonoscopy and EGD was done and there is no source of upper or lower GI bleeding. The patient has scattered diverticula and a sessile polyp in the rectum and there is no evidence of any cecal mass. Hypotension requiring mild fluid resuscitation, improved and the patient is currently off pressors Acute kidney injury secondary to diuretics, creatinine stable for now, improving Hyperkalemia secondary to above, stable Diabetes mellitus History of hypertension Hyperlipidemia History of gout Plan: Clinically improved compared to yesterday. Chest x-ray from yesterday was still showing CHF and the patient was transitioned to IV Lasix 40 mg 12 hours and the patient is producing adequate amount of urine output and his orthopnea is also improving. Currently on room air oxygen Continue with LifeVest Continue aspirin Continue Toprol-XL 25 mg p.o. daily Continue Ranexa 5 mg p.o. twice a day Continue fenofibrate and Lipitor IV Lasix 40 mg every 12 hours to be continued for another 24 hours Monitor electrolytes and renal function continues to improve Currently stable and off pressors EGD and colonoscopy was noted Continue Protonix We will continue to follow Time with Patient: Greater than 30
--- NOTE | 2025-05-06 14:02 | P.PN ---
Subjective Patient is seen for follow-up for acute kidney injury and chronic kidney disease. Shortness of breath has improved Maintained on IV Lasix Tolerating oral intake Renal function has improved with serum creatinine down to 1.7. Objective - Vital Signs Vital signs: Vital Signs Temp 97.5 F L 05/06/25 08:18 Pulse 76 05/06/25 12:00 Resp 18 05/06/25 12:00 BP 118/68 05/06/25 12:00 Pulse Ox 98 05/06/25 12:00 FiO2 Intake & Output 05/05/25 05/06/25 05/06/25 18:59 06:59 18:59 Intake Total 960 200 400 Output Total 750 1050 1050 Balance 210 -850 -650 Weight 115 kg 115 kg Intake: Oral 960 200 400 Output: Urine 750 1050 1050 Other: Voiding Method Toilet Toilet Toilet # Voids 2 1 - Exam Patient is awake, comfortable, no acute distress Examination of the heart S1 and S2 Examination of the lungs bilateral breath sounds are heard Abdomen is soft nontender Examination of lower extremities shows 1+ edema, both legs are wrapped [employer] exam grossly intact - Labs CBC & Chem 7: 05/06/25 05:04 05/06/25 05:04 Labs: Abnormal Lab Results - Last 24 Hours (Table) 05/05/25 05/05/25 05/06/25 Range/Units 16:16 19:50 05:04 RBC 3.43 L (4.40-5.60) 10*6/uL Hgb 9.8 L (13.0-17.0) g/dL Hct 31.1 L (39.6-50.0) % MCHC 31.5 L (32.0-37.0) g/dL MPV 8.6 L (9.5-12.2) fL Basophils # 0.13 H (0.00-0.10) 10*3/uL Sodium (137-145) mmol/L BUN (9-20) mg/dL Creatinine (0.66-1.25) mg/dL Glucose (74-99) mg/dL POC Glucose (mg/dL) 246 H 256 H (70-110) mg/dL 05/06/25 05/06/25 05/06/25 Range/Units 05:04 06:48 11:23 RBC (4.40-5.60) 10*6/uL Hgb (13.0-17.0) g/dL Hct (39.6-50.0) % MCHC (32.0-37.0) g/dL MPV (9.5-12.2) fL Basophils # (0.00-0.10) 10*3/uL Sodium 136 L (137-145) mmol/L BUN 30 H (9-20) mg/dL Creatinine 1.79 H (0.66-1.25) mg/dL Glucose 183 H (74-99) mg/dL POC Glucose (mg/dL) 206 H 269 H (70-110) mg/dL Assessment and Plan Assessment: 1. Chronic kidney disease stage IIIb with creatinine 1.7-1.8 this admission - peaked at 2.9, decreased to 1.7 today. Renal function worsened from acute blood loss anemia. Creatinine in March 2025 was near 2.2. Etiology is cardiorenal syndrome and diabetic kidney disease. No hydronephrosis noted on CT. 2. Chronic systolic CHF ejection fraction of 25 to 30% with moderate pulmonary hypertension. 3. Volume overload. 4. Diabetes mellitus. 5. Hypokalemia from diuresis. Replaced. Improved. Now potassium slightly on the higher side due to component of GI bleed. 6. Acute blood loss anemia status post blood transfusions. Non diagnostic for GI hemorrhage. No mass noted on colonoscopy. Plan: Continue with IV Lasix Repeat labs in a.m.
--- NOTE | 2025-05-06 15:38 | P.PN ---
Subjective HISTORY OF PRESENT ILLNESS: This is a 70-year-old male with a past medical history significant for chronic kidney disease, coronary artery disease, ischemic cardiomyopathy, hypertension, hyperlipidemia, and diabetes. Patient follows in the office with Dr. Lux. We have been asked to see the patient in consultation for NSTEMI. Patient examined at the bedside. Patient presented to the hospital with a chief complaint of shortness of breath. Patient reports he also has had a cough. He denies having any chest pain or pressure. Vital signs are currently stable. Patient is currently wearing LifeVest. DIAGNOSTICS: - EKG reveals sinus mechanism with no signs of acute ischemia. - Chest xray small bilateral pleural effusions. - Laboratory data: WBC 4.61. Hemoglobin 14.2. Platelet count 231. Sodium 138. Potassium 3.5. BUN 42. Creatinine 1.80. proBNP 6310. Troponin 2.850. 3.610. 2.660 - Current home cardiac medications include Lipitor 40 mg daily, aspirin 81 mg daily, metoprolol succinate 50 mg daily, Lasix 40 mg daily, fenofibrate 160 mg daily, Farxiga 10 mg daily, amlodipine 10 mg daily, Benicar 40 mg daily. - Most recent echocardiogram obtained in March 2024 revealed ejection fraction 25 to 30%, mild pulmonary hypertension, mild mitral regurgitation, trace to mild tricuspid regurgitation - Cardiac catheterization history: September 2024 at [facility] revealing left main with diffuse 40% stenosis. LAD has 60% stenosis proximally, mid 90% stenosis, and severe diffuse disease distally. LAD gives rise to diagonal which has ostial 50% stenosis. Ramus is ostially occluded. Left circumflex is small sized vessel and has ostial 90% stenosis. The left circumflex gives rise to a small OM which is severely diffusely diseased. RCA has distal 50% stenosis. The RCA gives rise to medium PDA which has severe diffuse disease and medium to large PLV which has moderate diffuse disease. Patient was deemed not to be a candidate for CABG due to unsuitable targets. Medical management was recommended 04/30/2025 Patient examined this morning. He is sitting up in the chair. He denies chest pain or pressure. Denies SOB. Remains on IV lasix. He also remains on IV heparin. Echocardiogram completed revealing ejection fraction 25 to 30%, moderate pulm hypertension. Creatinine worsened today to 2.65. 05/01 Patient seen and examined in the intensive care unit. Patient denies having any chest pain no chest pressure, he states he has a little bit of shortness of breath which he thinks is really related to his sinuses. He states he is feeling tired. He states that the lightheadedness spells are happening when he stands up too fast and has been going on for the last couple of months. He has a LifeVest in place. Patient is scheduled for colonoscopy on Saturday by general surgery. Blood pressure 103/66, heart rate 87, pulse ox 97% on 2 L nasal cannula. IV Lasix, losartan and Farxiga were discontinued due to worsening renal function which is worse today. Repeat blood work reveals hemoglobin 8.6. Sodium 133, potassium 5.3, BUN 59 creatinine 2.94. 1 dose of IV Lasix ordered by nephrology today. Patient is not on norepinephrine. 05/02 Patient seen and examined in the intensive care unit. Patient states that he is not feeling good. He denies chest pain. He did have episode of nausea last night. He states he has a little shortness of breath this morning. He also states he had a little chills. Patient did have black stools this morning when he got up to the commode chair. Last evening he had a drop in his blood pressure to 60/40 and was on Levophed for short period. Imdur and metoprolol were held this morning due to hypotension. Blood pressure 105/67, heart rate 80, pulse ox 94% on 2 L nasal cannula. Repeat blood work reveals WBC 11.4, hemoglobin 9.2. Sodium 133, potassium 5.2, BUN 58 creatinine 2.96. Patient is scheduled for bowel prep for colonoscopy scheduled on Thursday 05/03 Patient seen and examined. Patient denies any chest pain or pressure. Still somewhat short of breath if he leans over. Imdur and metoprolol were held secondary to hypotension. He underwent EGD and colonoscopy with no active bleeding noted. Hemoglobin 9.2 and creatinine mildly improved. 05/04 Patient seen and examined. Patient feeling more short of breath overnight. He had a harder time sleeping. He does still have orthopnea and currently sitting up in a recliner. X-ray performed and does show bilateral vascular congestion. He has been off of his diuretics. Creatinine improved to 2.0 today. Blood pressure is mildly more elevated in the 130s over 80s, occasional 90s diastolic. 05/05 patient somewhat more short of breath currently. He denies a chest pain or pressure. He does have some orthopnea. X-ray social and bilateral vascular congestion. He was increased on his Lasix to 40 mg IV twice a day. He admits the moderate urine output. Systolic blood pressures in the 130s and has been receiving metoprolol however his home olmesartan has been on hold. 05/06 patient seen and examined. Patient feels much better. Able to lie flat in bed. Creatinine 1.8. Denies any chest pain or pressure. Pathology came back as benign polyps however he did not note an actual cecal mass on colonoscopy and it appears this was not biopsied. PHYSICAL EXAM: VITAL SIGNS: Reviewed. GENERAL: Well-developed in no acute distress. HEENT: Head is normocephalic. Pupils are equal, round. Sclerae anicteric. Mucous membranes of the mouth are moist. Neck supple. No JVD or thyromegaly LUNGS: Respirations even and unlabored. Lungs diminished HEART: Regular rate and rhythm. S1 and S2 heard. ABDOMEN: Soft. Nondistended. Nontender. EXTREMITIES: Normal range of motion. No clubbing or cyanosis. Peripheral pulses intact. No lower extremity edema NEUROLOGIC: Awake and alert. Oriented x 3. ASSESSMENT: Non-STEMI Acute on chronic heart failure with reduced EF, 25 to 30% Triple-vessel coronary artery disease, not a candidate for CABG, treated medically Acute kidney injury, followed by nephrology Chronic kidney disease stage IIIb Cecal mass scheduled for colonoscopy on Saturday Acute blood loss anemia status posttransfusion 2 units of packed RBCs Hypotension requiring vasopressors Ischemic cardiomyopathy Moderate pulmonary hypertension Hypertension Hyperlipidemia Diabetes Obesity: BMI 34.6 PLAN: Continue patient on aspirin, atorvastatin, Ranexa 500 mg every 12 hours. Continue LifeVest Await further workup for mass and continue with medical therapy. biopsy results benign however. No actual cecal mass noted on colonoscopy. We added a low-dose of hydralazine for heart failure regumen. May consider adding back olmesartan if blood pressure creatinine stable. Continue with IV Lasix for likely one more day and possible transition to orals tomorrow. Treat NSTEMI medically still at this point Objective - Vital Signs Vital signs: Vital Signs Temp 97.5 F L 05/06/25 08:18 Pulse 76 05/06/25 12:00 Resp 18 05/06/25 12:00 BP 118/68 05/06/25 12:00 Pulse Ox 98 05/06/25 12:00 FiO2 Intake & Output 05/05/25 05/06/25 05/06/25 18:59 06:59 18:59 Intake Total 960 200 400 Output Total 750 1050 1050 Balance 210 -850 -650 Weight 115 kg 115 kg Intake: Oral 960 200 400 Output: Urine 750 1050 1050 Other: Voiding Method Toilet Toilet Toilet # Voids 2 1 - Labs CBC & Chem 7: 05/06/25 05:04 05/06/25 05:04 Labs: Abnormal Lab Results - Last 24 Hours (Table) 05/05/25 05/05/25 05/06/25 Range/Units 16:16 19:50 05:04 RBC 3.43 L (4.40-5.60) 10*6/uL Hgb 9.8 L (13.0-17.0) g/dL Hct 31.1 L (39.6-50.0) % MCHC 31.5 L (32.0-37.0) g/dL MPV 8.6 L (9.5-12.2) fL Basophils # 0.13 H (0.00-0.10) 10*3/uL Sodium (137-145) mmol/L BUN (9-20) mg/dL Creatinine (0.66-1.25) mg/dL Glucose (74-99) mg/dL POC Glucose (mg/dL) 246 H 256 H (70-110) mg/dL 05/06/25 05/06/25 05/06/25 Range/Units 05:04 06:48 11:23 RBC (4.40-5.60) 10*6/uL Hgb (13.0-17.0) g/dL Hct (39.6-50.0) % MCHC (32.0-37.0) g/dL MPV (9.5-12.2) fL Basophils # (0.00-0.10) 10*3/uL Sodium 136 L (137-145) mmol/L BUN 30 H (9-20) mg/dL Creatinine 1.79 H (0.66-1.25) mg/dL Glucose 183 H (74-99) mg/dL POC Glucose (mg/dL) 206 H 269 H (70-110) mg/dL
[2025-05-06 16:04] LABS: Glucose,Whole Blood 153 mg/dL (70-110)
[2025-05-06 20:56] LABS: Glucose,Whole Blood 231 mg/dL (70-110)
--- NOTE | 2025-05-06 22:28 | P.PN ---
Subjective Progress Note Date: 05/06/25 This is a 70-year-old male with medical history significant for diabetes mellitus, fibromyalgia, hyperlipidemia, hypertension, prior NSTEMI with LifeVest. Patient was recently discharged from the hospital on April 01; he was admitted for acute heart failure. At that time his ejection fraction was 62%. He had a cardiac catheterization completed at [facility] about 7 months ago with findings of triple vessel disease; was felt to not be a candidate for stenting or coronary bypass he was discharged with the recommendations of medical management. His repeat echocardiogram his prior admission reveals an EF of 25 to 30%. patient received a LifeVest prior to his discharge on April 01. He returns to the hospital with complaints of shortness of breath which has been worsening over the last month since his prior admission. He states he is unable to lay down to sleep and has not been tolerating much activity. He was unable to obtain his new medications from his hospital stay last month due to cost and ins urance issues; which he was able to figure out. He had just started taking the recommended medications including diuretics and his SGLT2 inhibitor. Once he began taking his Lasix pill he does report that his lower extremity swelling has improved. Chest x-ray reveals small bilateral pleural effusions. INR 2.0, BUN of 37 creatinine of 1.74. Hemoglobin A1c of 6.7. Patient does have significant troponin elevation of 2.850, 3.610, 2.660. ProBNP is elevated at 6310. He received a dose of IV lasix on admission; and was admitted to the hospital with cardiology consultation. 04/30/2025 Patient evaluated today in follow up on the cardiac unit. He has become hypotensive and symptomatic today with blood pressures in the 70s systolic. He has received a 500 mL fluid bolus with an additional 500 mLs ordered. Lasix was decreased to IV 40 mg Q12h yesterday and than the lasix has been discontinued to day as well as losartan. Sodium level of 135, potassium 5.3, BUN 54, creatinine 2.65. Magnesium 2.0. UA non infectious. Has not had accurate I and O. Chest xray showing CHF and trace pleural effusions. Patient was ateamed. 05/01/2025 Patient's hemoglobin did come back yesterday afternoon at 6.5 as well as a white blood cell count of 10.16. He received fluid bolus and was moved to the intensive care unit he also was ordered to have 2 units of packed red blood cells. Patient did have multiple episodes of black tarry stool and does report that he has been having black stools at home. Abdominal pelvis CT was completed with findings of nondiagnostic exam for GI hemorrhage, there is mild infl ammation changes around the gallbladder in the right upper quadrant correlate for further quadrant pathology such as cholecystitis. A cecal wall mass is possibly present in the base of the appendix measuring 21 x 15 mm. Colonoscopy recommended for with direct visualization. Third portion duodenal diverticulum. Normal appendix. Moderate atherosclerosis of the arterial vasculature. A small right and trace left pleural effusion. Hemoglobin today is up to 9.0 and 8.6 respectively. General surgery was consulted and planning for colonoscopy on Saturday. IV heparin has been discontinued at this time as well as IV Lasix. His current labs today reveal a sodium level of 133 potassium 5.3, BUN of 59 creatinine of 2.94. He is evaluated today in the intensive care unit continues to report mild dizziness. He is currently being weaned off pressor support. 05/02/2025 Patient remains the intensive care unit. Hemoglobin today remained stable at 9.2. He continues to have black stools. General surgery has evaluated the patient and patient will undergo a colonoscopy tomorrow for further evaluation of the GI bleed and cecal wall mass. Chest x-ray today reveals worsening CHF with increasing pulmonary edema/vascular congestion. Similar small bilateral pleural effusions and cardiomegaly. Additional blood work today reveals a sodium level of 132 potassium 5.2, BUN of 58 creatinine of 2.96. He is currently on a small dose of vasopressor. He is receiving normal saline at 25 mL/h. And blood pressure is remaining stable in the 120s to 130s systolic. 05/03/2025 Patient remains in the intensive care unit. He is currently pending colonoscopy. His stool has cleared up with the bowel prep, no reports of black tarry stools overnight. His white blood cell count is improved and down to 8.82. His hemoglobin is stable at 9.2. His blood work today is also improving with a sodium level of 136 potassium 4.2, BUN of 45 creatinine of 2.47. He is currently pending colonoscopy. He did have a troponin elevation on admission and again troponins were repeated and elevated at 2.660 and 2.030. He was given a dose of IV Lasix yesterday. He is currently weaned off of vasopressor support. 05/04/2025 Patient is evaluated in follow up in the intensive care unit. He is status post EGD colonoscopy with finding of antral gastritis and cecal biopsy was performed. Hemoglobin stable at 9.2. He is having creasing shortness of breath and will be resumed on IV Lasix today. Chest x-ray revealing bilateral infiltrates. His creatinine is improved at 2.05. 05/05/2025 Patient is evaluated in follow-up in the intensive care unit. He is currently sitting up in the chair. He is reporting shortness of breath not significantly improved since yesterday and has been having a difficult time lying flat. He is been unable to sleep because of this. He is already on a dose of Restoril at at bedtime. He continues on IV Lasix 40 mg twice daily. He states that he feels like he is not urinating a significant amount as he was the last time he was on IV Lasix. His renal function has improved with diuresis his BUN today is today 4 and his creatinine is 1.79. Hemoglobin remained stable at 9.1 he is not having any evidence of GI bleeding. 05/06/2025 Patient evaluated today in follow up in the ICU. Reports feeling less short of breath than yesterday. Lower extremity edema improving and continues with MOOK wrap compression bilaterally. He is being diuresed with IV lasix. He has not had any further reports of black tarry stool. Hgb stable at 9.8, sodium 136, BUN 30, creatinine 1.79. REVIEW OF SYSTEMS: CONSTITUTIONAL: No fever, no malaise, no fatigue. HEENT: No recent visual problems or hearing problems. Denied any sore throat. CARDIOVASCULAR: No chest pain, orthopnea, PND, no palpitations, no syncope. PULMONARY: No shortness of breath, no cough, no hemoptysis. GASTROINTESTINAL: No diarrhea, no nausea, no vomiting, no abdominal pain. Reporting black tarry stool NEUROLOGICAL: No headaches, no weakness, no numbness. Diffuse weakness PHYSICAL EXAMINATION: GENERAL: The patient is alert and oriented x3, not in any acute distress. Well developed, well nourished. Pale. HEENT: Pupils are round and equally reacting to light. EOMI. No scleral icterus. No conjunctival pallor. Normocephalic, atraumatic. No pharyngeal erythema. No thyromegaly. CARDIOVASCULAR: S1 and S2 present. No murmurs, rubs, or gallops. PULMONARY: Chest is clear to auscultation, no wheezing or crackles. Diminished ABDOMEN: Soft, nontender, nondistended, normoactive bowel sounds. No palpable o rganomegaly. MUSCULOSKELETAL: No joint swelling or deformity. EXTREMITIES: No cyanosis, clubbing, or pedal edema. NEUROLOGICAL: Gross neurological examination did not reveal any focal deficits. Generalized weakness SKIN: No rashes. Assessment Acute GI bleed acute blood loss anemia EGD revealing antral gastritis Concern for cecal wall mass; family history of colon cancer Hypotension and hypotensive shock requiring vasopressor support YOBANI from cardiorenal syndrome worsened with volume depletion Hypovolemic hyponatremia Acute heart failure exacerbation, systolic dysfunction Hyperkalemia from YOBANI Chronic kidney disease stage IIIb Triple vessel coronary artery disease, not a candidate for CABG, medically managed Pulmonary hypertension Troponin elevation from NSTEMI Isn-litrmei-acfymxrhe diabetes mellitus Hyperlipidemia Hypertension Hx Normocytic anemia Iron deficiency anemia Ischemic cardiomyopathy, EF 25-30% GI prophylaxis : protonix DVT prophylaxis: Begin subcu heparin Full Code Plan Status post 2 units of PRBC, hemoglobin stabilized and will continue with H&H monitoring General surgery consultation Pending cecal biopsy reports Patient has been started on aranesp Continue to transfuse blood for hemoglobin less than 7 Strict intake and output monitoring Patient has been resumed on IV lasix twice daily Continue oral metoprolol for now and cardiology to further adjust medications as warranted. Accuchecks ACHS and sliding scale insulin ordered Continue Lantus with increased dose up to 30 units daily Continue flonase and claritin Monitor renal function He is being followed closely by cardiology, nephrology, pulmonary intensive. The impression and plan of care has been dictated by Jo Harden, Nurse Practitioner as directed. Dr. Rani MD I have performed a history and physical examination and medical decision making of this patient, discussed the same with the dictator, and agree with the dictators assessment and plan as written, documented as a scribe. Based on total visit time, I have performed more than 50% of this visit. Objective - Vital Signs Vital signs: Vital Signs Temp 98.6 F 05/06/25 20:00 Pulse 87 05/06/25 20:00 Resp 19 05/06/25 20:00 BP 122/62 05/06/25 20:00 Pulse Ox 97 05/06/25 20:00 FiO2 Intake & Output 05/06/25 05/06/25 05/07/25 06:59 18:59 06:59 Intake Total 200 400 450 Output Total 1050 1050 500 Balance -850 -650 -50 Weight 115 kg 115 kg Intake: Oral 200 400 450 Output: Urine 1050 1050 500 Other: Voiding Method Toilet Toilet Toilet # Voids 1 - Labs CBC & Chem 7: 05/06/25 05:04 05/06/25 05:04 Labs: Abnormal Lab Results - Last 24 Hours (Table) 05/06/25 05/06/25 05/06/25 Range/Units 05:04 05:04 06:48 RBC 3.43 L (4.40-5.60) 10*6/uL Hgb 9.8 L (13.0-17.0) g/dL Hct 31.1 L (39.6-50.0) % MCHC 31.5 L (32.0-37.0) g/dL MPV 8.6 L (9.5-12.2) fL Basophils # 0.13 H (0.00-0.10) 10*3/uL Sodium 136 L (137-145) mmol/L BUN 30 H (9-20) mg/dL Creatinine 1.79 H (0.66-1.25) mg/dL Glucose 183 H (74-99) mg/dL POC Glucose (mg/dL) 206 H (70-110) mg/dL 05/06/25 05/06/25 05/06/25 Range/Units 11:23 16:01 20:45 RBC (4.40-5.60) 10*6/uL Hgb (13.0-17.0) g/dL Hct (39.6-50.0) % MCHC (32.0-37.0) g/dL MPV (9.5-12.2) fL Basophils # (0.00-0.10) 10*3/uL Sodium (137-145) mmol/L BUN (9-20) mg/dL Creatinine (0.66-1.25) mg/dL Glucose (74-99) mg/dL POC Glucose (mg/dL) 269 H 153 H 231 H (70-110) mg/dL Assessment and Plan Time with Patient: Less than 30
[2025-05-07 06:39] LABS: Glucose,Whole Blood 91 mg/dL (70-110)
[2025-05-07 07:08] LABS: Basophils % (A) 1.6 %; Eosinophils # (A) 0.32 10*3/uL (0.04-0.35); Eosinophils % (A) 5.3 %; HCT 31.5 % (39.6-50.0); HGB 9.7 g/dL (13.0-17.0); Lymphocytes # (A) 1.39 10*3/uL (0.90-5.00); Lymphocytes % (A) 22.8 %; MCH 28.1 pg (27.0-32.0); MCHC 30.8 g/dL (32.0-37.0); MCV 91.3 fL (80.0-97.0); Mean Platelet Volume 8.1 fL (9.5-12.2); Monocytes # (A) 0.52 10*3/uL (0.20-1.00); Monocytes % (A) 8.5 %; Neutrophils # (A) 3.75 10*3/uL (1.80-7.70); Neutrophils % (A) 61.6 %; Platelet Count 356 10*3/uL (140-440); RBC 3.45 10*6/uL (4.40-5.60); RDW 16.6 % (11.5-14.5); WBC 6.09 10*3/uL (4.50-10.00)
[2025-05-07 07:25] LABS: African American GFR (CKD) 41 (>60 ml/min/1.73 sqM); Anion Gap 7 mmol/L; Blood Urea Nitrogen 27 mg/dL (9-20); Calcium 9.2 mg/dL (8.4-10.2); Carbon Dioxide 33 mmol/L (22-30); Chloride 98 mmol/L (98-107); Glucose 84 mg/dL (74-99); Non-African American GFR(CKD) 35 (>60 ml/min/1.73 sqM); Sodium 138 mmol/L (137-145)
[2025-05-07 08:45] VITALS: RESP 14
--- NOTE | 2025-05-07 08:56 | P.PN ---
Subjective Progress Note Date: 05/07/25 The patient is a pleasant 70-year-old gentleman who was admitted to the hospital with non-STEMI and underwent a heart catheterization which revealed severe triple-vessel CAD and cardiomyopathy as well noted on the echocardiogram. He was deemed to be not a candidate for CABG and he was treated medically. A LifeVest was placed. He was seen and evaluated this morning. He is asymptomatic and hemodynamically stable. The patient would like to be discharged home. The physical examination is remarkable for regular rhythm with a soft systolic murmur and clear breathing sounds bilaterally and no edema was noted in the lower extremities ASSESSMENT: Non-STEMI Acute on chronic heart failure with reduced EF, 25 to 30% Triple-vessel coronary artery disease, not a candidate for CABG, treated medically Acute kidney injury, followed by nephrology Chronic kidney disease stage IIIb Cecal mass scheduled for colonoscopy on Saturday Acute blood loss anemia status posttransfusion 2 units of packed RBCs Hypotension requiring vasopressors Ischemic cardiomyopathy Moderate pulmonary hypertension Hypertension Hyperlipidemia Diabetes Obesity: BMI 34.6 PLAN: Continue the current medical regimen Continue LifeVest The patient is stable to be discharged from the cardiovascular standpoint of at this point Objective - Vital Signs Vital signs: Vital Signs Temp 98.4 F 05/07/25 08:00 Pulse 84 05/07/25 08:00 Resp 14 05/07/25 08:00 BP 120/76 05/07/25 08:00 Pulse Ox 96 05/07/25 08:00 FiO2 Intake & Output 05/06/25 05/07/25 05/07/25 18:59 06:59 18:59 Intake Total 400 750 Output Total 1050 1500 Balance -650 -750 Weight 115 kg 120.2 kg Intake: Oral 400 750 Output: Urine 1050 1500 Other: Voiding Method Toilet Toilet - Labs CBC & Chem 7: 05/07/25 06:33 05/07/25 06:33 Labs: Abnormal Lab Results - Last 24 Hours (Table) 05/06/25 05/06/25 05/06/25 Range/Units 11:23 16:01 20:45 RBC (4.40-5.60) 10*6/uL Hgb (13.0-17.0) g/dL Hct (39.6-50.0) % MCHC (32.0-37.0) g/dL MPV (9.5-12.2) fL Carbon Dioxide (22-30) mmol/L BUN (9-20) mg/dL Creatinine (0.66-1.25) mg/dL POC Glucose (mg/dL) 269 H 153 H 231 H (70-110) mg/dL 05/07/25 05/07/25 Range/Units 06:33 06:33 RBC 3.45 L (4.40-5.60) 10*6/uL Hgb 9.7 L (13.0-17.0) g/dL Hct 31.5 L (39.6-50.0) % MCHC 30.8 L (32.0-37.0) g/dL MPV 8.1 L (9.5-12.2) fL Carbon Dioxide 33 H (22-30) mmol/L BUN 27 H (9-20) mg/dL Creatinine 1.90 H (0.66-1.25) mg/dL POC Glucose (mg/dL) (70-110) mg/dL
[2025-05-07 10:30] LABS: Glucose,Whole Blood 212 mg/dL (70-110)
[2025-05-07 11:30] LABS: Glucose,Whole Blood 232 mg/dL (70-110)
[2025-05-07 12:06] VITALS: BP 118/74; PULSE 77; TEMP 98.2
--- NOTE | 2025-05-07 13:09 | P.PN ---
Subjective Progress Note Date: 05/07/25 SURGICAL PROGRESS NOTE CHIEF COMPLAINT: Cecal mass HISTORY OF PRESENT ILLNESS: Patient is currently in the ICU as overflow. He is status post EGD and colonoscopy with results reporting antral gastritis, rectal polyp and cecal biopsy. There was no obvious of the mass in the cecum. CEA is normal. Pathology results show gastritis and no evidence of malignancy. Patient denies any abdominal pain. No bowel movements. No bleeding. Tolerating diet. Hgb 9.7 patient is scheduled for discharge today PHYSICAL EXAM: VITAL SIGNS: Reviewed. GENERAL: Well-developed in no acute distress. ABDOMEN: Soft. Nondistended. Nontender. NEUROLOGIC: Alert and oriented. Cranial nerves II through XII grossly intact. ASSESSMENT: 1. Cecal mass noted on CT. No evidence of cecal mass on colonoscopy. CEA lev el normal. No malignancy noted on pathology 2. Status post EGD reporting antral gastritis, rectal polyp and cecal biopsy obtained 3. Acute blood loss anemia PLAN: -Patient can be discharged with surgical standpoint - Continue regular diet Physician Colorectal Surgeon note has been reviewed by physician. Signing provider agrees with the documented findings, assessment, and plan of care. Objective - Vital Signs Vital signs: Vital Signs Temp 98.2 F 05/07/25 12:00 Pulse 77 05/07/25 12:00 Resp 14 05/07/25 12:00 BP 118/74 05/07/25 12:00 Pulse Ox 98 05/07/25 12:00 FiO2 Intake & Output 05/06/25 05/07/25 05/07/25 18:59 06:59 18:59 Intake Total 400 750 Output Total 1050 1500 Balance -650 -750 Weight 115 kg 120.2 kg Intake: Oral 400 750 Output: Urine 1050 1500 Other: Voiding Method Toilet Toilet Toilet - Labs CBC & Chem 7: 05/07/25 06:33 05/07/25 06:33 Labs: Abnormal Lab Results - Last 24 Hours (Table) 05/06/25 05/06/25 05/07/25 Range/Units 16:01 20:45 06:33 RBC 3.45 L (4.40-5.60) 10*6/uL Hgb 9.7 L (13.0-17.0) g/dL Hct 31.5 L (39.6-50.0) % MCHC 30.8 L (32.0-37.0) g/dL MPV 8.1 L (9.5-12.2) fL Carbon Dioxide (22-30) mmol/L BUN (9-20) mg/dL Creatinine (0.66-1.25) mg/dL POC Glucose (mg/dL) 153 H 231 H (70-110) mg/dL 05/07/25 05/07/25 05/07/25 Range/Units 06:33 10:29 11:29 RBC (4.40-5.60) 10*6/uL Hgb (13.0-17.0) g/dL Hct (39.6-50.0) % MCHC (32.0-37.0) g/dL MPV (9.5-12.2) fL Carbon Dioxide 33 H (22-30) mmol/L BUN 27 H (9-20) mg/dL Creatinine 1.90 H (0.66-1.25) mg/dL POC Glucose (mg/dL) 212 H 232 H (70-110) mg/dL
--- NOTE | 2025-05-07 17:23 | P.PN ---
Subjective Patient is seen for follow-up for acute kidney injury and chronic kidney disease. Shortness of breath has improved Maintained on IV Lasix Tolerating oral intake Renal function has improved with serum creatinine down to 1.7. Objective - Vital Signs Vital signs: Vital Signs Temp 98.2 F 05/07/25 12:00 Pulse 77 05/07/25 12:00 Resp 14 05/07/25 12:00 BP 118/74 05/07/25 12:00 Pulse Ox 98 05/07/25 12:00 FiO2 Intake & Output 05/06/25 05/07/25 05/07/25 18:59 06:59 18:59 Intake Total 400 750 Output Total 1050 1500 Balance -650 -750 Weight 115 kg 120.2 kg Intake: Oral 400 750 Output: Urine 1050 1500 Other: Voiding Method Toilet Toilet Toilet - Exam Patient is awake, comfortable, no acute distress Examination of the heart S1 and S2 Examination of the lungs bilateral breath sounds are heard Abdomen is soft nontender Examination of lower extremities shows 1+ edema, both legs are wrapped M[employer]UARY OPERATIONS MANAGER exam grossly intact - Labs CBC & Chem 7: 05/07/25 06:33 05/07/25 06:33 Labs: Abnormal Lab Results - Last 24 Hours (Table) 05/06/25 05/07/25 05/07/25 Range/Units 20:45 06:33 06:33 RBC 3.45 L (4.40-5.60) 10*6/uL Hgb 9.7 L (13.0-17.0) g/dL Hct 31.5 L (39.6-50.0) % MCHC 30.8 L (32.0-37.0) g/dL MPV 8.1 L (9.5-12.2) fL Carbon Dioxide 33 H (22-30) mmol/L BUN 27 H (9-20) mg/dL Creatinine 1.90 H (0.66-1.25) mg/dL POC Glucose (mg/dL) 231 H (70-110) mg/dL 05/07/25 05/07/25 Range/Units 10:29 11:29 RBC (4.40-5.60) 10*6/uL Hgb (13.0-17.0) g/dL Hct (39.6-50.0) % MCHC (32.0-37.0) g/dL MPV (9.5-12.2) fL Carbon Dioxide (22-30) mmol/L BUN (9-20) mg/dL Creatinine (0.66-1.25) mg/dL POC Glucose (mg/dL) 212 H 232 H (70-110) mg/dL Assessment and Plan Assessment: 1. Chronic kidney disease stage IIIb with creatinine 1.7-1.8 this admission - peaked at 2.9, decreased to 1.7. Renal function worsened from acute blood loss anemia. Creatinine in March 2025 was near 2.2. Etiology is cardiorenal syndrome and diabetic kidney disease. No hydronephrosis noted on CT. 2. Chronic systolic CHF ejection fraction of 25 to 30% with moderate pulmonary hypertension. 3. Volume overload. 4. Diabetes mellitus. 5. Hypokalemia from diuresis. Replaced. Improved. Now potassium slightly on the higher side due to component of GI bleed. 6. Acute blood loss anemia status post blood transfusions. Non diagnostic for GI hemorrhage. No mass noted on colonoscopy. Plan: Continue with IV Lasix Follow-up on labs from today
--- NOTE | 2025-05-09 23:24 | P.DS ---
Providers Date of admission: 04/29/25 08:06 Expected date of discharge: 05/07/25 Attending physician: Phuc Paniagua Consults: 04/28/25 20:26 Consult Physician Urgent Consulting Provider: [facility] Consult Reason/Comments: NSTEMI Do you want consulting provider notified?: Yes 04/29/25 09:01 Consult Physician Routine Consulting Provider: Adriano Napoles Consult Reason/Comments: YOBANI/CKD Do you want consulting provider notified?: Yes 04/30/25 13:56 Consult Physician Urgent Consulting Provider: Mansoor Coleman Consult Reason/Comments: ICU management Do you want consulting provider notified?: Already Contacted 04/30/25 19:49 Consult Physician Urgent Consulting Provider: Chuck Flores Consult Reason/Comments: cecal mass, gi bleed, need colonoscopy, abn ct scan Do you want consulting provider notified?: Yes Primary care physician: Devonte Mccabe [facility] Course: Final diagnosis Acute GI bleed acute blood loss anemia EGD revealing antral gastritis Concern for cecal wall mass; family history of colon cancer Hypotension and hypotensive shock requiring vasopressor support YOBANI from cardiorenal syndrome worsened with volume depletion, improving Hypovolemic hyponatremia Acute heart failure exacerbation, systolic dysfunction Hyperkalemia from YOBANI Chronic kidney disease stage IIIb Triple vessel coronary artery disease, not a candidate for CABG, medically managed Pulmonary hypertension Troponin elevation from NSTEMI Lkg-[id number] diabetes mellitus Hyperlipidemia Hypertension Hx Normocytic anemia Iron deficiency anemia Ischemic cardiomyopathy, EF 25-30% GI prophylaxis : protonix DVT prophylaxis: Begin subcu heparin Full Code Discharge disposition Patient is being discharged in a stable condition with guarded prognosis to [facility]. Patient will follow-up with Dr. Mccabe in the outpatient setting upon discharge. Patient is to continue with current medications and close outpatient follow-up with cardiology and GI as scheduled. Total time taken is greater than 35 minutes. Hospital course This is a 70-year-old male with medical history significant for diabetes mellitus, fibromyalgia, hyperlipidemia, hypertension, prior NSTEMI with LifeVest. Patient was recently discharged from the hospital on April 01; he was admitted for acute heart failure. At that time his ejection fraction was 62%. He had a cardiac catheterization completed at [facility] about 7 months ago with findings of triple vessel disease; was felt to not be a candidate for stenting or coronary bypass he was discharged with the recommendations of id dical management. His repeat echocardiogram his prior admission reveals an EF of 25 to 30%. patient received a LifeVest prior to his discharge on April 01. He returns to the hospital with complaints of shortness of breath which has been worsening over the last month since his prior admission. He states he is unable to lay down to sleep and has not been tolerating much activity. He was unable to obtain his new medications from his hospital stay last month due to cost and insurance issues; which he was able to figure out. He had just started taking the recommended medications including diuretics and his SGLT2 inhibitor. Once he began taking his Lasix pill he does report that his lower extremity swelling has improved. Chest x-ray reveals small bilateral pleural effusions. INR 2.0, BUN of 37 creatinine of 1.74. Hemoglobin A1c of 6.7. Patient does have significant troponin elevation of 2.850, 3.610, 2.660. ProBNP is elevated at 6310. He received a dose of IV lasix on admission; and was admitted to the hospital with cardiology consultation. 04/30/2025 Patient evaluated today in follow up on the cardiac unit. He has become hypotensive and symptomatic today with blood pressures in the 70s systolic. He has received a 500 mL fluid bolus with an additional 500 mLs ordered. Lasix was decreased to IV 40 mg Q12h yesterday and than the lasix has been discontinued today as well as losartan. Sodium level of 135, potassium 5.3, BUN 54, creatinine 2.65. Magnesium 2.0. UA non infectious. Has not had accurate I and O. Chest xray showing CHF and trace pleural effusions. Patient was ateamed. 05/01/2025 Patient's hemoglobin did come back yesterday afternoon at 6.5 as well as a white blood cell count of 10.16. He received fluid bolus and was moved to the intensive care unit he also was ordered to have 2 units of packed red blood cells. Patient did have multiple episodes of black tarry stool and does report that he has been having black stools at home. Abdominal pelvis CT was completed with findings of nondiagnostic exam for GI hemorrhage, there is mild inflammation changes around the gallbladder in the right upper quadrant correlate for further quadrant pathology such as cholecystitis. A cecal wall mass is possibly present in the base of the appendix measuring 21 x 15 mm. Colonoscopy recommended for with direct visualization. Third portion duodenal diverticulum. Normal appendix. Moderate atherosclerosis of the arterial vasculature. A small right and trace left pleural effusion. Hemoglobin today is up to 9.0 and 8.6 respectively. General surgery was consulted and planning for colonoscopy on Saturday. IV heparin has been discontinued at this time as well as IV Lasix. His current labs today reveal a sodium level of 133 potassium 5.3, BUN of 59 creatinine of 2.94. He is evaluated today in the intensive care unit continues to report mild dizziness. He is currently being weaned off pressor support. 05/02/2025 Patient remains the intensive care unit. Hemoglobin today remained stable at 9.2. He continues to have black stools. General surgery has evaluated the patient and patient will undergo a colonoscopy tomorrow for further evaluation of the GI bleed and cecal wall mass. Chest x-ray today reveals worsening CHF with increasing pulmonary edema/vascular congestion. Similar small bilateral pleural effusions and cardiomegaly. Additional blood work today reveals a sodium level of 132 potassium 5.2, BUN of 58 creatinine of 2.96. He is currently on a small dose of vasopressor. He is receiving normal saline at 25 mL/h. And blood pressure is remaining stable in the 120s to 130s systolic. 05/03/2025 Patient remains in the intensive care unit. He is currently pending colonoscopy. His stool has cleared up with the bowel prep, no reports of black tarry stools overnight. His white blood cell count is improved and down to 8.82. His hemoglobin is stable at 9.2. His blood work today is also improving with a sodium level of 136 potassium 4.2, BUN of 45 creatinine of 2.47. He is currently pending colonoscopy. He did have a troponin elevation on admission and again troponins were repeated and elevated at 2.660 and 2.030. He was given a dose of IV Lasix yesterday. He is currently weaned off of vasopressor support. 05/04/2025 Patient is evaluated in follow up in the intensive care unit. He is status post EGD colonoscopy with finding of antral gastritis and cecal biopsy was performed. Hemoglobin stable at 9.2. He is having creasing shortness of breath and will be resumed on IV Lasix today. Chest x-ray revealing bilateral infiltrates. His creatinine is improved at 2.05. 05/05/2025 Patient is evaluated in follow-up in the intensive care unit. He is currently sitting up in the chair. He is reporting shortness of breath not significantly improved since yesterday and has been having a difficult time lying flat. He is been unable to sleep because of this. He is already on a dose of Restoril at at bedtime. He continues on IV Lasix 40 mg twice daily. He states that he feels like he is not urinating a significant amount as he was the last time he was on IV Lasix. His renal function has improved with diuresis his BUN today is today 4 and his creatinine is 1.79. Hemoglobin remained stable at 9.1 he is not having any evidence of GI bleeding. 05/06/2025 Patient evaluated today in follow up in the ICU. Reports feeling less short of breath than yesterday. Lower extremity edema improving and continues with MOOK wrap compression bilaterally. He is being diuresed with IV lasix. He has not had any further reports of black tarry stool. Hgb stable at 9.8, sodium 136, BUN 30, creatinine 1.79. 05/07/2025 Patient is seen in follow-up maintained on IV Lasix per cardiology and is being transition to oral and patient has been cleared by consultations for discharge. Bloody bowel movements noted and hemoglobin remains low. Patient would like to go home and have outpatient follow-up. Please refer to other consultation notes for further HPI. Currently no reports of chest pain, shortness of breath, or palpitations. Patient has been tolerating diet with no reported nausea or vomiting. PHYSICAL EXAMINATION: GENERAL: The patient is alert and oriented x3, not in any acute distress. Well developed, well nourished. Pale. HEENT: Pupils are round and equally reacting to light. EOMI. No scleral icterus. No conjunctival pallor. Normocephalic, atraumatic. No pharyngeal erythema. No thyromegaly. CARDIOVASCULAR: S1 and S2 present. No murmurs, rubs, or gallops. PULMONARY: Chest is clear to auscultation, no wheezing or crackles. Diminished ABDOMEN: Soft, nontender, nondistended, normoactive bowel sounds. No palpable organomegaly. MUSCULOSKELETAL: No joint swelling or deformity. EXTREMITIES: No cyanosis, clubbing, or pedal edema. NEUROLOGICAL: Gross neurological examination did not reveal any focal deficits. Generalized weakness SKIN: No rashes. Please refer to medication reconciliation sheet for further with the medications The impression and plan of care has been dictated by Keely Hanley, Nurse Practitioner as directed. Dr. Rani MD I have performed a history and examination and MDM of this patient, discussed the same with the dictator, and agree with the dictator's assessment and plan as written ,documented as a scribe. Based on total visit time, I have performed more than 50% of the visit. Patient Condition at Discharge: Good Plan - Discharge Summary New Discharge Prescriptions: New Darbepoetin Poli [Aranesp] 40 mcg SQ Q7D 30 Days #4 each Loratadine [Claritin] 5 mg PO DAILY #30 tab Fluticasone Nasal [place] [Flonase Nasal [place]] 2 spray EA NOSTRIL DAILY #5 ml Ranolazine [Ranexa] 500 mg PO Q12HR #60 tab Metoprolol Succinate (ER) [Toprol XL] 25 mg PO DAILY #30 tab hydrALAZINE HCL [Apresoline] 25 mg PO TID #90 tab Pantoprazole [Protonix] 40 mg PO AC-BRKFST #30 tab Continue Pregabalin [Lyrica] 100 mg PO DAILY Fenofibrate 160 mg PO DAILY glipiZIDE [Glucotrol] 5 mg PO DAILY Ferrous Sulfate [Iron (65 MG Elemental)] 325 mg PO W/LUNCH #90 tab Insulin Glargine,Hum.rec.anlog [Lantus Solostar Pen] 20 units SQ DAILY #0 Furosemide [Lasix] 40 mg PO DAILY HYDROcodone/APAP 7.5-325MG [[place] 7.5-325] 1 tab PO Q8H PRN PRN Reason: Pain Cholecalciferol [Vitamin D3 (25 Mcg = 1000 Iu)] 25 mcg PO DAILY Aspirin 81 mg PO DAILY #90 tab Atorvastatin [Lipitor] 40 mg PO HS #90 tab Ascorbic Acid [Vitamin C] 500 mg PO DAILY #90 tab Discontinued allopurinoL [Zyloprim] 300 mg PO DAILY Metoprolol Succinate [Toprol XL] 50 mg PO DAILY amLODIPine [Norvasc] 10 mg PO DAILY Olmesartan Medoxomil [Benicar] 40 mg PO DAILY Dapagliflozin Propanediol [Farxiga] 10 mg PO DAILY #30 tab Discharge Medication List Pregabalin [Lyrica] 100 mg PO DAILY 04/26/14 [History] Fenofibrate 160 mg PO DAILY 07/24/16 [History] Cholecalciferol [Vitamin D3 (25 Mcg = 1000 Iu)] 25 mcg PO DAILY 03/29/25 [History] Furosemide [Lasix] 40 mg PO DAILY 03/29/25 [History] HYDROcodone/APAP 7.5-325MG [[place] 7.5-325] 1 tab PO Q8H PRN 03/29/25 [History] glipiZIDE [Glucotrol] 5 mg PO DAILY 03/29/25 [History] Ascorbic Acid [Vitamin C] 500 mg PO DAILY #90 tab 04/01/25 [Rx] Aspirin 81 mg PO DAILY #90 tab 04/01/25 [Rx] Atorvastatin [Lipitor] 40 mg PO HS #90 tab 04/01/25 [Rx] Ferrous Sulfate [Iron (65 MG Elemental)] 325 mg PO W/LUNCH #90 tab 04/01/25 [Rx] Insulin Glargine,Hum.rec.anlog [Lantus Solostar Pen] 20 units SQ DAILY #0 04/01/25 [Rx] Darbepoetin Poli [Aranesp] 40 mcg SQ Q7D 30 Days #4 each 05/07/25 [Rx] Fluticasone Nasal [place] [Flonase Nasal [place]] 2 spray EA NOSTRIL DAILY #5 ml 05/07/25 [Rx] Loratadine [Claritin] 5 mg PO DAILY #30 tab 05/07/25 [Rx] Metoprolol Succinate (ER) [Toprol XL] 25 mg PO DAILY #30 tab 05/07/25 [Rx] Pantoprazole [Protonix] 40 mg PO AC-BRKFST #30 tab 05/07/25 [Rx] Ranolazine [Ranexa] 500 mg PO Q12HR #60 tab 05/07/25 [Rx] hydrALAZINE HCL [Apresoline] 25 mg PO TID #90 tab 05/07/25 [Rx] Follow up Appointment(s)/Referral(s): Kalyan Grewal MD [STAFF PHYSICIAN] - 05/14/25 11:00 am Devonte Mccabe MD [Primary Care Provider] - 1-2 days (Call office during bussiness hours to make appointment.) Patient Instructions/Handouts: Heart Attack (DC), Heart Failure (DC), Gastrointestinal Bleeding (DC), Heart Healthy Diet (DC) Activity/Diet/Wound Care/Special Instructions: Activity limited until follow-up Follow-up with primary care provider Follow-up with cardiology outpatient Follow-up with GI outpatient Continue taking medications as prescribed Discharge Disposition: HOME SELF-CARE
== END 2025-05-07 12:54 | disposition home or self-care (01) | DRG 280 ==
LOC: EC 16:50 → 3SCARD 21:00 → OBSVTOIN 04-29 08:06 → 2SICU 04-30 14:08
PROVIDERS: ADMIT Hospitalist; ATTEND Hospitalist
PROC: 30233N1 Transfusion of Nonautologous Red Blood Cells into Peripheral Vein, Percutaneous Approach (ICD-10-PCS; 2025-04-30)
PROC: 3E033XZ Introduction of Vasopressor into Peripheral Vein, Percutaneous Approach (ICD-10-PCS; 2025-05-02)
PROC: 0DDH8ZX Extraction of Cecum, Via Natural or Artificial Opening Endoscopic, Diagnostic (ICD-10-PCS; 2025-05-03)
PROC: 0DB78ZX Excision of Stomach, Pylorus, Via Natural or Artificial Opening Endoscopic, Diagnostic (ICD-10-PCS; principal; 2025-05-03 07:30)
PROC: 0DBH8ZX Excision of Cecum, Via Natural or Artificial Opening Endoscopic, Diagnostic (ICD-10-PCS; 2025-05-03 07:30)
DX: I21.4 Non-ST elevation (NSTEMI) myocardial infarction (principal); I50.23 Acute on chronic systolic (congestive) heart failure; K29.71 Gastritis, unspecified, with bleeding; J96.01 Acute respiratory failure with hypoxia; R57.8 Other shock; E87.1 Hypo-osmolality and hyponatremia; D62 Acute posthemorrhagic anemia; I13.0 Hypertensive heart and chronic kidney disease with heart failure and stage 1 through stage 4 chronic kidney disease, or unspecified chronic kidney disease; E11.22 Type 2 diabetes mellitus with diabetic chronic kidney disease; I27.20 Pulmonary hypertension, unspecified; N18.32 Chronic kidney disease, stage 3b; Z68.34 Body mass index [BMI] 34.0-34.9, adult; F32.A Depression, unspecified; D50.9 Iron deficiency anemia, unspecified; N17.9 Acute kidney failure, unspecified; Z79.4 Long term (current) use of insulin; Z11.52 Encounter for screening for COVID-19; T50.2X5A Adverse effect of carbonic-anhydrase inhibitors, benzothiadiazides and other diuretics, initial encounter; K57.30 Diverticulosis of large intestine without perforation or abscess without bleeding; K62.1 Rectal polyp; I25.10 Atherosclerotic heart disease of native coronary artery without angina pectoris; I25.5 Ischemic cardiomyopathy; E78.5 Hyperlipidemia, unspecified; E66.9 Obesity, unspecified; E87.6 Hypokalemia; E87.5 Hyperkalemia; I95.9 Hypotension, unspecified; M10.9 Gout, unspecified; Z68.38 Body mass index [BMI] 38.0-38.9, adult; E86.1 Hypovolemia; Z79.84 Long term (current) use of oral hypoglycemic drugs; K57.10 Diverticulosis of small intestine without perforation or abscess without bleeding; I25.2 Old myocardial infarction; M79.7 Fibromyalgia; Z79.01 Long term (current) use of anticoagulants; Z79.82 Long term (current) use of aspirin; Z79.899 Other long term (current) drug therapy; X58.XXXA Exposure to other specified factors, initial encounter; G43.909 Migraine, unspecified, not intractable, without status migrainosus
CPT/HCPCS: 36415; 43239; 45380; 71045; 71046; 74176; 80048; 80053; 81001; 82272; 82378; 83036; 83735; 83880; 84484; 85025; 85384; 85610; 85730; 86850; 86900; 86901; 86920; 87636; 88305; 88342; 93005; 93306; 94640; 96365; 99285